=== PATIENT | female | born 1965 ===

== ENCOUNTER 2020-03-27 06:00 | Day surgery (SDC) | payer MEDICAID, SELFPAY ==
[2020-03-23 19:26] VITALS: BMI 26.4
[2020-03-27 06:25] VITALS: BP 149/68; PULSE 77; RESP 16; TEMP 36.5; O2SAT 99
[2020-03-27 06:37] LABS: Glucose, Whole Blood 125 mg/dL (60-115)
[2020-03-27] MEDS: levoFLOXacin/D5W 500 MG/100 ML PIGGYBACK 100 MG IV (06:40)
[2020-03-27] MEDS: Gentamicin Sulfate/NaCl 80 MG/100 ML PIGGYBACK 100 MG IV (06:41)
--- NOTE | 2020-03-27 07:05 | P.CONAN_ITS ---
[facility] Past Medical History Medical History Depression H/O ventral hernia HTN (hypertension) Kidney calculi Tietze syndrome Surgical History Surgical History H/O: hysterectomy Social History Social History Smoking Status: Never smoker Have you been hit, kicked, punched, or otherwise hurt by someone within the past year? If so, by whom?: No Advance Directives: Yes Advance Directives Information Provided: Yes Advance Directives on File: No Meds Allergies Allergy/AdvReac Type Severity Reaction Status Date / Time trazodone [TRAZODONE] Allergy Intermediate PROLONGED Unverified 03/01/20 15:08 QT INTERVAL (PER H&P) Home Medications Medication Instructions Recorded Confirmed Type albuterol sulfate 03/27/20 History albuterol sulfate [ProAir HFA] 2 puff INHALATION 6XD 03/27/20 03/27/20 History amlodipine 2.5 mg PO DAILY 03/27/20 03/27/20 History atorvastatin 40 mg PO DAILY 03/27/20 03/27/20 History buspirone mg 03/27/20 History ibuprofen 400 mg PO Q6H PRN 03/27/20 03/27/20 History losartan-hydrochlorothiazide 1 tab PO DAILY 03/27/20 03/27/20 History metformin 500 mg PO QPM 03/27/20 03/27/20 History naproxen [Naprosyn] 500 mg PO BID PRN 03/27/20 03/27/20 History omeprazole 40 mg PO DAILY 03/27/20 03/27/20 History tramadol 50 mg PO DAILY 03/27/20 03/27/20 History Exam Exam Date and Time: March 27, 2020 07 Height,Weight and Vital Signs: Height 5 ft 5 in Weight 72.121 kg Last Vital Signs Temp 97.7 F 03/27/20 06:25 Pulse 77 03/27/20 06:25 Resp 16 03/27/20 06:25 BP 149/68 H 03/27/20 06:25 Pulse Ox 99 03/27/20 06:25 Pertinent Lab Results Pertinent Lab Results: Laboratory Tests 03/27/20 06:33 POC Glucose 125 H Airway Mallampati Class: II TM Dist: >3cm Neck ROM: Full Loose/Missing/Broken Teeth: No Assessment and Plan Assessment Anesthesia Assessment: Anesthesia Plan Discussed and Chart Reviewed Final Anesthetic Review NPO: Yes ASA Class: II Final Preanesthetic Review: No Changes in Pt Med Stat, Meds/Allgs Chart Reviewed, Consent Obtained/Reviewed and Anes Risks/Benef Reviewed Patient Risk: Low Procedure Risk: Low Assessment/Block/Sedation in SS: Assess/Block/Sedation-SS Anesthetic Plan Anesthetic Plan: MAC: Disposition: Standard PACU
--- NOTE | 2020-03-27 07:37 | MHC.SHP ---
Pre-Procedural Eval Section A The patient is an INPATIENT: No Changes since office visit: Yes New Medical Problems The History & Physical has been completed within 30 days and I have reviewed it.: Yes Section B Chief Complaint: Hematuria Allergies: Allergies Allergy/AdvReac Type Severity Reaction Status Date / Time trazodone [TRAZODONE] Allergy Intermediate PROLONGED Unverified 03/01/20 15:08 QT INTERVAL (PER H&P) Plan Diagnosis/Plan: Unchanged Patient has been examined and remains a candidate for the planned procedure
--- NOTE | 2020-03-27 07:47 | OP_ITS ---
[facility] OPERATIVE REPORT PATIENT NAME: Cynthia Pereyra DATE OF : 1965 LOCATION: DATE OF SERVICE: [facility] #: [id number] PCP: OPERATIVE REPORT Page 1 SURGEON: Sherman Rodriguez III, MD PREOPERATIVE DIAGNOSIS: Hematuria. POSTOPERATIVE DIAGNOSIS: Normal cystoscopy. PROCEDURE PERFORMED: ESTIMATED BLOOD LOSS: None. COMPLICATIONS: None. ANESTHESIA: MAC. ASSISTANTS: SPECIMENS: SPECIMEN: None. DESCRIPTION OF PROCEDURE: The patient was taken to the operating room. After adequate anesthesia was obtained, a time-out was done demonstrating correct patient, correct procedure. Following this, the patient underwent panendoscopy with flexible scope with retroflexion. Both ureteral orifices seen effluxing clear urine. There were no foreign bodies, stones, or mucosal lesions. No sediment. She tolerated the procedure well without complications. MD KIRTI Bales III/LEISA / [id number] ANDREW
--- NOTE | 2020-03-27 07:50 | PM.OP ---
Brief Operative Note Date of procedure: 03/27/20 Pre-op diagnosis: hematuria Post-op diagnosis: other (normal cysto) Procedure: cystocopy Surgeon: Sherman Rodriguez III, MD Anesthesia: MAC Condition: stable Disposition: same day
[2020-03-27 07:51] VITALS: BP 125/66; PULSE 88; RESP 16; TEMP 36.4; O2SAT 95
[2020-03-27 08:06] VITALS: BP 143/80; PULSE 73; RESP 18; TEMP 36.4; O2SAT 98
== END 2020-03-27 08:45 | disposition home or self-care (01) ==
PROVIDERS: PCP Nurse Practitioner Family; Visit Provider Urology
PROC: 0TJB8ZZ Inspection of Bladder, Via Natural or Artificial Opening Endoscopic (ICD-10-PCS; CPT 52000; principal; 2020-03-27 07:30)
DX: R31.9 Hematuria, unspecified (principal); Z87.442 Personal history of urinary calculi; I10 Essential (primary) hypertension; E11.9 Type 2 diabetes mellitus without complications; M94.0 Chondrocostal junction syndrome [Tietze]; Z79.84 Long term (current) use of oral hypoglycemic drugs; Z79.899 Other long term (current) drug therapy; Z88.8 Allergy status to other drugs, medicaments and biological substances
CPT/HCPCS: 52000; 82947; J1580; J1956

== ENCOUNTER 2020-05-22 07:07 | Outpatient (REF) | payer MEDICAID, SELFPAY | END 2020-05-22 07:08 | disposition home or self-care (01) | LOC: HO.LAB 07:07 | PROVIDERS: PCP Family Medicine; Visit Provider Internal Medicine | DX: Z20.828 Contact with and (suspected) exposure to other viral communicable diseases (principal) | CPT/HCPCS: C9803; U0003 ==

== ENCOUNTER 2020-06-18 14:51 | Outpatient (REF) | payer MEDICAID, SELFPAY | END 2020-06-18 14:52 | disposition home or self-care (01) | LOC: HO.LAB 14:51 | PROVIDERS: Visit Provider Internal Medicine | DX: Z20.822 Contact with and (suspected) exposure to COVID-19 (principal) | CPT/HCPCS: 36415; C9803; U0003 ==

== ENCOUNTER 2020-07-02 14:56 | Outpatient (REF) | payer MEDICAID, SELFPAY | END 2020-07-02 14:57 | disposition home or self-care (01) | LOC: HO.LAB 14:56 | PROVIDERS: Visit Provider Internal Medicine | DX: Z20.822 Contact with and (suspected) exposure to COVID-19 (principal) | CPT/HCPCS: 36415; C9803; U0003 ==

== ENCOUNTER 2020-09-13 13:47 | Outpatient (REF) | payer MEDICAID, SELFPAY ==
--- NOTE | ~2020-09-13 | MM_ITS ---
EXAMINATION: MM DIAGNOSTIC DIGITAL BREAST TOMOSYNTHESIS, BILATERAL CLINICAL INFORMATION: Left breast calcifications The lifetime risk of breast cancer based on the Tyrer-Cuzick Model is 5.4%. COMPARISON: Mammography: 01/16/2020 and studies dating back to 10/13/2011. TECHNIQUE: Digital breast tomosynthesis is performed in both the craniocaudal and mediolateral oblique views along with computer-aided detection (CAD). Synthesized 2D images are generated from the tomosynthesis. Spot magnification views of the left breast in craniocaudal and 90 degree mediolateral views also performed. FINDINGS: The breasts are heterogeneously dense, which may obscure small masses (ACR BI-RADS breast composition Category c). There is multiplicity and bilaterality of calcifications which are scattered and grouped and with slow increase in bilateral calcifications over time. The few groupings of calcifications within the upper outer aspect of the left breast do not appear significantly changed from previous study and some of which appear to change from rounded calcifications on craniocaudal view to oval calcifications on 90 degree mediolateral view which may represent some layering of milk of calcium within microcysts. Not all the calcifications however show this appearance. No new abnormal dominant mass is appreciated in either breast. Recommend 1 year follow-up diagnostic mammography. Results are provided to the patient at time of visit by the technologist. MM/MM tomosynthesis diagnostic BI IMPRESSION: There are no significant changes from prior study. ASSESSMENT: BI-RADS 3: Probably Benign. RECOMMENDATION: Diagnostic mammography at time of next annual exam, due in 12 months. This patient's information was entered into a reminder system with a target due date for their next mammogram.
== END 2020-09-13 13:48 | disposition home or self-care (01) ==
LOC: HO.MAMMO 13:47
PROVIDERS: Visit Provider Family Medicine
DX: R92.1 Mammographic calcification found on diagnostic imaging of breast (principal)
CPT/HCPCS: 77062; 77066

== ENCOUNTER 2020-10-02 18:17 | Emergency (ER) | payer MEDICAID, SELFPAY ==
--- NOTE | ~2020-10-02 | XR_ITS ---
EXAMINATION: BILATERAL KNEES CLINICAL INFORMATION: Knee pain COMPARISON: Bilateral knee radiographs 05/20/2016 TECHNIQUE: 4 views each knee FINDINGS: Left: Again seen is some medial compartmental narrowing and some minimal marginal osteophytes. No other significant bone joint or soft tissue abnormality is seen. Probable phlebolith is noted in the left upper calf. Right: There is some minimal medial compartmental narrowing. No other significant abnormality is seen. No fractures or joint effusion. XR/XR knee LT 4V IMPRESSION: Mild degenerative changes both knees with some minimal medial compartmental narrowing. No acute finding.
--- NOTE | ~2020-10-02 | XR_ITS ---
EXAMINATION: BILATERAL KNEES CLINICAL INFORMATION: Knee pain COMPARISON: Bilateral knee radiographs 05/20/2016 TECHNIQUE: 4 views each knee FINDINGS: Left: Again seen is some medial compartmental narrowing and some minimal marginal osteophytes. No other significant bone joint or soft tissue abnormality is seen. Probable phlebolith is noted in the left upper calf. Right: There is some minimal medial compartmental narrowing. No other significant abnormality is seen. No fractures or joint effusion. XR/XR knee RT 4V IMPRESSION: Mild degenerative changes both knees with some minimal medial compartmental narrowing. No acute finding.
[2020-10-02 19:29] VITALS: BP 188/86; PULSE 102; RESP 18; TEMP 37.2; O2SAT 97; BMI 30.2
--- NOTE | 2020-10-02 20:01 | ED_ITS ---
HPI - Extremity Problem General Chief complaint: Extremity Injury, Lower Stated complaint: FOOT PAIN Time Seen by Provider: 10/02/20 18:47 Source: patient Mode of arrival: ambulatory Limitations: no limitations History of Present Illness HPI Narrative: 55 yo female with asthma,HPL, HTN here with a long history of knee pain that has worsened recently due to more walking and feels cracking when she walks Complaint: extremity pain Onset (ago): month(s) Pain Consistency: intermittent Location: left, right and knee Quality: aching Radiation: none Relieving factors: nothing Exacerbating factors: weight bearing and walking Associated symptoms: denies other symptoms Related Data Home Medications Medication Instructions Recorded Confirmed albuterol sulfate 03/27/20 albuterol sulfate [ProAir HFA] 2 puff INHALATION 6XD 03/27/20 03/27/20 amlodipine 2.5 mg PO DAILY 03/27/20 03/27/20 atorvastatin 40 mg PO DAILY 03/27/20 03/27/20 buspirone mg 03/27/20 ibuprofen 400 mg PO Q6H PRN 03/27/20 03/27/20 losartan-hydrochlorothiazide 1 tab PO DAILY 03/27/20 03/27/20 metformin 500 mg PO QPM 03/27/20 03/27/20 naproxen [Naprosyn] 500 mg PO BID PRN 03/27/20 03/27/20 omeprazole 40 mg PO DAILY 03/27/20 03/27/20 tramadol 50 mg PO DAILY 03/27/20 03/27/20 Previous Rx's Medication Instructions Recorded acetaminophen [Tylenol] 650 mg PO Q6H PRN #30 tab 10/02/20 cyclobenzaprine 10 mg PO TID PRN #14 tab 10/02/20 Allergies Allergy/AdvReac Type Severity Reaction Status Date / Time trazodone [TRAZODONE] Allergy Intermediate PROLONGED Unverified 03/01/20 15:08 QT INTERVAL (PER H&P) Review of Systems Review of Systems: Constitutional : No Fever, No Chills ENT/Mouth : No Ear Pain, No Hoarseness, No sore throat Eyes: No Eye Pain, No Swelling, No Redness, No Foreign Body Cardiovascular : No Chest Pain, No SOB Respiratory : No Cough, No Dyspnea Gastrointestinal : No Nausea, No Vomiting, No Diarrhea, No abdominal Pain Genitourinary : No Dysuria, No Hematuria Musculoskeletal : positive joint pain, No Myalgias, No Joint Swelling Skin : No Skin lacerations, No rash Neuro : No Weakness, No Numbness, No Loss of Consciousness, No PMFSH Past Medical History Attestation statement: The following information was validated with the patient. Medical History Depression Diabetes H/O ventral hernia HTN (hypertension) Kidney calculi Tietze syndrome Surgical History H/O: hysterectomy Social History Social History Smoking Status: Never smoker Advance Directives: No Advance Directives Information Provided: Yes Physical Exam Vital Signs: Vital Signs: Last Vital Signs Temp 98.6 F 10/02/20 20:06 Pulse 91 10/02/20 20:06 Resp 16 10/02/20 20:06 BP 161/85 H 10/02/20 20:06 Pulse Ox 98 10/02/20 20:06 Body Mass Index 30.2 Appearance: Alert. Oriented X3. No acute distress. Eyes: Pupils equal, round and reactive to light. ENT: Pharynx normal. Neck: Normal inspection. Neck supple. CVS: Normal heart rate and rhythm. Pulses normal. Respiratory: No respiratory distress. Breath sounds normal. Abdomen: Soft and non-tender. Skin: Skin warm and dry. Normal skin color. Normal skin turgor. Extremities: No lower extremity edema. No calf ttp bilateral ttp both knees - distal NV intact no erythema/rash/warmth/no large joint effusions Neuro: Oriented X 3. No motor deficit. No sensory deficit. MDM - Extremity (Nontraumatic) MDM Narrative Medical decision making narrative: 55 yo female with hx of knee pain worsening recently - distal NV intact, going on for many months, no signs of DVT, no signs of infection - at this time xrays ordered, refer to PCP as well as PO tylenol, DC home with supportive care Discharge Plan Discharge Clinical Impression: Arthritis of knee Patient Disposition: Home, Self-Care Instructions: Arthralgia (ED) Additional Instructions: return to ED for any worsening symptoms or concerns Prescriptions: New acetaminophen [Tylenol] 325 mg tablet 650 mg PO Q6H PRN (Reason: pain) Qty: 30 RF: 0 cyclobenzaprine 10 mg tablet 10 mg PO TID PRN (Reason: muscle spasm) Qty: 14 RF: 0 No Action atorvastatin 40 mg Tablet 40 mg PO DAILY RF: 0 buspirone 5 mg Tablet RF: 0 albuterol sulfate 0.63 mg/3 mL Solution For Nebulization RF: 0 amlodipine 2.5 mg Tablet 2.5 mg PO DAILY RF: 0 omeprazole 40 mg Capsule,Delayed Release(Dr/Ec) 40 mg PO DAILY RF: 0 tramadol 50 mg Tablet 50 mg PO DAILY RF: 0 losartan-hydrochlorothiazide 100-25 mg Tablet 1 tab PO DAILY RF: 0 ibuprofen 400 mg Tablet 400 mg PO Q6H PRN (Reason: Pain) RF: 0 albuterol sulfate [ProAir HFA] 90 mcg/actuation Hfa Aerosol Inhaler 2 puff INHALATION 6XD RF: 0 metformin 500 mg Tablet Extended Release 24 Hr 500 mg PO QPM RF: 0 naproxen [Naprosyn] 500 mg Tablet 500 mg PO BID PRN (Reason: Pain) RF: 0 Referrals: Elba Hirsch MD [Primary Care Provider] - 2 days (if not better, possible r eferral for steroid injection) Print Language: Macedonian
[2020-10-02 20:06] VITALS: BP 161/85; PULSE 91; RESP 16; TEMP 37; O2SAT 98
[2020-10-02] MEDS: Cyclobenzaprine HCl 10 MG TABLET PO (20:09)
[2020-10-02] MEDS: Acetaminophen 325 MG TABLET 650 MG PO (20:10)
== END 2020-10-02 20:36 | disposition home or self-care (01) ==
PROVIDERS: Emergency Provider Emergency Medicine; PCP Family Medicine
DX: M17.0 Bilateral primary osteoarthritis of knee (principal); M25.562 Pain in left knee; M25.561 Pain in right knee; I10 Essential (primary) hypertension; E11.9 Type 2 diabetes mellitus without complications; E78.5 Hyperlipidemia, unspecified; Z79.02 Long term (current) use of antithrombotics/antiplatelets; Z79.899 Other long term (current) drug therapy
CPT/HCPCS: 73564; 99283; 99284

== ENCOUNTER 2020-10-18 09:59 | Outpatient (REF) | payer MEDICAID, SELFPAY ==
[2020-10-18 10:20] LABS: COVID-19 Test Negative (Negative); IDNOW Serial# 55D5AD1C
== END 2020-10-18 10:00 | disposition home or self-care (01) ==
LOC: HO.LAB 09:59
PROVIDERS: Visit Provider Internal Medicine
DX: Z20.822 Contact with and (suspected) exposure to COVID-19 (principal)
CPT/HCPCS: 36415; 87635; C9803

== ENCOUNTER → 2020-11-01 12:13 | Outpatient (BNVA) | payer MEDICAID, SELFPAY | PROVIDERS: PCP Family Medicine; Visit Provider Urology | DX: R31.29 Other microscopic hematuria (principal); R10.2 Pelvic and perineal pain | CPT/HCPCS: 99212 ==

== ENCOUNTER 2020-11-03 12:47 | Emergency (ER) | payer MEDICAID, SELFPAY ==
[2020-11-03 12:52] VITALS: BP 177/85; PULSE 82; RESP 18; TEMP 36.8; O2SAT 98; BMI 29.7
--- NOTE | 2020-11-03 14:56 | ED.FEMALEGU ---
HPI - Female Genitourinary General Chief complaint: Urogenital-Female Stated complaint: vaginal pain Time Seen by Provider: 11/03/20 14:52 Source: patient Mode of arrival: ambulatory Limitations: language barrier History of Present Illness HPI Narrative: 55 y/o female with history of microscopic hematuria, hysterectomy, s/p 5 vaginal births, presenting with acute on chronic pelvic pain and pressure. She states she initially had pain back in March and has a normal cystoscopy in March 2020. She had improvement of pain/pressure and it returned again about 1 month ago. She was seen by Dr. Zeng yesterday who plans to perform another cystoscopy in December. He sent her home with Estrace cream which she did not leaf size picker from the pharmacy yet. She reports increased urinary frequency but no dysuria or hematuria. MD elicited complaint: pelvic pain Onset (ago): month(s) Location of symptoms: external genitalia and pelvis Severity: moderate Female Urogenital Radiation: Non-Radiating Severity scale (1-10): 6 Quality of pain: aching Consistency: intermittent Vaginal discharge: none Vaginal bleeding: none Urinary symptoms: Frequency Exacerbating factors: urination Relieving factors: none Associated symptoms: denies other symptoms Treatment prior to arrival: none Sexual activity: No Patient : No Related Data Home Medications Medication Instructions Recorded Confirmed albuterol sulfate 03/27/20 albuterol sulfate [ProAir HFA] 2 puff INHALATION 6XD 03/27/20 03/27/20 amlodipine 2.5 mg PO DAILY 03/27/20 03/27/20 atorvastatin 40 mg PO DAILY 03/27/20 03/27/20 buspirone mg 03/27/20 ibuprofen 400 mg PO Q6H PRN 03/27/20 03/27/20 losartan-hydrochlorothiazide 1 tab PO DAILY 03/27/20 03/27/20 metformin 500 mg PO QPM 03/27/20 03/27/20 naproxen [Naprosyn] 500 mg PO BID PRN 03/27/20 03/27/20 omeprazole 40 mg PO DAILY 03/27/20 03/27/20 tramadol 50 mg PO DAILY 03/27/20 03/27/20 Previous Rx's Medication Instructions Recorded acetaminophen [Tylenol] 650 mg PO Q6H PRN #30 tab 10/02/20 cyclobenzaprine 10 mg PO TID PRN #14 tab 10/02/20 estradiol See Rx Instructions .ROUTE DAILY 11/01/20 30 Days #42.5 g cefuroxime axetil 250 mg PO BID #10 tab 11/03/20 Allergies Allergy/AdvReac Type Severity Reaction Status Date / Time trazodone [TRAZODONE] Allergy Intermediate PROLONGED Verified 11/03/20 12:56 QT INTERVAL (PER H&P) Review of Systems Review of Systems: Constitutional: No Fever, No Chills Gastrointestinal: No Nausea, No Vomiting, No Diarrhea, No abdominal Pain Genitourinary: No Dysuria, + Urinary Frequency, No Hematuria Musculoskeletal: No joint pain, No Myalgias Skin: No Skin Lesions, No rash Neuro: No Weakness, No Numbness Psych: No Anxiety/Panic, No Depression Heme/Lymph: No Bruising, No Lymphadenopathy Endocrine: No Polyuria, No Polydipsia PMF Past Medical History Attestation statement: The following information was validated with the patient. Medical History Depression Diabetes H/O ventral hernia HTN (hypertension) Kidney calculi Tietze syndrome Surgical History H/O: hysterectomy Social History Social History Smoking Status: Never smoker Advance Directives: No Advance Directives Information Provided: No Patient : No Physical Exam Vital Signs: Vital Signs: Last Vital Signs Temp 97.6 F 11/03/20 16:10 Pulse 80 11/03/20 16:10 Resp 18 11/03/20 16:10 BP 159/79 H 11/03/20 16:10 Pulse Ox 98 11/03/20 16:10 Body Mass Index 29.7 Appearance: Alert. Oriented X3. No acute distress. Eyes: Pupils equal, round and reactive to light. ENT: Pharynx normal. Neck: Normal inspection. Neck supple. CVS: Normal heart rate and rhythm. Pulses normal. Respiratory: No respiratory distress. Breath sounds normal. Abdomen: Soft and nontender. +BS x4 : normal external genitalia. pelvic exam with palpable bladder wall protusion into the vaginal vaula with valsalva maneuver, no external protusion. no vaginal discharge or bleeding. no palpable firm masses. Skin: Skin warm and dry. Normal skin color. Normal skin turgor. No rashes. Extremities: No lower extremity edema. Neuro: Oriented X 3. No motor deficit. No sensory deficit. Course Course Course Narrative: 55 y/o female presenting with acute on chronic pelvic pain and pressure. Exam is consistent with mild cystocele. No protruding structures externally. She has some urinary frequency and urgency which is likely releated to bladder prolapse. UA showing microscopic hematuria which seems to be chronic. Given her worsening dyscomfort and urinary symptoms will treat wtih course of abx. Will refer back to Urology and PUBLIC SERVICE OFFICER who specialized in reconstructive surgery. She may benefit from pessery vs sling procedure. Stable for d/c home. [facility] - Female Genitourinary Lab Data Labs: Lab Results 11/03/20 Range/Units 16:08 Urine Color YELLOW Urine Appearance CLOUDY Urine pH 7.0 (5.0-8.0) Ur Specific Cedar 1.020 (1.005-1.025) Urine Protein NEG (NEG-TRACE) MG/DL Urine Glucose (UA) NEG (NEG) MG/DL Urine Ketones NEG (NEG) MG/DL Urine Blood 2+ H (NEG) Urine Nitrite NEG (NEG) Ur Leukocyte Esterase NEG (NEG) Urine RBC 1-4 (0) /HPF Urine WBC 1-4 (0-4) /HPF Ur Squamous Epith Cells TRACE /LPF Amorphous Sediment 2+ /LPF Urine Bacteria 1+ /LPF Discharge Plan Discharge Clinical Impression: Pelvic pain Patient Disposition: Home, Self-Care Instructions: Cystocele (ED), Pelvic Pain in Women (ED), Interstitial Cystitis (ED) Additional Instructions: Follow up with Dr. Zeng Recommend following up with PUBLIC SERVICE OFFICER specialist: Dr. Jaymie Arora in [facility] who specializes in Urogynecology & Pelvic Reconstructive Surgery Take the prescribed antibiotic for inflammation and irritation of your bladder with possible infection. Prescriptions: New cefuroxime axetil 250 mg tablet 250 mg PO BID Qty: 10 RF: 0 No Action atorvastatin 40 mg Tablet 40 mg PO DAILY RF: 0 buspirone 5 mg Tablet RF: 0 albuterol sulfate 0.63 mg/3 mL Solution For Nebulization RF: 0 amlodipine 2.5 mg Tablet 2.5 mg PO DAILY RF: 0 omeprazole 40 mg Capsule,Delayed Release(Dr/Ec) 40 mg PO DAILY RF: 0 tramadol 50 mg Tablet 50 mg PO DAILY RF: 0 losartan-hydrochlorothiazide 100-25 mg Tablet 1 tab PO DAILY RF: 0 ibuprofen 400 mg Tablet 400 mg PO Q6H PRN (Reason: Pain) RF: 0 albuterol sulfate [ProAir HFA] 90 mcg/actuation Hfa Aerosol Inhaler 2 puff INHALATION 6XD RF: 0 metformin 500 mg Tablet Extended Release 24 Hr 500 mg PO QPM RF: 0 naproxen [Naprosyn] 500 mg Tablet 500 mg PO BID PRN (Reason: Pain) RF: 0 acetaminophen [Tylenol] 325 mg tablet 650 mg PO Q6H PRN (Reason: pain) Qty: 30 RF: 0 cyclobenzaprine 10 mg tablet 10 mg PO TID PRN (Reason: muscle spasm) Qty: 14 RF: 0 estradiol 0.01 % (0.1 mg/gram) cream See Rx Instructions .Route DAILY 30 Days Qty: 42.5 RF: 2 Referrals: Elias Zeng MD [Physician] - 2 days Interventions: ED Discharge Assessment Last Done: 11/03/20 17:35 Discharge Date/Time: 11/03/20 17:36 Print Language: Hungarian
[2020-11-03 16:10] VITALS: BP 159/79; PULSE 80; RESP 18; TEMP 36.4; O2SAT 98
[2020-11-03 16:56] LABS: Glucose Urine UA NEG (NEG); Leukocyte Esterase Urine NEG (NEG); Nitrite Urine NEG (NEG); Urine Blood 2+ (NEG); Urine Ketones NEG (NEG); Urine Protein NEG (NEG-TRACE)
[2020-11-03 17:01] LABS: Appearance Urine CLOUDY; Color Urine YELLOW
[2020-11-03 17:12] LABS: Amorphous Sediment Urine 2+ /LPF; Bacteria Urine 1+ /LPF; Squamous Epithelial Cell Urine TRACE /LPF
== END 2020-11-03 17:36 | disposition home or self-care (01) ==
PROVIDERS: Physician Assistant; Emergency Provider Emergency Medicine; PCP Family Medicine
DX: R10.2 Pelvic and perineal pain (principal); R31.29 Other microscopic hematuria; N81.10 Cystocele, unspecified; E11.9 Type 2 diabetes mellitus without complications; I10 Essential (primary) hypertension; Z87.442 Personal history of urinary calculi
CPT/HCPCS: 81001; 81003; 99283

== ENCOUNTER 2020-11-13 14:36 | Outpatient (REF) | payer MEDICAID, SELFPAY ==
--- NOTE | ~2020-11-13 | CT_ITS ---
EXAMINATION: CT CHEST WITHOUT CONTRAST CLINICAL INFORMATION: Right lower lobe pulmonary nodule COMPARISON: Previous chest CT October 2019 and lung windows from abdominal pelvic CT scan February 2020 TECHNIQUE: Multidetector volumetric CT imaging of the chest was done. Axial MIP volume rendering provided. Sagittal and coronal reformatted images were obtained. This CT examination was performed using dose optimization techniques as appropriate, variously including the following: *Automated exposure control *Adjustment of mA and/or kV according to patient size (this includes techniques or standardized protocols for targeted exams where dose is matched to indication/reason for exam; i.e. extremities or head) *Use of iterative reconstruction technique DLP: 177 mGy-cm FINDINGS: LUNGS: Exam is limited due to artifact from respiratory motion. There are clustered small groundglass attenuation nodules in the superior segment of the right lower lobe. Largest area measures 4 x 10 mm axial image 260 series 7. This is new or increased compared to previous chest CT scan October 2019. There is a 5 mm groundglass attenuation right lower lobe nodule axial image 367 series 7 that is stable. There is a 3 mm more solid-appearing right lower lobe nodule axial image 299 series 7 that is new. MEDIASTINUM: The thyroid gland is enlarged. There is a business nodule that measures 2.5 cm that is unchanged. There is a 1 1 x 0.5 x 2 cm calcified left nodule that is unchanged. There are no enlarged hilar or mediastinal lymph nodes. The heart does not appear enlarged. There is mild coronary artery calcification. There is no pericardial effusion. PLEURA: There is no pleural effusion. No pleural mass or thickening. AXILLA: No lymphadenopathy. UPPER ABDOMEN: The gallbladder has been removed. OSSEOUS STRUCTURES: Unremarkable. CT/CT chest wo con IMPRESSION: New clustered groundglass attenuation nodules in the superior segment of the right lower lobe. This may represent an infectious or inflammatory process. New 3 mm more solid-appearing right lower lobe nodule. Stable 5 mm groundglass attenuation right lower lobe nodule at the lung base. Short-term follow-up chest CT in several months should be considered. Enlarged thyroid gland with multiple nodules stable from previous exam.
== END 2020-11-13 14:37 | disposition home or self-care (01) ==
LOC: HO.CT 14:36
PROVIDERS: Visit Provider Internal Medicine Pulmonary Disease
DX: H46.2 Nutritional optic neuropathy (principal); K43.2 Incisional hernia without obstruction or gangrene
CPT/HCPCS: 71250; 99212

== ENCOUNTER 2020-11-22 15:17 | Outpatient (REF) | payer MEDICAID, SELFPAY ==
--- NOTE | ~2020-11-22 | US_ITS ---
EXAMINATION: US ABDOMEN LIMITED CLINICAL INFORMATION: Incisional hernia without obstruction or gangrene. COMPARISON: CT abdomen and pelvis without and with contrast dated 02/14/2020. KUB dated 08/22/2019. Ultrasound abdomen complete dated 04/15/2016 and 10/04/2013. X-ray abdomen dated 10/04/2013. TECHNIQUE: Real-time imaging of the midline area superior to umbilicus. FINDINGS: No obvious hernia is identified. Heterogeneous irregularly-shaped area is seen in the midline in the region of the hernia repair scar superior to the umbilicus with a small avascular cystic area within it. The area measures about 5.2 x 1.0 x 1.4 cm. A similar finding appears to be present on the 02/14/2020 CT scan. US/US abdomen limited IMPRESSION: No evidence of a recurrent hernia. Some scarring is present in the abdominal wall at the hernia repair site.
== END 2020-11-22 15:18 | disposition home or self-care (01) ==
LOC: HO.US 15:17
PROVIDERS: Visit Provider Surgery
DX: K43.2 Incisional hernia without obstruction or gangrene (principal)
CPT/HCPCS: 76705

== ENCOUNTER → 2020-12-04 09:46 | Outpatient (BNVA) | payer MEDICAID, SELFPAY | PROVIDERS: PCP Family Medicine; Referring Provider Family Medicine; Visit Provider Surgery | DX: K43.2 Incisional hernia without obstruction or gangrene (principal) | CPT/HCPCS: 99212 ==

== ENCOUNTER → 2020-12-11 09:37 | Outpatient (BNVA) | payer MEDICAID, SELFPAY | PROVIDERS: PCP Family Medicine; Visit Provider Internal Medicine Pulmonary Disease | DX: R91.8 Other nonspecific abnormal finding of lung field (principal); R06.00 Dyspnea, unspecified | CPT/HCPCS: 99212 ==

== ENCOUNTER → 2021-01-23 10:51 | Outpatient (BNVA) | payer MEDICAID, SELFPAY | PROVIDERS: PCP Family Medicine; Visit Provider Urology | DX: R10.2 Pelvic and perineal pain (principal); R31.29 Other microscopic hematuria; N30.10 Interstitial cystitis (chronic) without hematuria | CPT/HCPCS: 52000; 99212 ==

== ENCOUNTER 2021-03-01 07:18 | Outpatient (REF) | payer MEDICAID, SELFPAY | END 2021-03-01 07:19 | disposition home or self-care (01) | LOC: HO.HOSX 07:18 | PROVIDERS: Visit Provider Physician Assistant | DX: Z13.89 Encounter for screening for other disorder (principal) ==

== ENCOUNTER 2021-03-04 08:19 | Day surgery (SDC) | payer MEDICAID, SELFPAY ==
[2021-02-26 12:46] VITALS: BMI 32.9
--- NOTE | 2021-03-01 10:47 | HO.ANESPROP2 ---
Documented by User: Iris Hatch NP 03/01/21 10:48 HPI - Anesthesia Eval Consult details Narrative: 56yo F for Cystoscopy Hydrodistention of Bladder s/p cysto 03/2020 with MAC PMFSH Active Problems Active Problems: All Active Problems (Updated 02/26/21 @ 12:32 by Day Titus RN) Microscopic hematuria (Acute) Pelvic pain (Acute) Incisional hernia (Acute) Pulmonary nodules (Acute) Dyspnea (Acute) Interstitial cystitis (Acute) Past Medical History Medical History Asthma Depression Diabetes Elevated cholesterol GERD (gastroesophageal reflux disease) HTN (hypertension) Kidney calculi PONV (postoperative nausea and vomiting) Tietze syndrome Family History Family History Father Throat cancer Maternal Aunt Breast cancer Surgical History Surgical History H/O: hysterectomy History of cystoscopy History of excision of mass History of umbilical hernia repair History of ventral hernia repair Hx of cholecystectomy Social History Social History Are you a primary day care director to a significant other at home: No Do you presently have visiting nurse or other home services: No Alcohol intake: never Patient Tobacco Use Status: Never used Tobacco Use of substances other than those prescribed or required for medical reasons: No Have you been hit, kicked, punched, or otherwise hurt by someone within the past year? If so, by whom?: No Are you DNR?: No Advance Directives: Yes Advance Directives Information Provided: No Advance Directives on File: Yes Advance Directives Date on File: 10/10/13 Recently lost weight without trying: No Eating poorly because of decreased appetite: No Nutrition Risks: No Nutritional Risk Patient : No Meds Allergies Allergy/AdvReac Type Severity Reaction Status Date / Time trazodone [TRAZODONE] Allergy Intermediate PROLONGED Verified 02/26/21 12:32 QT INTERVAL (PER H&P) Home Medications Medication Instructions Recorded Confirmed Last Taken Type albuterol sulfate 0.63 mg/3 mL 03/27/20 12/04/20 Unknown History solution for nebulization buspirone 5 mg tablet mg 03/27/20 12/04/20 Unknown History ibuprofen 400 mg tablet 400 mg PO Q6H PRN 03/27/20 02/26/21 Unknown History losartan 100 1 tab PO DAILY 03/27/20 02/26/21 Unknown History mg-hydrochlorothiazide 25 mg tablet metformin 500 mg tablet,extended 500 mg PO QPM 03/27/20 02/26/21 Unknown History release 24 hr naproxen 500 mg tablet (Naprosyn) 500 mg PO BID PRN 03/27/20 02/26/21 Unknown History omeprazole 40 mg capsule,delayed 40 mg PO DAILY 03/27/20 02/26/21 Unknown History release tramadol 50 mg tablet 50 mg PO DAILY 03/27/20 02/26/21 Unknown History amlodipine 10 mg tablet 1 tab PO QAM 02/26/21 02/26/21 Unknown History aripiprazole 10 mg tablet (Abilify) 1 tab PO QAM 02/26/21 02/26/21 Unknown History atorvastatin 80 mg tablet 1 tab PO BEDTIME 02/26/21 02/26/21 Unknown History bupropion HCl 150 mg 24 hr tablet, 1 tab PO QAM 02/26/21 02/26/21 Unknown History extended release bupropion HCl 300 mg 24 hr tablet, 1 tab PO QAM 02/26/21 02/26/21 Unknown History extended release cholecalciferol (vitamin D3) 50 1 tab PO QAM 02/26/21 02/26/21 Unknown History mcg (2,000 unit) tablet fluoxetine 20 mg capsule (Prozac) 2 cap PO QAM 02/26/21 02/26/21 Unknown History gabapentin 300 mg capsule 1 cap PO BID 02/26/21 02/26/21 Unknown History lorazepam 2 mg tablet 1 tab PO BEDTIME 02/26/21 02/26/21 Unknown History trazodone 150 mg tablet 1 tab PO BEDTIME 02/26/21 02/26/21 Unknown History Exam Exam Date and Time: March 01, 2021 1047 Height,Weight and Vital Signs: Height 5 ft 5 in Weight 89.811 kg Assessment and Plan Assessment Anesthesia Assessment: Chart Reviewed Documented by User: Vashti Beckford MD 03/04/21 10:36 PMF Active Problems Active Problems: All Active Problems (Updated 02/26/21 @ 12:32 by Day Titus RN) Microscopic hematuria (Acute) Pelvic pain (Acute) Incisional hernia (Acute) Pulmonary nodules (Acute) Dyspnea (Acute) Interstitial cystitis (Acute) S/o covid vaccines Past Medical History Medical History Asthma Depression Diabetes Elevated cholesterol GERD (gastroesophageal reflux disease) HTN (hypertension) Kidney calculi PONV (postoperative nausea and vomiting) Tietze syndrome Family History Family History Father Throat cancer Maternal Aunt Breast cancer Family history of problems with anesthesia: No Surgical History Surgical History H/O: hysterectomy History of cystoscopy History of excision of mass History of umbilical hernia repair History of ventral hernia repair Hx of cholecystectomy History of Problems with Anesthesia: Yes (PONV) Social History Social History Are you a primary day care director to a significant other at home: No Do you presently have visiting nurse or other home services: No Alcohol intake: never Patient Tobacco Use Status: Never used Tobacco Use of substances other than those prescribed or required for medical reasons: No Have you been hit, kicked, punched, or otherwise hurt by someone within the past year? If so, by whom?: No Are you DNR?: No Advance Directives: Yes Advance Directives Information Provided: No Advance Directives on File: Yes Advance Directives Date on File: 10/10/13 Recently lost weight without trying: No Eating poorly because of decreased appetite: No Nutrition Risks: No Nutritional Risk Patient : No Meds Allergies Allergy/AdvReac Type Severity Reaction Status Date / Time trazodone [TRAZODONE] Allergy Intermediate PROLONGED Verified 02/26/21 12:32 QT INTERVAL (PER H&P) Home Medications Medication Instructions Recorded Confirmed Last Taken Type albuterol sulfate 0.63 mg/3 mL 03/27/20 12/04/20 Unknown History solution for nebulization buspirone 5 mg tablet mg 03/27/20 12/04/20 Unknown History ibuprofen 400 mg tablet 400 mg PO Q6H PRN 03/27/20 02/26/21 Unknown History losartan 100 1 tab PO DAILY 03/27/20 02/26/21 Unknown History mg-hydrochlorothiazide 25 mg tablet metformin 500 mg tablet,extended 500 mg PO QPM 03/27/20 02/26/21 Unknown History release 24 hr naproxen 500 mg tablet (Naprosyn) 500 mg PO BID PRN 03/27/20 02/26/21 Unknown History omeprazole 40 mg capsule,delayed 40 mg PO DAILY 03/27/20 02/26/21 Unknown History release tramadol 50 mg tablet 50 mg PO DAILY 03/27/20 02/26/21 Unknown History amlodipine 10 mg tablet 1 tab PO QAM 02/26/21 02/26/21 Unknown History aripiprazole 10 mg tablet (Abilify) 1 tab PO QAM 02/26/21 02/26/21 Unknown History atorvastatin 80 mg tablet 1 tab PO BEDTIME 02/26/21 02/26/21 Unknown History bupropion HCl 150 mg 24 hr tablet, 1 tab PO QAM 02/26/21 02/26/21 Unknown History extended release bupropion HCl 300 mg 24 hr tablet, 1 tab PO QAM 02/26/21 02/26/21 Unknown History extended release cholecalciferol (vitamin D3) 50 1 tab PO QAM 02/26/21 02/26/21 Unknown History mcg (2,000 unit) tablet fluoxetine 20 mg capsule (Prozac) 2 cap PO QAM 02/26/21 02/26/21 Unknown History gabapentin 300 mg capsule 1 cap PO BID 02/26/21 02/26/21 Unknown History lorazepam 2 mg tablet 1 tab PO BEDTIME 02/26/21 02/26/21 Unknown History trazodone 150 mg tablet 1 tab PO BEDTIME 02/26/21 02/26/21 Unknown History Exam Height,Weight and Vital Signs: Height 5 ft 5 in Weight 89.811 kg Vital Signs Temp Pulse Resp BP Pulse Ox 03/04/21 09:01 98.2 F 80 16 153/88 H 99 Pertinent Lab Results Pertinent Lab Results: Lab Results 03/04/21 Range/Units 08:50 POC Glucose 138 H (60-115) mg/dL Airway Mallampati Class: III TM Dist: >3cm Neck ROM: Full Loose/Missing/Broken Teeth: No Heart: RRR Lungs: CTAB Assessment and Plan Assessment Anesthesia Assessment: Anesthesia Plan Discussed Final Anesthetic Review Family History of Problems with Anesthesia: No History of Problems with Anesthesia: Yes (PONV) NPO: Yes ASA Class: II Final Preanesthetic Review: No Changes in Pt Med Stat, Meds/Allgs Chart Reviewed, Consent Obtained/Reviewed and Anes Risks/Benef Reviewed Patient Risk: Low Procedure Risk: Low Assessment/Block/Sedation in SS: Assess/Block/Sedation-SS Anesthetic Plan Anesthetic Plan: GA Disposition: Standard PACU
[2021-03-04] VITALS (8 sets, daily range): BP systolic 114–153; BP diastolic 66–88; PULSE 68–94; RESP 16–20; TEMP 36.1–36.8; O2SAT 97–100; BMI 28.1
[2021-03-04] MEDS: Lactated Ringers 1,000 ML 100 ML IVCONT (09:02)
[2021-03-04] MEDS: levoFLOXacin 500 MG TABLET PO (09:04)
[2021-03-04 09:05] LABS: Glucose, Whole Blood 138 mg/dL (60-115)
--- NOTE | 2021-03-04 10:11 | P.HPSUR_ITS ---
Pre-Procedural Eval Section A Date of Service: 03/04/21 Section B Chief Complaint: Cystitis Interstital Details of Present Illness: Persistent interstitial cystitis Relevant Social History: None Present Medications: see Short Stay Collaborative assessment Medical History: Significant History History of Previous Operations: Relevant previous surgery/procedure and date(s) Allergies: Allergies Allergy/AdvReac Type Severity Reaction Status Date / Time trazodone [TRAZODONE] Allergy Intermediate PROLONGED Verified 02/26/21 12:32 QT INTERVAL (PER H&P) Review of Systems Sugical H&P ROS: Negative: Constitution, Cardiovascular, Respiratory, Neuro logical, Psychiatric, Hem-Onc, Allergic/Immunologic, Gastrointestinal, Genitourinary, Musculoskeletal, Integumentary, Endocrine and Eyes/Ears/Nose/Throat Exam Surgical H&P Exam: Normal: HEENT, Normal: Heart, Normal: Lungs, Normal: Extremities, Normal: Abdomen, Normal: Skin and Normal: Neurological Plan Diagnosis/Plan: Unchanged (hydrodistention) I have reviewed the history and physical and performed a pertinent physical examination on my patient. No changes have occurred unless specified.
--- NOTE | 2021-03-04 11:09 | W.PM.OPN ---
Operative Note Operative Note Date of Service: 03/04/21 Narrative: PreOperative Diagnosis: Interstitial cystitis with pelvic pain Post Operative Diagnosis: Interstitial cystitis with pelvic pain Procedure: Hydrodistention Surgeon: Dr Elias Zeng Anesthesia: General Indications for procedure: Persistent frequency and urgency. Non responsive to oral medications. Procedure: After informed consent was verified the patient was brought to the operating room and placed in a supine position. Anesthesia was administered per protocol. The patient was placed in a modified dorsal lithotomy position and prepped and draped in sterile fashion. Safety pause time-out was observed. Antibiotics being given. A 22 [place] cystoscope was used to empty the bladder. A mixture of bupivacaine lidocaine gel 20 cc was instilled into the bladder and allowed to sit for 2-3 minutes. Hydrodistention of the bladder was performed. The bladder was filled and allowed to sit for 2 minutes. Filling was from a height of 1 m. On the 1st fill there was 600 cc within the bladder. Scattered glomerulations noted. Second filling of the bladder was performed in similar fashion. Bladder biopsies were performed and fulguration used for control. Marked trabeculation noted of collagen deposition. Volume was approximately 650 cc. The the bladder was emptied. The patient tolerated procedure well was extubated in operating room transferred in stable condition to the recovery area. Appropriate postprocedure pain medication was provided. Pathology: Bladder biopsy Drains: None
[2021-03-04] MEDS: ondansetron HCL 4 MG/2 ML VIAL IVPUSH (11:28)
[2021-03-04] MEDS: Acetaminophen 325 MG TABLET 650 MG PO (11:53)
[2021-03-04] MEDS: Phenazopyridine HCL 100 MG TABLET PO (11:54)
== END 2021-03-04 13:03 | disposition home or self-care (01) ==
PROVIDERS: PCP Family Medicine; Visit Provider Urology
PROC: 0T7B7ZZ Dilation of Bladder, Via Natural or Artificial Opening (ICD-10-PCS; CPT 52260; principal; 2021-03-04 10:20)
DX: N30.11 Interstitial cystitis (chronic) with hematuria (principal); R10.2 Pelvic and perineal pain; E11.9 Type 2 diabetes mellitus without complications; I10 Essential (primary) hypertension; Z79.899 Other long term (current) drug therapy
CPT/HCPCS: 52260; 52204; 82947; 88305; J1100; J2250; J2405; J2550; J2765; J3010

== ENCOUNTER → 2021-03-15 15:19 | Outpatient (BNVA) | payer MEDICAID, SELFPAY | PROVIDERS: PCP Family Medicine | DX: N30.10 Interstitial cystitis (chronic) without hematuria (principal) | CPT/HCPCS: 51798; 99212 ==

== ENCOUNTER → 2021-03-29 08:41 | Outpatient (BNVA) | payer MEDICAID, SELFPAY | PROVIDERS: Visit Provider Physician Assistant | DX: M17.0 Bilateral primary osteoarthritis of knee (principal) | CPT/HCPCS: 20610; 99202; J1020 ==

== ENCOUNTER → 2021-07-26 14:32 | Outpatient (BNVA) | payer MEDICAID, SELFPAY | PROVIDERS: Visit Provider Physician Assistant | DX: M17.0 Bilateral primary osteoarthritis of knee (principal); E11.9 Type 2 diabetes mellitus without complications | CPT/HCPCS: 20610; 99212; J1020 ==

== ENCOUNTER → 2021-09-02 13:53 | Outpatient (BNVA) | payer MEDICAID, SELFPAY | PROVIDERS: PCP Family Medicine | DX: R31.29 Other microscopic hematuria (principal); N30.10 Interstitial cystitis (chronic) without hematuria | CPT/HCPCS: 51798; 99212 ==

== ENCOUNTER 2021-09-16 11:10 | Outpatient (REF) | payer MEDICAID, SELFPAY ==
--- NOTE | ~2021-09-16 | MM_ITS ---
EXAMINATION: MM DIAGNOSTIC DIGITAL BREAST TOMOSYNTHESIS, BILATERAL CLINICAL INFORMATION: Due for yearly. Also follow-up probable benign increased regional calcifications upper outer left breast initially described on diagnostic exam 01/16/2020. TC score 11%. Benign left stereotactic biopsy 01/15/2016 (fibrocystic changes including apocrine microcysts containing polarizable calcifications). COMPARISON: Mammography: 09/13/2020, 01/16/2020 (diagnostic, BI-RADS 3), 06/02/2019, 03/13/2017, 01/15/2016. TECHNIQUE: Digital breast tomosynthesis is performed in both the craniocaudal and mediolateral oblique views along with computer-aided detection (CAD). Synthesized 2D images are generated from the tomosynthesis. Additional magnification left CC and magnification left ML views are obtained. FINDINGS: The breasts are heterogeneously dense, which may obscure small masses (ACR BI-RADS breast composition Category c). Breast tissue composition borders on average fibroglandular. There are scattered stable minor asymmetries. No developing density or interval mass or architectural abnormality. The axilla and skin contours are unremarkable. There are scattered bilateral similar appearing isolated and small grouped calcifications in both breasts. There is biopsy clip marker again seen mid 1:00 left breast. Left breast calcifications for follow-up are similar to prior diagnostic exams and will be reassessed again at next bilateral annual mammography to conclude long-term surveillance. Results are provided to the patient at time of visit by the technologist. MM/MM tomosynthesis diagnostic BI IMPRESSION: No significant changes from prior studies. ASSESSMENT: BI-RADS 3: Probably Benign RECOMMENDATION: Diagnostic mammography at time of next annual exam, due in 12 months. This patient's information was entered into a reminder system with a target due date for their next mammogram.
== END 2021-09-16 11:11 | disposition home or self-care (01) ==
LOC: HO.MAMMO 11:10
PROVIDERS: Visit Provider Family Medicine
DX: R92.1 Mammographic calcification found on diagnostic imaging of breast (principal)
CPT/HCPCS: 77062; 77066

== ENCOUNTER 2021-11-01 12:49 | Outpatient (REF) | payer MEDICAID, SELFPAY ==
--- NOTE | ~2021-11-01 | CT_ITS ---
EXAMINATION: CT CHEST WITHOUT CONTRAST CLINICAL INFORMATION: Follow-up pulmonary nodule COMPARISON: Previous chest CT most recent November 2020 TECHNIQUE: Multidetector volumetric CT imaging of the chest was done. Axial MIP volume rendering provided. Sagittal and coronal reformatted images were obtained. This CT examination was performed using dose optimization techniques as appropriate, variously including the following: *Automated exposure control *Adjustment of mA and/or kV according to patient size (this includes techniques or standardized protocols for targeted exams where dose is matched to indication/reason for exam; i.e. 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 The lungs are otherwise clear. The remainder of the right lower lobe nodules on November [address] are no longer seen. MEDIASTINUM: The thyroid gland is enlarged. There is a 1.5 cm calcified left thyroid nodule. This appears unchanged. No hilar or mediastinal lymphadenopathy. Mild coronary artery calcification. Normal heart size. No pericardial effusion. PLEURA: There is no pleural effusion. No pleural mass or thickening. AXILLA: There is shotty bilateral axillary lymphadenopathy, right greater than left. No chest wall mass. UPPER ABDOMEN: The gallbladder has been removed. The liver is low in attenuation suggestive of fatty infiltration. OSSEOUS STRUCTURES: Unremarkable. CT/CT chest wo con IMPRESSION: Resolved groundglass attenuation right lower lobe nodules. There is a small 3 mm right lower lobe nodule adjacent to the diaphragmatic pleural surface that is stable. Enlarged thyroid gland and calcified left thyroid nodule similar to previous exam. Fleischner guidelines were followed.
== END 2021-11-01 12:50 | disposition home or self-care (01) ==
LOC: HO.CT 12:49
PROVIDERS: Visit Provider Internal Medicine Pulmonary Disease
DX: R91.8 Other nonspecific abnormal finding of lung field (principal)
CPT/HCPCS: 71250

== ENCOUNTER → 2021-12-10 09:43 | Outpatient (BNVA) | payer MEDICAID, SELFPAY | PROVIDERS: PCP General Practice; Visit Provider Internal Medicine Pulmonary Disease | DX: R91.8 Other nonspecific abnormal finding of lung field (principal); R06.00 Dyspnea, unspecified | CPT/HCPCS: 99212 ==

== ENCOUNTER → 2022-02-05 13:15 | Outpatient (BNVA) | payer MEDICAID, SELFPAY | PROVIDERS: PCP General Practice; Visit Provider Physician Assistant | DX: M17.0 Bilateral primary osteoarthritis of knee (principal) | CPT/HCPCS: 20610; 99212; J1020 ==

== ENCOUNTER 2022-06-08 12:38 | Emergency (ER) | payer MEDICAID, SELFPAY ==
[2022-06-08 12:44] VITALS: BP 167/87; PULSE 80; RESP 18; TEMP 36.1; O2SAT 98; BMI 28.1
[2022-06-08 13:44] LABS: Influenza A PCR NEGATIVE (Negative); Influenza B PCR NEGATIVE (Negative); Resp Syncy Virus RNA Qual PCR NEGATIVE (Negative); SARS COV2 PCR INHOUSE NEGATIVE (Negative)
--- NOTE | 2022-06-08 13:51 | ECG_ITS ---
Test Reason : left shoulder pain Blood Pressure : / mmHG Vent. Rate : 074 BPM Atrial Rate : 074 BPM P-R Int : 142 ms QRS Dur : 084 ms QT Int : 406 ms P-R-T Axes : 018 032 062 degrees QTc Int : 450 ms Normal sinus rhythm Nonspecific T wave abnormality Abnormal ECG When compared to the previous EKG of No significant changes seen Referred By: Nelida Sexton Electronically Signed By:Fercho Gloria
--- NOTE | 2022-06-08 14:11 | PC.NURSE ---
patient a&ox3, medicated for lt scapular pain, and cough, will continue to monitor
--- NOTE | 2022-06-08 14:11 | PC.NURSE ---
ekg performed by tech
--- NOTE | 2022-06-08 14:40 | ED.GENADULT ---
HPI - General Adult General Chief complaint: General Medical Stated complaint: L shoulder pain Source: patient Mode of arrival: ambulatory History of Present Illness HPI narrative: 57-year-old female with a past medical history of asthma, depression, diabetes, HLD, GERD, HTN, presenting to the ED complaining of dry cough, SOB, and intermittent left shoulder pain x2 months. Denies fever, chills, chest pain, numbness, tingling, weakness, known injury/trauma or fall, recent travel. + sick contacts Onset (ago): month(s) Related Data Home Medications Medication Instructions Recorded Confirmed albuterol sulfate 0.63 mg/3 mL 03/27/20 12/04/20 solution for nebulization buspirone 5 mg tablet mg 03/27/20 12/04/20 ibuprofen 400 mg tablet 400 mg PO Q6H PRN Pain 03/27/20 02/26/21 losartan 100 1 tab PO DAILY 03/27/20 02/26/21 mg-hydrochlorothiazide 25 mg tablet metformin 500 mg tablet,extended 500 mg PO QPM 03/27/20 02/26/21 release 24 hr naproxen 500 mg tablet (Naprosyn) 500 mg PO BID PRN Pain 03/27/20 02/26/21 omeprazole 40 mg capsule,delayed 40 mg PO DAILY 03/27/20 02/26/21 release amlodipine 10 mg tablet 1 tab PO QAM 02/26/21 02/26/21 aripiprazole 10 mg tablet (Abilify) 1 tab PO QAM 02/26/21 02/26/21 atorvastatin 80 mg tablet 1 tab PO BEDTIME 02/26/21 02/26/21 bupropion HCl 150 mg 24 hr tablet, 1 tab PO QAM depressive disorder 02/26/21 02/26/21 extended release cholecalciferol (vitamin D3) 50 1 tab PO QAM 02/26/21 02/26/21 mcg (2,000 unit) tablet fluoxetine 20 mg capsule (Prozac) 2 cap PO QAM 02/26/21 02/26/21 gabapentin 300 mg capsule 1 cap PO BID 02/26/21 02/26/21 lorazepam 2 mg tablet 1 tab PO BEDTIME 02/26/21 02/26/21 trazodone 150 mg tablet 1 tab PO BEDTIME 09/14/21 09/14/21 Previous Rx's Medication Instructions Recorded acetaminophen 325 mg tablet 650 mg PO Q6H PRN pain #30 tabs 10/02/20 (Tylenol) cyclobenzaprine 10 mg tablet 10 mg PO TID PRN muscle spasm #14 10/02/20 tabs estradiol 0.01% (0.1 mg/gram) See Rx Instructions .Route DAILY 11/01/20 vaginal cream 30 days #42.5 grams albuterol sulfate 90 mcg/actuation 2 puff inhalation 6XD PRN 12/11/20 aerosol inhaler (ProAir HFA) shortness of breath or wheezing 30 days #1 ea phenazopyridine 100 mg tablet 100 mg PO TID PRN spasm 4 days #12 03/04/21 (Pyridium) tabs tramadol 50 mg tablet 50 mg PO Q6H PRN pain (scale score 03/04/21 4-6) #14 tabs acetaminophen 500 mg tablet 500 mg PO Q6H PRN fever or pain 06/08/22 (Tylenol Extra Strength) #14 tabs azithromycin 250 mg tablet See Rx Instructions PO .COMPLEX #6 06/08/22 tabs benzonatate 100 mg capsule 100 mg PO TID PRN cough #14 caps 06/08/22 cyclobenzaprine 5 mg tablet 5 mg PO Q8H PRN pain (scale score 06/08/22 7-10) 5 days #14 tabs lidocaine 5 % topical patch 1 patch topical DAILY PRN pain #30 06/08/22 (Lidoderm) ea naproxen 500 mg tablet 500 mg PO BID PRN pain 10 days #20 06/08/22 tabs prednisone 20 mg tablet 40 mg PO DAILY 5 days #10 tabs 06/08/22 Allergies Allergy/AdvReac Type Severity Reaction Status Date / Time trazodone [TRAZODONE] Allergy Intermediate PROLONGED Verified 02/05/22 13:27 QT INTERVAL (PER H&P) Review of Systems Review of Systems: Constitutional: No Fever, No Chills ENT/Mouth: No Ear Pain, No Nasal Congestion, No Sinus Pain, No Hoarseness, No sore throat, No Rhinorrhea, No Swallowing Difficulty Cardiovascular: No Chest Pain, + SOB Respiratory: + Cough, No Sputum, No Wheezing Gastrointestinal: No Nausea, No Vomiting, No Diarrhea, No Constipation, No Abdominal pain Genitourinary: No Dysuria, No Urinary Frequency, No Hematuria, No Urgency, No Flank Pain Musculoskeletal: + joint pain, No Myalgias, No Joint Swelling Skin: No Skin Lesions, No rash Neuro: No Weakness, No Numbness, No Paresthesias Yes all other systems are reviewed and are negative Constitutional: Constitutional: Reports as per [facility] Past Medical History Attestation statement: The following information was validated with the patient. Medical History Asthma Depression Diabetes Diabetes education, encounter for Elevated cholesterol GERD (gastroesophageal reflux disease) HTN (hypertension) Kidney calculi PONV (postoperative nausea and vomiting) Tietze syndrome Surgical History H/O: hysterectomy History of cystoscopy History of excision of mass History of umbilical hernia repair History of ventral hernia repair Hx of cholecystectomy Family History Family History Father Throat cancer Maternal Aunt Breast cancer Social History Social History Are you a primary home care giver to a significant other at home: No Do you presently have visiting nurse or other home services: No Alcohol intake: never Patient Tobacco Use Status: Never used Tobacco Advance Directives: No Advance Directives Date on File: 10/10/13 Current occupational status: disabled 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 Physical Exam ED Vital Signs: Vital Signs - 24 hr 06/08/22 12:44 Temperature 97 F Pulse Rate 80 Respiratory Rate 18 Blood Pressure 167/87 H Pulse Oximetry 98 Oxygen Delivery Method Room Air BMI result Body Mass Index 28.1 Const General: cooperative, healthy appearing and no acute distress Orientation/consciousness: patient oriented x3 Limitations: no limitations HENMT Head: Yes normal to inspection and Yes atraumatic Ears: hearing grossly normal bilaterally, external ears normal, TM's normal bilaterally and mastoids normal General nose exam: Normal external nose present Face and sinus: Yes normal facial exam Throat: Yes posterior oropharynx normal, Yes tonsils normal, Yes uvula midline and No peritonsillar mass Eyes General: appearance normal, both eyes and all related structures EOM: EOMs intact bilaterally Neck Other: + left trapezius muscle tenderness to palpation Neck: Yes normal visual inspection, Yes full ROM, Yes no lymphadenopathy, Yes no meningeal signs and No anterior neck swelling Resp Effort & Inspection: normal respiratory effort and no respiratory distress Auscultation: clear to auscultation bilaterally, no crackles, no rales, no rhonchi and no wheezes Cardio Rate: regular rate Heart sounds: S1 normal heart sound present and S2 normal heart sound present Back/Spine/Pelvis Other: No midline thoracic/lumbar spinous tenderness/step-off or deformity Skin Rashes: no rashes Wounds: no wounds Neuro General: patient oriented x3, tone normal and no meningeal signs Gait exam (Neuro): Normal gait present Extrem General: Yes normal to inspection, Yes no pedal edema and Yes no calf tenderness Course Course Course Narrative: -x-ray of left shoulder and chest unremarkable -COVID-19/influenza/RSV negative. Will treat patient with Z-Constantino, prednisone and Tessalon Perles for bronchitis Results discussed with patient including worrisome signs and symptoms and strict return precautions, and when to return to the emergency department. They verbalized understanding and feel safe for discharge at this time. Medications Administered Discontinued Medications Generic Name Dose Route Start Last Admin Trade Name Freq PRN Reason Stop Dose Admin Benzonatate 100 mg 06/08/22 13:51 06/08/22 14:08 Benzonatate 100 Mg Capsule PO 06/08/22 13:52 100 mg ONCE ONE Administration Cyclobenzaprine HCl 10 mg 06/08/22 13:51 06/08/22 14:08 Cyclobenzaprine Hcl 10 Mg Tablet PO 06/08/22 13:52 10 mg ONCE ONE Administration Lidocaine 1 patch 06/08/22 13:51 06/08/22 14:09 Lidocaine 4 % Patch Adh..Patch TRANSDERMA 06/08/22 13:52 1 patch ONCE ONE Administration Protocol Medical Decision Making Medical Decision Making MDM Narrative: 57-year-old female with a past medical history of asthma, depression, diabetes, HLD, GERD, HTN, presenting to the ED complaining of dry cough, SOB, and intermittent left shoulder pain x2 months. On exam vital signs stable, NAD, nontoxic appearing, physical exam as above reproducible left trapezius muscle tenderness, lungs CTA, no pedal edema. Concern for viral illness vs bronchitis vs pneumonia vs MSK pain/strain. Symptoms atypical for ACS/PE Plan: EKG, CXR, COVID 19/influenza/RSV testing Differential Diagnosis Differential Diagnoses: The differential diagnosis associated with the presentation includes Lab Data Labs: Lab Results 06/08/22 Range/Units 12:53 Influenza Type A (PCR) NEGATIVE (Negative) Influenza Type B (PCR) NEGATIVE (Negative) RSV RNA Qual (PCR) NEGATIVE (Negative) SARS-CoV-2 RNA (RT-PCR) NEGATIVE (Negative) Independent Interpretation I performed an independent interpretation of an: EKG Interpretation: EKG normal sinus rhythm at a rate of 74. QRS 84. No STEMI. Nonspecific T-wave abnormality. QTC 450 Discharge Plan Discharge Clinical Impression: Bronchitis, Left shoulder pain Patient Disposition: Home, Self-Care Instructions: Acute Bronchitis (ED), Shoulder Pain (ED) Additional Instructions: X-rays are unremarkable. Tested negative for COVID-19, flu, and RSV Azithromycin is antibiotic please take as prescribed. Prednisone as a steroid please take as prescribed. Tessalon Perles are for cough Your shoulder pain is likely musculoskeletal Flexeril is a muscle relaxer, take at night as it makes you drowsy, do not drive, drink alcohol, or operate machinery while taking it Naproxen as an anti-inflammatory / pain medication, take with food Lidoderm patches are numbing patches, apply to painful area In addition take Tylenol at home If symptoms persist or worsen, pain becomes unbearable, you developed urinary retention or incontinence, or weakness return to the ED Prescriptions: New azithromycin 250 mg tablet See Rx Instructions .ROUTE .COMPLEX Qty: 6 0RF Rx Instructions: take 500 mg today (day 1), then 250 mg for 4 days (days 2-5) prednisone 20 mg tablet 40 mg PO DAILY 5 Days Qty: 10 0RF acetaminophen [Tylenol Extra Strength] 500 mg tablet 500 mg PO Q6H PRN (Reason: fever or pain) Qty: 14 0RF benzonatate 100 mg capsule 100 mg PO TID PRN (Reason: cough) Qty: 14 0RF lidocaine [Lidoderm] 5 % adhesive patch,medicated 1 patch topical DAILY MDD remove after 12 hours PRN (Reason: pain) Qty: 30 0RF Rx Instructions: leave on most painful area for up to 12 hrs cyclobenzaprine 5 mg tablet 5 mg PO Q8H PRN (Reason: pain (scale score 7-10)) 5 Days Qty: 14 0RF naproxen 500 mg tablet 500 mg PO BID PRN (Reason: pain) 10 Days Qty: 20 0RF No Action buspirone 5 mg Tablet albuterol sulfate 0.63 mg/3 mL Solution For Nebulization omeprazole 40 mg Capsule,Delayed Release(Dr/Ec) 40 mg PO DAILY losartan-hydrochlorothiazide 100-25 mg Tablet 1 tab PO DAILY ibuprofen 400 mg Tablet 400 mg PO Q6H PRN (Reason: Pain) metformin 500 mg Tablet Extended Release 24 Hr 500 mg PO QPM naproxen [Naprosyn] 500 mg Tablet 500 mg PO BID PRN (Reason: Pain) acetaminophen [Tylenol] 325 mg tablet 650 mg PO Q6H PRN (Reason: pain) Qty: 30 0RF cyclobenzaprine 10 mg tablet 10 mg PO TID PRN (Reason: muscle spasm) Qty: 14 0RF atorvastatin 80 mg tablet 1 tab PO BEDTIME lorazepam 2 mg tablet 1 tab PO BEDTIME amlodipine 10 mg tablet 1 tab PO QAM trazodone 150 mg tablet 1 tab PO BEDTIME gabapentin 300 mg capsule 1 cap PO BID fluoxetine [Prozac] 20 mg capsule 2 cap PO QAM aripiprazole [Abilify] 10 mg tablet 1 tab PO QAM bupropion HCl 150 mg tablet extended release 24 hr 1 tab PO QAM cholecalciferol (vitamin D3) 50 mcg (2,000 unit) tablet 1 tab PO QAM phenazopyridine [Pyridium] 100 mg tablet 100 mg PO TID PRN (Reason: spasm) 4 Days Qty: 12 0RF tramadol 50 mg tablet 50 mg PO Q6H PRN (Reason: pain (scale score 4-6)) Qty: 14 0RF albuterol sulfate [ProAir HFA] 90 mcg/actuation HFA aerosol inhaler 2 puff INHALATION 6XD PRN (Reason: shortness of breath or wheezing) 30 Days Qty: 1 2RF estradiol 0.01 % (0.1 mg/gram) cream See Rx Instructions .Route DAILY 30 Days Qty: 42.5 2RF Rx Instructions: pea-sized to urethra daily; Referrals: Chasidy Kimbrough MD [Primary Care Provider] -
== END 2022-06-08 15:32 | disposition home or self-care (01) ==
PROVIDERS: Emergency Provider Student in an Organized Health Care Education/Training Program; PCP General Practice
DX: J40 Bronchitis, not specified as acute or chronic (principal); M25.512 Pain in left shoulder; R06.02 Shortness of breath; Z20.822 Contact with and (suspected) exposure to COVID-19; Z79.899 Other long term (current) drug therapy
CPT/HCPCS: 0241U; 71045; 73030; 93005; 99283

== ENCOUNTER → 2022-06-26 13:10 | Outpatient (BNVA) | payer MEDICAID, SELFPAY | PROVIDERS: PCP General Practice; Visit Provider Urology | DX: N30.10 Interstitial cystitis (chronic) without hematuria (principal) | CPT/HCPCS: 99212 ==

== ENCOUNTER → 2022-07-15 09:27 | Outpatient (BNVA) | payer MEDICAID, SELFPAY | PROVIDERS: PCP General Practice; Visit Provider Physician Assistant | DX: M17.0 Bilateral primary osteoarthritis of knee (principal) | CPT/HCPCS: 20610; 99212; J1020 ==

== ENCOUNTER 2022-09-16 12:09 | Outpatient (REF) | payer MEDICAID, SELFPAY ==
--- NOTE | ~2022-09-16 | MM_ITS ---
EXAMINATION: MM DIAGNOSTIC DIGITAL BREAST TOMOSYNTHESIS, BILATERAL CLINICAL INFORMATION: Due for yearly. Also follow-up probable benign calcifications upper outer left breast initially described on diagnostic exam 01/16/2020. TC score 11%. Prior history benign left stereotactic biopsy 2016 (fibrocystic changes including apocrine microcysts containing polarizable calcifications). COMPARISON: Multiple prior mammography exams, most recent 09/16/2021 and including prior left breast ultrasound 01/16/2020. TECHNIQUE: Digital breast tomosynthesis is performed in both the craniocaudal and mediolateral oblique views along with computer-aided detection (CAD). Synthesized 2D images are generated from the tomosynthesis. Additional magnification left CC x2 and magnification left ML views are obtained. FINDINGS: The breasts are heterogeneously dense, which may obscure small masses (ACR BI-RADS breast composition Category c). Breast tissue composition borders on average fibroglandular. Scattered asymmetries are similar to prior exams. There is no architectural abnormality or significant mass. Again, there are fibrocystic changes 3:00 left breast with waxing and waning cysts. The axilla and skin contours are unremarkable. There is a biopsy clip marker central 1:00 left breast. There are bilateral numerous punctate round calcifications. Left breast calcifications for follow-up upper outer quadrant are without significant change from prior diagnostic exams and now considered to be benign. Results are provided to the patient at time of visit by the technologist. MM/MM tomosynthesis diagnostic BI IMPRESSION: -No mammographic evidence of malignancy. -No significant changes from prior exams. ASSESSMENT: BI-RADS 2: Benign RECOMMENDATION: Routine annual mammography screening. This patient's information was entered into a reminder system with a target due date for their next mammogram.
== END 2022-09-16 12:10 | disposition home or self-care (01) ==
LOC: HO.MAMMO 12:09
PROVIDERS: PCP General Practice; Visit Provider Family Medicine
DX: R92.1 Mammographic calcification found on diagnostic imaging of breast (principal)
CPT/HCPCS: 77062; 77066

== ENCOUNTER 2022-10-24 09:41 | Outpatient (REF) | payer MEDICAID, SELFPAY ==
--- NOTE | ~2022-10-24 | CT_ITS ---
EXAMINATION: CT CHEST WITHOUT CONTRAST CLINICAL INFORMATION: Other nonspecific abnormal finding of lung field COMPARISON: Previous chest CT scans most recent October 2021 and chest x-ray May 2022 TECHNIQUE: Multidetector volumetric CT imaging of the chest was done. Axial MIP volume rendering provided. Sagittal and coronal reformatted images were obtained. This CT examination was performed using dose optimization techniques as appropriate, variously including the following: *Automated exposure control *Adjustment of mA and/or kV according to patient size (this includes techniques or standardized protocols for targeted exams where dose is matched to indication/reason for exam; i.e. extremities or head) *Use of iterative reconstruction technique DLP: 169 mGy-cm FINDINGS: LUNGS: Small 3 mm calcified right lower lobe nodule adjacent to the diaphragm axial image 300 series 5 is stable. No new pulmonary nodule. There is heterogeneous attenuation in the lungs, question representing hypoventilatory changes related to air trapping. MEDIASTINUM: Enlarged thyroid gland. 1.5 cm calcified left thyroid nodule. This is unchanged. No enlarged hilar or mediastinal lymph nodes. Normal heart size. No pericardial effusion. Normal caliber thoracic aorta. CORONARY ARTERY CALCIFICATION: Mild PLEURA: There is no pleural effusion. No pleural mass or thickening. AXILLA: Small bilateral axillary lymph nodes. No enlarged lymph nodes. No chest wall mass. UPPER ABDOMEN: The gallbladder has been removed. There may be diverticulosis of the colon. OSSEOUS STRUCTURES: Unremarkable. CT/CT chest wo IV con IMPRESSION: Stable 3 mm calcified right lower lobe nodule probably representing a calcified granuloma. Heterogeneous lung attenuation question representing hypoventilatory changes related to airways disease. Enlarged thyroid gland and 1.5 cm nodule with rim calcification. Follow-up thyroid ultrasound recommended. Fleischner guidelines were followed.
== END 2022-10-24 09:42 | disposition home or self-care (01) ==
LOC: HO.CT 09:41
PROVIDERS: PCP General Practice; Visit Provider Internal Medicine Pulmonary Disease
DX: R91.8 Other nonspecific abnormal finding of lung field (principal)
CPT/HCPCS: 71250

== ENCOUNTER 2022-11-28 07:31 | Outpatient (REF) | payer MEDICAID, SELFPAY ==
--- NOTE | ~2022-11-28 | XR_ITS ---
EXAMINATION: XR KNEE AP STANDING XR KNEE, RIGHT XR KNEE, LEFT CLINICAL INFORMATION: Bilateral knee pain. COMPARISON: None available. TECHNIQUE: AP bilateral standing view of the knees was obtained. Four views of the right knee. Four views of the left knee. FINDINGS: Right: There may be very mild joint space narrowing involving the medial compartment. The joint spaces otherwise appear maintained. Bones and soft tissues otherwise appear unremarkable. No fracture or joint effusion identified. Alignment is anatomic. No abnormal soft tissue calcification. Left: There may be very mild joint space narrowing involving the medial compartment. The joint spaces otherwise appear maintained. Bones and soft tissues otherwise appear unremarkable. No fracture or joint effusion identified. Alignment is anatomic. No abnormal soft tissue calcification. XR/XR knee LT 2V IMPRESSION: Suspect very mild degenerative change involving the medial compartments, bilaterally.
--- NOTE | ~2022-11-28 | XR_ITS ---
EXAMINATION: XR KNEE AP STANDING XR KNEE, RIGHT XR KNEE, LEFT CLINICAL INFORMATION: Bilateral knee pain. COMPARISON: None available. TECHNIQUE: AP bilateral standing view of the knees was obtained. Four views of the right knee. Four views of the left knee. FINDINGS: Right: There may be very mild joint space narrowing involving the medial compartment. The joint spaces otherwise appear maintained. Bones and soft tissues otherwise appear unremarkable. No fracture or joint effusion identified. Alignment is anatomic. No abnormal soft tissue calcification. Left: There may be very mild joint space narrowing involving the medial compartment. The joint spaces otherwise appear maintained. Bones and soft tissues otherwise appear unremarkable. No fracture or joint effusion identified. Alignment is anatomic. No abnormal soft tissue calcification. XR/XR knee RT 2V IMPRESSION: Suspect very mild degenerative change involving the medial compartments, bilaterally.
--- NOTE | ~2022-11-28 | XR_ITS ---
EXAMINATION: XR KNEE AP STANDING XR KNEE, RIGHT XR KNEE, LEFT CLINICAL INFORMATION: Bilateral knee pain. COMPARISON: None available. TECHNIQUE: AP bilateral standing view of the knees was obtained. Four views of the right knee. Four views of the left knee. FINDINGS: Right: There may be very mild joint space narrowing involving the medial compartment. The joint spaces otherwise appear maintained. Bones and soft tissues otherwise appear unremarkable. No fracture or joint effusion identified. Alignment is anatomic. No abnormal soft tissue calcification. Left: There may be very mild joint space narrowing involving the medial compartment. The joint spaces otherwise appear maintained. Bones and soft tissues otherwise appear unremarkable. No fracture or joint effusion identified. Alignment is anatomic. No abnormal soft tissue calcification. XR/XR knee standing BI IMPRESSION: Suspect very mild degenerative change involving the medial compartments, bilaterally.
== END 2022-11-28 07:32 | disposition home or self-care (01) ==
LOC: HO.HOSX 07:31
PROVIDERS: Visit Provider Physician Assistant
DX: M17.0 Bilateral primary osteoarthritis of knee (principal); E11.9 Type 2 diabetes mellitus without complications
CPT/HCPCS: 20610; 73560; 73565; 99212; J1020

== ENCOUNTER 2022-12-01 09:29 | Outpatient (REF) | payer MEDICAID, SELFPAY ==
--- NOTE | ~2022-12-01 | US_ITS ---
EXAMINATION: US THYROID CLINICAL INFORMATION: Nontoxic single thyroid nodule. COMPARISON: None available. TECHNIQUE: Linear transducer grayscale and color Doppler examination with attention to the region of the thyroid. FINDINGS: SIZE: Measurements of the thyroid lobes and nodules are given in sagittal, anteroposterior and transverse dimensions respectively. Right Thyroid Lobe: 6.9 x 3.2 x 2.2 cm, volume 25.4 mL. Parenchyma: The gland echotexture is heterogeneous. Thyroid vascularity is normal. Left Thyroid Lobe: 7.1 x 3.5 x 3.1 cm, volume 40.0 mL. Parenchyma: The gland echotexture is heterogeneous. Thyroid vascularity is normal. Isthmus: 0.8 cm in maximum AP dimension. Estimated total number of nodules greater than or equal to 1 cm: 3. Opener nodules are described as follows: 1. Location: Right superior. Size: 0.4 x 0.3 x 0.4 cm, volume 0.03 mL. Nodule characteristics: Composition: Cystic(0). ACR TI-RADS total points: 0 ACR TI-RADS category: 1 2. Location: Right mid. Size: 0.5 x 0.6 x 0.4 cm, volume 0.06 mL. Nodule characteristics: Composition: Mixed cystic and solid (1). Echogenicity: Isoechoic (1). Shape: Not taller than wide (0). Margins: Smooth (0). Echogenic Foci: None (0). ACR TI-RADS total points: 2 ACR TI-RADS category: 2 3. Location: Right mid. Size: 3.1 x 2.0 x 2.5 cm, volume 8.1 mL. Nodule characteristics: Composition: Solid/almost completely solid (2). Echogenicity: Isoechoic (1). Shape: Not taller than wide (0). Margins: Ill-defined (0). Echogenic Foci: None (0). ACR TI-RADS total points: 3 ACR TI-RADS category: 3 4. Location: Left superior. Size: 1.0 x 0.8 x 1.1 cm, volume 0.5 mL. Nodule characteristics: Composition: Solid/almost completely solid (2). Echogenicity: Isoechoic (1). Shape: Not taller than wide (0). Margins: Smooth (0). Echogenic Foci: None (0). ACR TI-RADS total points: 3 ACR TI-RADS category: 3 5. Location: Left superior/mid. Size: 2.3 x 1.5 x 1.8 cm, volume 3.2 mL. Nodule characteristics: Composition: Solid/almost completely solid (2). Echogenicity: Isoechoic (1). Shape: Not taller than wide (0). Margins: Ill-defined (0). Echogenic Foci: None (0). ACR TI-RADS total points: 3 ACR TI-RADS category: 3 NODES: No lymphadenopathy is seen in the tissue surrounding the thyroid gland. US/US thyroid IMPRESSION: FNA is recommended of the right mid nodule. Routine sonographic surveillance of left superior/mid nodule. ACR TI-RADS RECOMMENDATION REFERENCE: Ultrasound-guided fine-needle aspiration, followup ultrasound, no further follow up. * TR1 (0 point) and TR2 (2 points): No FNA or follow up. * TR3 (3 points): FNA if more than or equal to 2.5 cm in maximum dimension, followup ultrasound in 1, 3 and 5 years if 1.5 to 2.4 cm in maximum dimension. * TR4 (4-6 points): FNA if more than or equal to 1.5 cm in maximum dimension, followup ultrasound in 1, 2, 3 and 5 years if 1 to 1.4 cm in maximum dimension. * TR5 (more than or equal to 7 points): FNA if more than or equal to 1 cm in maximum dimension, followup ultrasound every year for 5 years if 0.5 to 0.9 cm in maximum dimension. * TR3, TR4 or TR5 nodules that are below the size threshold for followup receive no follow up.
== END 2022-12-01 09:30 | disposition home or self-care (01) ==
LOC: HO.US 09:29
PROVIDERS: Visit Provider Internal Medicine Pulmonary Disease
DX: E04.1 Nontoxic single thyroid nodule (principal)
CPT/HCPCS: 76536

== ENCOUNTER → 2022-12-05 09:33 | Outpatient (BNVA) | payer MEDICAID, SELFPAY | PROVIDERS: PCP General Practice; Visit Provider Internal Medicine Pulmonary Disease | DX: J45.909 Unspecified asthma, uncomplicated (principal); R91.8 Other nonspecific abnormal finding of lung field | CPT/HCPCS: 99212 ==

== ENCOUNTER 2022-12-22 10:37 | Outpatient (REF) | payer MEDICAID, SELFPAY ==
[2022-12-22 15:11] LABS: Alanine Aminotransferase 16 U/L (0-31); Alkaline Phosphatase 77 U/L (39-117); Anion Gap 16 (12-20); Aspartate Amino Transferase 15 U/L (5-31); Bilirubin Total 0.4 mg/dL (0.0-1.0); Blood Urea Nitrogen 14 mg/dL (9-16); Calcium 9.9 mg/dL (8.4-10.2); Carbon Dioxide 27 mmol/L (22-29); Chloride 103 mmol/L (96-108); Cholesterol 217 mg/dL; Estimated Glomerular Filt Rate > 60; Glucose Random 126 mg/dL (60-115); HDL Cholesterol 56 mg/dL; LDL Cholesterol Calculated 140 mg/dl; Potassium 3.6 mmol/L (3.3-5.1); Sodium 142 mmol/L (135-145); Total Protein 7.8 g/dL (6.5-8.0); Triglycerides 108 mg/dL
== END 2022-12-22 10:38 | disposition home or self-care (01) ==
LOC: HO.HHCL 10:37
PROVIDERS: Visit Provider General Practice
DX: E11.9 Type 2 diabetes mellitus without complications (principal)
CPT/HCPCS: 36415; 80053; 80061

== ENCOUNTER 2023-01-06 14:40 | Outpatient (REF) | payer MEDICAID, SELFPAY ==
[2023-01-06 19:40] LABS: Thyroid Stimulating Hormone 0.93 uIU/mL (0.32-4.0)
== END 2023-01-06 14:41 | disposition home or self-care (01) ==
LOC: HO.LAB 14:40
PROVIDERS: PCP General Practice; Visit Provider Internal Medicine Endocrinology, Diabetes & Metabolism
DX: E04.1 Nontoxic single thyroid nodule (principal)
CPT/HCPCS: 36415; 84439; 84443; 99202

== ENCOUNTER 2023-01-06 14:40 | Outpatient (AMB) | payer MEDICAID, SELFPAY ==
[2023-01-06 14:42] VITALS: BP 130/82; PULSE 78; O2SAT 97; BMI 31.1
--- NOTE | 2023-01-06 14:42 | MHC.OFFVIS ---
Intake Vital Signs 01/06/23 14:42 Height 5 ft 5 in Weight 186 lb 15.232 oz BMI 31.1 BP 130/82 Blood Pressure Location Lt brachial Position Sitting Pulse 78 Pulse Source Pulse Oximeter Pulse Oximetry (%) 97 Oxygen Delivery Method Room Air Intake Visit Reasons: pulm nodule Intake Note: New patient present today for Pulm Nodule. Ditto Machine Operator Required: Yes Ditto Machine Operator Name: Roxann, Medical Staff Information Interpreted: non-clinical & clinical Accompanied by: Self / Same As Patient Allergies trazodone [TRAZODONE] Allergy (Intermediate, Verified 01/06/23 14:42) PROLONGED QT INTERVAL (PER H&P) Medication List - Last Reconciled 01/06/23 by Anuj Rucker MD acetaminophen (Tylenol Extra Strength) 500 mg PO Q6H PRN albuterol sulfate albuterol sulfate 90 mcg/actuation (ProAir HFA) 2 puffs inhalation 6XD PRN 30 days amlodipine 1 tab PO QAM aripiprazole (Abilify) 1 tab PO QAM atorvastatin 1 tab PO BEDTIME bupropion HCl 1 tab PO QAM bupropion HCl 300 mg PO QAM buspirone mg cholecalciferol (vitamin D3) 1 tab PO QAM estradiol 0.01%(0.1mg/gram) pea-sized to urethra daily; 30 days fluoxetine (Prozac) 2 caps PO QAM gabapentin 1 cap PO BID ibuprofen 600 mg PO QID PRN lidocaine 5% (Lidoderm) 1 patch topical DAILY PRN MDD remove after 12 hours lorazepam 1 tab PO BEDTIME metformin 500 mg PO QAM metformin ER 500 mg PO QPM naproxen 500 mg PO BID PRN 10 days omeprazole 40 mg PO DAILY tiotropium bromide 2.5 mcg/actuation (Spiriva Respimat) 2 puffs inhalation QAM 30 days tramadol 50 mg PO Q6H PRN trazodone 1 tab PO BEDTIME HPI HPI Comments History of Present Illness Details 57 YO F with who is seen in consultation for multinodular thyroid at the request of PCP. Was initially diagnosed with multinodular thyroid in [address] Scan of lungs with thyroid US revealing MNG . Currently denies any dysphagia or hoarseness of voice. Has sensation of swelling in the right side neck or difficulty breathing while lying flat. Admits to R side tenderness in the neck. Denies any palpitations, tremors, +weight loss 20 lbs unintentionally , frequent bowel movements. Denies any ocular complaints, blurred or double vision. Denies hair loss, dry skin,some heat but not cold intolerance, weight gain, confusion. Denies any history of head or neck irradiation. Denies any family history of thyroid cancer. Sister had thyroid surgery Not Had biopsy of nodules in the past. Does not take kelp or seaweed or biotin Thyroid US:[address] [address] Ultrasound Report Signed Patient: Cynthia Stuart Date: 12/01/22 Loc: HO.US Attending Dr: Mg Moore MD Ordering Physician: Mg Moore MD Date of Service: 12/01/22 Procedure(s): US thyroid Accession Number(s): [id number] cc: Mg Moore MD~ EXAMINATION: US THYROID CLINICAL INFORMATION: Nontoxic single thyroid nodule. COMPARISON: None available. TECHNIQUE: Linear transducer grayscale and color Doppler examination with attention to the region of the thyroid. FINDINGS: ? SIZE: Measurements of the thyroid lobes and nodules are given in sagittal, anteroposterior and transverse dimensions respectively. Right Thyroid Lobe: 6.9 x 3.2 x 2.2 cm, volume 25.4 mL. Parenchyma: The gland echotexture is heterogeneous. Thyroid vascularity is normal. Left Thyroid Lobe: 7.1 x 3.5 x 3.1 cm, volume 40.0 mL. Parenchyma: The gland echotexture is heterogeneous. Thyroid vascularity is normal. Isthmus: 0.8 cm in maximum AP dimension. Estimated total number of nodules greater than or equal to 1 cm: 3. Storm Window Installer nodules are described as follows: 1. Location: Right superior. ?? ? Size: 0.4 x 0.3 x 0.4 cm, volume 0.03 mL. ?? ? Nodule characteristics: ?? ? Composition: Cystic(0). ?? ? ACR TI-RADS total points: 0 ?? ? ACR TI-RADS category: 1 2. Location: Right mid. ?? ? Size: 0.5 x 0.6 x 0.4 cm, volume 0.06 mL. ?? ? Nodule characteristics: ?? ? Composition: Mixed cystic and solid (1). ?? ? Echogenicity: Isoechoic (1). ?? ? Shape: Not taller than wide (0). ?? ? Margins: Smooth (0). ?? ? Echogenic Foci: None (0). ?? ? ACR TI-RADS total points: 2 ?? ? ACR TI-RADS category: 2 3. Location: Right mid. ?? ? Size: 3.1 x 2.0 x 2.5 cm, volume 8.1 mL. ?? ? Nodule characteristics: ?? ? Composition: Solid/almost completely solid (2). ?? ? Echogenicity: Isoechoic (1). ?? ? Shape: Not taller than wide (0). ?? ? Margins: Ill-defined (0). ?? ? Echogenic Foci: None (0). ?? ? ACR TI-RADS total points: 3 ?? ? ACR TI-RADS category: 3 4. Location: Left superior. ?? ? Size: 1.0 x 0.8 x 1.1 cm, volume 0.5 mL. ?? ? Nodule characteristics: ?? ? Composition: Solid/almost completely solid (2). ?? ? Echogenicity: Isoechoic (1). ?? ? Shape: Not taller than wide (0). ?? ? Margins: Smooth (0). ?? ? Echogenic Foci: None (0). ?? ? ACR TI-RADS total points: 3 ?? ? ACR TI-RADS category: 3 5.? Location: Left superior/mid. ?? ? Size: 2.3 x 1.5 x 1.8 cm, volume 3.2 mL. ?? ? Nodule characteristics: ?? ? Composition: Solid/almost completely solid (2). ?? ? Echogenicity: Isoechoic (1). ?? ? Shape: Not taller than wide (0). ?? ? Margins: Ill-defined (0). ?? ? Echogenic Foci: None (0). ?? ? ACR TI-RADS total points: 3 ?? ? ACR TI-RADS category: 3 NODES: No lymphadenopathy is seen in the tissue surrounding the thyroid gland. US/US thyroid IMPRESSION: FNA is recommended of the right mid nodule. Routine sonographic surveillance of left superior/mid nodu Labs: [facility] Medical History Asthma Depression Diabetes Diabetes education, encounter for Elevated cholesterol GERD (gastroesophageal reflux disease) HTN (hypertension) Kidney calculi PONV (postoperative nausea and vomiting) Tietze syndrome Surgical History H/O: hysterectomy History of cystoscopy History of excision of mass History of umbilical hernia repair History of ventral hernia repair Hx of cholecystectomy Family History Father Throat cancer Maternal Aunt Breast cancer Social History Are you a primary occasional caregiver to a significant other at home: No Do you presently have visiting nurse or other home services: No Alcohol intake: never Patient Tobacco Use Status: Never used Tobacco Advance Directives Date on File: 10/10/13 Current occupational status: disabled 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 Thyroid gland measure 30 gms . Right midpole 2 cm nodules palpated. There is no cervical adenopathy palpated. Lungs CTA. Heart S1, S2 Reg R/R -M/R/G. Abdominal exam benign. Skin exam reveals absence of dryness or thyroid dermopathy or vitiligo. Nail exam reveals absence of thyroid acropachy or oncholysis. Neurologic exam reveals 2+ reflexes . Muscle Strength is 5/5 proximally. There are no tremors in upper extremities. Assessment & Plan Assessment & Plan (1) Thyroid nodule greater than or equal to 1 cm in diameter incidentally noted on imaging study: Code(s): E04.1 - Nontoxic single thyroid nodule Plan: This is a 57-year-old female with a history of multinodular goiter with dominant right midpole left superior thyroid nodule. She appears to be clinically euthyroid but had a slightly suppressed TSH level in the past. Plan is to recheck TSH and free T4. Assuming above is normal, will arrange FNA of both right midpole and left superior nodule Orders: Orders Free T4 (Free Thyroxine) Today E04.1 - Nontoxic single thyroid nodule Thyroid Stimulating Hormone Today E04.1 - Nontoxic single thyroid nodule US guided fine needle asp Today E04.1 - Nontoxic single thyroid nodule Coding Level of Care Code New Pt Level 4 (41721) Diagnoses Thyroid nodule greater than or equal to 1 cm in diameter incidentally noted on imaging study E04.1
== END 2023-01-06 15:21 | disposition home or self-care (01) ==
PROVIDERS: PCP General Practice; Visit Provider Internal Medicine Endocrinology, Diabetes & Metabolism
DX: E04.1 Nontoxic single thyroid nodule (principal)
CPT/HCPCS: 99204

== ENCOUNTER 2023-01-21 13:06 | Outpatient (REF) | payer MEDICAID, SELFPAY ==
--- NOTE | ~2023-01-21 | US_ITS ---
EXAMINATION: Ultrasound-guided thyroid fine-needle aspiration CLINICAL INFORMATION: Thyroid nodule COMPARISON: Previous thyroid ultrasound November 2022 TECHNIQUE: Procedure and risks and benefits including bleeding and infection were discussed with the patient was obtained. The bilateral neck was prepped and draped fashion. The skin and soft tissues were anesthetized percent lidocaine plain. Using ultrasound guidance and a rim calcification. This was not reported on previous exam 12/01/2022. 25 gauge needle, access to the right midpole nodule was obtained. 3 25-gauge FNA specimens were obtained. Subsequently, using ultrasound guidance and a 25 gauge needle, access to the left upper nodule was obtained. 3 25-gauge specimens were obtained. Lastly, ultrasound guidance and a 25-gauge needle, access to the left inferior nodule was obtained. 6 25-gauge FNA specimens were obtained. FINDINGS: There is a 2.4 x 1.7 x 3.5 cm right mid thyroid nodule that was targeted for fine-needle aspiration. There is a 1.9 x 1.4 x 2.3 cm left upper thyroid nodule that was targeted for fine-needle aspiration. There is a 1.5 x 1.4 x 1.8 cm nodule in the inferior left lobe. This is solid, hypoechoic, taller than wide and has calcified rim. US/US guided fine needle asp add IMPRESSION: Ultrasound-guided right mid, left upper and left lower thyroid nodule fine-needle aspirations.
--- NOTE | ~2023-01-21 | US_ITS ---
EXAMINATION: Ultrasound-guided fine-needle aspiration x3 CLINICAL INFORMATION: Multiple thyroid nodules COMPARISON: Previous thyroid ultrasound November 2022 TECHNIQUE: Procedure and risks and benefits including bleeding and infection were discussed with the patient and informed consent was obtained. Initially, the right neck was prepped and draped in the usual sterile fashion. The skin and soft tissues were anesthetized with 1% lidocaine plain. Using ultrasound guidance and a 25-gauge needle, access to the 2.4 x 1.7 x 3.5 cm nodule in the mid right lobe was obtained. 3 separate 25-gauge FNA specimens were obtained. Subsequently, the left neck was prepped and draped in the usual sterile fashion. The skin and soft tissues were anesthetized with 1% lidocaine plain. Using ultrasound guidance, access to the 1.5 x 1.4 x 1.8 cm nodule with rim calcification in the inferior left lobe was obtained. 6 25-gauge separate specimens were obtained. Subsequently, the more superior left neck was prepped and draped in the usual sterile fashion. The skin and soft tissues were anesthetized with 1% lidocaine plain. Using ultrasound guidance and a 25-gauge needle, access to the 1.8 x 1.4 x 2.3 cm nodule in the upper to midpole was obtained. 3 separate 25-gauge FNA specimens were obtained. FINDINGS: Thyroid gland is enlarged. There are multiple thyroid nodules. Largest nodules in the right mid lobe measuring 2.4 x 1.7 x 3.5 cm and left upper/mid lobe measuring 1.8 x 1.4 x 2.3 cm were targeted for fine-needle aspiration. An additional nodule in the inferior left lobe was identified, not seen or recorded on November 2022 exam. This measures 1.8 x 1.5 x 1.4 cm in sagittal, AP and transverse dimension. This is solid and hypoechoic, irregularly shaped, borderline taller than wide and has rim calcification. This meets TI RADS ultrasound criteria for fine-needle aspiration. US/US guided fine needle asp IMPRESSION: Ultrasound-guided fine-needle aspiration of 3 thyroid nodules, one on the right and 2 on the left.
[2023-01-21] MEDS: Lidocaine HCl 1 % MPF 5 ML VIAL SUBCUT (14:51)
== END 2023-01-21 13:07 | disposition home or self-care (01) ==
LOC: HO.US 13:06
PROVIDERS: PCP General Practice; Visit Provider Internal Medicine Endocrinology, Diabetes & Metabolism
DX: E04.1 Nontoxic single thyroid nodule (principal)
CPT/HCPCS: 10005; 10006; 88172; 88173; 88177

== ENCOUNTER → 2023-01-21 13:07 | Outpatient (BNV) | payer MEDICAID, SELFPAY | PROVIDERS: PCP General Practice; Visit Provider Radiology Diagnostic Radiology | DX: E04.1 Nontoxic single thyroid nodule (principal) | CPT/HCPCS: 10005; 10006 ==

== ENCOUNTER 2023-02-04 15:37 | Outpatient (AMB) | payer MEDICAID, SELFPAY ==
--- NOTE | 2023-02-04 15:43 | A.OFFVIS_ITS ---
Intake Vital Signs 02/04/23 15:47 Height 5 ft 5 in Weight 186 lb BMI 30.9 BP 122/74 Blood Pressure Location Lt brachial Position Sitting Pulse 85 Pulse Source Pulse Oximeter Intake Visit Reasons: FNA Results Intake Note: Patient present for FNA results. Non Ferrous Material Handler Required: No Non Ferrous Material Handler Name: Jurgen- family member Information Interpreted: non-clinical & clinical Accompanied by: Significant Other Allergies trazodone [TRAZODONE] Allergy (Intermediate, Verified 02/04/23 15:48) PROLONGED QT INTERVAL (PER H&P) HPI HPI Comments History of Present Illness Details 58 YO F with who is seen in consultation for multinodular thyroid at the request of PCP. Was initially diagnosed with multinodular thyroid in [address] Scan of lungs with thyroid US revealing MNG . Currently denies any dysphagia or hoarseness of voice. Has sensation of swelling in the right side neck or difficulty breathing while lying flat. Admits to R side tenderness in the neck. Denies any palpitations, tremors, +weight loss 20 lbs unintentionally , frequent bowel movements. Denies any ocular complaints, blurred or double vision. Denies hair loss, dry skin,some heat but not cold intolerance, weight gain, confusion. Denies any history of head or neck irradiation. Denies any family history of thyroid cancer. Sister had thyroid surgery Not Had biopsy of nodules in the past. Does not take kelp or seaweed or biotin Thyroid US:[address] [address] Ultrasound Report Signed Patient: Cynthia Stuart Date: 12/01/22 Loc: HO.US Attending Dr: Mg Moore MD Ordering Physician: Mg Moore MD Date of Service: 12/01/22 Procedure(s): US thyroid Accession Number(s): [id number] cc: Mg Moore MD~ EXAMINATION: US THYROID CLINICAL INFORMATION: Nontoxic single thyroid nodule. COMPARISON: None available. TECHNIQUE: Linear transducer grayscale and color Doppler examination with attention to the region of the thyroid. FINDINGS: ? SIZE: Measurements of the thyroid lobes and nodules are given in sagittal, anteroposterior and transverse dimensions respectively. Right Thyroid Lobe: 6.9 x 3.2 x 2.2 cm, volume 25.4 mL. Parenchyma: The gland echotexture is heterogeneous. Thyroid vascularity is normal. Left Thyroid Lobe: 7.1 x 3.5 x 3.1 cm, volume 40.0 mL. Parenchyma: The gland echotexture is heterogeneous. Thyroid vascularity is normal. Isthmus: 0.8 cm in maximum AP dimension. Estimated total number of nodules greater than or equal to 1 cm: 3. Medical Office Assistant nodules are described as follows: 1. Location: Right superior. ?? ? Size: 0.4 x 0.3 x 0.4 cm, volume 0.03 mL. ?? ? Nodule characteristics: ?? ? Composition: Cystic(0). ?? ? ACR TI-RADS total points: 0 ?? ? ACR TI-RADS category: 1 2. Location: Right mid. ?? ? Size: 0.5 x 0.6 x 0.4 cm, volume 0.06 mL. ?? ? Nodule characteristics: ?? ? Composition: Mixed cystic and solid (1). ?? ? Echogenicity: Isoechoic (1). ?? ? Shape: Not taller than wide (0). ?? ? Margins: Smooth (0). ?? ? Echogenic Foci: None (0). ?? ? ACR TI-RADS total points: 2 ?? ? ACR TI-RADS category: 2 3. Location: Right mid. ?? ? Size: 3.1 x 2.0 x 2.5 cm, volume 8.1 mL. ?? ? Nodule characteristics: ?? ? Composition: Solid/almost completely solid (2). ?? ? Echogenicity: Isoechoic (1). ?? ? Shape: Not taller than wide (0). ?? ? Margins: Ill-defined (0). ?? ? Echogenic Foci: None (0). ?? ? ACR TI-RADS total points: 3 ?? ? ACR TI-RADS category: 3 4. Location: Left superior. ?? ? Size: 1.0 x 0.8 x 1.1 cm, volume 0.5 mL. ?? ? Nodule characteristics: ?? ? Composition: Solid/almost completely solid (2). ?? ? Echogenicity: Isoechoic (1). ?? ? Shape: Not taller than wide (0). ?? ? Margins: Smooth (0). ?? ? Echogenic Foci: None (0). ?? ? ACR TI-RADS total points: 3 ?? ? ACR TI-RADS category: 3 5.? Location: Left superior/mid. ?? ? Size: 2.3 x 1.5 x 1.8 cm, volume 3.2 mL. ?? ? Nodule characteristics: ?? ? Composition: Solid/almost completely solid (2). ?? ? Echogenicity: Isoechoic (1). ?? ? Shape: Not taller than wide (0). ?? ? Margins: Ill-defined (0). ?? ? Echogenic Foci: None (0). ?? ? ACR TI-RADS total points: 3 ?? ? ACR TI-RADS category: 3 NODES: No lymphadenopathy is seen in the tissue surrounding the thyroid gland. US/US thyroid IMPRESSION: FNA is recommended of the right mid nodule. Routine sonographic surveillance of left superior/mid nodu Labs: Status post fine-needle aspiration of mid right and left lower pole nodule with benign cytology. Patient here discuss cytology. Complains of pain the left side after biopsy but no obstructive symptom PFSH Medical History Asthma Depression Diabetes Diabetes education, encounter for Elevated cholesterol GERD (gastroesophageal reflux disease) HTN (hypertension) Kidney calculi PONV (postoperative nausea and vomiting) Tietze syndrome Surgical History H/O: hysterectomy History of cystoscopy History of excision of mass History of umbilical hernia repair History of ventral hernia repair Hx of cholecystectomy Family History Father Throat cancer Maternal Aunt Breast cancer Social History Are you a primary transitional care liaison to a significant other at home: No Do you presently have visiting nurse or other home services: No Alcohol intake: never Patient Tobacco Use Status: Never used Tobacco Advance Directives Date on File: 10/10/13 Current occupational status: disabled 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 She appears to be clinically euthyroid but had a slightly suppressed TSH level in the past. Plan is to discussed with patient benign cytology. Will continue to follow nodules Coding Level of Care Code Est Pt Level 3 (71100) Diagnoses Thyroid nodule greater than or equal to 1 cm in diameter incidentally noted on imaging study E04.1
[2023-02-04 15:47] VITALS: BP 122/74; PULSE 85; BMI 30.9
== END 2023-02-04 16:06 | disposition home or self-care (01) ==
PROVIDERS: PCP General Practice; Visit Provider Internal Medicine Endocrinology, Diabetes & Metabolism
DX: E04.1 Nontoxic single thyroid nodule (principal)
CPT/HCPCS: 99213

== ENCOUNTER → 2023-02-04 15:37 | Outpatient (BNVA) | payer MEDICAID, SELFPAY | PROVIDERS: PCP General Practice; Visit Provider Internal Medicine Endocrinology, Diabetes & Metabolism | DX: E04.1 Nontoxic single thyroid nodule (principal) | CPT/HCPCS: 99212 ==

== ENCOUNTER 2023-03-02 10:18 | Outpatient (AMB) | payer MEDICAID, SELFPAY ==
[2023-03-02 10:21] VITALS: BMI 30.9
--- NOTE | 2023-03-02 10:21 | MHC.OFFVIS ---
Intake Vital Signs 03/02/23 10:21 Height 5 ft 5 in Weight 186 lb BMI 30.9 Intake Visit Reasons: OV - B/L knee pain, last inj 11/28/22 Intake Note: Cynthia is a 58 year old female who presents today for a follow up of bilateral knee OA, last injection 11/28/22. Patient reports her last injections gave her 3 months of relief. She states that she would like to repeat her injections. Allergies trazodone [TRAZODONE] Allergy (Intermediate, Verified 03/02/23 10:21) PROLONGED QT INTERVAL (PER H&P) HPI OV - B/L knee pain, last inj 11/28/22 HPI Details 58-year-old female, who is Cook Islander speaking, presents in the office today for a follow up of bilateral knee pain. The patient had a cortisone injection in the bilateral knees on 11/28/2022. She reports the injection gave her relief for 3 months. She would like to repeat the injections in the office today. Patient has a medical history significant for diabetes mellitus. [facility] Medical History Asthma Depression Diabetes Diabetes education, encounter for Elevated cholesterol GERD (gastroesophageal reflux disease) HTN (hypertension) Kidney calculi PONV (postoperative nausea and vomiting) Tietze syndrome Surgical History H/O: hysterectomy History of cystoscopy History of excision of mass History of umbilical hernia repair History of ventral hernia repair Hx of cholecystectomy Family History Father Throat cancer Maternal Aunt Breast cancer Social History Are you a primary landcare facilitator to a significant other at home: No Do you presently have visiting nurse or other home services: No Alcohol intake: never Patient Tobacco Use Status: Never used Tobacco Advance Directives Date on File: 10/10/13 Current occupational status: disabled 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 No ecchymosis, redness or edema. Patient is able to demonstrate full knee flexion extension. Negative Vadim's. NVI. Office Procedures Joint Injection/Drain Joint Injection/Drain Primary Site: right knee Secondary Site: left knee Prep: site was prepped using aseptic technique, ethochloride spray was applied and injection warnings given Injected: 40 mg of, DepoMedrol, with 8 mL of (2% plain lido ) and in the joint Approach Used: anterolateral Procedure: The patient tolerated the procedure well, but had some pain with the injection and there was some relief with the local anesthesia Coding 01275 - Large joint Procedure code (CPT) selection complete Results Reviewed Results Reviewed: 03/02/23 10:22 Lidocaine HCl 2 % MPF [Xylocaine 2 % MPF] 5 ml .ROUTE .STK-MED ONE methylPREDNISolone acetate [DEPO-MedroL] 40 mg .ROUTE .STK-MED ONE Assessment & Plan Assessment & Plan (1) Bilateral primary osteoarthritis of knee: Code(s): M17.0 - Bilateral primary osteoarthritis of knee (2) Diabetes: Code(s): E11.9 - Type 2 diabetes mellitus without complications Plan Ms. Denney is a 58-year-old female, who is [place] Islander speaking, presents in the office today for a follow up of bilateral knee pain. The patient had a cortisone injection in the bilateral knees on 11/28/2022. She reports the injection gave her relief for 3 months. She would like to repeat the injections in the office today. Patient has a medical history significant for diabetes mellitus. The patient was offered a cortisone injection in the bilateral knees with 40 mg of DepoMedrol. The patient was explained the risk, benefits, and alternatives to receiving this injection. After receiving consent for the injection, the patient had the procedure done while in office today. The patient tolerated the procedure well with no complications. Due to the patient?s history of diabetes, they were instructed to monitor her blood glucose level. The patient was informed that they could see a rise in their numbers and if the numbers became too high, they were instructed to call their PCP. The patient was also informed that they could have facial flushing as a side effect of the injection but this will pass. Follow up will be PRN, or sooner if needed. Patient Instructions: Scribed for Leonela Decker PA-C by Keyla Law medical record specialist, on 03/02/2023 at 10:18 am, EST. Coding Level of Care Code Est Pt Level 4 (64926) Diagnoses Bilateral primary osteoarthritis of knee M17.0 Diabetes E11.9 CPT Codes Coding - 82083 Large joint: 24697 - Large joint ([id number])
== END 2023-03-02 10:37 | disposition home or self-care (01) ==
PROVIDERS: PCP General Practice; Visit Provider Physician Assistant
DX: M17.0 Bilateral primary osteoarthritis of knee (principal); E11.9 Type 2 diabetes mellitus without complications
CPT/HCPCS: 99214

== ENCOUNTER → 2023-03-02 10:18 | Outpatient (BNVA) | payer MEDICAID, SELFPAY | PROVIDERS: PCP General Practice; Visit Provider Physician Assistant | DX: M17.0 Bilateral primary osteoarthritis of knee (principal); E11.9 Type 2 diabetes mellitus without complications | CPT/HCPCS: 20610; 99212; J1020 ==

== ENCOUNTER 2023-06-30 10:46 | Outpatient (AMB) | payer MEDICAID, SELFPAY ==
--- NOTE | 2023-06-30 11:06 | MHC.OFFVIS ---
Intake Intake Visit Reasons: OV - B/L knee pain, last inj 03/02/23 Intake Note: Cynthia is a 58 year old female who presents today for a follow up of bilateral knee OA, last injection 03/02/23. Patient reports her last injections gave her about 4 months of relief and would like to repeat. Allergies trazodone [TRAZODONE] Allergy (Intermediate, Verified 06/30/23 11:06) PROLONGED QT INTERVAL (PER H&P) HPI OV - B/L knee pain, last inj 03/02/23 HPI Details 58-year-old female, who is Czech speaking, presents in the office today for a follow up of bilateral knee pains. I last saw the patient in the office on 03/02/2023 when she received cortisone injections in the bilateral knees. The patient reports her last injection gave her about 4 months of relief and she would have another one while in the office today. Patient has a significant medical history of diabetes mellitus. [facility] Medical History Asthma Depression Diabetes Diabetes education, encounter for Elevated cholesterol GERD (gastroesophageal reflux disease) HTN (hypertension) Kidney calculi PONV (postoperative nausea and vomiting) Tietze syndrome Surgical History H/O: hysterectomy History of cystoscopy History of excision of mass History of umbilical hernia repair History of ventral hernia repair Hx of cholecystectomy Family History Father Throat cancer Maternal Aunt Breast cancer Social History Are you a primary patient care associate to a significant other at home: No Do you presently have visiting nurse or other home services: No Alcohol intake: never Comment: no count Patient Tobacco Use Status: Never used Tobacco Advance Directives Date on File: 10/10/13 Current occupational status: disabled 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 No ecchymosis, redness or edema. Patient is able to demonstrate full knee flexion extension. Negative Vadim's. NVI. Office Procedures Joint Injection/Drain Joint Injection/Drain Primary Site: right knee Secondary Site: left knee Prep: site was prepped using aseptic technique, ethochloride spray was applied and injection warnings given Injected: 40 mg of, DepoMedrol, with 8 mL of (2% plain lido ) and in the joint Approach Used: anterolateral Procedure: The patient tolerated the procedure well, but had some pain with the injection and there was some relief with the local anesthesia Coding 48464 - Large joint Procedure code (CPT) selection complete Assessment & Plan Assessment & Plan (1) Bilateral primary osteoarthritis of knee: Code(s): M17.0 - Bilateral primary osteoarthritis of knee (2) Diabetes: Code(s): E11.9 - Type 2 diabetes mellitus without complications Plan Ms. Roddy Denney is a 58-year-old female, who is Czech speaking, presents in the office today for a follow up of bilateral knee pains. I last saw the patient in the office on 03/02/2023 when she received cortisone injections in the bilateral knees. The patient reports her last injection gave her about 4 months of relief and she would have another one while in the office today. Patient has a significant medical history of diabetes mellitus. The patient was offered a cortisone injection in the bilateral knees with 40 mg of DepoMedrol. The patient was explained the risk, benefits, and alternatives to receiving this injection. After receiving consent for the injection, the patient had the procedure done while in office today. The patient tolerated the procedure well with no complications. Due to the patient?s history of diabetes, they were instructed to monitor her blood glucose level. The patient was informed that they could see a rise in their numbers and if the numbers became too high, they were instructed to call their PCP. The patient was also informed that they could have facial flushing as a side effect of the injection but this will pass. Follow up will be PRN, or sooner if needed. Patient Instructions: Scribed for Leonela Decker PA-C by Keyla Law medical recruiter, on 06/30/2023 at 10:51 am, EST. Coding Level of Care Code Est Pt Level 4 (97258) Diagnoses Bilateral primary osteoarthritis of knee M17.0 Diabetes E11.9 CPT Codes Coding - 34867 Large joint: 56248 - Large joint ([id number])
== END 2023-06-30 11:19 | disposition home or self-care (01) ==
PROVIDERS: PCP General Practice; Visit Provider Physician Assistant
DX: M17.0 Bilateral primary osteoarthritis of knee (principal); E11.9 Type 2 diabetes mellitus without complications
CPT/HCPCS: 20610

== ENCOUNTER → 2023-06-30 10:46 | Outpatient (BNVA) | payer MEDICAID, SELFPAY | PROVIDERS: PCP General Practice; Visit Provider Physician Assistant | DX: M17.0 Bilateral primary osteoarthritis of knee (principal); E11.9 Type 2 diabetes mellitus without complications | CPT/HCPCS: 20610; J1020 ==

== ENCOUNTER 2023-09-25 13:59 | Outpatient (REF) | payer MEDICAID, SELFPAY ==
--- NOTE | ~2023-09-25 | MM_ITS ---
EXAMINATION: MM SCREENING DIGITAL BREAST TOMOSYNTHESIS, BILATERAL CLINICAL INFORMATION: Screening. Asymptomatic. COMPARISON: Mammography: This study is compared with prior exams dating back to 2019. TECHNIQUE: Digital breast tomosynthesis is performed in both the craniocaudal and mediolateral oblique views along with computer-aided detection (CAD). Synthesized 2D images are generated from the tomosynthesis. FINDINGS: There are scattered areas of fibroglandular density (ACR BI-RADS breast composition Category b). There is a focal asymmetry in the upper outer quadrant of the left breast for which additional mammographic and targeted sonographic imaging is advised. There is a tissue marker in the upper outer quadrant of the left breast in the anterior depth. It is from a prior benign percutaneous biopsy. There are benign calcifications in close association with the tissue marker. There are calcifications in the superior aspect of the right breast for which additional mammographic imaging with magnification is advised. MM/MM tomosynthesis screening BI IMPRESSION: Focal asymmetry of the left breast warrants additional mammographic and targeted sonographic imaging. Calcifications of the left breast warrant additional mammographic imaging. ASSESSMENT: BI-RADS BI-RADS 0 - Incomplete: Needs additional Imaging. RECOMMENDATION: 1. Additional views of both breasts 2. Targeted ultrasound of the right breast if warranted after review of the additional views. 3. Radiology department staff will contact the patient for additional imaging. Additional Imaging required This examination should not preclude the clinical evaluation of a suspicious palpable abnormality. This patient's information was entered into a reminder system with a target due date for their next mammogram.
== END 2023-09-25 14:00 | disposition home or self-care (01) ==
LOC: HO.MAMMO 13:59
PROVIDERS: PCP General Practice; Visit Provider General Practice
DX: Z12.31 Encounter for screening mammogram for malignant neoplasm of breast (principal)
CPT/HCPCS: 77063; 77067

== ENCOUNTER → 2023-09-25 14:45 | Outpatient (BNV) | payer MEDICAID, SELFPAY | PROVIDERS: PCP General Practice; Visit Provider Radiology Diagnostic Radiology | DX: Z12.31 Encounter for screening mammogram for malignant neoplasm of breast (principal) | CPT/HCPCS: 77063; 77067 ==

== ENCOUNTER 2023-11-04 13:24 | Outpatient (REF) | payer MEDICAID, SELFPAY ==
--- NOTE | ~2023-11-04 | US_ITS ---
EXAMINATION: MM DIAGNOSTIC DIGITAL BREAST TOMOSYNTHESIS, BILATERAL US BREAST LIMITED, LEFT MAMMOGRAPHY: CLINICAL INFORMATION: Callback diagnostic mammogram and ultrasound for right breast calcifications, and oval mass left breast 3:00 axis. Prior history benign left stereotactic biopsy in 2016. COMPARISON: -Mammography: 09/25/2023, 09/16/2022, 09/16/2021, 09/13/2020, 07/13/2018, 03/13/2017. -01/16/2020 diagnostic mammography, 06/02/2019 diagnostic mammogram. -Diagnostic left breast ultrasound 01/16/2020 and 06/02/2019. Diagnostic right breast ultrasound 06/02/2019. TECHNIQUE: Digital breast tomosynthesis is performed in the following views: 2-D spot magnification views right breast in the CC and ML projections. 3-D spot compression views of the left breast in the CC and MLO projections. FINDINGS: There are scattered areas of fibroglandular density (ACR BI-RADS breast composition Category b). LEFT BREAST: -Spot compression views reveal an oval circumscribed isodense mass mid depth left breast 3:00 measuring 15 mm in length, with a small 7 mm adjacent oval circumscribed isodense mass abutting medially. These were evaluated previously in 2018, and 2019 ultrasound, and are is known to represent 2 benign cysts. Repeat left breast ultrasound was performed today for confirmation purposes. There are no suspicious abnormalities in the left breast. RIGHT BREAST: Spot magnification views demonstrate several scattered foci of calcifications throughout the right breast, some which layer on the 90 degree mediolateral projection suggesting milk of calcium. There are several loosely grouped benign-appearing calcifications which are unchanged from recent and more remote exams, dating back to 2020. No suspicious calcifications are evident. No pleomorphism, branching forms, linear suspicious forms, or suspicious distributions. These findings are stable and benign. There are no suspicious abnormalities in the right breast. ULTRASOUND: CLINICAL INFORMATION: Left breast cyst, 9:00 axis, reevaluate COMPARISON: 01/16/2020, 06/02/2019. TECHNIQUE: Targeted sonographic evaluation was performed using a high frequency linear transducer. Attention was given to the circumscribed masses at the 9:00 axis of the left breast. Selected archived documentation. FINDINGS: LEFT BREAST: There is a simple cyst at the 3:00 axis, 4 cm from the nipple, measuring 1.1 x 0.9 x 1.1 cm. There is a small daughter cyst measuring 0.7 cm. These are known and benign. There are no suspicious abnormality is in the lateral left breast. US/US breast LT limited mamm only IMPRESSION: There are no findings in either breast suspicious for malignancy. 2 simple cysts are present in the left breast at the 3:00 axis. These are benign. Scattered benign-appearing calcifications are present in the right breast, unchanged from prior exams, none with suspicious features. These are benign and no further follow-up is recommended. Recommend the patient return to routine annual screening mammography. OVERALL ASSESSMENT: Mammography: BI-RADS 2 - Benign Findings Ultrasound: BI-RADS 2 - Benign Findings RECOMMENDATION: 1 year F/U This patient's information was entered into a reminder system with a target due date for their next mammogram.
== END 2023-11-04 13:25 | disposition home or self-care (01) ==
LOC: HO.MAMMO 13:24
PROVIDERS: PCP General Practice; Visit Provider General Practice
DX: R92.1 Mammographic calcification found on diagnostic imaging of breast (principal); N64.89 Other specified disorders of breast
CPT/HCPCS: 76642; 77062; 77066

== ENCOUNTER → 2023-11-04 14:00 | Outpatient (BNV) | payer MEDICAID, SELFPAY | PROVIDERS: PCP General Practice; Visit Provider Radiology Diagnostic Radiology | DX: R92.1 Mammographic calcification found on diagnostic imaging of breast (principal); N63.25 Unspecified lump in the left breast, overlapping quadrants | CPT/HCPCS: 76642; 77062; 77066 ==

== ENCOUNTER 2023-11-30 14:12 | Outpatient (REF) | payer MEDICAID, SELFPAY ==
[2023-11-30 16:39] LABS: Creatinine Urine 118.88 mg/dL; Microalbum/Creatinine Ratio Ur 25.2 ug/mg cr (<30)
[2023-11-30 16:42] LABS: Alanine Aminotransferase 14 U/L (0-31); Albumin Level 4.3 g/dL (3.5-5.0); Alkaline Phosphatase 75 U/L (39-117); Anion Gap 17 (12-20); Aspartate Amino Transferase 17 U/L (5-31); Bilirubin Total 0.4 mg/dL (0.0-1.0); Blood Urea Nitrogen 12 mg/dL (9-16); Calcium 9.9 mg/dL (8.4-10.2); Carbon Dioxide 23 mmol/L (22-29); Chloride 104 mmol/L (96-108); Cholesterol 229 mg/dL (<200); Estimated Glomerular Filt Rate > 60; Glucose Random 118 mg/dL (60-115); HDL Cholesterol 64 mg/dL (>40); LDL Cholesterol Calculated 143 mg/dL (<100); Potassium 3.8 mmol/L (3.3-5.1); Sodium 140 mmol/L (135-145); TSH reflex Free T4 0.56 uIU/mL (0.32-4.0); Total Protein 8.5 g/dL (6.5-8.0); Triglycerides 114 mg/dL (<150)
[2023-12-01 03:48] LABS: HIV AB/AG Nonreactive (Nonreactive); HIV Num 1 0.07 S/CO (0.00-0.99); ~HepC Num1 0.08 S/CO (0.00-0.79); ~Hepatitis C Antibody Nonreactive (Nonreactive)
== END 2023-11-30 14:13 | disposition home or self-care (01) ==
LOC: HO.HHCL 14:12
PROVIDERS: Visit Provider General Practice
DX: Z11.3 Encounter for screening for infections with a predominantly sexual mode of transmission (principal); E04.1 Nontoxic single thyroid nodule; E11.9 Type 2 diabetes mellitus without complications
CPT/HCPCS: 36415; 80053; 80061; 82043; 82570; 84443; 86803; 87389

== ENCOUNTER 2023-12-29 07:34 | Outpatient (REF) | payer MEDICAID, SELFPAY ==
--- NOTE | ~2023-12-29 | FL_ITS ---
EXAMINATION: XR FLUOROSCOPY UPPER GI WITH AIR CLINICAL INFORMATION: Dysphagia COMPARISON: None TECHNIQUE: Fluoroscopic air contrast upper GI examination was performed utilizing standard techniques with thin and thick barium and effervescent granules. Numerous spot images were obtained. FINDINGS: Lateral cine images of the oropharynx and hypopharynx demonstrate normal swallow mechanism with normal epiglottic inversion and soft palate elevation. No tracheal penetration, glottic or subglottic aspiration identified. No nasopharyngeal reflux present. Hypopharyngeal structures appear normal without evidence of mass or diverticulum. There is mild cricopharyngeal achalasia present Dual and single contrast images of the esophagus demonstrate normal caliber, contour, and mucosal pattern. No evidence of stricture, mass, or ulcerations identified. Esophageal peristalsis is moderately disorganized. A small type I hiatal hernia is present. No significant gastroesophageal reflux was seen during the course of the examination and on reflux views. Dual contrast and single contrast images of the stomach demonstrated a normal contour. The gastric rugal folds have a mildly thickened appearance. There are a few small tiny foci of contrast pooling in the fundus the stomach. No masses are present. Contrast freely passed into the gastric antrum and duodenal bulb without delay. Single and air-contrast images of the duodenal bulb demonstrate no abnormality. The duodenal sweep has a normal appearance, course, and mucosal fold appearance. A moderate-sized diverticulum is noted in the distal third segment of the duodenum. The imaged proximal jejunum has a normal fold pattern and caliber. FLUOROSCOPY TIME: 4 minutes 20 seconds Number of Spot Images: 7 Number of Cine: 15 DOSE AREA PRODUCT: 2541 uGy-m2 (microgray-meter squared) FL/FL barium swallow IMPRESSION: 1. Mild cricopharyngeal achalasia 2. Moderately disorganized esophageal peristalsis 3. Small type I hiatal hernia 4. Mildly thickened gastric rugal folds. In addition there are a few tiny foci of contrast pooling in the fundus of the stomach. These findings are suggestive of erosive gastritis. Recommend correlation with EGD. 5. Moderate size diverticulum in the distal third segment of the duodenum. This procedure was performed by Aj Phan PA-C, and supervised by Dr. Oliva
== END 2023-12-29 07:35 | disposition home or self-care (01) ==
LOC: HO.XRAY 07:34
PROVIDERS: PCP General Practice; Visit Provider General Practice
DX: R13.19 Other dysphagia (principal)
CPT/HCPCS: 74220

== ENCOUNTER → 2023-12-29 07:36 | Outpatient (BNV) | payer MEDICAID, SELFPAY | PROVIDERS: PCP General Practice; Visit Provider Physician Assistant Surgical | DX: R13.19 Other dysphagia (principal) | CPT/HCPCS: 74246 ==

== ENCOUNTER 2024-01-14 12:35 | Outpatient (AMB) | payer MEDICAID, SELFPAY ==
--- NOTE | 2024-01-14 13:14 | A.OFFVIS_ITS ---
Intake Visit Reasons: INJ- B/L knee pain, last inj 06/30/23 Intake Note: Cynthia is a 58 year old female who presents today for a follow up of bilateral knee OA, last injection 06/30/23. Patient reports her last injections gave her about 4 months of relief. She is wanting to repeat. Allergies trazodone [TRAZODONE] Allergy (Intermediate, Verified 06/30/23 11:06) PROLONGED QT INTERVAL (PER H&P) HPI HPI INJ- B/L knee pain, last inj 06/30/23: Details: 58-year-old female, who is Vietnamese speaking, presents in the office today for a follow-up of bilateral knee osteoarthritis. I last saw the patient in the office on 06/30/23 when she received cortisone injections in the bilateral knees. ? ? While in the office today, the patient reports the last injection gave her about four months of relief. She would like to repeat the injections today. ? ? Patient has a significant medical history of diabetes mellitus.? PFS Medical History Asthma Depression Diabetes Diabetes education, encounter for Elevated cholesterol GERD (gastroesophageal reflux disease) HTN (hypertension) Kidney calculi PONV (postoperative nausea and vomiting) Tietze syndrome Surgical History H/O: hysterectomy History of cystoscopy History of excision of mass History of umbilical hernia repair History of ventral hernia repair Hx of cholecystectomy Family History Father Throat cancer Maternal Aunt Breast cancer Social History Are you a primary healthcare or medical to a significant other at home: No Do you presently have visiting nurse or other home services: No Alcohol intake: never Comment: no count Patient Tobacco Use Status: Never used Tobacco Advance Directives Date on File: 10/10/13 Current occupational status: disabled 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 No ecchymosis, redness or edema. Patient is able to demonstrate full knee flexion extension. Negative Vadim's. NVI. Office Procedures Joint Injection/Aspiration Joint Injection/Aspiration Primary Site: right knee Secondary Site: left knee Prep: site was prepped using aseptic technique, ethochloride spray was applied and injection warnings given Injected: 40 mg of, DepoMedrol, with 8 mL of (2% plain lido ) and in the joint Approach Used: anterolateral Procedure: The patient tolerated the procedure well, but had some pain with the injection and there was some relief with the local anesthesia Coding 60962 - Large joint Procedure code (CPT) selection complete Assessment & Plan Assessment & Plan (1) Bilateral primary osteoarthritis of knee: Code(s): M17.0 - Bilateral primary osteoarthritis of knee Category: Medical (2) Diabetes: Code(s): E11.9 - Type 2 diabetes mellitus without complications Category: Medical Plan Ms. Roddy Morales is a 58-year-old female, who is Vietnamese speaking, presents in the office today for a follow-up of bilateral knee osteoarthritis. I last saw the patient in the office on 06/30/23 when she received cortisone injections in the bilateral knees. ? ? While in the office today, the patient reports the last injection gave her about four months of relief. She would like to repeat the injections today. ? ? Patient has a significant medical history of diabetes mellitus.? ? The patient was offered a cortisone injection in the bilateral knees with 40 mg of Depo-Medrol. The patient was explained the risk, benefits, and alternatives to receiving this injection. After receiving consent for the injection, the patient had the procedure done while in the office today. The patient tolerated the procedure well with no complications.? ? Due to the patient?s history of diabetes, they were instructed to monitor her blood glucose level. The patient was informed that they could see a rise in their numbers and if the numbers became too high, they were instructed to call their PCP. The patient was also informed that they could have facial flushing as a side effect of the injection, but this will pass.?? ? Follow up will be PRN, or sooner if needed.? Patient Instructions: Scribed by Keyla Law medical technologist hematology, for Leonela Decker PA-C on 01/14/2024 at 12:39 pm, EST.? Coding Level of Care Code Est Pt Level 3 (55860) Diagnoses Bilateral primary osteoarthritis of knee M17.0 Diabetes E11.9 CPT Codes Coding - 87274 Large joint: 71848 - Large joint ([id number])
== END 2024-01-14 13:34 | disposition home or self-care (01) ==
PROVIDERS: PCP General Practice; Visit Provider Physician Assistant
DX: M17.0 Bilateral primary osteoarthritis of knee (principal); E11.9 Type 2 diabetes mellitus without complications
CPT/HCPCS: 20610

== ENCOUNTER → 2024-01-14 12:35 | Outpatient (BNVA) | payer MEDICAID, SELFPAY | PROVIDERS: PCP General Practice; Visit Provider Physician Assistant | DX: M17.0 Bilateral primary osteoarthritis of knee (principal); E11.9 Type 2 diabetes mellitus without complications | CPT/HCPCS: 20610; J1010 ==

== ENCOUNTER 2024-02-26 12:31 | Outpatient (REF) | payer MEDICAID, SELFPAY ==
--- NOTE | ~2024-02-26 | CT_ITS ---
EXAMINATION: CT CHEST WITHOUT CONTRAST CLINICAL INFORMATION: Pulmonary nodule. COMPARISON: October 24, 2022. TECHNIQUE: Multidetector volumetric CT imaging of the chest was done. Axial MIP volume rendering provided. Sagittal and coronal reformatted images were obtained. This CT examination was performed using dose optimization techniques as appropriate, variously including the following: *Automated exposure control *Adjustment of mA and/or kV according to patient size (this includes techniques or standardized protocols for targeted exams where dose is matched to indication/reason for exam; i.e. extremities or head) *Use of iterative reconstruction technique DLP: 128 mGy-cm FINDINGS: PRINT SHOP MANAGER: Unremarkable. LUNGS: There is a stable 3 mm calcific right lower lobe nodule adjacent to the diaphragm. No new nodules are seen. The lungs are otherwise clear. MEDIASTINUM: The heart is normal in size. The aorta is normal in caliber. There is no significant pericardial fluid. There is no significant lymphadenopathy. There are stable thyroid nodules. CORONARY ARTERY CALCIFICATION: Moderate left coronary artery calcification is noted. PLEURA: There is no pleural effusion. No pleural mass or thickening. AXILLA: No lymphadenopathy. Stable nodular left breast density measuring 1.3 cm UPPER ABDOMEN: Unremarkable. OSSEOUS STRUCTURES: Unremarkable. CT/CT chest wo IV con IMPRESSION: 1. Stable 3 mm calcific right lower lobe nodule. No new nodules are seen. 2. Moderate left coronary artery calcification. Fleischner guidelines were followed. Electronically signed by: David Puri MD 03/03/2024 01:39 AM EDT
== END 2024-02-26 12:32 | disposition home or self-care (01) ==
LOC: HO.CT 12:31
PROVIDERS: PCP Nurse Practitioner Family; Visit Provider Internal Medicine Pulmonary Disease
DX: R91.8 Other nonspecific abnormal finding of lung field (principal)
CPT/HCPCS: 71250

== ENCOUNTER 2024-03-02 11:31 | Emergency (ER) | payer MEDICAID, SELFPAY ==
--- NOTE | 2024-03-02 12:15 | ED_ITS ---
HPI - General Adult General Chief complaint: General Medical Stated complaint: upper r back pain Time Seen by Provider: 03/03/24 00:56 Source: patient Mode of arrival: ambulatory Limitations: no limitations History of Present Illness ED Provider: Dr. Mariluz Estrada HPI narrative: Patient comes to the emergency room complaining of a burning sensation to the right flank that has been present for over 2 months. Patient states that she went to see her PCP in a CT scan was done over a week ago but patient does not have the results yet. Patient states that the burning pinching sensation restarted 2 months ago over the same area where she had shingles several years ago. Patient denies any chest pain or shortness of breath, no rash Related Data Home Medications ?Medication ?Instructions ?Recorded ?Confirmed albuterol sulfate 0.63 mg/3 mL 03/27/20 12/04/20 solution for nebulization buspirone 5 mg tablet mg 03/27/20 12/04/20 omeprazole 40 mg capsule,delayed 40 mg PO DAILY 03/27/20 02/26/21 release amlodipine 10 mg tablet 1 tab PO QAM 02/26/21 02/26/21 aripiprazole 10 mg tablet (Abilify) 1 tab PO QAM 02/26/21 02/26/21 atorvastatin 80 mg tablet 1 tab PO BEDTIME 02/26/21 02/26/21 bupropion HCl 150 mg 24 hr tablet, 1 tab PO QAM depressive disorder 02/26/21 02/26/21 extended release cholecalciferol (vitamin D3) 50 1 tab PO QAM 02/26/21 02/26/21 mcg (2,000 unit) tablet fluoxetine 20 mg capsule (Prozac) 2 cap PO QAM 02/26/21 02/26/21 gabapentin 300 mg capsule 1 cap PO BID 02/26/21 02/26/21 lorazepam 2 mg tablet 1 tab PO BEDTIME 02/26/21 02/26/21 trazodone 150 mg tablet 1 tab PO BEDTIME 02/26/21 02/26/21 bupropion HCl 300 mg 24 hr tablet, 300 mg PO QAM depressive disorder 06/26/22 extended release ibuprofen 600 mg tablet 600 mg PO QID PRN 06/26/22 metformin 500 mg tablet 500 mg PO QAM 06/26/22 Previous Rx's ?Medication ?Instructions ?Recorded estradiol 0.01% (0.1 mg/gram) See Rx Instructions .Route DAILY 11/01/20 vaginal cream 30 days #42.5 grams albuterol sulfate 90 mcg/actuation 2 puff inhalation 6XD PRN 12/11/20 aerosol inhaler (ProAir HFA) shortness of breath or wheezing 30 days #1 ea tramadol 50 mg tablet 50 mg PO Q6H PRN pain (scale score 03/04/21 4-6) #14 tabs acetaminophen 500 mg tablet 500 mg PO Q6H PRN fever or pain 06/08/22 (Tylenol Extra Strength) #14 tabs lidocaine 5 % topical patch 1 patch topical DAILY PRN pain #30 06/08/22 (Lidoderm) ea naproxen 500 mg tablet 500 mg PO BID PRN pain 10 days #20 06/08/22 tabs tiotropium bromide 2.5 2 puff PO QAM #4 grams 11/11/23 mcg/actuation mist for inhalation (Spiriva Respimat) gabapentin 100 mg capsule 100 mg PO TID 21 days #63 caps 03/03/24 Allergies Allergy/AdvReac Type Severity Reaction Status Date / Time trazodone [TRAZODONE] Allergy Intermediate PROLONGED Verified 03/02/24 12:21 QT INTERVAL (PER H&P) Review of Systems 2 Review of Systems: Constitutional : No Weight loss, No Fever, No Chills, No Night Sweats, No Fatigue, No Malaise ENT/Mouth : No Hearing loss, No Ear Pain, No Nasal Congestion, No Sinus Pain, No Hoarseness, No sore throat, No Rhinorrhea, No Swallowing Difficulty Eyes: No Eye Pain, No Swelling, No Redness, No Foreign Body, No Discharge, No Vision Changes Cardiovascular : No Chest Pain, No SOB, No Dyspnea on Exertion, No Orthopnea, No Edema, No Palpitations Respiratory : No Cough, No Sputum, No Wheezing, No Smoke Exposure, No Dyspnea Gastrointestinal : No Nausea, No Vomiting, No Diarrhea, No Constipation, No abdominal Pain, No Hematochezia, No Melena Genitourinary : no irregular bleeding, No Dysuria, No Urinary Frequency, No Hematuria, No Urinary Incontinence, No Urgency, No Flank Pain, No Urinary Flow Changes, No Hesitancy Musculoskeletal : complaining of a pinching sensation over the right flank present for 2 months over the same area where she previously had shingles. No joint pain, No Myalgias, No Joint Swelling Skin : No Skin Lesions, No rash Neuro : No Weakness, No Numbness, No Paresthesias, No Loss of Consciousness, No Dizziness, No Headache Psych : No Anxiety/Panic, No Depression, No SI/HI/AH/VH, No Social Issues, Heme/Lymph: No Bruising, No Bleeding,No Lymphadenopathy Endocrine : No Polyuria, No Polydipsia, No Temperature Intolerance [facility] Past Medical History Medical History Diabetes education, encounter for GERD (gastroesophageal reflux disease) Asthma Elevated cholesterol PONV (postoperative nausea and vomiting) Diabetes Tietze syndrome Kidney calculi Depression HTN (hypertension) Surgical History H/O: hysterectomy History of cystoscopy History of excision of mass History of umbilical hernia repair History of ventral hernia repair Hx of cholecystectomy Family History Family History Father Throat cancer Maternal Aunt Breast cancer Social History Social History Are you a primary resident caregiver to a significant other at home: No Do you presently have visiting nurse or other home services: No Alcohol intake: never Comment: no count Patient Tobacco Use Status: Never used Tobacco Advance Directives: No Advance Directives Information Provided: No Advance Directives Date on File: 10/10/13 Do you have a plan to hurt others: No Plan Current occupational status: disabled 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 Oriented X3. No acute distress. Eyes: Pupils equal, round and reactive to light. ENT: Pharynx normal. Neck: Normal inspection. Neck supple. No lymph nodes noted. No crepitus CVS: Normal heart rate and rhythm. Pulses normal. Normal S1 and S2 Respiratory: No respiratory distress. Breath sounds normal. No Wheezing. No rales Abdomen: Soft and nontender. No rigidity. No distention. Skin: Skin warm and dry. Normal skin color. Normal skin turgor. Extremities: No lower extremity edema. No Lacerations. No Rash Neuro: Oriented X 3. No motor deficit. No sensory deficit. Moving all extremities. No slurred speech. CN 2 through 12 grossly intact, strength 5/5 in upper extremities Psych: calm, cooperative, normal affect Course Course Course Narrative: This is a rapid medical exam performed by Adama Cueva NP: Additional HPI, ROS, PE not included below will be deferred to primary provider. Patient is a 59- year old Gambian speaking female with history of DM, asthma, pulmonary nodules presenting to the ED with complaint of right flank pain radiating to her back. Recently diagnosed with a chest mass, had outpatient CT on 02/25 which is not yet read. Plan: labs, UA Medical Decision Making Medical Decision Making [facility] Narrative: - Patient's physical exam is normal. - I discussed with the patient that given that she has pinching superficial skin discomfort over the same area where she previously had shingles, it may be neuropathy secondary to her previous infection of shingles. - Patient was given IM Toradol and p.o. gabapentin and a prescription - patient very upset that she had a CT scan done 1 week ago and it has not been read yet. I discussed with the patient that outpatient CT scans are no read immediately as they are done through the emergency room. I asked radiology to read the scan , since the patient is here and it may/may not contribute to patient's diagnosis. However, patient decided not to wait for the report. Patient states that she has an appointment pending with her primary care physician next week Differential Diagnosis Differential Diagnoses: The differential diagnosis associated with the presentation includes ( musculoskeletal pain, pyelonephritis, neuropathy) Lab Data [facility] Lab Attestation statement: I reviewed the patient's lab results. 03/02/24 12:53 03/02/24 12:53 Labs: Lab Results 03/02/24 03/02/24 03/02/24 Range/Units 12:53 12:56 23:27 WBC 9.2 (4.8-10.8) X10*3/uL RBC 5.22 (4.20-5.50) X10*6/uL Hgb 14.3 (12.0-16.0) g/dl Hct 43.9 (37.0-47.0) % MCV 84.1 (80.0-98.0) fL MCH 27.4 (27.0-33.0) pg MCHC 32.6 (31.0-35.0) g/dl RDW 14.3 (11.0-16.0) % Plt Count 315 (160-400) X10*3/uL MPV 9.8 (9.4-12.3) fL Immature Gran % (Auto) 0.2 (0.0-0.4) % Neut % (Auto) 60.7 (45-73) % Lymph % (Auto) 31.9 (20-40) % [place] % (Auto) 6.0 (2-11) % Eos % (Auto) 0.7 (0-4) % Baso % (Auto) 0.5 (0-2) % Lymph # (Auto) 2.9 (1.2-4.9) X10*3/uL [place] # (Auto) 0.6 (0.1-1.2) X10*3/uL Eos # (Auto) 0.1 (0.0-0.4) X10*3/uL Baso # (Auto) 0.1 (0.0-0.2) X10*3/uL Abs Immat Gran (auto) 0.02 (0.00-0.03) X10*3/uL Absolute Neuts (auto) 5.6 (2.0-8.3) x10*3/uL Absolute Nucleated RBC 0.000 (0.0-0.012) X10*3/uL Nucleated RBC % (auto) 0.0 (0.0-0.2) /100WBC Sodium 141 (135-145) mmol/L Potassium 3.8 (3.3-5.1) mmol/L Chloride 105 (96-108) mmol/L Carbon Dioxide 27 (22-29) mmol/L Anion Gap 13 (12-20) BUN 10 (9-16) mg/dL Creatinine 0.72 (0.5-1.4) mg/dL Estim Creat Clear Calc 86.6 Estimated GFR > 60 POC Glucose 91 (60-115) mg/dL Random Glucose 104 (60-115) mg/dL Calcium 10.1 (8.4-10.2) mg/dL Total Bilirubin 0.3 (0.0-1.0) mg/dL AST 14 (5-31) U/L ALT 14 (0-31) U/L Alkaline Phosphatase 73 (39-117) U/L Total Protein 8.1 H (6.5-8.0) g/dL Albumin 4.2 (3.5-5.0) g/dL Urine Color Yellow Urine Appearance Clear Urine pH 6.0 (5.0-9.0) Ur Specific [place] 1.025 (1.005-1.025) Urine Protein Negative (Neg-Trace) mg/dL Urine Glucose (UA) Negative (Negative) mg/dL Urine Ketones Negative (Negative) mg/dL Urine Blood Small (1+) H (Negative) Urine Nitrite Negative (Negative) Ur Leukocyte Esterase Negative (Negative) Urine RBC 11-20 H (0-2) /HPF Urine WBC 0-5 (0-5) /HPF Ur Squamous Epith Cells 3-5 (0-2) /HPF Urine Bacteria None Seen (None Seen) Hyaline Casts 0-2 (0-2) /LPF Discharge Plan Discharge Clinical Impression: Neuropathy Patient Disposition: Home, Self-Care Instructions: Peripheral Neuropathy (ED) Additional Instructions: Please follow-up with your primary care physician tomorrow. If you have any worsening or new symptoms, please return to the emergency room or call 911 Prescriptions: New gabapentin 100 mg capsule 100 mg PO TID 21 Days Qty: 63 0RF No Action Spiriva Respimat 2.5 mcg/actuation mist 2 puff PO QAM Qty: 4 6RF buspirone 5 mg Tablet albuterol sulfate 0.63 mg/3 mL Solution For Nebulization omeprazole 40 mg Capsule,Delayed Release(Dr/Ec) 40 mg PO DAILY atorvastatin 80 mg tablet 1 tab PO BEDTIME lorazepam 2 mg tablet 1 tab PO BEDTIME amlodipine 10 mg tablet 1 tab PO QAM trazodone 150 mg tablet 1 tab PO BEDTIME gabapentin 300 mg capsule 1 cap PO BID fluoxetine [Prozac] 20 mg capsule 2 cap PO QAM aripiprazole [Abilify] 10 mg tablet 1 tab PO QAM bupropion HCl 150 mg tablet extended release 24 hr 1 tab PO QAM cholecalciferol (vitamin D3) 50 mcg (2,000 unit) tablet 1 tab PO QAM tramadol 50 mg tablet 50 mg PO Q6H PRN (Reason: pain (scale score 4-6)) Qty: 14 0RF acetaminophen [Tylenol Extra Strength] 500 mg tablet 500 mg PO Q6H PRN (Reason: fever or pain) Qty: 14 0RF lidocaine [Lidoderm] 5 % adhesive patch,medicated 1 patch topical DAILY MDD remove after 12 hours PRN (Reason: pain) Qty: 30 0RF Rx Instructions: leave on most painful area for up to 12 hrs naproxen 500 mg tablet 500 mg PO BID PRN (Reason: pain) 10 Days Qty: 20 0RF albuterol sulfate [ProAir HFA] 90 mcg/actuation HFA aerosol inhaler 2 puff INHALATION 6XD PRN (Reason: shortness of breath or wheezing) 30 Days Qty: 1 2RF estradiol 0.01 % (0.1 mg/gram) cream See Rx Instructions .Route DAILY 30 Days Qty: 42.5 2RF Rx Instructions: pea-sized to urethra daily; bupropion HCl 300 mg tablet extended release 24 hr 300 mg PO QAM metformin 500 mg tablet 500 mg PO QAM ibuprofen 600 mg tablet 600 mg PO QID PRN Print Language: Gambian
[2024-03-02 12:16] VITALS: BP 205/99; PULSE 93; RESP 18; TEMP 36.7; O2SAT 100; BMI 28.5
[2024-03-02 13:02] LABS: MANUAL DIFF FLAG NO
[2024-03-02 13:03] LABS: Basophils Absolute Auto 0.1 X10*3/uL (0.0-0.2); Basophils Percent Auto 0.5 % (0-2); Eosinophils Absolute Auto 0.1 X10*3/uL (0.0-0.4); Eosinophils Percent Auto 0.7 % (0-4); Hematocrit 43.9 % (37.0-47.0); Hemoglobin 14.3 g/dl (12.0-16.0); Imm Gran Abs Auto 0.02 X10*3/uL (0.00-0.03); Imm Gran Pct Auto 0.2 % (0.0-0.4); Lymphocytes Absolute Auto 2.9 X10*3/uL (1.2-4.9); Lymphocytes Percent Auto 31.9 % (20-40); Mean Corpuscular HGB Conc 32.6 g/dl (31.0-35.0); Mean Corpuscular Hemoglobin 27.4 pg (27.0-33.0); Mean Corpuscular Volume 84.1 fL (80.0-98.0); Mean Platelet Volume 9.8 fL (9.4-12.3); Monocytes Absolute Auto 0.6 X10*3/uL (0.1-1.2); Neutrophils Absolute Auto 5.6 x10*3/uL (2.0-8.3); Neutrophils Percent Auto 60.7 % (45-73); Platelet Count 315 X10*3/uL (160-400); Red Blood Count 5.22 X10*6/uL (4.20-5.50); Red Cell Distribution Width 14.3 % (11.0-16.0); White Blood Count 9.2 X10*3/uL (4.8-10.8)
[2024-03-02 13:08] LABS: Appearance Urine Clear; Color Urine Yellow; Glucose Urine UA Negative (Negative); Leukocyte Esterase Urine Negative (Negative); Nitrite Urine Negative (Negative); Specific Gravity - Urine 1.025 (1.005-1.025); UMIC TRIGGER UACC YES; Urine Blood Small (1+) (Negative); Urine Ketones Negative (Negative); Urine Protein Negative (Neg-Trace)
[2024-03-02 13:14] LABS: Bacteria Urine None Seen (None Seen); Hyaline Casts Urine 0-2 /LPF (0-2); WBC Urine 0-5 /HPF (0-5)
[2024-03-02 13:19] LABS: Alanine Aminotransferase 14 U/L (0-31); Albumin Level 4.2 g/dL (3.5-5.0); Alkaline Phosphatase 73 U/L (39-117); Anion Gap 13 (12-20); Aspartate Amino Transferase 14 U/L (5-31); Bilirubin Total 0.3 mg/dL (0.0-1.0); Blood Urea Nitrogen 10 mg/dL (9-16); Calcium 10.1 mg/dL (8.4-10.2); Carbon Dioxide 27 mmol/L (22-29); Chloride 105 mmol/L (96-108); Creatinine Clr Calc Pharmacy 86.6; Estimated Glomerular Filt Rate > 60; Glucose Random 104 mg/dL (60-115); Potassium 3.8 mmol/L (3.3-5.1); Sodium 141 mmol/L (135-145); Total Protein 8.1 g/dL (6.5-8.0)
[2024-03-02 22:14] VITALS: BP 193/97; PULSE 64; RESP 18; O2SAT 97
--- NOTE | 2024-03-02 23:20 | PC.NURSE ---
chest CT in imaging from 02/26/2024 not resulted at this time
[2024-03-02 23:31] LABS: Glucose, Whole Blood 91 mg/dL (60-115)
[2024-03-03] MEDS: Ketorolac Tromethamine 60 MG/2 ML VIAL IM (01:35)
[2024-03-03] MEDS: Gabapentin 100 MG CAPSULE PO (01:36)
[2024-03-03 01:42] VITALS: BP 160/88; PULSE 70; RESP 20; TEMP 37; O2SAT 100
== END 2024-03-03 01:44 | disposition home or self-care (01) ==
PROVIDERS: Registered Nurse Emergency; Emergency Provider Emergency Medicine
DX: G62.9 Polyneuropathy, unspecified (principal); M54.50 Low back pain, unspecified; R10.9 Unspecified abdominal pain; M54.6 Pain in thoracic spine; Z79.899 Other long term (current) drug therapy
CPT/HCPCS: 36415; 80053; 81001; 82947; 85025; 96372; 99284; J1885

== ENCOUNTER 2024-03-08 12:58 | Outpatient (AMB) | payer MEDICAID, SELFPAY ==
[2024-03-08 13:02] VITALS: BP 140/92; PULSE 73; O2SAT 99; BMI 28.4
--- NOTE | 2024-03-08 13:02 | A.OFFVIS_ITS ---
Vital Signs 03/08/24 13:02 Height 5 ft 5 in Weight 170 lb 13.732 oz BMI 28.4 BP 140/92 H Blood Pressure Location Rt brachial Position Sitting Pulse 73 Pulse Source Doppler Pulse Oximetry (%) 99 Oxygen Delivery Method Room Air Intake Visit Reasons: pulm nodule Studio Musician Required: Yes Studio Musician Name: Kristen Trimble C.L.M Allergies trazodone [TRAZODONE] Allergy (Intermediate, Verified 03/08/24 13:06) PROLONGED QT INTERVAL (PER H&P) HPI HPI pulm nodule: Details: 57-year-old lady, lifetime nonsmoker, followed for an incidental finding of a new (as compared to scan 3 years prior) right lower lobe [address] abdomen obtained secondary to abdominal pain. Patient denies family history of lung cancer. PET-CT from 05/19/2019 - no FDG uptake in previously noted right basilar nodule. Patient had a follow-up CT chest in October of 2019 that showed decreasing right lower lobe nodule. patient has had a follow-up CT chest November 2020 that showed right lower lobe nodule decreased down to 5 mm, however she does have several new nodules up to [address] chest demonstrates stable pulmonary nodules. Today she is complaining of back pain secondary to a pinched nerves in is interested in pain management evaluation. [facility] Medical History Diabetes education, encounter for GERD (gastroesophageal reflux disease) Asthma Elevated cholesterol PONV (postoperative nausea and vomiting) Diabetes Tietze syndrome Kidney calculi Depression HTN (hypertension) Surgical History H/O: hysterectomy History of cystoscopy History of excision of mass History of umbilical hernia repair History of ventral hernia repair Hx of cholecystectomy Family History Father Throat cancer Maternal Aunt Breast cancer Social History Are you a primary date night caregiver to a significant other at home: No Do you presently have visiting nurse or other home services: No Alcohol intake: never Comment: no count Patient Tobacco Use Status: Never used Tobacco Advance Directives Date on File: 10/10/13 Current occupational status: disabled 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 Review of Systems Const Denies daytime sleepiness, Denies excessive sweating, Denies fatigue, Denies fever(s), Denies lethargy, Denies malaise, Denies night sweats, Denies snoring and Denies weight loss Eyes Denies blurry vision and Denies itchy eyes ENT Denies nasal congestion, Denies post nasal drip, Denies sinus pain, Denies sinus pressure and Denies other ( Thrush) Card Denies chest pain, Denies pedal edema, Denies dyspnea, Denies orthopnea and Denies paroxysmal nocturnal dyspnea Resp Denies cough, Denies hemoptysis, Denies excessive phlegm production, Denies dyspnea, Denies snoring and Denies wheezing GI Denies abdominal pain and Denies heartburn Musc Reports back pain, Denies myalgias, Denies arthralgias and Denies joint swelling Skin/Breast Denies rash Neuro Denies memory loss and Denies seizure-like activity Psych Denies abnormal sleep pattern, Denies anxiety and Denies memory loss Endo Denies excessive sweating, Denies fatigue and Denies heat intolerance Chaim/Lymph Denies easy bruising Aller/Immun Denies itchy eyes, Denies seasonal rhinorrhea and Denies wheezing Physical Exam Vital Signs: Last Vital Signs Pulse 73 03/08/24 13:02 BP 140/92 H 03/08/24 13:02 Pulse Ox 99 03/08/24 13:02 Oxygen Delivery Method Room Air 03/08/24 13:02 BMI result Body Mass Index 28.4 Const General: no acute distress and alert Nutritional Appearance: not obese Orientation/consciousness: Other orientation findings ( oriented) HEENT Head: Yes atraumatic Eyes General: appearance normal, both eyes and all related structures Sclerae: sclerae normal EOM: EOMs intact bilaterally Neck Neck: Yes supple Lymphatic: no lymphadenopathy noted Resp Effort & Inspection: normal respiratory effort and no use of accessory muscles Auscultation: clear to auscultation bilaterally Cardio Rate: regular rate Rhythm: regular rhythm Heart sounds: no gallops, no murmurs and no rubs Skin General skin exam: other ( warm) Extrem General: No clubbing, No cyanosis and No edema Assessment & Plan Assessment & Plan (1) Asthma: Code(s): J45.909 - Unspecified asthma, uncomplicated Category: Medical Plan: Well controlled on current regimen of Spiriva and albuterol MDI. Continue current regimen (2) Pulmonary nodules: Code(s): R91.8 - Other nonspecific abnormal finding of lung field Category: Medical Plan: Stable pulmonary nodules on CT scan from February of 2024, will repeat CT chest in February of 2025. Coding Level of Care Code Est Pt Level 4 (65621) Diagnoses Asthma J45.909 Pulmonary nodules R91.8
== END 2024-03-08 13:24 | disposition home or self-care (01) ==
PROVIDERS: PCP General Practice; Visit Provider Internal Medicine Pulmonary Disease
DX: J45.909 Unspecified asthma, uncomplicated (principal); R91.8 Other nonspecific abnormal finding of lung field
CPT/HCPCS: 99214

== ENCOUNTER → 2024-03-08 12:58 | Outpatient (BNVA) | payer MEDICAID, SELFPAY | PROVIDERS: PCP General Practice; Visit Provider Internal Medicine Pulmonary Disease | DX: R91.8 Other nonspecific abnormal finding of lung field (principal); J45.909 Unspecified asthma, uncomplicated | CPT/HCPCS: 99212 ==

== ENCOUNTER 2024-05-06 13:02 | Outpatient (REF) | payer MEDICAID, SELFPAY ==
--- NOTE | ~2024-05-06 | MR_ITS ---
EXAMINATION: MR BRAIN WITHOUT CONTRAST CLINICAL INFORMATION: Memory loss. Dementia. Family history of brain tumor. COMPARISON: None available. TECHNIQUE: MRI of the brain was obtained using routine sequences without contrast. FINDINGS: No focal restricted diffusion is demonstrated to suggest acute or subacute cerebral ischemia. No evidence of acute or chronic hemorrhagic products on heme-sensitive imaging. Scattered periventricular and deep white matter T2 FLAIR hyperintensities consistent with mild underlying microangiopathy. The ventricles are normal in morphology and size. No abnormal mass effect. No midline shift. Prominent expansion of the sella turcica with flattening of the pituitary gland. Normal positioning of the cerebellar tonsils. Normal arterial and venous vascular flow voids are present. Normal, homogeneous marrow signal. Mild mucosal thickening of the paranasal sinuses. Moderate rightward nasal septal deviation. No signal abnormalities within the mastoids. MR/MR head/brain wo con IMPRESSION: 1. No acute intracranial abnormalities. 2. Mild underlying microangiopathy. 3. Partially empty sella turcica. Electronically signed by: Dario Antony DO 05/25/2024 08:00 AM [facility]
== END 2024-05-06 13:03 | disposition home or self-care (01) ==
LOC: HO.MRI 13:02
PROVIDERS: PCP General Practice; Visit Provider General Practice
DX: R41.3 Other amnesia (principal)
CPT/HCPCS: 70551

== ENCOUNTER 2024-05-09 15:41 | Outpatient (REF) | payer MEDICAID, SELFPAY ==
--- NOTE | ~2024-05-09 | XR_ITS ---
EXAMINATION: XR RIGHT HAND XR LEFT ELBOW CLINICAL INFORMATION: Pain and swelling in fifth finger right hand, left elbow pain and swelling lateral epicondylitis. COMPARISON: 05/20/2016 left elbow, right hand. TECHNIQUE: 3 views right hand, 4 views left elbow. FINDINGS: RIGHT HAND: Moderate degenerative changes in the first carpometacarpal joint and triscaphe joint with joint space narrowing and hypertrophic change. Narrowing of the radiocarpal space with degenerative changes. Ulnar minus variance. Bone mineralization is normal. Third, fourth and fifth digits overlap on lateral view, limiting visualization. Mild degenerative changes in the first metacarpophalangeal joint. Visualization of the fifth digit is limited on the lateral view due to overlapping digits. Recommend repeat lateral view at no charge to the patient with better positioning for improved visualization. If this additional view is provided, an addendum will be dictated. LEFT ELBOW: Bone mineralization is normal. There is increased spurring along the lateral aspect of the radial head compared with 2016 exam. There is also a subtle vertical linear lucency along the lateral aspect of the radial head along the articular surface, concerning for possible nondisplaced fracture. Small spurs along the medial and lateral epicondyles. XR/XR elbow LT min 3V IMPRESSION: 1. Moderate degenerative changes in the right wrist. 2. Visualization of the fifth digit is limited on the lateral view due to overlapping digits. Recommend repeat lateral view at no charge to the patient with better positioning for improved visualization. If this additional view is provided, an addendum will be dictated. 3. Increased spurring along the lateral aspect of the radial head compared with 2016 exam. There is also a subtle vertical linear lucency along the lateral aspect of the radial head articular surface, concerning for possible nondisplaced fracture. Correlation with clinical exam recommended. This study was presented today May 10, 2024 for interpretation. Stat results provided at this time as requested by referring provider. Electronically signed by: Sirisha King MD 05/10/2024 10:08 AM [facility]
--- NOTE | ~2024-05-09 | XR_ITS ---
EXAMINATION: XR RIGHT HAND XR LEFT ELBOW CLINICAL INFORMATION: Pain and swelling in fifth finger right hand, left elbow pain and swelling lateral epicondylitis. COMPARISON: 05/20/2016 left elbow, right hand. TECHNIQUE: 3 views right hand, 4 views left elbow. FINDINGS: RIGHT HAND: Moderate degenerative changes in the first carpometacarpal joint and triscaphe joint with joint space narrowing and hypertrophic change. Narrowing of the radiocarpal space with degenerative changes. Ulnar minus variance. Bone mineralization is normal. Third, fourth and fifth digits overlap on lateral view, limiting visualization. Mild degenerative changes in the first metacarpophalangeal joint. Visualization of the fifth digit is limited on the lateral view due to overlapping digits. Recommend repeat lateral view at no charge to the patient with better positioning for improved visualization. If this additional view is provided, an addendum will be dictated. LEFT ELBOW: Bone mineralization is normal. There is increased spurring along the lateral aspect of the radial head compared with 2016 exam. There is also a subtle vertical linear lucency along the lateral aspect of the radial head along the articular surface, concerning for possible nondisplaced fracture. Small spurs along the medial and lateral epicondyles. XR/XR hand RT min 3V IMPRESSION: 1. Moderate degenerative changes in the right wrist. 2. Visualization of the fifth digit is limited on the lateral view due to overlapping digits. Recommend repeat lateral view at no charge to the patient with better positioning for improved visualization. If this additional view is provided, an addendum will be dictated. 3. Increased spurring along the lateral aspect of the radial head compared with 2016 exam. There is also a subtle vertical linear lucency along the lateral aspect of the radial head articular surface, concerning for possible nondisplaced fracture. Correlation with clinical exam recommended. This study was presented today May 10, 2024 for interpretation. Stat results provided at this time as requested by referring provider. Electronically signed by: Sirisha King MD 05/10/2024 10:08 AM [facility]
[2024-05-09 17:48] LABS: MANUAL DIFF FLAG NO
[2024-05-09 18:35] LABS: Basophils Absolute Auto 0.1 X10*3/uL (0.0-0.2); Basophils Percent Auto 0.5 % (0-2); Eosinophils Absolute Auto 0.1 X10*3/uL (0.0-0.4); Eosinophils Percent Auto 0.9 % (0-4); Hematocrit 41.2 % (37.0-47.0); Hemoglobin 13.2 g/dl (12.0-16.0); Imm Gran Abs Auto 0.02 X10*3/uL (0.00-0.03); Imm Gran Pct Auto 0.2 % (0.0-0.4); Lymphocytes Absolute Auto 3.8 X10*3/uL (1.2-4.9); Lymphocytes Percent Auto 34.3 % (20-40); Mean Corpuscular Hemoglobin 27.4 pg (27.0-33.0); Mean Corpuscular Volume 85.5 fL (80.0-98.0); Mean Platelet Volume 10.5 fL (9.4-12.3); Monocytes Absolute Auto 0.6 X10*3/uL (0.1-1.2); Monocytes Percent Auto 5.3 % (2-11); Neutrophils Absolute Auto 6.5 x10*3/uL (2.0-8.3); Neutrophils Percent Auto 58.8 % (45-73); Platelet Count 427 X10*3/uL (160-400); Red Blood Count 4.82 X10*6/uL (4.20-5.50); Red Cell Distribution Width 13.5 % (11.0-16.0); White Blood Count 11.1 X10*3/uL (4.8-10.8)
[2024-05-09 19:02] LABS: Rheumatoid Factor < 13.0 IU/mL (<15.0)
[2024-05-09 19:03] LABS: C Reactive Protein 2.98 mg/dL (< or = 0.50); Uric Acid 4.4 mg/dL (2.4-5.7)
[2024-05-09 19:24] LABS: Erythrocyte Sedimentation Rate 64 MM/HR (0-20)
[2024-05-10 08:11] LABS: HBS Num1 > 1000.00 mIU/mL (0-7.99); HBc Num1 0.89 S/CO (0.00-0.79); HBsAGNum1 0.37 S/CO (0.00-0.99); Hepatitis B Surface Antigen Negative (Negative); ~Hepatitis A Antibody IgM Nonreactive (Nonreactive); ~Hepatitis B Surface Antibody REACTIVE (Nonreactive); ~Hepatitis C Antibody Nonreactive (Nonreactive)
[2024-05-10 10:39] LABS: HBc Num2 0.68 S/CO; HBc Num3 0.69 S/CO; Hepatitis B Core Antibody Nonreactive (Nonreactive)
[2024-05-15 10:08] LABS: ANA Titer 2 1:40 titer; Anti Nuclear Antibody Screen POSITIVE (NEGATIVE); Anti Nuclear Antibody Titer 1:40 titer
== END 2024-05-09 15:42 | disposition home or self-care (01) ==
LOC: HO.HHCX 15:41
PROVIDERS: Internal Medicine; Visit Provider General Practice
DX: M79.641 Pain in right hand (principal); M25.522 Pain in left elbow; M65.949 Unspecified synovitis and tenosynovitis, unspecified hand
CPT/HCPCS: 36415; 73080; 73130; 84550; 85025; 85652; 86038; 86039; 86140; 86431; 86704; 86706; 86709; 86803; 87340

== ENCOUNTER 2024-05-17 13:09 | Outpatient (AMB) | payer MEDICAID, SELFPAY ==
--- NOTE | 2024-05-17 13:20 | A.OFFVIS_ITS ---
Intake Visit Reasons: Inj- B/L knee OA, last injection 01/14/24 Intake Note: Cynthia is a 59 year old female who presents today for a repeat injection for her B/L knee OA, last injection 01/14/24. Patient reports injections provided her with relief, stating her pain returned a couple of weeks ago. Allergies trazodone [TRAZODONE] Allergy (Intermediate, Verified 03/08/24 13:06) PROLONGED QT INTERVAL (PER H&P) HPI HPI Inj- B/L knee OA, last injection 01/14/24: Details: 59-year-old female, who is Icelandic speaking, presents in the office today for a follow-up of bilateral knee osteoarthritis. I last saw the patient in the office on 01/14/24 when she was given a cortisone injection in the bilateral knees. While in the office today, the patient reports recurrence of bilateral knee pain a couple of weeks ago. She mentions that the last cortisone injection in the bilateral knees provided her with relief. The patient has a significant medical history of diabetes mellitus. [facility] Medical History Diabetes education, encounter for GERD (gastroesophageal reflux disease) Asthma Elevated cholesterol PONV (postoperative nausea and vomiting) Diabetes Tietze syndrome Kidney calculi Depression HTN (hypertension) Surgical History H/O: hysterectomy History of cystoscopy History of excision of mass History of umbilical hernia repair History of ventral hernia repair Hx of cholecystectomy Family History Father Throat cancer Maternal Aunt Breast cancer Social History Are you a primary health care legal assistant to a significant other at home: No Do you presently have visiting nurse or other home services: No Alcohol intake: never Comment: no count Patient Tobacco Use Status: Never used Tobacco Advance Directives Date on File: 10/10/13 Current occupational status: disabled 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 No ecchymosis, erythema or edema. Patient is able to demonstrate full knee flexion and extension. Negative Vadim's. NVI. Office Procedures AMB Joint Injection/Aspiration Joint Injection/Aspiration Primary Site: right knee Secondary Site: left knee Prep: site was prepped using aseptic technique, ethochloride spray was applied and injection warnings given Injected: 40 mg of, DepoMedrol, with 8 mL of (2% plain lido) and in the joint Procedure: The patient tolerated the procedure well, but had some pain with the injection and there was some relief with the local anesthesia Coding 14673 - Large joint Procedure code (CPT) selection complete Assessment & Plan Assessment & Plan (1) Bilateral primary osteoarthritis of knee: Code(s): M17.0 - Bilateral primary osteoarthritis of knee Category: Medical (2) Diabetes: Code(s): E11.9 - Type 2 diabetes mellitus without complications Category: Medical Plan Ms. Jumana Pereyra is a 59-year-old female, who is Icelandic speaking, presents in the office today for a follow-up of bilateral knee osteoarthritis. I last saw the patient in the office on 01/14/24 when she was given a cortisone injection in the bilateral knees. While in the office today, the patient reports recurrence of bilateral knee pain a couple of weeks ago. She mentions that the last cortisone injection in the bilateral knees provided her with relief. The patient has a significant medical history of diabetes mellitus. The patient was offered a cortisone injection in the bilateral knees with 40 mg of Depo-Medrol. The patient was explained the risks, benefits, and alternatives to receiving this injection. After receiving consent for the injection, the patient had the procedure done while in the office today. The patient tolerated the procedure well with no complications. Due to the patient?s history of diabetes, they were instructed to monitor her blood glucose level. The patient was informed that they could see a rise in their numbers and if the numbers became too high, they were instructed to call their PCP. The patient was also informed that they could have facial flushing as a side effect of the injection, but this will pass. Patient Instructions: Scribed by Misa Jade medical record administrator, for Leonela Decker PA-C on 05/17/24 at 1:49 pm EST. Coding Level of Care Code Est Pt Level 4 (64750) Diagnoses Bilateral primary osteoarthritis of knee M17.0 Diabetes E11.9 CPT Codes Coding - 50713 Large joint: 11204 - Large joint ([id number])
== END 2024-05-17 13:42 | disposition home or self-care (01) ==
PROVIDERS: PCP General Practice; Visit Provider Physician Assistant
DX: M17.0 Bilateral primary osteoarthritis of knee (principal); E11.9 Type 2 diabetes mellitus without complications
CPT/HCPCS: 20610; 99214

== ENCOUNTER → 2024-05-17 13:09 | Outpatient (BNVA) | payer MEDICAID, SELFPAY | PROVIDERS: PCP General Practice; Visit Provider Physician Assistant | DX: M17.0 Bilateral primary osteoarthritis of knee (principal); E11.9 Type 2 diabetes mellitus without complications | CPT/HCPCS: 20610; 99212; J1010; J2003 ==

== ENCOUNTER 2024-07-07 17:41 | Inpatient (IN) | payer MEDICAID, OTHER, SELFPAY ==
--- NOTE | 2024-07-07 | ECG_ITS ---
Test Reason : MED CLEARANCE Blood Pressure : */* mmHG Vent. Rate : 67 BPM Atrial Rate : 67 BPM P-R Int : 136 ms QRS Dur : 78 ms QT Int : 388 ms P-R-T Axes : 34 29 79 degrees QTcB Int : 409 ms Normal sinus rhythm Nonspecific ST and T wave abnormality Abnormal ECG When compared with ECG of 08-Jun-2022 14:04, No significant change was found Referred By: James Brambila Electronically Signed By: BRYSON HUMPHREY MD
[2024-07-07 17:46] VITALS: BP 198/102; PULSE 82; RESP 18; TEMP 36.3; O2SAT 98; BMI 27.5
--- NOTE | 2024-07-07 17:52 | ED_ITS ---
HPI - General Adult General Chief complaint: Psychiatric Symptoms Stated complaint: SI Time Seen by Provider: 07/07/24 17:51 Source: patient Mode of arrival: ambulatory Limitations: no limitations History of Present Illness ED Provider: James Brambila HPI narrative: 59 yold female with depression, diabetes, and asthma presents to the ED for depression states she has a lot going at home ( problems) and its making her feel suicidal. Patient states she was denied housing. Patient also received diagnosis last week of early dementia which made her more depressed. Patient presently has no plan but is depressed. And patient is suicidal. Related Data Home Medications ?Medication ?Instructions ?Recorded ?Confirmed omeprazole 40 mg capsule,delayed 20 mg PO DAILY 03/27/20 07/07/24 release amlodipine 10 mg tablet 1 tab PO QAM 02/26/21 07/07/24 albuterol sulfate 90 mcg/actuation 2 puff inhalation Q4H PRN Wheezing 07/07/24 07/07/24 aerosol inhaler (Ventolin HFA) fexofenadine 180 mg tablet 180 mg PO DAILY 07/07/24 07/07/24 hydralazine 50 mg tablet 50 mg PO TID 07/07/24 07/07/24 losartan 100 mg tablet 100 mg PO DAILY 07/07/24 07/07/24 melatonin 5 mg tablet 10 mg PO BEDTIME PRN Insomnia 07/07/24 07/07/24 omega 2-rap-zdl-fish oil 60 mg-90 1 cap PO DAILY 07/07/24 07/07/24 mg-500 mg capsule tiotropium bromide 2.5 2 puff inhalation DAILY 07/07/24 07/07/24 mcg/actuation mist for inhalation (Spiriva Respimat) metformin 500 mg tablet,extended 1,000 mg PO DAILY@1700 07/08/24 07/08/24 release 24 hr Allergies Allergy/AdvReac Type Severity Reaction Status Date / Time trazodone [TRAZODONE] Allergy Intermediate PROLONGED Verified 07/07/24 17:47 QT INTERVAL (PER H&P) Review of Systems 2 Review of Systems: depression/SI Yes all other systems are reviewed and are negative PMFSH Past Medical History Medical History Diabetes education, encounter for GERD (gastroesophageal reflux disease) Asthma Elevated cholesterol PONV (postoperative nausea and vomiting) Diabetes Tietze syndrome Kidney calculi Depression HTN (hypertension) Surgical History H/O: hysterectomy History of cystoscopy History of excision of mass History of umbilical hernia repair History of ventral hernia repair Hx of cholecystectomy Family History Family History Father Throat cancer Maternal Aunt Breast cancer Social History Social History Are you a primary adult day care worker to a significant other at home: No Do you presently have visiting nurse or other home services: No Alcohol intake: never Comment: no count Patient Tobacco Use Status: Never used Tobacco Smoked in Last 30 Days: No Use of substances other than those prescribed or required for medical reasons: No Advance Directives: No Advance Directives Information Provided: No Advance Directives Date on File: 10/10/13 Do you have a plan to hurt others: No Plan Current occupational status: disabled 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 Physical Exam ED Vital Signs: Vital Signs - 24 hr 07/07/24 17:46 07/07/24 18:10 07/07/24 21:07 Temperature 97.3 F 97.3 F Pulse Rate 82 82 84 Respiratory Rate 18 18 18 Blood Pressure 198/102 H 198/102 H 189/89 H Pulse Oximetry 98 98 97 Oxygen Delivery Method Room Air Room Air Room Air 07/08/24 05:16 07/08/24 05:18 07/08/24 10:17 Temperature 97.8 F 98.8 F Pulse Rate 74 80 Respiratory Rate 18 16 Blood Pressure 183/108 H 183/108 H 177/75 H Pulse Oximetry 97 98 Oxygen Delivery Method Room Air Room Air BMI result Body Mass Index 27.5 Const General: cooperative, healthy appearing, comfortable, no acute distress, well developed, alert, awake and Physically active Orientation/consciousness: patient oriented x3 HENMT Head: Yes normal to inspection, Yes No palpable skull fracture present, Yes normocephalic and Yes atraumatic Eyes General: appearance normal, both eyes and all related structures Neck Neck: Yes normal visual inspection, Yes full ROM, Yes no lymphadenopathy, Yes no meningeal signs, Yes trachea midline, Yes supple, No anterior neck swelling and No tender Chest Chest palpation & inspection: normal inspection of the chest and normal palpation of entire chest wall Resp Effort & Inspection: normal respiratory effort and able to speak in complete sentences Auscultation: clear to auscultation bilaterally Cardio Jugular venous distension: no JVD Heart sounds: S1 normal heart sound present and S2 normal heart sound present GI Inspection: Yes normal to inspection Palpation (GI): Soft to palpation, not firm, nontender, no guarding and not rigid General: Yes no CVA tenderness Back/Spine/Pelvis Back: no CVA tenderness and No back tenderness Skin General skin exam: no rashes or lesions noted, elasticity normal and turgor normal Neuro General: patient oriented x3, gait normal, tone normal, moves all extremities, Normal light touch and pain sensation, no meningeal signs, no focal motor deficits, CN's II-XI intact bilaterally and normal sensation to monofilament Extrem General: Yes normal to inspection, Yes full ROM and Yes capillary refill normal Psych Appearance: grossly normal, well kempt and not disheveled Course Course Course Narrative: Physician observation continued. VS stable, no acute events overnight, pending [facility] bed search. LOVING 07/08/24 1131am Reevaluation(s) Reevaluation #1: observation care revealed that the patient does meet psychiatric necessity for hospitalization. final disposition discussed with the patient. The patient completed observation care at 07/08/24 1233pm admitted inpatient here LOVING 07/08/24 1233pm Medications Administered Generic Name Dose Route Start Last Admin Trade Name Freq PRN Reason Stop Dose Admin Amlodipine Besylate 10 mg 07/08/24 09:00 07/08/24 08:33 Amlodipine Besylate 10 Mg Tablet PO 10 mg DAILY NOLAN Administration Protocol Hydralazine HCl 50 mg 07/08/24 01:30 07/08/24 08:33 Hydralazine Hcl 50 Mg Tablet PO 50 mg TID NOLAN Administration Protocol Loratadine 10 mg 07/08/24 09:00 07/08/24 08:33 Loratadine 10 Mg Tablet PO 10 mg DAILY NOLAN Administration Losartan Potassium 100 mg 07/08/24 09:00 07/08/24 08:33 Losartan Potassium 50 Mg Tablet PO 100 mg DAILY NOLAN Administration Protocol Metformin HCl 1,000 mg 07/08/24 02:00 07/08/24 05:18 Metformin Hcl Er 500 Mg Tab.Er.24h PO Not Given DAILY@1700 [facility] Omeprazole 20 mg 07/08/24 07:30 07/08/24 08:33 Omeprazole 20 Mg Capsule. PO 20 mg DAILY@0730 NOLAN Administration Tiotropium [place] 2 puff 07/08/24 09:00 07/08/24 08:33 Tiotropium [place] 2.5 Mcg 1 Puff/2.5 Mcg Mist.Inhal INHALE 2 puff DAILY NOLAN Administration Discontinued Medications Generic Name Dose Route Start Last Admin Trade Name Jeff PRN Reason Stop Dose Admin Acetaminophen 650 mg 07/07/24 19:24 07/07/24 19:29 Acetaminophen 325 Mg Tablet PO 07/07/24 19:25 650 mg ONCE ONE Administration Acetaminophen 650 mg 07/08/24 11:46 07/08/24 11:49 Acetaminophen 325 Mg Tablet PO 07/08/24 11:47 650 mg ONCE ONE Administration Medical Decision Making Medical Decision Making [facility] Narrative: 59 yold female presents to the ED for increased depression with SI. Labs acer team constult palced Differential Diagnosis Differential Diagnoses: The differential diagnosis associated with the presentation includes (Depression, suicide,) Admission/Observation Consideration of admission/observation: Escalation of care including admission/observation considered Consult Healthcare Provider Management of the patient was discussed with: Chief Technologist (Care team) Lab Data [facility] Lab Attestation statement: I reviewed the patient's lab results. 07/07/24 18:52 07/07/24 18:52 Labs: Lab Results 07/07/24 07/07/24 Range/Units 18:11 18:52 WBC 12.3 H (4.8-10.8) X10*3/uL RBC 5.08 (4.20-5.50) X10*6/uL Hgb 13.7 (12.0-16.0) g/dl Hct 42.3 (37.0-47.0) % MCV 83.3 (80.0-98.0) fL MCH 27.0 (27.0-33.0) pg MCHC 32.4 (31.0-35.0) g/dl RDW 13.8 (11.0-16.0) % Plt Count 321 (160-400) X10*3/uL MPV 9.6 (9.4-12.3) fL Immature Gran % (Auto) 0.3 (0.0-0.4) % Neut % (Auto) 64.8 (45-73) % Lymph % (Auto) 27.3 (20-40) % [place] % (Auto) 6.4 (2-11) % Eos % (Auto) 0.6 (0-4) % Baso % (Auto) 0.6 (0-2) % Lymph # (Auto) 3.4 (1.2-4.9) X10*3/uL [place] # (Auto) 0.8 (0.1-1.2) X10*3/uL Eos # (Auto) 0.1 (0.0-0.4) X10*3/uL Baso # (Auto) 0.1 (0.0-0.2) X10*3/uL Abs Immat Gran (auto) 0.04 H (0.00-0.03) X10*3/uL Absolute Neuts (auto) 7.9 (2.0-8.3) x10*3/uL Absolute Nucleated RBC 0.000 (0.0-0.012) X10*3/uL Nucleated RBC % (auto) 0.0 (0.0-0.2) /100WBC Smear Tech's Comments VERIFIED Sodium 140 (135-145) mmol/L Potassium 3.7 (3.3-5.1) mmol/L Chloride 108 (96-108) mmol/L Carbon Dioxide 25 (22-29) mmol/L Anion Gap 11 L (12-20) BUN 12 (9-16) mg/dL Creatinine 0.63 (0.5-1.4) mg/dL Estim Creat Clear Calc 97.3 Estimated GFR > 60 Random Glucose 121 H (60-115) mg/dL Calcium 10.4 H (8.4-10.2) mg/dL Total Bilirubin 0.2 (0.0-1.0) mg/dL AST 19 (5-31) U/L ALT 11 (0-31) U/L Alkaline Phosphatase 79 (39-117) U/L Total Protein 8.5 H (6.5-8.0) g/dL Albumin 4.3 (3.5-5.0) g/dL Urine Color Yellow Urine Appearance Clear Urine pH 7.0 (5.0-9.0) Ur Specific [place] 1.015 (1.005-1.025) Urine Protein 30 (1+) H (Neg-Trace) mg/dL Urine Glucose (UA) Negative (Negative) mg/dL Urine Ketones Negative (Negative) mg/dL Urine Blood Small (1+) H (Negative) Urine Nitrite Negative (Negative) Ur Leukocyte Esterase Negative (Negative) Urine RBC 11-20 H (0-2) /HPF Urine WBC 0-5 (0-5) /HPF Ur Squamous Epith Cells 3-5 (0-2) /HPF Urine Bacteria Trace (None Seen) Hyaline Casts 0-2 (0-2) /LPF Salicylates < 5.0 L (15-30) mg/dL Urine Opiates Screen Not Detected (Not Detect) Ur Buprenorphine Scrn Not Detected (Not Detect) ng/mL Ur Oxycodone Screen Not Detected (Not Detect) ng/mL Urine Methadone Screen Not Detected (Not Detect) ng/mL Urine Fentanyl Screen Not Detected (Not Detect) Acetaminophen < 3 (<30) mcg/mL Ur Barbiturates Screen Not Detected (Not Detect) Ur Phencyclidine Scrn Not Detected (Not Detect) Ur Amphetamines Screen Not Detected (Not Detect) U Benzodiazepines Scrn Not Detected (Not Detect) Urine Cocaine Screen Not Detected (Not Detect) U Marijuana (THC) Screen Not Detected (Not Detect) Ethyl Alcohol < 10 mg/dL Independent Interpretation I performed an independent interpretation of an: EKG (Normal sinus rhythm) Independent Historian Clinical information obtained from an independent historian. History obtained from or confirmed by: Spouse (daughter) and Other (patient) Discharge Plan Discharge Clinical Impression: Depression Patient Disposition: Admitted As Inpatient Interventions: [place]-Suicide Risk Severity Scale Last Done: 07/07/24 18:10
--- NOTE | 2024-07-07 18:04 | PC.NURSE ---
Pt. arrives to Pod. product safety officer, this RN, pt.'s daughter, and staff certified ophthalmic medical technician Darius at bedside. Pt. is very tearful. Endorses SI, denies HI. States that she has a longstanding personal hx. of depression and anxiety. States two suicide attempts in the past (most recent being a few years ago) and a few inpatient psychiatric hospitalizations. She sees a therapist Q2 weeks. Pt. states that she is feeling suicidal d/t significant life stressors- was dx. with early-onset dementia this week, and was also denied for an apartment that she applied for. RAYSA Leavitt in Pod to assess pt.
--- NOTE | 2024-07-07 18:09 | PC.NURSE ---
Changed over per professional security officer. Belongings inventoried and secured in Pod locker.
[2024-07-07 18:10] VITALS: BP 198/102; PULSE 82; RESP 18; TEMP 36.3; O2SAT 98
--- NOTE | 2024-07-07 18:12 | PC.NURSE ---
Per RAYSA Leavitt, he is not placing the pt. on a Section 12 at this time because she is calm, cooperative and here voluntarily.
[2024-07-07 18:23] LABS: Appearance Urine Clear; Color Urine Yellow; Glucose Urine UA Negative (Negative); Leukocyte Esterase Urine Negative (Negative); Nitrite Urine Negative (Negative); Specific Gravity - Urine 1.015 (1.005-1.025); UMIC TRIGGER UACC YES; Urine Blood Small (1+) (Negative); Urine Ketones Negative (Negative); Urine Protein 30 (1+) mg/dL (Neg-Trace)
[2024-07-07 18:26] LABS: Bacteria Urine Trace (None Seen); Hyaline Casts Urine 0-2 /LPF (0-2); WBC Urine 0-5 /HPF (0-5)
[2024-07-07 18:32] LABS: Amphetamine Screen Urine Not Detected (Not Detect); Barbiturates, Urine Not Detected (Not Detect); Benzodiazepines Screen Urine Not Detected (Not Detect); Buprenorphine Scr Not Detected (Not Detect); Cannabinoid Screen Urine Not Detected (Not Detect); Cocaine Screen Urine Not Detected (Not Detect); Fentanyl, urine Not Detected (Not Detect); Methadone Screen, Urine Not Detected (Not Detect); Opiate Screen Urine Not Detected (Not Detect); Oxycodone Screen Urine Not Detected (Not Detect); Phencyclidine Screen Urine Not Detected (Not Detect)
[2024-07-07 19:09] LABS: Ethanol < 10 mg/dL
[2024-07-07 19:11] LABS: Alanine Aminotransferase 11 U/L (0-31); Albumin Level 4.3 g/dL (3.5-5.0); Alkaline Phosphatase 79 U/L (39-117); Anion Gap 11 (12-20); Aspartate Amino Transferase 19 U/L (5-31); Bilirubin Total 0.2 mg/dL (0.0-1.0); Blood Urea Nitrogen 12 mg/dL (9-16); Calcium 10.4 mg/dL (8.4-10.2); Carbon Dioxide 25 mmol/L (22-29); Chloride 108 mmol/L (96-108); Creatinine Clr Calc Pharmacy 97.3; Estimated Glomerular Filt Rate > 60; Glucose Random 121 mg/dL (60-115); Potassium 3.7 mmol/L (3.3-5.1); Sodium 140 mmol/L (135-145); Total Protein 8.5 g/dL (6.5-8.0)
[2024-07-07 19:12] LABS: Acetaminophen LAB < 3 mcg/mL (<30); Salicylate < 5.0 mg/dL (15-30)
--- OUTSIDE RECORDS SUMMARY | 2024-07-07 19:24 | XMS_ITS | Encounter Summary ---
Author Organization [facility] [facility] Address [address] [place] [address] [address] [place] [address] Care Team Providers Care Pathology Collector Name Role Phone Chasidy Kimbrough MD Primary Care Provider [phone] Reason for Visit * Reason Comments Med Refill Encounter Details Date Type Department Care Team ([facility] st Contact Info) Description 12/29/2022 Refill [facility] MEDICINE [address] [place], [place] [phone] Chasidy Kimbrough MD [address] [place], [place] [phone] Social History Tobacco Use Types Packs/Day Years Used Date Smoking Tobacco: Never Smokeless Tobacco: Never Alcohol Use Standard Drinks/Week Comments Never 0 (1 standard drink = 0.6 oz pur e alcohol) Depression Answer Date Recorded Patient Health Questionnaire-9 Score 5 07/25/2022 Depression Answer Date Recorded Patient Health Questionnaire-2 Score 2 07/25/2022 Comments Unknown Sex and Gender Information Value Date Recorded Sex Assigned at Female 04/14/2022 10:14 AM EDT Legal Sex Female 10:14 AM EDT Gender Identity Female 04/14/2022 10:14 AM EDT Sexual Orientation Choose not to disclose 2021 10:14 AM EDT COVID-19 Exposure Response Date Recorded In the last 10 days, have yo u been in contact with someone who was confirmed or suspected to have Coronavirus/COVID-19? No / Unsure 12/22/2022 9:26 AM EDT documented as of this encounter Plan of Treatment Not on file documented as of this encounter Visit Diagnoses Not on filedocumented in this encounter Additional Health Concerns Assessment Noted Time PHQ-9 Depression Total Score: 5 07/25/19 23 9:47 AM EST documented as of this encounter Care Teams Pathology Collector Relationship Specialty Start Date End Date Chasidy Kimbrough MD [address] [place] [address] PCP - General Family Medicine 02/14/21 documented as of this encounter
--- OUTSIDE RECORDS SUMMARY | 2024-07-07 19:24 | XMS_ITS | Encounter Summary ---
Author Organization [employer] Address [address] [address] [address] Care Team Providers Care Commutator Inspector Name Role Phone Chasidy Kimbrough MD Primary Care Provider [phone] Reason for Referral * Consultation (Routine) - Authorized Specialty Diagnoses / Procedures Referred By Conthemal t Referred To Contact Rheumatology Diagnoses Tenosynovitis of finger Elevated erythrocyte sedimentation rate Positive DANO (antinuclear antibody) Chasidy Kimbrough MD [address] [place] [address] Phone: tel: fax: [facility] [address] [place] [address] Phone: tel: fax: Referral ID Status Reason Start Date Expiration Date Visits Requested Visits Authorized [id number] Authorized Specialty Services Required 4 05/25/2025 6 6 Encounter Details Date Type Department Care Team (Late st Contact Info) Description 05/16/2024 Orders Only [facility] MEDICINE [address] [place], [place] [phone] Chasidy Kimbrough MD [address] [place], [place] [phone] Tenosynovitis of finger (Primary Dx); Elevated erythrocyte sedimentation rate; Positive DANO (antinuclear antibody) Social History Tobacco Use Types Packs/Day Years Used Date Smoking Tobacco: Never Smokeless Tobacco: Never Alcohol Use Standard Drinks/Week Comments Never 0 (1 standard drink = 0.6 oz pur e alcohol) Depression Answer Date Recorded Patient Health Questionnaire-9 Score 3 11/30/2023 Patient Health Questionnaire-9 Score 3 11/30/2023 Last PHQ-9: Questionnaire Data Not on file 0 11/30/2023 Housing Stability Answer Date Recorded What is your housing situation today? I have maddie chi 04/28/[address] you li ve. Do you have problems with any of the following? None of the above 04/28/2024 Food Insecurity Answer Date Recorded Within the past 12 months, y ou worried that your food would run out before you got money to buy more: Never True 04/28/2024 Within the past 12 months,th e food you bought just didn't last and you didn't have enough money to get more: Never True Transportation Answer Date Recorded In the past 12 months, has l ack of transportation kept you from medical appts, meetings, work or from getting things needed for daily living? No 04/28/2024 Utilities Answer Date Recorded In the past 12 months, has t he electric, gas, oil or water company threatened to shut off services in your home? No 04/28/2024 Depression Answer Date Recorded Patient Health Questionnaire-2 Score 1 11/30/2023 Internet Access Answer Date Recorded Internet Access Q1 Yes 04/28/2024 Internet Access Q2 Not on file 04/28/2024 Comments Unknown Sex and Gender Information Value Date Recorded Sex Assigned at Female 04/14/2022 10:14 AM EDT Legal Sex Female 10:14 AM EDT Gender Identity Female 04/14/2022 10:14 AM EDT Sexual Orientation Choose not to disclose 2021 10:14 AM EDT documented as of this encounter Plan of Treatment Scheduled Referrals Name Type Priority Associated Diagnoses Orde r Schedule Referral to Rheumatology Outpatient Referral Routine Tenosynovitis of finger Elevated erythrocyte sedimentation rate Positive DANO (antinuclear antibody) Expected: 05/16/2024 (Approximate), Expires: 05/16/2025 documented as of this encounter Visit Diagnoses Diagnosis Tenosynovitis of finger- Primary Other tenosynovitis of hand and wrist Elevated erythrocyte sedimentation rate Elevated sedimentation rate Positive DANO (antinuclear antibody) Other and unspecified nonspecific immunological findings documented in this encounter Additional Health Concerns Assessment Noted Time PHQ-9 Depression Total Score: 3 11/30/19 24 1:27 PM EDT documented as of this encounter Care Teams Commutator Inspector Relationship Specialty Start Date End Date Chasidy Kimbrough MD [address] [place] [address] PCP - General Family Medicine 02/14/21 documented as of this encounter
--- OUTSIDE RECORDS SUMMARY | 2024-07-07 19:24 | XMS_ITS | Encounter Summary ---
Author Organization [employer] Address [address] [facility] 7t [place] [address] Care Team Providers Care Deli Department Manager Name Role Phone Chasidy Kimbrough MD Primary Care Provider [phone] Encounter Details Date Type Department Care Team (Late st Contact Info) Description 07/07/2024 Orders Only GENERIC EXTERNAL DATA DEPARTMENT Provider, Generic External Data Social History Tobacco Use Types Packs/Day Years [...] on file documented as of this encounter Procedures Procedure Name Priority Date/Time Associated Diagnosis Comments ETHANOL Routine 07/07/2024 6:52 PM EST COMPREHENSIVE METABOLIC PANEL Routine 07/07/2024 6:52 PM EST URINALYSIS, COMPLETE, WITH REFLEX TO CULTURE Routine 07/07/2024 6:11 PM EST DRUG MONITOR, PANEL 1, SCREEN, URINE Routine 07/07/2024 6:11 PM EST documented in this encounter Results * (ABNORMAL) Comprehensive Metabolic Panel (07/07/2024 6:52 PM EST) Sodium 140 135 - 145 mmol/L [facility] Potassium 3.7 3.3 - 5.1 mmol/L [facility] Chloride 108 96 - 108 mmol/L [facility] Carbon Dioxide 25 22 - 29 mmol/L [facility] Anion Gap 11(L) 12 - 20 [facility] Urea Nitrogen (BUN) 12 9 - 16 mg/dL [facility] Creatinine, Serum 0.63 0.5 - 1.4 mg/dL [facility] Creatinine Clr Calc Pharmacy 97.3 [facility] Comment:Provided height and weight: 165.1 cm,74.843 kg.eGFR (calculated from the MDRD study equation) and eCrCl(calculated from the Cockcroft-Gault equation) are based ondifferent parameters and may not yield comparable results.If eCrCl result is absurd, please check patient'sheight/weight. Estimated Glomerular Filt Rate >60 [facility] Comment:Chronic Kidney Disea se: Estimated GFR < 60 mL/min/1.22e5[place] Kidney Disease: Estimated GFR < 15 mL/min/1.73m2 Glucose 121(H) 60 - 115 mg/dL [facility] Calcium 10.4(H) 8.4 - 10.2 mg/dL [facility] Bilirubin, Total 0.2 0.0 - 1.0 mg/dL [facility] Aspartate Amino Transferase 19 5 - 31 U/L [facility] Alanine Aminotransferase 11 0 - 31 U/L [facility] Total Protein 8.5(H) 6.5 - 8.0 g/dL [facility] Albumin Level 4.3 3.5 - 5.0 g/dL [facility] Alkaline Phosphatase 79 39 - 117 U/L [facility] 07/07/2024 6:52 PM EST 07/07/2024 6:54 PM EST us Generic External Data Provider LAB BLOOD ORDERAB LES Final Result Performing Organization Address City/[facility]/ZIP Co de Phone Number [facility] [address] [place] [phone] * Ethanol (07/07/2024 6:52 PM EST) ETHANOL (MG/DL) IN SER/PLAS <10 mg/dL [facility] Comment:Serum/plasma ethanol results are to be used formedical/treatment purposes only. 07/07/2024 6:52 PM EST 07/07/2024 6:54 PM EST Generic External Data Provider LAB BLOOD ORDERAB LES Final Result Performing Organization Address [facility]/ZIP Co de Phone Number [facility] [address] [place] [phone] * Drug Monitoring, Panel 1, Screen, Urine (07/07/2024 6:11 PM EST) Opiate Screen Urine Not Detected Not Detect [facility] Comment:Opiate cut-off is 30 0 ng/mL.Positive results are unconfirmed and should not be used fornon-medical purposes. Barbiturates, Urine Not Detected Not Detect [facility] Comment:Barbiturate cut-off is 200 ng/mL.Positive results are unconfirmed and should not be used fornon-medical purposes. Phencyclidine Screen Urine Not Detected Not Detect [facility] Comment:Phencyclidine cut-of f is 25 ng/mL.Positive results are unconfirmed and should not be used fornon-medical purposes. Amphetamine Screen Urine Not Detected Not Detect [facility] Comment:Amphetamine cut-off is 1000 ng/mL.Positive results are unconfirmed and should not be used fornon-medical purposes. Benzodiazepines Screen Urine Not Detected Not Detect [facility] Comment:Benzodiazepine cut-o ff is 200 ng/mL.Positive results are unconfirmed and should not be used fornon-medical purposes. Cocaine Screen Urine Not Detected Not Detect [facility] Comment:Cocaine cut-off is 3 00 ng/mL.Positive results are unconfirmed and should not be used fornon-medical purposes. Cannabinoid Screen Urine Not Detected Not Detect [facility] Comment:Cannabinoid cut-off is 50 ng/mL.Positive results are unconfirmed and should not be used fornon-medical purposes. Methadone Screen, Urine Not Detected Not Detect ng/mL [facility] Comment:Methadone cut-off is 300 ng/mL.Positive results are unconfirmed and should not be used fornon-medical purposes. FENTANYL URINE Not Detected Not Detect [facility] Comment:Fentanyl cut-off is 1 ng/mL.Positive results are unconfirmed and should not be used fornon-medical purposes. Oxycodone Urine Screen Not Detected Not Detect ng/mL [facility] Comment:Oxycodone cut-off is 100 ng/mL.Positive results are unconfirmed and should not be used fornon-medical purposes. Buprenorphine Screen Not Detected Not Detect ng/mL [facility] Comment:Buprenorphine cut-of f is 5 ng/mL.Positive results are unconfirmed and should not be used fornon-medical purposes. 07/07/2024 6:11 PM EST 07/07/2024 6:14 PM EST us Generic External Data Provider LAB URINE ORDERAB LES Final Result Performing Organization Address [facility]/ZIP Co de Phone Number [facility] [address] [place] [phone] * (ABNORMAL) Urinalysis, Complete, with Reflex to Culture (07/07/2024 6:11 PM EST) Color Urine Yellow [facility] Appearance Urine Clear [facility] PH 7.0 5.0 - 9.0 [facility] Glucose Urine UA Negative Negative mg/dL [facility] Urine Blood Small (1+)(A) Negative [facility] Specific [place] - Urine 1.015 1.005 - 1.025 [facility] Urine Protein 30 (1+)(A) Neg-Trace mg/dL [facility] Urine Ketones Negative Negative mg/dL [facility] Nitrite Urine Negative Negative [facility] Leukocyte Esterase Urine Negative Negative [facility] RBC Urine 11-20(A) 0 - 2 /HPF [facility] Urine WBC 0-5 0 - 5 /HPF [facility] Urine Squamous Epithelial Cell 3-5 0 - 2 /HPF [facility] Urine Bacteria Trace None Seen [facility] Hyaline Casts, Urine 0-2 0 - 2 /LPF [facility] 07/07/2024 6:11 PM EST 07/07/2024 6:14 PM EST Narrative [facility] - 07/07/2024 6:28 PM EST [id number], [employer] Generic External Data Provider LAB URINE ORDERAB LES Final Result Performing Organization Address [facility]/ZIP Co de Phone Number [facility] [address] [place] [phone] [phone] documented in this encounter Visit Diagnoses Not on filedocumented in this encounter Additional Health Concerns Assessment Noted Time PHQ-9 Depression Total Score: 3 11/30/19 24 1:27 PM EDT documented as of this encounter Care Teams Deli Department Manager Relationship Specialty Start Date End Date Chasidy Kimbrough MD [address] [place] [address] PCP - General Family Medicine 02/14/21 documented as of this encounter
--- OUTSIDE RECORDS SUMMARY | 2024-07-07 19:24 | XMS_ITS | Encounter Summary ---
Author Organization [employer] Address [address] [facility] 7t [place] [address] Care Team Providers Care Mechanic/Welder Name Role Phone Chasidy Kimbrough MD Primary Care Provider [phone] Encounter Details Date Type Department Care Team (Late st Contact Info) Description 08/31/2023 Telephone [facility] MEDICINE [address] [place], [place] [phone] Chasidy Kimbrough MD [address] [place], [place] [phone] Social History Tobacco Use Types Packs/Day Years Used Date Smoking Tobacco: Never Smokeless Tobacco: Never Alcohol Use Standard Drinks/Week Comments Never 0 (1 standard drink = 0.6 oz pur e alcohol) Depression Answer Date Recorded Patient Health Questionnaire-9 Score 5 07/25/2022 Housing Stability Answer Date Recorded What is your housing situation today? I have maddiekevin chi 04/16/[address] you li ve. Do you have problems with any of the following? None of the above 04/16/2023 Food Insecurity Answer Date Recorded Within the past 12 months, y ou worried that your food would run out before you got money to buy more: Never True 04/16/2023 Within the past 12 months,th e food you bought just didn't last and you didn't have enough money to get more: Never True 07/2022 Transportation Answer Date Recorded In the past 12 months, has l ack of transportation kept you from medical appts, meetings, work or from getting things needed for daily living? Yes, it has kept me from medical appointments or getting medications. 03/21/2023 Utilities Answer Date Recorded In the past 12 months, has t he electric, gas, oil or water company threatened to shut off services in your home? No 04/16/2023 Depression Answer Date Recorded Patient Health Questionnaire-2 [...] documented as of this encounter Care Teams Mechanic/Welder Relationship Specialty Start Date End Date Chasidy Kimbrough MD [address] [place] [address] PCP - General Family Medicine 02/14/21 documented as of this encounter
--- OUTSIDE RECORDS SUMMARY | 2024-07-07 19:24 | XMS_ITS | Encounter Summary ---
Author Organization [facility] Address [address] [place] [address] [address], [place] [address] Care Team Providers Care Financial Agent Name Role Phone Chasidy Kimbrough MD Primary Care Provider [phone] Reason for Referral * Consultation (Routine) - Authorized Specialty Diagnoses / Procedures Referred By Conthemal t Referred To Contact Gastroenterology Diagnoses Other dysphagia Chasidy Kimbrough MD [address] [place] [address] Phone: tel: fax: [address] Phone: tel: fax: Referral ID Status Reason Start Date Expiration Date Visits Requested Visits Authorized [id number] Authorized Specialty Services Required 01/02/2024 01/01/2025 6 6 Encounter Details Date Type Department Care Team (Late st Contact Info) Description 12/30/2023 Orders Only [facility] MEDICINE [address] [place], [place] [phone] Chasidy Kimbrough MD [address] [place], [place] [phone] Other dysphagia (Primary Dx) Social History Tobacco Use Types Packs/Day Years [...] housing situation today? I have maddie chi 04/16/[address] you [...] Recorded Patient Health Questionnaire-2 Score 1 11/30/2023 Comments Unknown Sex and Gender Information Value Date Recorded Sex Assigned at Female 04/14/2022 10:14 AM EDT Legal Sex Female 10:14 AM EDT Gender Identity Female 04/14/2022 10:14 AM EDT Sexual Orientation Choose not to disclose 2021 10:14 AM EDT documented as of this encounter Plan of Treatment Scheduled Referrals Name Type Priority Associated Diagnoses Order Schedule Referral to Gastroenterology Outpatient Referral Routine Other dysphagia Expected: 12/30/2023 (Approximate), Expires: 12/29/2024 documented as of this encounter Visit Diagnoses Diagnosis Other dysphagia- Primary documented in this encounter Additional Health Concerns Assessment Noted Time PHQ-9 Depression Total Score: 3 11/30/19 24 1:27 PM EDT documented as of this encounter Care Teams Financial Agent Relationship Specialty Start Date End Date Chasidy Kimbrough MD [address] [place] [address] PCP - General Family Medicine 02/14/21 documented as of this encounter
--- OUTSIDE RECORDS SUMMARY | 2024-07-07 19:24 | XMS_ITS | Encounter Summary ---
Author Organization [employer] Address [address] [facility] 7[address] [place] [address] Care Team Providers Care Laboratory Assistant Name Role Phone Chasidy Kimbrough MD Primary Care Provider [phone] Reason for Visit * Reason Comments Med Refill Encounter Details Date Type Department Care Team ([facility] st Contact Info) Description 06/20/2024 Refill [facility] MEDICINE [address] [place], [place] [phone] Chasidy Kimbrough MD [address] [place], [place] [phone] Social History Tobacco Use Types Packs/Day Years [...] AM EDT documented as of this encounter Miscellaneous Notes * Telephone Encounter - Donna Ragsdale RN - 06/28/2024 3:59 PM EST Tc to pt to let them know per PCP Please let patient know that her MRI showed no tumors, no bleeding. Suggestion of small blood vessel disease (also know as vascular dementia, means she needs to exercise more), and something palled partial empty sella. Does he have appointment with neurology for her memory loss concerns? Pt reports they ave not been seen bv neuro and began to cry. Pt reports every time someone tells them something they cannot remember. Under referrals it says pt as booked with the Neuro and appt details. Tc to neuro associates regarding if pt has been seen. No answer and automated message states to call back during business hours. Message forwarded to red referral team for follow up. * Telephone Encounter - Donna Ragsdale RN - 06/28/2024 3:58 PM EST ----- Message from Chasidy Kimbrough MD sent at 06/28/2024 3:35 PM EST ----- Please let patient know that her MRI showed no tumors, no bleeding. Suggestion of small blood vessel disease (also know as vascular dementia, means she needs to exercise more), and something palled partial empty sella. Does he have appointment with neurology for her memory loss concerns? documented in this encounter Plan of Treatment Not on file documented as of this encounter Visit Diagnoses Not on filedocumented in this encounter Additional Health Concerns Assessment Noted Time PHQ-9 Depression Total Score: 3 11/30/19 24 1:27 PM EDT documented as of this encounter Care Teams Laboratory Assistant Relationship Specialty Start Date End Date Chasidy Kimbrough MD [address] [place] [address] PCP - General Family Medicine 02/14/21 documented as of this encounter
[2024-07-07] MEDS: Acetaminophen 325 MG TABLET 650 MG PO (19:29)
[2024-07-07 19:34] LABS: Basophils Absolute Auto 0.1 X10*3/uL (0.0-0.2); Basophils Percent Auto 0.6 % (0-2); Eosinophils Absolute Auto 0.1 X10*3/uL (0.0-0.4); Eosinophils Percent Auto 0.6 % (0-4); Hematocrit 42.3 % (37.0-47.0); Hemoglobin 13.7 g/dl (12.0-16.0); Imm Gran Abs Auto 0.04 X10*3/uL (0.00-0.03); Imm Gran Pct Auto 0.3 % (0.0-0.4); Lymphocytes Absolute Auto 3.4 X10*3/uL (1.2-4.9); Lymphocytes Percent Auto 27.3 % (20-40); MANUAL DIFF FLAG SCAN; Mean Corpuscular HGB Conc 32.4 g/dl (31.0-35.0); Mean Corpuscular Volume 83.3 fL (80.0-98.0); Mean Platelet Volume 9.6 fL (9.4-12.3); Monocytes Absolute Auto 0.8 X10*3/uL (0.1-1.2); Monocytes Percent Auto 6.4 % (2-11); Neutrophils Absolute Auto 7.9 x10*3/uL (2.0-8.3); Neutrophils Percent Auto 64.8 % (45-73); PLT CLUMP 1; Red Blood Count 5.08 X10*6/uL (4.20-5.50); Red Cell Distribution Width 13.8 % (11.0-16.0); SCAN SMEAR FLAG 1
[2024-07-07 20:04] LABS: Platelet Count 321 X10*3/uL (160-400); White Blood Count 12.3 X10*3/uL (4.8-10.8)
[2024-07-07 20:05] LABS: SLIDE REVIEW VERIFIED
[2024-07-07 21:07] VITALS: BP 189/89; PULSE 84; RESP 18; O2SAT 97
--- NOTE | 2024-07-07 23:52 | PC.NURSE ---
med rec reviewed with client and sign language translator staff
[2024-07-08 05:16] VITALS: BP 183/108; PULSE 74; RESP 18; TEMP 36.6; O2SAT 97
[2024-07-08 05:18] VITALS: BP 183/108
[2024-07-08] MEDS: hydrALAZINE HCl 50 MG TABLET PO ×4 (05:18→20:37)
--- NOTE | 2024-07-08 07:53 | PHA.MEDREC ---
Pharmacy Consult ? Medication Reconciliation Pharmacy has REVIEWED the medication reconciliation done by RN. RN had metformin IR included on list however patient has claims for ER only. change was made by this [facility].
[2024-07-08] MEDS: Omeprazole 20 MG CAPSULE.DR PO (08:33)
[2024-07-08] MEDS: Losartan Potassium 50 MG TABLET 100 MG PO (08:33)
[2024-07-08] MEDS: amLODIPine Besylate 10 MG TABLET PO (08:33)
[2024-07-08] MEDS: Loratadine 10 MG TABLET PO (08:33)
[2024-07-08] MEDS: Tiotropium Bromide 2.5 mcg 1 PUFF/2.5 MCG MIST.INHAL 2 PUFF INHALE (08:33)
[2024-07-08 10:17] VITALS: BP 177/75; PULSE 80; RESP 16; TEMP 37.1; O2SAT 98
--- NOTE | 2024-07-08 11:40 | PC.NURSE ---
family bedside visiting pt at this time.
[2024-07-08] MEDS: Acetaminophen 325 MG TABLET 650 MG PO (11:49)
--- NOTE | 2024-07-08 11:50 | PC.NURSE ---
pt requesting one time dose of Tylenol d/t headache. one time dose ordered/administered. effectiveness pending.
--- NOTE | 2024-07-08 12:57 | PC.NURSE ---
report given to YOVANY Christianson on M5 at this time.
--- NOTE | 2024-07-08 13:50 | PC.NURSE ---
Transferred to inpatient bed with RN/Security
[2024-07-08 14:00] VITALS: BP 149/70; PULSE 102; TEMP 36.4; O2SAT 98; BMI 27.8
--- NOTE | 2024-07-08 16:26 | PC.ADMIT ---
Ms. Cynthia Pereyra was admitted via wheelchair from the pod to M5, room 506-1 on a section 12 for depression and SI. She signed a CV. She is primarily Turkmen speaking and the assessment interview was conducted with the assistance of an in-house director of corporate responsibility. Safety/ skin check was complete and was unremarkable. Psychiatrically, Ms. Pereyra said she, has been in these places before. When asked why, she responded, Poison. When asked to clarify, with the help of the director of corporate responsibility she said she had overdosed on pills twice. Most recently, a couple of years ago and was hospitalized at [place] x 2 weeks. The first time was many years ago and was subsequently hospitalized but she cannot remember where. She also lives with but is denying them currently. She denies homicidality or any self injurious behavior. Medically, she suffers from early onset dementia, Type 2 diabetes, HTN and GERD. Her daughter is her DATA MODELER. She identifies her recent diagnosis of early onset dementia as a major stressor for her depression and SI. She has never smoked cigarettes but has lived with second hand smoke and reported that she as a spot on her lung from 2nd hand smoke which is monitored regularly. Ms. Pereyra is interested in an influenza vaccine.
[2024-07-08] MEDS: metFORMIN HCl ER 500 MG TAB.ER.24H 1000 MG PO (17:24)
[2024-07-08] MEDS: Magnesium Hydrox/Alum Hydrox 30 ML ORAL.SUSP PO (18:14)
[2024-07-08 20:00] VITALS: BP 125/77; PULSE 109; TEMP 37.2; O2SAT 96
[2024-07-08] MEDS: Flu Vacc TS2024-25(6mos up)/PF 0.5 ML SYRINGE IM (20:47)
[2024-07-08] MEDS: Melatonin 3 MG TABLET 9 MG PO (20:48)
[2024-07-08] MEDS: hydrOXYzine HCL 25 MG TABLET PO (20:48)
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
[2024-07-09 08:07] VITALS: BP 125/74; PULSE 99; RESP 18; TEMP 37.5; O2SAT 98
[2024-07-09] MEDS: hydrALAZINE HCl 50 MG TABLET PO ×3 (08:20→21:10)
[2024-07-09] MEDS: Loratadine 10 MG TABLET PO (08:20)
[2024-07-09] MEDS: amLODIPine Besylate 10 MG TABLET PO (08:20)
[2024-07-09] MEDS: Omeprazole 20 MG CAPSULE.DR PO (08:20)
[2024-07-09] MEDS: Losartan Potassium 50 MG TABLET 100 MG PO (08:20)
[2024-07-09 08:53] LABS: Estimated Average Glucose 143 mg/dL; Hemoglobin A1C 162.3185 umol/L; Hemoglobin A1c % 6.6 % (<6.0); Total Hemoglobin (HGBA1C) 3363.2468 umol/L
[2024-07-09 08:59] LABS: Cholesterol 204 mg/dL (<200); HDL Cholesterol 57 mg/dL (>40); LDL Cholesterol Calculated 121 mg/dL (<100); Magnesium 2.1 mg/dL (1.6-2.6); Triglycerides 130 mg/dL (<150)
[2024-07-09] MEDS: Tiotropium Bromide 2.5 mcg 1 PUFF/2.5 MCG MIST.INHAL 2 PUFF INHALE (09:13)
[2024-07-09 09:19] LABS: Free T4 (Free Thyroxine) 1.02 ng/dL (0.71-1.85); Thyroid Stimulating Hormone 1.12 uIU/mL (0.32-4.0)
[2024-07-09 09:29] LABS: Folate 12.4 ng/mL (> or = 4.0); Vitamin B12 522 pg/mL (200-900)
[2024-07-09] MEDS: Acetaminophen 325 MG TABLET 650 MG PO (13:40)
[2024-07-09 14:23] VITALS: BP 131/60; PULSE 117
[2024-07-09 19:37] VITALS: BP 178/70; PULSE 110; TEMP 36; O2SAT 98
[2024-07-09 21:10] VITALS: BP 178/70
[2024-07-09] MEDS: Atorvastatin Calcium 80 MG TABLET PO (21:15)
[2024-07-10 08:02] VITALS: BP 122/66; PULSE 86; TEMP 36.5; O2SAT 94
[2024-07-10] MEDS: buPROPion HCl XL 150 MG TAB.ER.24H PO (08:21)
[2024-07-10] MEDS: amLODIPine Besylate 10 MG TABLET PO (08:21)
[2024-07-10] MEDS: Losartan Potassium 50 MG TABLET 100 MG PO (08:21)
[2024-07-10] MEDS: hydrALAZINE HCl 50 MG TABLET PO ×3 (08:21→20:50)
[2024-07-10] MEDS: Omeprazole 20 MG CAPSULE.DR PO (08:21)
[2024-07-10] MEDS: ARIPiprazole 15 MG TABLET PO (08:21)
[2024-07-10] MEDS: Loratadine 10 MG TABLET PO (08:22)
--- NOTE | 2024-07-10 08:47 | HO.PSYCHPN ---
Subjective Subjective Date of Service: 07/10/24 Reason For Visit: Depression Subjective Notes: Conditional Voluntary Healthcare Proxy: No Guardianship: No Medical Problems Affecting Mental Status: No Interim History: Pt seen, discussed with the team. Pt is reporting nausea this a.m. Zofran prn ordered. AH are increased. Risperdal 0.5 mg bid prn ordered Pt stressed due to loss of her home. Reports family will visit today. Medication Compliance: Yes Side effects from medications: No Attending Groups: No Review of Systems Acute medical concerns: No nausea today Mental Status Exam Mental Status Exam Patient Appearance: Fatigued and Appropriate Patient Orientation: Person, Place, Time and Situation Level of Consciousness: Alert Patient Behavior: Appropriate, Talkative, Cooperative, Good Eye Contact and Crying Mood Description: Depressed Affect Description: Flat Patient Cognition Impaired: No Ability to Follow Directions: Good Speech Pattern: Spontaneous Speech Memory Description: Episodic Impaired Hallucinations: Auditory Thought Content: positive for Suicidal Ideation Depressive Symptoms: Thoughts of /Suicide Judgement: Fair Diagnostics Vital Signs (24Hr): Vital Signs - 24 hr 07/09/24 14:23 07/09/24 19:37 07/09/24 21:10 Temperature 96.8 F Pulse Rate 117 H 110 H Blood Pressure 131/60 178/70 H 178/70 H Pulse Oximetry 98 Oxygen Delivery Method Room Air 07/10/24 08:02 Temperature 97.7 F Pulse Rate 86 Blood Pressure 122/66 Pulse Oximetry 94 Oxygen Delivery Method Room Air BMI result Body Mass Index 27.8 Labs 07/07/24 18:52 07/07/24 18:52 Labs: Laboratory Results - last 48 hr 07/09/24 08:18 Estimat Average Glucose 143 Hemoglobin A1c % 6.6 H Magnesium 2.1 Triglycerides 130 Cholesterol 204 H LDL Cholesterol, Calc 121 H HDL Cholesterol 57 Vitamin B12 522 Folate 12.4 TSH 1.12 Free T4 1.02 Medications Medications Current Medications Acetaminophen (Acetaminophen 325 Mg Tablet) 650 mg PO Q6H PRN PRN Reason: Headache/Pain Mild Scale (1-3) Last Admin: 07/09/24 13:40 Dose: 650 mg Al Hydroxide/Mg Hydroxide (Magnesium Hydrox/Alum Hydrox 30 Ml Oral.Susp) 30 ml PO Q6H PRN PRN Reason: Heartburn/Nausea Last Admin: 07/08/24 18:14 Dose: 30 ml Albuterol Sulfate (Albuterol Sulfate 90 Mcg 8 Gm Inhaler) 2 puff INHALE Q4H PRN PRN Reason: Wheezing Amlodipine Besylate (Amlodipine Besylate 10 Mg Tablet) 10 mg PO DAILY [facility]; Protocol Last Admin: 07/10/24 08:21 Dose: 10 mg Aripiprazole (Aripiprazole 15 Mg Tablet) 15 mg PO DAILY [facility] Last Admin: 07/10/24 08:21 Dose: 15 mg Atorvastatin Calcium (Atorvastatin Calcium 80 Mg Tablet) 80 mg PO BEDTIME [facility] Last Admin: 07/09/24 21:15 Dose: 80 mg Bupropion HCl (Bupropion Hcl Xl 150 Mg Tab.Er.24h) 150 mg PO DAILY [facility] Last Admin: 07/10/24 08:21 Dose: 150 mg Hydralazine HCl (Hydralazine Hcl 50 Mg Tablet) 50 mg PO TID [facility]; Protocol Last Admin: 07/10/24 08:21 Dose: 50 mg Hydroxyzine HCl (Hydroxyzine Hcl 25 Mg Tablet) 25 mg PO Q6H PRN PRN Reason: Anxiety Last Admin: 07/08/24 20:48 Dose: 25 mg Loratadine (Loratadine 10 Mg Tablet) 10 mg PO DAILY [facility] Last Admin: 07/10/24 08:22 Dose: 10 mg Losartan Potassium (Losartan Potassium 50 Mg Tablet) 100 mg PO DAILY [facility]; Protocol Last Admin: 07/10/24 08:21 Dose: 100 mg Magnesium Hydroxide (Milk Of Magnesia 30 Ml Oral.Susp) 30 ml PO DAILY PRN PRN Reason: Constipation Melatonin (Melatonin 3 Mg Tablet) 9 mg PO BEDTIME PRN PRN Reason: Insomnia Last Admin: 07/08/24 20:48 Dose: 9 mg Metformin HCl (Metformin Hcl Er 500 Mg Tab.Er.24h) 1,000 mg PO DAILY@1700 [facility] Last Admin: 07/09/24 17:49 Dose: Not Given Nicotine Polacrilex (Nicotine Polacrilex 2 Mg Gum) 4 mg BUCCAL Q2H PRN PRN Reason: Nicotine Cravings Omeprazole (Omeprazole 20 Mg Capsule.Dr) 20 mg PO DAILY@0730 [facility] Last Admin: 07/10/24 08:21 Dose: 20 mg Tiotropium [place] (Tiotropium [place] 2.5 Mcg 1 Puff/2.5 Mcg Mist.Inhal) 2 puff INHALE DAILY [facility] Last Admin: 07/09/24 09:13 Dose: 2 puff Allergies Allergies Allergy/AdvReac Type Severity Reaction Status Date / Time trazodone [TRAZODONE] Allergy Intermediate PROLONGED Verified 07/07/24 17:47 QT INTERVAL (PER H&P) Assessment & Plan Assessment & Plan (1) Depression: Status: Acute Code(s): F32.A - Depression, unspecified Plan Depression with SI, AH Plan: Admit, CV, 15 minute checks Collateral Contact Diagnostics as needed Medication Review Encourage milieu groups Discharge/Aftercare Planning 07/10: Risperdal 0.5 mg bid prn Patient educated on: medication risk/benefits Reason for continued inpatient stay Substantial Risk for: rapid decompensation Time Spent With Patient Time: Total time managing care of this patient today ____ minutes.
[2024-07-10] MEDS: Tiotropium Bromide 2.5 mcg 1 PUFF/2.5 MCG MIST.INHAL 2 PUFF INHALE (09:09)
[2024-07-10] MEDS: Ondansetron ODT 4 MG TAB.RAPDIS TRANSLINGU (14:02)
[2024-07-10 14:56] VITALS: BP 111/60
[2024-07-10 19:55] VITALS: BP 118/67; PULSE 110; RESP 15; TEMP 36.6; O2SAT 98
[2024-07-10] MEDS: Atorvastatin Calcium 80 MG TABLET PO (20:50)
[2024-07-10] MEDS: metFORMIN HCl ER 500 MG TAB.ER.24H 1000 MG PO (20:50)
[2024-07-11] MEDS: Omeprazole 20 MG CAPSULE.DR PO (07:07)
[2024-07-11 08:57] VITALS: BP 131/85; PULSE 118; RESP 16; TEMP 37.2; O2SAT 97
[2024-07-11] MEDS: Losartan Potassium 50 MG TABLET 100 MG PO (09:01)
[2024-07-11] MEDS: buPROPion HCl XL 150 MG TAB.ER.24H PO (09:01)
[2024-07-11] MEDS: ARIPiprazole 15 MG TABLET PO (09:01)
[2024-07-11] MEDS: amLODIPine Besylate 10 MG TABLET PO (09:01)
[2024-07-11] MEDS: Loratadine 10 MG TABLET PO (09:02)
[2024-07-11] MEDS: hydrALAZINE HCl 50 MG TABLET PO ×3 (09:02→21:32)
--- NOTE | 2024-07-11 10:47 | HO.PSYCHPN ---
Subjective Subjective Date of Service: 07/11/24 Reason For Visit: Depression Subjective Notes: Conditional Voluntary Healthcare Proxy: No Guardianship: No Medical Problems Affecting Mental Status: No Interim History: Pt continues with depressive sx and worry about housing and upcoming court date regarding conflict with her son. Discussed possible family meeting with daughter to review issues and what interventions are needed by the hospital to assist pt with these issues. Reports voices are decreased. Reports difficulty swallowing, possibly a SE of Abilify. Will decrease to 10 mg. Discussed resources for housing support in team. Will explore if pt can benefit from Tenancy Preservation Program as suggested by team. Medication Compliance: Yes Side effects from medications: Yes (? swallowing difficulty as Abilify SE) Attending Groups: Yes Review of Systems swallowing difficulty Medical Review of Systems: unchanged Review of Systems Review of Systems difficulty swallowing Mental Status Exam Mental Status Exam Patient Appearance: Fatigued and Appropriate Patient Orientation: Person, Place, Time and Situation Level of Consciousness: Alert Patient Behavior: Appropriate, Talkative, Cooperative, Good Eye Contact and Crying Mood Description: Depressed Affect Description: Flat Patient Cognition Impaired: No Ability to Follow Directions: Good Speech Pattern: Spontaneous Speech Memory Description: Episodic Impaired Hallucinations: Auditory Thought Content: positive for Suicidal Ideation Depressive Symptoms: Thoughts of /Suicide Judgement: Fair Diagnostics Vital Signs (24Hr): Vital Signs - 24 hr 07/10/24 14:56 07/10/24 19:55 07/11/24 08:57 Temperature 97.9 F 99.0 F Pulse Rate 110 H 118 H Respiratory Rate 15 16 Blood Pressure 111/60 118/67 131/85 Pulse Oximetry 98 97 Oxygen Delivery Method Room Air BMI result Body Mass Index 27.8 Labs 07/07/24 18:52 07/14/24 07:25 Medications Medications Current Medications Acetaminophen (Acetaminophen 325 Mg Tablet) 650 mg PO Q6H PRN PRN Reason: Headache/Pain Mild Scale (1-3) Last Admin: 07/09/24 13:40 Dose: 650 mg Al Hydroxide/Mg Hydroxide (Magnesium Hydrox/Alum Hydrox 30 Ml Oral.Susp) 30 ml PO Q6H PRN PRN Reason: Heartburn/Nausea Last Admin: 07/08/24 18:14 Dose: 30 ml Albuterol Sulfate (Albuterol Sulfate 90 Mcg 8 Gm Inhaler) 2 puff INHALE Q4H PRN PRN Reason: Wheezing Amlodipine Besylate (Amlodipine Besylate 10 Mg Tablet) 10 mg PO DAILY [facility]; Protocol Last Admin: 07/11/24 09:01 Dose: 10 mg Aripiprazole (Aripiprazole 15 Mg Tablet) 15 mg PO DAILY [facility] Last Admin: 07/11/24 09:01 Dose: 15 mg Atorvastatin Calcium (Atorvastatin Calcium 80 Mg Tablet) 80 mg PO BEDTIME [facility] Last Admin: 07/10/24 20:50 Dose: 80 mg Bupropion HCl (Bupropion Hcl Xl 150 Mg Tab.Er.24h) 150 mg PO DAILY [facility] Last Admin: 07/11/24 09:01 Dose: 150 mg Hydralazine HCl (Hydralazine Hcl 50 Mg Tablet) 50 mg PO TID [facility]; Protocol Last Admin: 07/11/24 09:02 Dose: 50 mg Hydroxyzine HCl (Hydroxyzine Hcl 25 Mg Tablet) 25 mg PO Q6H PRN PRN Reason: Anxiety Last Admin: 07/08/24 20:48 Dose: 25 mg Loratadine (Loratadine 10 Mg Tablet) 10 mg PO DAILY [facility] Last Admin: 07/11/24 09:02 Dose: 10 mg Losartan Potassium (Losartan Potassium 50 Mg Tablet) 100 mg PO DAILY [facility]; Protocol Last Admin: 07/11/24 09:01 Dose: 100 mg Magnesium Hydroxide (Milk Of Magnesia 30 Ml Oral.Susp) 30 ml PO DAILY PRN PRN Reason: Constipation Melatonin (Melatonin 3 Mg Tablet) 9 mg PO BEDTIME PRN PRN Reason: Insomnia Last Admin: 07/08/24 20:48 Dose: 9 mg Metformin HCl (Metformin Hcl Er 500 Mg Tab.Er.24h) 1,000 mg PO DAILY@1700 [facility] Last Admin: 07/10/24 20:50 Dose: 1,000 mg Nicotine Polacrilex (Nicotine Polacrilex 2 Mg Gum) 4 mg BUCCAL Q2H PRN PRN Reason: Nicotine Cravings Omeprazole (Omeprazole 20 Mg Capsule.Dr) 20 mg PO DAILY@0730 [facility] Last Admin: 07/11/24 07:07 Dose: 20 mg Ondansetron HCl (Ondansetron Odt 4 Mg Tab.Rapdis) 4 mg TRANSLINGU Q6H PRN PRN Reason: Nausea and Vomiting Last Admin: 07/10/24 14:02 Dose: 4 mg Risperidone (Risperidone 0.5 Mg Tablet) 0.5 mg PO BID PRN PRN Reason: auditory perceptual alterations Tiotropium [place] (Tiotropium [place] 2.5 Mcg 1 Puff/2.5 Mcg Mist.Inhal) 2 puff INHALE DAILY [facility] Last Admin: 07/11/24 09:02 Dose: Not Given Allergies Allergies Allergy/AdvReac Type Severity Reaction Status Date / Time trazodone [TRAZODONE] Allergy Intermediate PROLONGED Verified 07/07/24 17:47 QT INTERVAL (PER H&P) Assessment & Plan Assessment & Plan (1) Depression: Status: Acute Code(s): F32.A - Depression, unspecified Plan Depression with SI, AH Plan: Admit, CV, 15 minute checks Collateral Contact Diagnostics as needed Medication Review Encourage milieu groups Discharge/Aftercare Planning 07/10: Risperdal 0.5 mg bid prn AH 07/11: Decrease Abilify to 10 mg daily Reason for continued inpatient stay Substantial Risk for: rapid decompensation and med/psych decompensation Time Spent With Patient Time: Total time managing care of this patient today ____ minutes.
[2024-07-11 15:38] VITALS: BP 132/86
[2024-07-11] MEDS: diphenhydrAMINE HCL 25 MG CAPSULE PO (16:17)
[2024-07-11] MEDS: metFORMIN HCl ER 500 MG TAB.ER.24H 1000 MG PO (17:24)
[2024-07-11 19:49] VITALS: BP 163/91; PULSE 100; TEMP 36.8; O2SAT 99
[2024-07-11] MEDS: Atorvastatin Calcium 80 MG TABLET PO (21:33)
[2024-07-12 08:00] VITALS: BP 122/57; PULSE 127; RESP 16; TEMP 36.4; O2SAT 99
[2024-07-12] MEDS: Omeprazole 20 MG CAPSULE.DR PO (08:40)
[2024-07-12] MEDS: Loratadine 10 MG TABLET PO (08:41)
[2024-07-12] MEDS: buPROPion HCl XL 150 MG TAB.ER.24H PO (08:41)
[2024-07-12] MEDS: ARIPiprazole 10 MG TABLET PO (08:41)
[2024-07-12] MEDS: hydrALAZINE HCl 50 MG TABLET PO ×3 (08:41→20:28)
[2024-07-12] MEDS: Losartan Potassium 50 MG TABLET 100 MG PO (08:41)
[2024-07-12] MEDS: amLODIPine Besylate 10 MG TABLET PO (08:41)
--- NOTE | 2024-07-12 08:47 | P.PNPSI_ITS ---
Subjective Subjective Date of Service: 07/12/24 Reason For Visit: Depression Subjective Notes: Conditional Voluntary Healthcare Proxy: No Guardianship: No Medical Problems Affecting Mental Status: No Interim History: Family meeting scheduled for 07/13. Pt reports improvement in swallowing with Abilify decrease, will continue to monitor. Family tells team that pt will not be evicted however pt does need to pay housing back rent prior to moving to a smaller home (daughter has moved). This is not her understanding today when we met. Encouraged groups. Medication Compliance: Yes Side effects from medications: Yes (reports decrease in swallowing difficulty with decrease in Abilify) Attending Groups: Intermittent Review of Systems Acute medical concerns: No Medical Review of Systems: unchanged Review of Systems Review of Systems decrease in swallowing difficulty-?response to Abilify decrease Mental Status Exam Mental Status Exam Patient Appearance: Appropriate Patient Orientation: Person, Place, Time and Situation Level of Consciousness: Alert Patient Behavior: Appropriate, Talkative, Cooperative and Good Eye Contact Mood Description: Depressed Affect Description: Flat Patient Cognition Impaired: No Ability to Follow Directions: Good Speech Pattern: Spontaneous Speech Memory Description: Episodic Impaired Hallucinations: None (denies) and Auditory Delusions: Not Present Thought Process: Rumination Thought Content: positive for Circumstantial and positive for Suicidal Ideation Depressive Symptoms: Thoughts of /Suicide (denies) Judgement: Fair Diagnostics Vital Signs (24Hr): Vital Signs - 24 hr 07/11/24 08:57 07/11/24 15:38 07/11/24 19:49 Temperature 99.0 F 98.3 F Pulse Rate 118 H 100 Respiratory Rate 16 Blood Pressure 131/85 132/86 163/91 H Pulse Oximetry 97 99 Oxygen Delivery Method Room Air Room Air 07/12/24 08:00 Temperature 97.6 F Pulse Rate 127 H Respiratory Rate 16 Blood Pressure 122/57 L Pulse Oximetry 99 Oxygen Delivery Method Room Air BMI result Body Mass Index 27.8 Labs 07/07/24 18:52 07/14/24 07:25 Medications Medications Current Medications Acetaminophen (Acetaminophen 325 Mg Tablet) 650 mg PO Q6H PRN PRN Reason: Headache/Pain Mild Scale (1-3) Last Admin: 07/09/24 13:40 Dose: 650 mg Al Hydroxide/Mg Hydroxide (Magnesium Hydrox/Alum Hydrox 30 Ml Oral.Susp) 30 ml PO Q6H PRN PRN Reason: Heartburn/Nausea Last Admin: 07/08/24 18:14 Dose: 30 ml Albuterol Sulfate (Albuterol Sulfate 90 Mcg 8 Gm Inhaler) 2 puff INHALE Q4H PRN PRN Reason: Wheezing Amlodipine Besylate (Amlodipine Besylate 10 Mg Tablet) 10 mg PO DAILY [facility]; Protocol Last Admin: 07/12/24 08:41 Dose: 10 mg Aripiprazole (Aripiprazole 10 Mg Tablet) 10 mg PO DAILY [facility] Last Admin: 07/12/24 08:41 Dose: 10 mg Atorvastatin Calcium (Atorvastatin Calcium 80 Mg Tablet) 80 mg PO BEDTIME [facility] Last Admin: 07/11/24 21:33 Dose: 80 mg Bupropion HCl (Bupropion Hcl Xl 150 Mg Tab.Er.24h) 150 mg PO DAILY [facility] Last Admin: 07/12/24 08:41 Dose: 150 mg Diphenhydramine HCl (Diphenhydramine Hcl 25 Mg Capsule) 25 mg PO Q4H PRN PRN Reason: Itching Last Admin: 07/11/24 16:17 Dose: 25 mg Hydralazine HCl (Hydralazine Hcl 50 Mg Tablet) 50 mg PO TID [facility]; Protocol Last Admin: 07/12/24 08:41 Dose: 50 mg Hydroxyzine HCl (Hydroxyzine Hcl 25 Mg Tablet) 25 mg PO Q6H PRN PRN Reason: Anxiety Last Admin: 07/08/24 20:48 Dose: 25 mg Loratadine (Loratadine 10 Mg Tablet) 10 mg PO DAILY [facility] Last Admin: 07/12/24 08:41 Dose: 10 mg Losartan Potassium (Losartan Potassium 50 Mg Tablet) 100 mg PO DAILY [facility]; Protocol Last Admin: 07/12/24 08:41 Dose: 100 mg Magnesium Hydroxide (Milk Of Magnesia 30 Ml Oral.Susp) 30 ml PO DAILY PRN PRN Reason: Constipation Melatonin (Melatonin 3 Mg Tablet) 9 mg PO BEDTIME PRN PRN Reason: Insomnia Last Admin: 07/08/24 20:48 Dose: 9 mg Metformin HCl (Metformin Hcl Er 500 Mg Tab.Er.24h) 1,000 mg PO DAILY@1700 [facility] Last Admin: 07/11/24 17:24 Dose: 1,000 mg Nicotine Polacrilex (Nicotine Polacrilex 2 Mg Gum) 4 mg BUCCAL Q2H PRN PRN Reason: Nicotine Cravings Omeprazole (Omeprazole 20 Mg Capsule.Dr) 20 mg PO DAILY@0730 [facility] Last Admin: 07/12/24 08:40 Dose: 20 mg Ondansetron HCl (Ondansetron Odt 4 Mg Tab.Rapdis) 4 mg TRANSLINGU Q6H PRN PRN Reason: Nausea and Vomiting Last Admin: 07/10/24 14:02 Dose: 4 mg Risperidone (Risperidone 0.5 Mg Tablet) 0.5 mg PO BID PRN PRN Reason: auditory perceptual alterations Tiotropium [place] (Tiotropium [place] 2.5 Mcg 1 Puff/2.5 Mcg Mist.Inhal) 2 puff INHALE DAILY [facility] Last Admin: 07/12/24 08:45 Dose: Not Given Allergies Allergies Allergy/AdvReac Type Severity Reaction Status Date / Time trazodone [TRAZODONE] Allergy Intermediate PROLONGED Verified 07/07/24 17:47 QT INTERVAL (PER H&P) Assessment & Plan Assessment & Plan (1) Depression: Status: Acute Code(s): F32.A - Depression, unspecified Plan Depression with MICEKY JAIME Plan: Admit, CV, 15 minute checks Collateral Contact Diagnostics as needed Medication Review Encourage milieu groups Discharge/Aftercare Planning 07/10: Risperdal 0.5 mg bid prn AH 07/12: Meeting with pt and daughter 07/13. Reason for continued inpatient stay Substantial Risk for: rapid decompensation Time Spent With Patient Time: Total time managing care of this patient today ____ minutes.
[2024-07-12 16:00] VITALS: BP 142/72; PULSE 112
[2024-07-12] MEDS: metFORMIN HCl ER 500 MG TAB.ER.24H 1000 MG PO (17:32)
[2024-07-12 20:00] VITALS: BP 128/80; PULSE 119; RESP 16; TEMP 36.7; O2SAT 97
[2024-07-12] MEDS: Acetaminophen 325 MG TABLET 650 MG PO (20:28)
[2024-07-12] MEDS: Atorvastatin Calcium 80 MG TABLET PO (20:28)
[2024-07-13] MEDS: hydrOXYzine HCL 25 MG TABLET PO ×2 (01:24→08:43)
[2024-07-13 08:00] VITALS: BP 134/63; PULSE 107; RESP 18; TEMP 36.8; O2SAT 95
[2024-07-13] MEDS: Losartan Potassium 50 MG TABLET 100 MG PO (08:29)
[2024-07-13] MEDS: Omeprazole 20 MG CAPSULE.DR PO (08:30)
[2024-07-13] MEDS: buPROPion HCl XL 150 MG TAB.ER.24H PO (08:30)
[2024-07-13] MEDS: Loratadine 10 MG TABLET PO (08:31)
[2024-07-13] MEDS: amLODIPine Besylate 10 MG TABLET PO (08:31)
[2024-07-13] MEDS: hydrALAZINE HCl 50 MG TABLET PO ×3 (08:31→20:30)
[2024-07-13] MEDS: ARIPiprazole 10 MG TABLET PO (08:32)
[2024-07-13] MEDS: Acetaminophen 325 MG TABLET 650 MG PO ×2 (08:43→15:41)
--- NOTE | 2024-07-13 10:19 | P.PNPSI_ITS ---
Subjective Subjective Date of Service: 07/13/24 Reason For Visit: Depression Subjective Notes: Conditional Voluntary Healthcare Proxy: No Guardianship: No Medical Problems Affecting Mental Status: No Interim History: Family meeting with daughter. Discussed housing issues. Pt in need of legal consultation to address issues with housing. Daughter reports they are working with [employer] and pt is packing, ready to move, applying for apartments however cannot receive a proper reference until she settles balance owed to housing. Team report poor sleep Discussed dx of early dementia. OP team continues the evaluation, so we will not interefere with that process unless requested. Will DC abilify and trial very low dose Olanzapine to address depressive and anxious sx. Medication Compliance: Yes Side effects from medications: No Attending Groups: Yes Review of Systems Acute medical concerns: No Medical Review of Systems: unchanged Review of Systems Review of Systems denies Mental Status Exam Mental Status Exam Patient Appearance: Appropriate Patient Orientation: Person, Place, Time and Situation Level of Consciousness: Alert Patient Behavior: Appropriate, Talkative, Cooperative and Good Eye Contact Mood Description: Depressed Affect Description: Flat Patient Cognition Impaired: No Ability to Follow Directions: Good Speech Pattern: Spontaneous Speech Memory Description: Episodic Impaired Hallucinations: None (denies) and Auditory Delusions: Not Present Thought Process: Rumination Thought Content: positive for Circumstantial and positive for Suicidal Ideation Depressive Symptoms: Thoughts of /Suicide (denies) Judgement: Fair Diagnostics Vital Signs (24Hr): Vital Signs - 24 hr 07/12/24 16:00 07/12/24 20:00 07/13/24 08:00 Temperature 98.1 F 98.3 F Pulse Rate 112 H 119 H 107 H Respiratory Rate 16 18 Blood Pressure 142/72 H 128/80 134/63 Pulse Oximetry 97 95 Oxygen Delivery Method Room Air Room Air BMI result Body Mass Index 27.8 Labs 07/07/24 18:52 07/14/24 07:25 Medications Medications Current Medications Acetaminophen (Acetaminophen 325 Mg Tablet) 650 mg PO Q6H PRN PRN Reason: Pain 1-10 Last Admin: 07/13/24 08:43 Dose: 650 mg Al Hydroxide/Mg Hydroxide (Magnesium Hydrox/Alum Hydrox 30 Ml Oral.Susp) 30 ml PO Q6H PRN PRN Reason: Heartburn/Nausea Last Admin: 07/08/24 18:14 Dose: 30 ml Albuterol Sulfate (Albuterol Sulfate 90 Mcg 8 Gm Inhaler) 2 puff INHALE Q4H PRN PRN Reason: Wheezing Amlodipine Besylate (Amlodipine Besylate 10 Mg Tablet) 10 mg PO DAILY [facility]; Protocol Last Admin: 07/13/24 08:31 Dose: 10 mg Aripiprazole (Aripiprazole 10 Mg Tablet) 10 mg PO DAILY [facility] Last Admin: 07/13/24 08:32 Dose: 10 mg Atorvastatin Calcium (Atorvastatin Calcium 80 Mg Tablet) 80 mg PO BEDTIME [facility] Last Admin: 07/12/24 20:28 Dose: 80 mg Bupropion HCl (Bupropion Hcl Xl 150 Mg Tab.Er.24h) 150 mg PO DAILY [facility] Last Admin: 07/13/24 08:30 Dose: 150 mg Diphenhydramine HCl (Diphenhydramine Hcl 25 Mg Capsule) 25 mg PO Q4H PRN PRN Reason: Itching Last Admin: 07/11/24 16:17 Dose: 25 mg Hydralazine HCl (Hydralazine Hcl 50 Mg Tablet) 50 mg PO TID [facility]; Protocol Last Admin: 07/13/24 08:31 Dose: 50 mg Hydroxyzine HCl (Hydroxyzine Hcl 25 Mg Tablet) 25 mg PO Q6H PRN PRN Reason: Anxiety, mild Last Admin: 07/13/24 08:43 Dose: 25 mg Loratadine (Loratadine 10 Mg Tablet) 10 mg PO DAILY [facility] Last Admin: 07/13/24 08:31 Dose: 10 mg Losartan Potassium (Losartan Potassium 50 Mg Tablet) 100 mg PO DAILY [facility]; Protocol Last Admin: 07/13/24 08:29 Dose: 100 mg Magnesium Hydroxide (Milk Of Magnesia 30 Ml Oral.Susp) 30 ml PO DAILY PRN PRN Reason: Constipation Melatonin (Melatonin 3 Mg Tablet) 9 mg PO BEDTIME PRN PRN Reason: Insomnia Last Admin: 07/08/24 20:48 Dose: 9 mg Metformin HCl (Metformin Hcl Er 500 Mg Tab.Er.24h) 1,000 mg PO DAILY@1700 [facility] Last Admin: 07/12/24 17:32 Dose: 1,000 mg Nicotine Polacrilex (Nicotine Polacrilex 2 Mg Gum) 4 mg BUCCAL Q2H PRN PRN Reason: Nicotine Cravings Omeprazole (Omeprazole 20 Mg Capsule.Dr) 20 mg PO DAILY@0730 [facility] Last Admin: 07/13/24 08:30 Dose: 20 mg Ondansetron HCl (Ondansetron Odt 4 Mg Tab.Rapdis) 4 mg TRANSLINGU Q6H PRN PRN Reason: Nausea and Vomiting Last Admin: 07/10/24 14:02 Dose: 4 mg Risperidone (Risperidone 0.5 Mg Tablet) 0.5 mg PO BID PRN PRN Reason: auditory perceptual alterations Tiotropium [place] (Tiotropium [place] 2.5 Mcg 1 Puff/2.5 Mcg Mist.Inhal) 2 puff INHALE DAILY [facility] Last Admin: 07/13/24 09:14 Dose: Not Given Allergies Allergies Allergy/AdvReac Type Severity Reaction Status Date / Time trazodone [TRAZODONE] Allergy Intermediate PROLONGED Verified 07/07/24 17:47 QT INTERVAL (PER H&P) Assessment & Plan Assessment & Plan (1) Depression: Status: Acute Code(s): F32.A - Depression, unspecified Plan Depression with SI, AH Plan: Admit, CV, 15 minute checks Collateral Contact Diagnostics as needed Medication Review Encourage milieu groups Discharge/Aftercare Planning 07/10: Risperdal 0.5 mg bid prn AH 07/13: Throat culture DC Abilify Olanzapine 2.5mg bid Reason for continued inpatient stay Substantial Risk for: rapid decompensation Time Spent With Patient Time: Total time managing care of this patient today ____ minutes.
[2024-07-13 15:40] VITALS: BP 141/71
[2024-07-13] MEDS: metFORMIN HCl ER 500 MG TAB.ER.24H 1000 MG PO (15:40)
[2024-07-13] MEDS: Throat Lozenge, Medicated LOZENGE 1 LOZENGE MUCOUS MEM (18:36)
[2024-07-13 20:00] VITALS: BP 137/80; PULSE 100; RESP 16; TEMP 36.8; O2SAT 99
[2024-07-13] MEDS: OLANZapine 2.5 MG TABLET PO (20:30)
[2024-07-13] MEDS: Atorvastatin Calcium 80 MG TABLET PO (20:31)
[2024-07-14] MEDS: Acetaminophen 325 MG TABLET 650 MG PO ×2 (05:31→19:56)
--- NOTE | 2024-07-14 05:33 | HO.PSYCHPN ---
Subjective Subjective Date of Service: 07/14/24 Reason For Visit: Depression Subjective Notes: Conditional Voluntary Healthcare Proxy: No Guardianship: No Medical Problems Affecting Mental Status: No Interim History: Poor sleep pt reports, however, reports receiving news that she is not needing to go to court regarding conflict with her son which she is relieved to hear. She is attending group today and mood appears improved however, we will need to continue to assess for consistency. Medication Compliance: Yes Side effects from medications: No Attending Groups: Yes Review of Systems Acute medical concerns: No Review of Systems Review of Systems reports poor sleep last evening Mental Status Exam Mental Status Exam Patient Appearance: Appropriate Patient Orientation: Person, Place, Time and Situation Level of Consciousness: Alert Patient Behavior: Appropriate, Talkative, Cooperative and Good Eye Contact Mood Description: Flat Affect Description: Flat Patient Cognition Impaired: No Ability to Follow Directions: Good Speech Pattern: Spontaneous Speech Memory Description: Episodic Impaired Hallucinations: None (denies) Delusions: Not Present Thought Process: Intact Thought Content: positive for Circumstantial and positive for Suicidal Ideation (denies) Depressive Symptoms: Thoughts of /Suicide (denies) Judgement: Fair Diagnostics Vital Signs (24Hr): Vital Signs - 24 hr 07/13/24 08:00 07/13/24 15:40 07/13/24 20:00 Temperature 98.3 F 98.3 F Pulse Rate 107 H 100 Respiratory Rate 18 16 Blood Pressure 134/63 141/71 H 137/80 Pulse Oximetry 95 99 Oxygen Delivery Method Room Air Room Air BMI result Body Mass Index 27.8 Labs 07/07/24 18:52 07/14/24 07:25 Medications Medications Current Medications Acetaminophen (Acetaminophen 325 Mg Tablet) 650 mg PO Q6H PRN PRN Reason: Pain 1-10 Last Admin: 07/13/24 15:41 Dose: 650 mg Al Hydroxide/Mg Hydroxide (Magnesium Hydrox/Alum Hydrox 30 Ml Oral.Susp) 30 ml PO Q6H PRN PRN Reason: Heartburn/Nausea Last Admin: 07/08/24 18:14 Dose: 30 ml Albuterol Sulfate (Albuterol Sulfate 90 Mcg 8 Gm Inhaler) 2 puff INHALE Q4H PRN PRN Reason: Wheezing Amlodipine Besylate (Amlodipine Besylate 10 Mg Tablet) 10 mg PO DAILY [facility]; Protocol Last Admin: 07/13/24 08:31 Dose: 10 mg Atorvastatin Calcium (Atorvastatin Calcium 80 Mg Tablet) 80 mg PO BEDTIME [facility] Last Admin: 07/13/24 20:31 Dose: 80 mg Benzocaine (Throat Lozenge, Medicated Lozenge) 1 lozenge MUCOUS MEM Q2H PRN PRN Reason: Sore Throat Last Admin: 07/13/24 18:36 Dose: 1 lozenge Bupropion HCl (Bupropion Hcl Xl 150 Mg Tab.Er.24h) 150 mg PO DAILY [facility] Last Admin: 07/13/24 08:30 Dose: 150 mg Diphenhydramine HCl (Diphenhydramine Hcl 25 Mg Capsule) 25 mg PO Q4H PRN PRN Reason: Itching Last Admin: 07/11/24 16:17 Dose: 25 mg Hydralazine HCl (Hydralazine Hcl 50 Mg Tablet) 50 mg PO TID [facility]; Protocol Last Admin: 07/13/24 20:30 Dose: 50 mg Hydroxyzine HCl (Hydroxyzine Hcl 25 Mg Tablet) 25 mg PO Q6H PRN PRN Reason: Anxiety, mild Last Admin: 07/13/24 08:43 Dose: 25 mg Loratadine (Loratadine 10 Mg Tablet) 10 mg PO DAILY [facility] Last Admin: 07/13/24 08:31 Dose: 10 mg Losartan Potassium (Losartan Potassium 50 Mg Tablet) 100 mg PO DAILY [facility]; Protocol Last Admin: 07/13/24 08:29 Dose: 100 mg Magnesium Hydroxide (Milk Of Magnesia 30 Ml Oral.Susp) 30 ml PO DAILY PRN PRN Reason: Constipation Melatonin (Melatonin 3 Mg Tablet) 9 mg PO BEDTIME PRN PRN Reason: Insomnia Last Admin: 07/08/24 20:48 Dose: 9 mg Metformin HCl (Metformin Hcl Er 500 Mg Tab.Er.24h) 1,000 mg PO DAILY@1700 [facility] Last Admin: 07/13/24 15:40 Dose: 1,000 mg Nicotine Polacrilex (Nicotine Polacrilex 2 Mg Gum) 4 mg BUCCAL Q2H PRN PRN Reason: Nicotine Cravings Olanzapine (Olanzapine 2.5 Mg Tablet) 2.5 mg PO BID [facility] Last Admin: 07/13/24 20:30 Dose: 2.5 mg Omeprazole (Omeprazole 20 Mg Capsule.Dr) 20 mg PO DAILY@0730 [facility] Last Admin: 07/13/24 08:30 Dose: 20 mg Ondansetron HCl (Ondansetron Odt 4 Mg Tab.Rapdis) 4 mg TRANSLINGU Q6H PRN PRN Reason: Nausea and Vomiting Last Admin: 07/10/24 14:02 Dose: 4 mg Tiotropium [place] (Tiotropium [place] 2.5 Mcg 1 Puff/2.5 Mcg Mist.Inhal) 2 puff INHALE DAILY [facility] Last Admin: 07/13/24 09:14 Dose: Not Given Allergies Allergies Allergy/AdvReac Type Severity Reaction Status Date / Time trazodone [TRAZODONE] Allergy Intermediate PROLONGED Verified 07/07/24 17:47 QT INTERVAL (PER H&P) Assessment & Plan Assessment & Plan (1) Depression: Status: Acute Code(s): F32.A - Depression, unspecified Plan Depression with SI AH Plan: Admit, CV, 15 minute checks Collateral Contact Diagnostics as needed Medication Review Encourage milieu groups Discharge/Aftercare Planning 07/10: Risperdal 0.5 mg bid prn AH 07/14: continue tx Reason for continued inpatient stay Substantial Risk for: rapid decompensation Time Spent With Patient Time: Total time managing care of this patient today ____ minutes.
[2024-07-14 07:00] VITALS: BMI 28.7
[2024-07-14 07:58] LABS: Creatinine Clr Calc Pharmacy 116.5; Estimated Glomerular Filt Rate > 60
[2024-07-14] MEDS: Losartan Potassium 50 MG TABLET 100 MG PO (08:43)
[2024-07-14] MEDS: Loratadine 10 MG TABLET PO (08:43)
[2024-07-14] MEDS: hydrALAZINE HCl 50 MG TABLET PO ×3 (08:43→19:58)
[2024-07-14] MEDS: OLANZapine 2.5 MG TABLET PO ×2 (08:44→19:59)
[2024-07-14] MEDS: buPROPion HCl XL 150 MG TAB.ER.24H PO (08:44)
[2024-07-14] MEDS: amLODIPine Besylate 10 MG TABLET PO (08:44)
[2024-07-14] MEDS: Omeprazole 20 MG CAPSULE.DR PO (08:44)
[2024-07-14 09:15] VITALS: BP 142/76; PULSE 103; RESP 18; TEMP 36.3; O2SAT 99
[2024-07-14 16:03] VITALS: BP 138/76
[2024-07-14] MEDS: metFORMIN HCl ER 500 MG TAB.ER.24H 1000 MG PO (16:08)
[2024-07-14] MEDS: Throat Lozenge, Medicated LOZENGE 1 LOZENGE MUCOUS MEM (16:09)
[2024-07-14 19:58] VITALS: BP 141/85
[2024-07-14] MEDS: Atorvastatin Calcium 80 MG TABLET PO (19:59)
[2024-07-14 20:00] VITALS: BP 141/85; PULSE 119; TEMP 36.4; O2SAT 98
[2024-07-14] MEDS: Melatonin 3 MG TABLET 9 MG PO (20:00)
[2024-07-15] MEDS: Acetaminophen 325 MG TABLET 650 MG PO ×3 (01:45→12:24)
[2024-07-15] MEDS: Ibuprofen 800 MG TABLET PO (05:49)
[2024-07-15 07:05] VITALS: BP 145/73; PULSE 109; TEMP 36.4
[2024-07-15] MEDS: Omeprazole 20 MG CAPSULE.DR PO (07:29)
[2024-07-15 08:07] VITALS: BP 156/75; PULSE 106; RESP 16; TEMP 36.3; O2SAT 98
[2024-07-15] MEDS: Losartan Potassium 50 MG TABLET 100 MG PO (08:55)
[2024-07-15] MEDS: Throat Lozenge, Medicated LOZENGE 1 LOZENGE MUCOUS MEM (08:55)
[2024-07-15] MEDS: Loratadine 10 MG TABLET PO (08:56)
[2024-07-15] MEDS: hydrALAZINE HCl 50 MG TABLET PO ×3 (08:56→20:21)
[2024-07-15] MEDS: OLANZapine 2.5 MG TABLET PO ×2 (08:56→20:21)
[2024-07-15] MEDS: buPROPion HCl XL 150 MG TAB.ER.24H PO (08:56)
[2024-07-15] MEDS: amLODIPine Besylate 10 MG TABLET PO (08:56)
[2024-07-15] MEDS: Ibuprofen 600 MG TABLET PO ×2 (08:56→16:44)
--- NOTE | 2024-07-15 10:39 | PC.NURSE ---
Pt reports 8/10 left sided head pain and 4/10 throat pain. Pt medicated w/ Cepacol and Tylenol and message relayed to clinical coordinator regarding pt complaints. Clinical coordinator reports she relayed message to covering provider and flu/covid/rsv testing will be ordered. Currently awaiting orders.
--- NOTE | 2024-07-15 12:05 | P.PNPSI_ITS ---
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 Pt reports poor sleep d/t constant headache; utilized PRNs, however reports no relief. Flu/Covid negative. Hospitalist consult placed per pt request. She reports increased anxiety d/t pain. denies SI/HI/VH/AH. Medication Compliance: Yes Side effects from medications: No Mental Status Exam Mental Status Exam Patient Appearance: Appropriate Patient Orientation: Person, Place, Time and Situation Level of Consciousness: Awake and Alert Patient Behavior: Anxious and Good Eye Contact Mood Description: Anxious Affect Description: Anxious Ability to Follow Directions: Good Speech Pattern: Clear Memory Description: Intact Hallucinations: None Delusions: Not Present Thought Process: Intact Thought Content: positive for Intact Judgement: Fair Diagnostics Vital Signs (24Hr): Vital Signs - 24 hr 07/14/24 16:03 07/14/24 19:58 07/14/24 20:00 Temperature 97.6 F Pulse Rate 119 H Respiratory Rate Blood Pressure 138/76 141/85 H 141/85 H Pulse Oximetry 98 Oxygen Delivery Method Room Air 07/15/24 07:05 07/15/24 08:07 Temperature 97.5 F 97.3 F Pulse Rate 109 H 106 H Respiratory Rate 16 Blood Pressure 145/73 H 156/75 H Pulse Oximetry 98 Oxygen Delivery Method Room Air BMI result Body Mass Index 28.7 Labs 07/07/24 18:52 07/14/24 07:25 Labs: Laboratory Results - last 48 hr 07/14/24 07:25 Creatinine 0.53 Estim Creat Clear Calc 116.5 Estimated GFR > 60 Medications Medications Current Medications Acetaminophen (Acetaminophen 325 Mg Tablet) 650 mg PO Q6H PRN PRN Reason: Pain 1-10 Last Admin: 07/15/24 01:45 Dose: 650 mg Al Hydroxide/Mg Hydroxide (Magnesium Hydrox/Alum Hydrox 30 Ml Oral.Susp) 30 ml PO Q6H PRN PRN Reason: Heartburn/Nausea Last Admin: 07/08/24 18:14 Dose: 30 ml Albuterol Sulfate (Albuterol Sulfate 90 Mcg 8 Gm Inhaler) 2 puff INHALE Q4H PRN PRN Reason: Wheezing Amlodipine Besylate (Amlodipine Besylate 10 Mg Tablet) 10 mg PO DAILY [facility]; Protocol Last Admin: 07/15/24 08:56 Dose: 10 mg Atorvastatin Calcium (Atorvastatin Calcium 80 Mg Tablet) 80 mg PO BEDTIME [facility] Last Admin: 07/14/24 19:59 Dose: 80 mg Benzocaine (Throat Lozenge, Medicated Lozenge) 1 lozenge MUCOUS MEM Q2H PRN PRN Reason: Sore Throat Last Admin: 07/15/24 08:55 Dose: 1 lozenge Bupropion HCl (Bupropion Hcl Xl 150 Mg Tab.Er.24h) 150 mg PO DAILY [facility] Last Admin: 07/15/24 08:56 Dose: 150 mg Diphenhydramine HCl (Diphenhydramine Hcl 25 Mg Capsule) 25 mg PO Q4H PRN PRN Reason: Itching Last Admin: 07/11/24 16:17 Dose: 25 mg Hydralazine HCl (Hydralazine Hcl 50 Mg Tablet) 50 mg PO TID [facility]; Protocol Last Admin: 07/15/24 08:56 Dose: 50 mg Hydroxyzine HCl (Hydroxyzine Hcl 25 Mg Tablet) 25 mg PO Q6H PRN PRN Reason: Anxiety, mild Last Admin: 07/13/24 08:43 Dose: 25 mg Ibuprofen (Ibuprofen 600 Mg Tablet) 600 mg PO Q8H PRN PRN Reason: headache Last Admin: 07/15/24 08:56 Dose: 600 mg Loratadine (Loratadine 10 Mg Tablet) 10 mg PO DAILY [facility] Last Admin: 07/15/24 08:56 Dose: 10 mg Losartan Potassium (Losartan Potassium 50 Mg Tablet) 100 mg PO DAILY [facility]; Protocol Last Admin: 07/15/24 08:55 Dose: 100 mg Magnesium Hydroxide (Milk Of Magnesia 30 Ml Oral.Susp) 30 ml PO DAILY PRN PRN Reason: Constipation Melatonin (Melatonin 3 Mg Tablet) 9 mg PO BEDTIME PRN PRN Reason: Insomnia Last Admin: 07/14/24 20:00 Dose: 9 mg Metformin HCl (Metformin Hcl Er 500 Mg Tab.Er.24h) 1,000 mg PO DAILY@1700 [facility] Last Admin: 07/14/24 16:08 Dose: 1,000 mg Nicotine Polacrilex (Nicotine Polacrilex 2 Mg Gum) 4 mg BUCCAL Q2H PRN PRN Reason: Nicotine Cravings Olanzapine (Olanzapine 2.5 Mg Tablet) 2.5 mg PO BID [facility] Last Admin: 07/15/24 08:56 Dose: 2.5 mg Omeprazole (Omeprazole 20 Mg Capsule.Dr) 20 mg PO DAILY@0730 [facility] Last Admin: 07/15/24 07:29 Dose: 20 mg Ondansetron HCl (Ondansetron Odt 4 Mg Tab.Rapdis) 4 mg TRANSLINGU Q6H PRN PRN Reason: Nausea and Vomiting Last Admin: 07/10/24 14:02 Dose: 4 mg Tiotropium [place] (Tiotropium [place] 2.5 Mcg 1 Puff/2.5 Mcg Mist.Inhal) 2 puff INHALE DAILY [facility] Last Admin: 07/15/24 09:31 Dose: Not Given Allergies Allergies Allergy/AdvReac Type Severity Reaction Status Date / Time trazodone [TRAZODONE] Allergy Intermediate PROLONGED Verified 07/07/24 17:47 QT INTERVAL (PER H&P) Assessment & Plan Assessment & Plan (1) Depression: Status: Acute Code(s): F32.A - Depression, unspecified Plan Depression with MICKEY JAIME Plan: Admit, CV, 15 minute checks Collateral Contact Diagnostics as needed Medication Review Encourage milieu groups Discharge/Aftercare Planning 07/10: Risperdal 0.5 mg bid prn AH 07/12: Meeting with pt and daughter 07/13. 07/15: Pt reports poor sleep d/t constant headache; utilized PRNs, however reports no relief. Flu/Covid negative. Hospitalist consult placed per pt request. She reports increased anxiety d/t pain. Patient educated on: medication risk/benefits Reason for continued inpatient stay Substantial Risk for: med/psych decompensation Time Spent With Patient Time: Total time managing care of this patient today _20___ minutes.
[2024-07-15 15:11] LABS: Influenza A PCR NEGATIVE (Negative); Influenza B PCR NEGATIVE (Negative); Resp Syncy Virus RNA Qual PCR NEGATIVE (Negative); SARS COV2 PCR INHOUSE NEGATIVE (Negative)
[2024-07-15 16:41] VITALS: BP 126/84
[2024-07-15] MEDS: metFORMIN HCl ER 500 MG TAB.ER.24H 1000 MG PO (16:41)
[2024-07-15 20:00] VITALS: BP 125/79; PULSE 115; RESP 15; TEMP 36.6; O2SAT 98
[2024-07-15] MEDS: Atorvastatin Calcium 80 MG TABLET PO (20:22)
[2024-07-15] MEDS: Melatonin 3 MG TABLET 9 MG PO (20:22)
[2024-07-15] MEDS: Butalb/Acetamin/Caff 50/325/40 TABLET 1 TAB PO (21:32)
--- NOTE | 2024-07-15 21:53 | PM.EVENT ---
Event Note Date of Service: 07/15/24 Event Note: Pt is a 59-year-old female admitted to [facility] for increasing depression and vague SI. Hospitalist consult for headaches. Pt complains of left sided headaches that are constant and severe that has been ongoing for the past 2-3 weeks. Reports occasional blurriness and dizziness. Pt also states she has a hx of ?blood not reaching my brain in the way it is supposed to?. Pt reports she was told this by her PCP who did a scan of her head. Review of records indicates pt had a brain MRI on 05/06/2024 that found partially empty sella turcica, but otherwise no acute intracranial abnormalities. While on the unit will symptomatically treat headaches with Fioricet p.r.n.. Pt should follow-up outpatient for additional treatment or workup for partially empty sella turcica. Time Spent With Patient Time: Total time managing care of this patient today ____ minutes.
[2024-07-16] MEDS: diphenhydrAMINE HCL 25 MG CAPSULE PO ×2 (04:01→20:14)
[2024-07-16] MEDS: Omeprazole 20 MG CAPSULE.DR PO (06:57)
--- NOTE | 2024-07-16 08:53 | P.PNPSI_ITS ---
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 Reports headaches have improved. Still endorses depression and uncertainty regarding cognition. Reports feeling safe and well cared for in the hospital. Thankful around support of her family including her daughter. No SI. No psychosis. Denied med concerns. Sleep with better last night as headache less/absent. Hospitalist vu appreciated 07/15: Review of records indicates pt had a brain MRI on 05/06/2024 that found partially empty sella turcica, but otherwise no acute intracranial abnormalities. While on the unit will symptomatically treat headaches with Fioricet p.r.n.. Pt should follow-up outpatient for additional treatment or workup for partially empty sella turcica Medication Compliance: Yes Side effects from medications: No Attending Groups: Yes Review of Systems Acute medical concerns: No Review of Systems Review of Systems headaches less Mental Status Exam Mental Status Exam Patient Appearance: Appropriate Patient Orientation: Person, Place, Time and Situation Level of Consciousness: Awake and Alert Patient Behavior: Anxious and Good Eye Contact Mood Description: Anxious Affect Description: Anxious Patient Cognition Impaired: No Ability to Follow Directions: Good Speech Pattern: Clear Thought Content: positive for Suicidal Ideation (denied) and positive for Homicidal Ideation (denied) Depressive Symptoms: Difficulty Sleeping Judgement: Fair Diagnostics Vital Signs (24Hr): Vital Signs - 24 hr 07/15/24 16:41 07/15/24 20:00 Temperature 97.8 F Pulse Rate 115 H Respiratory Rate 15 Blood Pressure 126/84 125/79 Pulse Oximetry 98 BMI result Body Mass Index 28.7 Labs 07/07/24 18:52 07/14/24 07:25 Labs: Laboratory Results - last 48 hr 07/15/24 13:10 Influenza Type A (PCR) NEGATIVE Influenza Type B (PCR) NEGATIVE RSV RNA Qual (PCR) NEGATIVE SARS-CoV-2 RNA (RT-PCR) NEGATIVE Medications Medications Current Medications Acetaminophen (Acetaminophen 325 Mg Tablet) 650 mg PO Q6H PRN PRN Reason: Pain 1-10 Last Admin: 07/15/24 12:24 Dose: 650 mg Acetaminophen/Butalbital/Caffeine (Butalb/Acetamin/Caff 50/325/40 Tablet) 1 tab PO Q4H PRN PRN Reason: Migraine Headache Last Admin: 07/15/24 21:32 Dose: 1 tab Al Hydroxide/Mg Hydroxide (Magnesium Hydrox/Alum Hydrox 30 Ml Oral.Susp) 30 ml PO Q6H PRN PRN Reason: Heartburn/Nausea Last Admin: 07/08/24 18:14 Dose: 30 ml Albuterol Sulfate (Albuterol Sulfate 90 Mcg 8 Gm Inhaler) 2 puff INHALE Q4H PRN PRN Reason: Wheezing Amlodipine Besylate (Amlodipine Besylate 10 Mg Tablet) 10 mg PO DAILY [facility]; Protocol Last Admin: 07/15/24 08:56 Dose: 10 mg Atorvastatin Calcium (Atorvastatin Calcium 80 Mg Tablet) 80 mg PO BEDTIME [facility] Last Admin: 07/15/24 20:22 Dose: 80 mg Benzocaine (Throat Lozenge, Medicated Lozenge) 1 lozenge MUCOUS MEM Q2H PRN PRN Reason: Sore Throat Last Admin: 07/15/24 08:55 Dose: 1 lozenge Bupropion HCl (Bupropion Hcl Xl 150 Mg Tab.Er.24h) 150 mg PO DAILY [facility] Last Admin: 07/15/24 08:56 Dose: 150 mg Diphenhydramine HCl (Diphenhydramine Hcl 25 Mg Capsule) 25 mg PO Q4H PRN PRN Reason: Itching Last Admin: 07/16/24 04:01 Dose: 25 mg Hydralazine HCl (Hydralazine Hcl 50 Mg Tablet) 50 mg PO TID [facility]; Protocol Last Admin: 07/15/24 20:21 Dose: 50 mg Hydroxyzine HCl (Hydroxyzine Hcl 25 Mg Tablet) 25 mg PO Q6H PRN PRN Reason: Anxiety, mild Last Admin: 07/13/24 08:43 Dose: 25 mg Ibuprofen (Ibuprofen 600 Mg Tablet) 600 mg PO Q8H PRN PRN Reason: headache Last Admin: 07/15/24 16:44 Dose: 600 mg Loratadine (Loratadine 10 Mg Tablet) 10 mg PO DAILY [facility] Last Admin: 07/15/24 08:56 Dose: 10 mg Losartan Potassium (Losartan Potassium 50 Mg Tablet) 100 mg PO DAILY [facility]; Protocol Last Admin: 07/15/24 08:55 Dose: 100 mg Magnesium Hydroxide (Milk Of Magnesia 30 Ml Oral.Susp) 30 ml PO DAILY PRN PRN Reason: Constipation Melatonin (Melatonin 3 Mg Tablet) 9 mg PO BEDTIME PRN PRN Reason: Insomnia Last Admin: 07/15/24 20:22 Dose: 9 mg Metformin HCl (Metformin Hcl Er 500 Mg Tab.Er.24h) 1,000 mg PO DAILY@1700 [facility] Last Admin: 07/15/24 16:41 Dose: 1,000 mg Nicotine Polacrilex (Nicotine Polacrilex 2 Mg Gum) 4 mg BUCCAL Q2H PRN PRN Reason: Nicotine Cravings Pt Own Med (Vicks (Vapor Rub 1 Appful)) 1 appful TOPICAL BID PRN PRN Reason: Congestion Olanzapine (Olanzapine 2.5 Mg Tablet) 2.5 mg PO BID [facility] Last Admin: 07/15/24 20:21 Dose: 2.5 mg Omeprazole (Omeprazole 20 Mg Capsule.Dr) 20 mg PO DAILY@0730 [facility] Last Admin: 07/16/24 06:57 Dose: 20 mg Ondansetron HCl (Ondansetron Odt 4 Mg Tab.Rapdis) 4 mg TRANSLINGU Q6H PRN PRN Reason: Nausea and Vomiting Last Admin: 07/10/24 14:02 Dose: 4 mg Tiotropium [place] (Tiotropium [place] 2.5 Mcg 1 Puff/2.5 Mcg Mist.Inhal) 2 puff INHALE DAILY [facility] Last Admin: 07/15/24 09:31 Dose: Not Given Allergies Allergies Allergy/AdvReac Type Severity Reaction Status Date / Time trazodone [TRAZODONE] Allergy Intermediate PROLONGED Verified 07/07/24 17:47 QT INTERVAL (PER H&P) Assessment & Plan Assessment & Plan (1) Depression: Status: Acute Code(s): F32.A - Depression, unspecified Plan Depression with SI Plan: Admit, CV, 15 minute checks Collateral Contact Diagnostics as needed Medication Review Encourage milieu groups Discharge/Aftercare Planning 07/10: Risperdal 0.5 mg bid prn AH 07/12: Meeting with pt and daughter 07/13. 07/15: Pt reports poor sleep d/t constant headache; utilized PRNs, however reports no relief. Flu/Covid negative. Hospitalist consult placed per pt request. She reports increased anxiety d/t pain. 07/16: No changes to current tx plan. Otherwise, Hospitalist vu appreciated 07/15: Review of records indicates pt had a brain MRI on 05/06/2024 that found partially empty sella turcica, but otherwise no acute intracranial abnormalities. While on the unit will symptomatically treat headaches with Fioricet p.r.n.. Pt should follow-up outpatient for additional treatment or workup for partially empty sella turcica Reason for continued inpatient stay Substantial Risk for: harm to self and inability to function Time Spent With Patient Time: Total time managing care of this patient today ____ minutes.
[2024-07-16 09:00] VITALS: BP 145/91; PULSE 115; RESP 18; TEMP 36.9; O2SAT 99
[2024-07-16] MEDS: Losartan Potassium 50 MG TABLET 100 MG PO (09:00)
[2024-07-16] MEDS: amLODIPine Besylate 10 MG TABLET PO (09:00)
[2024-07-16] MEDS: Loratadine 10 MG TABLET PO (09:00)
[2024-07-16] MEDS: hydrALAZINE HCl 50 MG TABLET PO ×3 (09:00→20:14)
[2024-07-16] MEDS: buPROPion HCl XL 150 MG TAB.ER.24H PO (09:01)
[2024-07-16] MEDS: OLANZapine 2.5 MG TABLET PO ×2 (09:01→20:14)
--- NOTE | 2024-07-16 09:51 | PC.NURSE ---
Pt signed 3 day notice, up on Thursday 07/20. , SW, UR aware.
[2024-07-16] MEDS: Acetaminophen 325 MG TABLET 650 MG PO (14:26)
[2024-07-16 14:40] VITALS: BP 113/75
[2024-07-16] MEDS: metFORMIN HCl ER 500 MG TAB.ER.24H 1000 MG PO (16:32)
[2024-07-16 20:00] VITALS: BP 138/78; PULSE 110; RESP 15; TEMP 36.8; O2SAT 97
[2024-07-16] MEDS: Melatonin 3 MG TABLET 9 MG PO (20:14)
[2024-07-16] MEDS: Atorvastatin Calcium 80 MG TABLET PO (20:14)
[2024-07-16] MEDS: Butalb/Acetamin/Caff 50/325/40 TABLET 1 TAB PO (20:14)
[2024-07-17] MEDS: Acetaminophen 325 MG TABLET 650 MG PO (05:42)
[2024-07-17] MEDS: Omeprazole 20 MG CAPSULE.DR PO (06:51)
[2024-07-17] MEDS: buPROPion HCl XL 150 MG TAB.ER.24H PO (08:39)
[2024-07-17] MEDS: Loratadine 10 MG TABLET PO (08:39)
[2024-07-17] MEDS: amLODIPine Besylate 10 MG TABLET PO (08:39)
[2024-07-17 08:40] VITALS: BP 175/97; PULSE 104; RESP 18; TEMP 36.3; O2SAT 99
[2024-07-17] MEDS: OLANZapine 2.5 MG TABLET PO ×2 (08:40→20:11)
[2024-07-17] MEDS: Losartan Potassium 50 MG TABLET 100 MG PO (08:40)
[2024-07-17] MEDS: hydrALAZINE HCl 50 MG TABLET PO ×3 (08:40→20:10)
--- NOTE | 2024-07-17 09:36 | P.PNPSI_ITS ---
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 Reports no headaches with meds last night. Reports I feel good . Sleep ok. Denied depresison. No med concerns. No SI. Reports she will get a second opinion ref dementia diagnosis after discharge Medication Compliance: Yes Side effects from medications: No Attending Groups: Intermittent Review of Systems Acute medical concerns: No Review of Systems Review of Systems no headache today Mental Status Exam Mental Status Exam Patient Appearance: Appropriate Patient Orientation: Person, Place, Time and Situation Level of Consciousness: Awake and Alert Patient Behavior: Anxious and Good Eye Contact Mood Description: Calm Affect Description: Calm Patient Cognition Impaired: No Ability to Follow Directions: Good Speech Pattern: Clear Memory Description: Remote Impaired Diagnostics Vital Signs (24Hr): Vital Signs - 24 hr 07/16/24 14:40 07/16/24 20:00 07/17/24 08:40 Temperature 98.2 F 97.4 F Pulse Rate 110 H 104 H Respiratory Rate 15 18 Blood Pressure 113/75 138/78 175/97 H Pulse Oximetry 97 99 Oxygen Delivery Method Room Air BMI result Body Mass Index 28.7 Labs 07/07/24 18:52 07/14/24 07:25 Labs: Laboratory Results - last 48 hr 07/15/24 13:10 Influenza Type A (PCR) NEGATIVE Influenza Type B (PCR) NEGATIVE RSV RNA Qual (PCR) NEGATIVE SARS-CoV-2 RNA (RT-PCR) NEGATIVE Medications Medications Current Medications Acetaminophen (Acetaminophen 325 Mg Tablet) 650 mg PO Q6H PRN PRN Reason: Pain 1-10 Last Admin: 07/17/24 05:42 Dose: 650 mg Acetaminophen/Butalbital/Caffeine (Butalb/Acetamin/Caff 50/325/40 Tablet) 1 tab PO Q4H PRN PRN Reason: Migraine Headache Last Admin: 07/16/24 20:14 Dose: 1 tab Al Hydroxide/Mg Hydroxide (Magnesium Hydrox/Alum Hydrox 30 Ml Oral.Susp) 30 ml PO Q6H PRN PRN Reason: Heartburn/Nausea Last Admin: 07/08/24 18:14 Dose: 30 ml Albuterol Sulfate (Albuterol Sulfate 90 Mcg 8 Gm Inhaler) 2 puff INHALE Q4H PRN PRN Reason: Wheezing Amlodipine Besylate (Amlodipine Besylate 10 Mg Tablet) 10 mg PO DAILY [facility]; Protocol Last Admin: 07/17/24 08:39 Dose: 10 mg Atorvastatin Calcium (Atorvastatin Calcium 80 Mg Tablet) 80 mg PO BEDTIME [facility] Last Admin: 07/16/24 20:14 Dose: 80 mg Benzocaine (Throat Lozenge, Medicated Lozenge) 1 lozenge MUCOUS MEM Q2H PRN PRN Reason: Sore Throat Last Admin: 07/15/24 08:55 Dose: 1 lozenge Bupropion HCl (Bupropion Hcl Xl 150 Mg Tab.Er.24h) 150 mg PO DAILY [facility] Last Admin: 07/17/24 08:39 Dose: 150 mg Diphenhydramine HCl (Diphenhydramine Hcl 25 Mg Capsule) 25 mg PO Q4H PRN PRN Reason: Itching Last Admin: 07/16/24 20:14 Dose: 25 mg Hydralazine HCl (Hydralazine Hcl 50 Mg Tablet) 50 mg PO TID [facility]; Protocol Last Admin: 07/17/24 08:40 Dose: 50 mg Hydroxyzine HCl (Hydroxyzine Hcl 25 Mg Tablet) 25 mg PO Q6H PRN PRN Reason: Anxiety, mild Last Admin: 07/13/24 08:43 Dose: 25 mg Ibuprofen (Ibuprofen 600 Mg Tablet) 600 mg PO Q8H PRN PRN Reason: headache Last Admin: 07/15/24 16:44 Dose: 600 mg Loratadine (Loratadine 10 Mg Tablet) 10 mg PO DAILY [facility] Last Admin: 07/17/24 08:39 Dose: 10 mg Losartan Potassium (Losartan Potassium 50 Mg Tablet) 100 mg PO DAILY [facility]; Protocol Last Admin: 07/17/24 08:40 Dose: 100 mg Magnesium Hydroxide (Milk Of Magnesia 30 Ml Oral.Susp) 30 ml PO DAILY PRN PRN Reason: Constipation Melatonin (Melatonin 3 Mg Tablet) 9 mg PO BEDTIME PRN PRN Reason: Insomnia Last Admin: 07/16/24 20:14 Dose: 9 mg Metformin HCl (Metformin Hcl Er 500 Mg Tab.Er.24h) 1,000 mg PO DAILY@1700 [facility] Last Admin: 07/16/24 16:32 Dose: 1,000 mg Nicotine Polacrilex (Nicotine Polacrilex 2 Mg Gum) 4 mg BUCCAL Q2H PRN PRN Reason: Nicotine Cravings Pt Own Med (Vicks (Vapor Rub 1 Appful)) 1 appful TOPICAL BID PRN PRN Reason: Congestion Olanzapine (Olanzapine 2.5 Mg Tablet) 2.5 mg PO BID [facility] Last Admin: 07/17/24 08:40 Dose: 2.5 mg Omeprazole (Omeprazole 20 Mg Capsule.Dr) 20 mg PO DAILY@0730 [facility] Last Admin: 07/17/24 06:51 Dose: 20 mg Ondansetron HCl (Ondansetron Odt 4 Mg Tab.Rapdis) 4 mg TRANSLINGU Q6H PRN PRN Reason: Nausea and Vomiting Last Admin: 07/10/24 14:02 Dose: 4 mg Tiotropium [place] (Tiotropium [place] 2.5 Mcg 1 Puff/2.5 Mcg Mist.Inhal) 2 puff INHALE DAILY [facility] Last Admin: 07/17/24 08:40 Dose: Not Given Allergies Allergies Allergy/AdvReac Type Severity Reaction Status Date / Time trazodone [TRAZODONE] Allergy Intermediate PROLONGED Verified 07/07/24 17:47 QT INTERVAL (PER H&P) Assessment & Plan Assessment & Plan (1) Depression: Status: Acute Code(s): F32.A - Depression, unspecified Plan Depression with SI, AH Plan: Admit, CV, 15 minute checks Collateral Contact Diagnostics as needed Medication Review Encourage milieu groups Discharge/Aftercare Planning 07/10: Risperdal 0.5 mg bid prn AH 07/12: Meeting with pt and daughter 07/13. 07/15: Pt reports poor sleep d/t constant headache; utilized PRNs, however reports no relief. Flu/Covid negative. Hospitalist consult placed per pt request. She reports increased anxiety d/t pain. 07/16: No changes to current tx plan. Otherwise, Hospitalist vu appreciated 07/15: Review of records indicates pt had a brain MRI on 05/06/2024 that found partially empty sella turcica, but otherwise no acute intracranial abnormalities. While on the unit will symptomatically treat headaches with Fioricet p.r.n.. Pt should follow-up outpatient for additional treatment or workup for partially empty sella turcica 07/17: no changes Reason for continued inpatient stay Substantial Risk for: rapid decompensation Time Spent With Patient Time: Total time managing care of this patient today ____ minutes.
[2024-07-17 14:58] VITALS: BP 118/66
[2024-07-17] MEDS: Magnesium Hydrox/Alum Hydrox 30 ML ORAL.SUSP PO (15:02)
[2024-07-17] MEDS: metFORMIN HCl ER 500 MG TAB.ER.24H 1000 MG PO (17:20)
[2024-07-17 19:57] VITALS: BP 133/68; PULSE 108; RESP 15; TEMP 36.6; O2SAT 98
[2024-07-17] MEDS: Atorvastatin Calcium 80 MG TABLET PO (20:10)
[2024-07-17] MEDS: Melatonin 3 MG TABLET 9 MG PO (20:11)
[2024-07-17] MEDS: diphenhydrAMINE HCL 25 MG CAPSULE PO (20:11)
[2024-07-18] MEDS: diphenhydrAMINE HCL 25 MG CAPSULE PO (05:58)
[2024-07-18] MEDS: Omeprazole 20 MG CAPSULE.DR PO (07:05)
[2024-07-18 07:53] VITALS: BP 139/82; PULSE 104; RESP 16; TEMP 36.4; O2SAT 99
[2024-07-18] MEDS: buPROPion HCl XL 150 MG TAB.ER.24H PO (09:06)
[2024-07-18] MEDS: Loratadine 10 MG TABLET PO (09:06)
[2024-07-18] MEDS: Losartan Potassium 50 MG TABLET 100 MG PO (09:07)
[2024-07-18] MEDS: hydrALAZINE HCl 50 MG TABLET PO ×3 (09:07→20:59)
[2024-07-18] MEDS: amLODIPine Besylate 10 MG TABLET PO (09:07)
[2024-07-18] MEDS: OLANZapine 2.5 MG TABLET PO ×2 (09:07→20:59)
[2024-07-18] MEDS: Acetaminophen 325 MG TABLET 650 MG PO (09:20)
[2024-07-18 14:33] VITALS: BP 110/63
--- NOTE | 2024-07-18 15:16 | HO.PSYCHPN ---
Subjective Subjective Date of Service: 07/18/24 Reason For Visit: Depression Subjective Notes: Conditional Voluntary and 3 Day Healthcare Proxy: No Guardianship: No Medical Problems Affecting Mental Status: No Interim History: Pt reports feeling improved. She would like to discharge on 07/19 to attend a housing meeting and feels prepared to do this. Reports medicines are working, head pain has decreased and she is tolerating current regime without adverse effects and efficacy. Pt plans to continue to work with her OP team on the new dx of possible dementia/MCI and I am ready to find a new place to live. Medication Compliance: Yes Side effects from medications: No Attending Groups: Intermittent Review of Systems Acute medical concerns: No Review of Systems Review of Systems denies today Mental Status Exam Mental Status Exam Patient Appearance: Appropriate Patient Orientation: Person, Place, Time and Situation Level of Consciousness: Alert Patient Behavior: Talkative and Good Eye Contact Mood Description: Appropriate Affect Description: Appropriate Patient Cognition Impaired: No Ability to Follow Directions: Good Speech Pattern: Spontaneous Speech Memory Description: Intact Hallucinations: None Delusions: Not Present Thought Process: Intact and Goal Oriented Thought Content: positive for Goal Oriented Judgement: Good Diagnostics Vital Signs (24Hr): Vital Signs - 24 hr 07/17/24 19:57 07/18/24 07:53 07/18/24 14:33 Temperature 97.8 F 97.6 F Pulse Rate 108 H 104 H Respiratory Rate 15 16 Blood Pressure 133/68 139/82 110/63 Pulse Oximetry 98 99 Oxygen Delivery Method Room Air BMI result Body Mass Index 28.7 Labs 07/07/24 18:52 07/14/24 07:25 Medications Medications Current Medications Acetaminophen (Acetaminophen 325 Mg Tablet) 650 mg PO Q6H PRN PRN Reason: Pain 1-10 Last Admin: 07/18/24 09:20 Dose: 650 mg Acetaminophen/Butalbital/Caffeine (Butalb/Acetamin/Caff 50/325/40 Tablet) 1 tab PO Q4H PRN PRN Reason: Migraine Headache Last Admin: 07/16/24 20:14 Dose: 1 tab Al Hydroxide/Mg Hydroxide (Magnesium Hydrox/Alum Hydrox 30 Ml Oral.Susp) 30 ml PO Q6H PRN PRN Reason: Heartburn/Nausea Last Admin: 07/17/24 15:02 Dose: 30 ml Albuterol Sulfate (Albuterol Sulfate 90 Mcg 8 Gm Inhaler) 2 puff INHALE Q4H PRN PRN Reason: Wheezing Amlodipine Besylate (Amlodipine Besylate 10 Mg Tablet) 10 mg PO DAILY [facility]; Protocol Last Admin: 07/18/24 09:07 Dose: 10 mg Atorvastatin Calcium (Atorvastatin Calcium 80 Mg Tablet) 80 mg PO BEDTIME [facility] Last Admin: 07/17/24 20:10 Dose: 80 mg Benzocaine (Throat Lozenge, Medicated Lozenge) 1 lozenge MUCOUS MEM Q2H PRN PRN Reason: Sore Throat Last Admin: 07/15/24 08:55 Dose: 1 lozenge Bupropion HCl (Bupropion Hcl Xl 150 Mg Tab.Er.24h) 150 mg PO DAILY [facility] Last Admin: 07/18/24 09:06 Dose: 150 mg Diphenhydramine HCl (Diphenhydramine Hcl 25 Mg Capsule) 25 mg PO Q4H PRN PRN Reason: Itching Last Admin: 07/18/24 05:58 Dose: 25 mg Hydralazine HCl (Hydralazine Hcl 50 Mg Tablet) 50 mg PO TID [facility]; Protocol Last Admin: 07/18/24 14:33 Dose: 50 mg Hydroxyzine HCl (Hydroxyzine Hcl 25 Mg Tablet) 25 mg PO Q6H PRN PRN Reason: Anxiety, mild Last Admin: 07/13/24 08:43 Dose: 25 mg Ibuprofen (Ibuprofen 600 Mg Tablet) 600 mg PO Q8H PRN PRN Reason: headache Last Admin: 07/15/24 16:44 Dose: 600 mg Loratadine (Loratadine 10 Mg Tablet) 10 mg PO DAILY [facility] Last Admin: 07/18/24 09:06 Dose: 10 mg Losartan Potassium (Losartan Potassium 50 Mg Tablet) 100 mg PO DAILY [facility]; Protocol Last Admin: 07/18/24 09:07 Dose: 100 mg Magnesium Hydroxide (Milk Of Magnesia 30 Ml Oral.Susp) 30 ml PO DAILY PRN PRN Reason: Constipation Melatonin (Melatonin 3 Mg Tablet) 9 mg PO BEDTIME PRN PRN Reason: Insomnia Last Admin: 07/17/24 20:11 Dose: 9 mg Metformin HCl (Metformin Hcl Er 500 Mg Tab.Er.24h) 1,000 mg PO DAILY@1700 [facility] Last Admin: 07/17/24 17:20 Dose: 1,000 mg Nicotine Polacrilex (Nicotine Polacrilex 2 Mg Gum) 4 mg BUCCAL Q2H PRN PRN Reason: Nicotine Cravings Pt Own Med (Vicks (Vapor Rub 1 Appful)) 1 appful TOPICAL BID PRN PRN Reason: Congestion Olanzapine (Olanzapine 2.5 Mg Tablet) 2.5 mg PO BID [facility] Last Admin: 07/18/24 09:07 Dose: 2.5 mg Omeprazole (Omeprazole 20 Mg Capsule.Dr) 20 mg PO DAILY@0730 [facility] Last Admin: 07/18/24 07:05 Dose: 20 mg Ondansetron HCl (Ondansetron Odt 4 Mg Tab.Rapdis) 4 mg TRANSLINGU Q6H PRN PRN Reason: Nausea and Vomiting Last Admin: 07/10/24 14:02 Dose: 4 mg Tiotropium [place] (Tiotropium [place] 2.5 Mcg 1 Puff/2.5 Mcg Mist.Inhal) 2 puff INHALE DAILY [facility] Last Admin: 07/18/24 09:07 Dose: Not Given Allergies Allergies Allergy/AdvReac Type Severity Reaction Status Date / Time trazodone [TRAZODONE] Allergy Intermediate PROLONGED Verified 07/07/24 17:47 QT INTERVAL (PER H&P) Assessment & Plan Assessment & Plan (1) Depression: Status: Acute Code(s): F32.A - Depression, unspecified Plan Depression with MICKEY JAIME Plan: Admit, CV, 15 minute checks Collateral Contact Diagnostics as needed Medication Review Encourage milieu groups Discharge/Aftercare Planning 07/10: Risperdal 0.5 mg bid prn AH 07/12: Meeting with pt and daughter 07/13. 07/15: Pt reports poor sleep d/t constant headache; utilized PRNs, however reports no relief. Flu/Covid negative. Hospitalist consult placed per pt request. She reports increased anxiety d/t pain. 07/16: No changes to current tx plan. Otherwise, Hospitalist eval appreciated 07/15: Review of records indicates pt had a brain MRI on 05/06/2024 that found partially empty sella turcica, but otherwise no acute intracranial abnormalities. While on the unit will symptomatically treat headaches with Fioricet p.r.n.. Pt should follow-up outpatient for additional treatment or workup for partially empty sella turcica 07/17: no changes 07/18: Pt will discharge on 07/19. She reports she is feeling improved, prepared to discharge and will attend a housing meeting on 07/19. Reason for continued inpatient stay Substantial Risk for: stable for discharge Time Spent With Patient Time: Total time managing care of this patient today ____ minutes.
[2024-07-18] MEDS: metFORMIN HCl ER 500 MG TAB.ER.24H 1000 MG PO (17:12)
[2024-07-18 19:55] VITALS: BP 134/68; PULSE 108; TEMP 36.7; O2SAT 97
[2024-07-18] MEDS: Butalb/Acetamin/Caff 50/325/40 TABLET 1 TAB PO (20:57)
[2024-07-18] MEDS: Melatonin 3 MG TABLET 9 MG PO (20:58)
[2024-07-18] MEDS: Atorvastatin Calcium 80 MG TABLET PO (20:59)
[2024-07-19 08:28] VITALS: BP 151/84; PULSE 100; TEMP 36.4; O2SAT 100
[2024-07-19] MEDS: hydrALAZINE HCl 50 MG TABLET PO (08:28)
[2024-07-19] MEDS: Losartan Potassium 50 MG TABLET 100 MG PO (08:28)
[2024-07-19 08:29] VITALS: BP 151/84
[2024-07-19] MEDS: OLANZapine 2.5 MG TABLET PO (08:29)
[2024-07-19] MEDS: Omeprazole 20 MG CAPSULE.DR PO (08:29)
[2024-07-19] MEDS: buPROPion HCl XL 150 MG TAB.ER.24H PO (08:29)
[2024-07-19] MEDS: Loratadine 10 MG TABLET PO (08:29)
[2024-07-19] MEDS: amLODIPine Besylate 10 MG TABLET PO (08:29)
[2024-07-19] MEDS: Butalb/Acetamin/Caff 50/325/40 TABLET 1 TAB PO (08:39)
--- NOTE | 2024-07-19 10:26 | P.DS_ITS ---
DS: Providers Provider Date of admission: 07/08/24 12:11 Primary care physician: Chasidy Kimbrough MD Consults: 07/15/24 15:19 Consult to Hospitalist Routine Comment: Consulting Provider: [facility] Reason For Exam: c/o intense headaches w/o relief.wants to be seen. DS: Diagnosis Discharge Diagnosis (1) Depression: Status: Acute DS: Medications Discharge Medications Home Medications: Home Medications ?Medication ?Instructions ?Recorded ?Confirmed omeprazole 40 mg capsule,delayed 20 mg PO DAILY 03/27/20 07/07/24 release amlodipine 10 mg tablet 1 tab PO QAM 02/26/21 07/07/24 albuterol sulfate 90 mcg/actuation 2 puff inhalation Q4H PRN Wheezing 07/07/24 07/07/24 aerosol inhaler (Ventolin HFA) fexofenadine 180 mg tablet 180 mg PO DAILY 07/07/24 07/07/24 hydralazine 50 mg tablet 50 mg PO TID 07/07/24 07/07/24 losartan 100 mg tablet 100 mg PO DAILY 07/07/24 07/07/24 melatonin 5 mg tablet 10 mg PO BEDTIME PRN Insomnia 07/07/24 07/07/24 omega 1-ztb-jpw-fish oil 60 mg-90 1 cap PO DAILY 07/07/24 07/07/24 mg-500 mg capsule tiotropium bromide 2.5 2 puff inhalation DAILY 07/07/24 07/07/24 mcg/actuation mist for inhalation (Spiriva Respimat) atorvastatin 80 mg tablet 80 mg PO BEDTIME 07/08/24 07/08/24 metformin 500 mg tablet,extended 1,000 mg PO DAILY@1700 07/08/24 07/08/24 release 24 hr Previous Rx's ?Medication ?Instructions ?Recorded Vicks Vapor Rub 1 appful topical BID PRN ##0 07/19/24 bupropion HCl 150 mg 24 hr tablet, 150 mg PO DAILY #30 tabs 07/19/24 extended release zuynydbrma-xzxismhqmuclb-llplxtvt 1 tab PO Q4H PRN Migraine Headache 07/19/24 50 mg-325 mg-40 mg tablet #15 tabs olanzapine 2.5 mg tablet 2.5 mg PO BID #60 tabs 07/19/24 Data Data Completed and Pending Completed studies during hospitalization [Text1]: 07/14/24 07/15/24 07:25 13:10 Creatinine 0.53 Estim Creat Clear Calc 116.5 Estimated GFR > 60 Influenza Type A (PCR) NEGATIVE Influenza Type B (PCR) NEGATIVE RSV RNA Qual (PCR) NEGATIVE SARS-CoV-2 RNA (RT-PCR) NEGATIVE 07/13/24 13:55 Throat Throat Culture - Final No Group A Beta-hemolytic Streptococci isolated. DS: Summary Time Spent with Patient Time attestation: Total time managing care of this patient today ____ minutes. Discharge Plan Discharge Anticipated Discharge Date/Time: 07/19/24 12:00 Patient Disposition: Home, Self-Care Discharge Diagnosis: Depression Referrals: [facility] Psychiatry with Dr. Braun [Other] - 07/25/24 8:00 am (*Telehealth*) [facility] Therapy with Loren [Other] - 1 Week (IPS or Loren will reach out to you with an up coming appointment. ) Chasidy Kimbrough MD [Primary Care Provider] - 1 Week Discharge Medications: New olanzapine 2.5 mg Tablet 2.5 mg PO BID Qty: 60 0RF wkwgczeomz-apazctmtqfzpn-psiv 50-325-40 mg Tablet 1 tab PO Q4H PRN (Reason: Migraine Headache) Qty: 15 0RF bupropion HCl 150 mg Tablet Extended Release 24 Hr 150 mg PO DAILY Qty: 30 0RF Vicks Vapor Rub 1 appful topical BID PRNQty: 0 0RF Continued omeprazole 40 mg Capsule,Delayed Release(Dr/Ec) 20 mg PO DAILY amlodipine 10 mg tablet 1 tab PO QAM hydralazine 50 mg tablet 50 mg PO TID losartan 100 mg tablet 100 mg PO DAILY melatonin 5 mg tablet 10 mg PO BEDTIME PRN (Reason: Insomnia) omega 2-vzd-qhs-fish oil 60-90-500 mg capsule 1 cap PO DAILY fexofenadine 180 mg tablet 180 mg PO DAILY albuterol sulfate [Ventolin HFA] 90 mcg/actuation HFA aerosol inhaler 2 puff INHALATION Q4H PRN (Reason: Wheezing) Spiriva Respimat 2.5 mcg/actuation mist 2 puff INHALATION DAILY metformin 500 mg tablet extended release 24 hr 1,000 mg PO DAILY@1700 atorvastatin 80 mg tablet 80 mg PO BEDTIME Discontinued aripiprazole 15 mg tablet 15 mg PO QAM bupropion HCl 150 mg tablet extended release 24 hr 150 mg PO DAILY Discharge Orders: Discharge Order (Routine); Ordered 07/19/24 Ordered By: Nimco Alonzo Diet: Advance to usual diet Activity on Discharge: As tolerated Stand Alone Forms: Patient Portal Discharge page, Community Support Print Language: Mohawk Care Plan Goals: Mood and Behavioral Stabilization Health Concerns: Mood and Behavioral Stabilization Plan of Treatment: Attend scheduled appointments Take medications as directed Assessment: No SI,HI.AH, VH No sx of acute joshua or psychosis Pt agrees with her plan of care as does family
== END 2024-07-19 11:30 | disposition home or self-care (01) | DRG 754 ==
LOC: HO.ED 07-08 02:08 → HO.PM5 07-08 12:27
PROVIDERS: Psychiatry & Neurology Psychiatry; Admitting Provider Clinical Nurse Specialist Psychiatric/Mental Health, Adult; Emergency Provider Emergency Medicine Emergency Medical Services; PCP General Practice; Visit Provider Clinical Nurse Specialist Psychiatric/Mental Health, Adult
DX: F32.A Depression, unspecified (principal); E11.9 Type 2 diabetes mellitus without complications; R45.851 Suicidal ideations; J45.909 Unspecified asthma, uncomplicated; Z20.822 Contact with and (suspected) exposure to COVID-19; Z23 Encounter for immunization; Z79.84 Long term (current) use of oral hypoglycemic drugs; Z79.899 Other long term (current) drug therapy
CPT/HCPCS: 0241U; 36415; 80053; 80061; 80143; 80179; 80307; 81001; 82565; 82607; 82746; 83036; 83735; 84439; 84443; 85025; 87070; 90656; 93005; 99285; S9485

== ENCOUNTER → 2024-07-07 20:54 | Outpatient (BNV) | payer MEDICAID, SELFPAY | PROVIDERS: Emergency Provider Emergency Medicine Emergency Medical Services; PCP General Practice; Visit Provider Internal Medicine Cardiovascular Disease | DX: R94.31 Abnormal electrocardiogram [ECG] [EKG] (principal) | CPT/HCPCS: 93010 ==

== ENCOUNTER → 2024-07-08 12:11 | Outpatient (BNV) | payer OTHER, SELFPAY | PROVIDERS: Admitting Provider Clinical Nurse Specialist Psychiatric/Mental Health, Adult; Emergency Provider Emergency Medicine Emergency Medical Services; PCP General Practice; Visit Provider Clinical Nurse Specialist Psychiatric/Mental Health, Adult | DX: F32.A Depression, unspecified (principal) | CPT/HCPCS: 99232 ==

== ENCOUNTER 2024-08-18 13:26 | Outpatient (AMB) | payer MEDICAID, SELFPAY ==
--- NOTE | 2024-08-18 13:32 | A.OFFVIS_ITS ---
Vital Signs 08/18/24 13:40 Height 5 ft 5 in Weight 170 lb BMI 28.3 Intake Visit Reasons: (40) B/L knee Cortisone Injs, last inj 05/17/24 Intake Note: Cynthia is a 59 year old female who presents today for a repeat injection for her B/L knee OA, last injection 05/17/24. Patient reports her last injections gave her relief and would like to repeat. Allergies trazodone [TRAZODONE] Allergy (Intermediate, Verified 08/18/24 13:40) PROLONGED QT INTERVAL (PER H&P) HPI HPI (40) B/L knee Cortisone Injs, last inj 05/17/24: Details: Ms. Roddy Morales is a 59-year-old female who presents the office today for repeat cortisone injections bilateral knees. Last cortisone injection was 05/17/2024. [facility] Medical History Diabetes education, encounter for GERD (gastroesophageal reflux disease) Asthma Elevated cholesterol PONV (postoperative nausea and vomiting) Diabetes Tietze syndrome Kidney calculi Depression HTN (hypertension) Surgical History History of umbilical hernia repair History of ventral hernia repair History of cystoscopy Hx of cholecystectomy History of excision of mass H/O: hysterectomy Family History Father Throat cancer Maternal Aunt Breast cancer Social History Household Members: None Household Members Other:: pt. lives alone. 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 No ecchymosis, erythema or edema. Patient is able to demonstrate full knee flexion and extension. Negative Vadim's. NVI. Office Procedures AMB Joint Injection/Aspiration Joint Injection/Aspiration Primary Site: right knee Secondary Site: left knee Prep: site was prepped using aseptic technique, ethochloride spray was applied and injection warnings given Injected: 40 mg of, DepoMedrol, with 8 mL of (2% plain lidocaine ) and in the joint Approach Used: anterolateral Procedure: The patient tolerated the procedure well, but had some pain with the injection and there was some relief with the local anesthesia Coding - Large joint Procedure code (CPT) selection complete Assessment & Plan Assessment & Plan (1) Osteoarthritis of knees, bilateral: Code(s): M17.0 - Bilateral primary osteoarthritis of knee Category: Medical (2) Diabetes: Code(s): E11.9 - Type 2 diabetes mellitus without complications Category: Medical Plan The patient was offered a cortisone injection in bilateral knees with 40 mg of DepoMedrol. The patient was explained the risks, benefits, and alternatives to receiving this injection. After receiving consent for the injection, the patient had the procedure done while in the office today. The patient tolerated the procedure well with no complications. Due to the patient?s history of diabetes, they were instructed to monitor their blood glucose level. The patient was informed that they could see a rise in their numbers and if the numbers became too high, they were instructed to call their PCP. The patient was also informed that they could have facial flushing as a side effect of the injection, but this will pass. Follow-up will be p.r.n., or sooner if needed Coding Level of Care Code Est Pt Level 4 (24034) Diagnoses Osteoarthritis of knees, bilateral M17.0 Diabetes E11.9 CPT Codes Coding - Large joint: 56424 - Large joint ([id number])
[2024-08-18 13:40] VITALS: BMI 28.3
--- OUTSIDE RECORDS SUMMARY | 2024-08-18 16:21 | XMS_ITS | Encounter Summary ---
Author Organization [employer] Address [address] [place] [address] Care Team Providers Care Die Maker Bench Stamping Name Role Phone Chasidy Kimbrough MD Primary Care Provider [phone] Reason for Visit * Reason Onset Date Comments HDF 07/25/2024 Encounter Details Date Type Department Care Team ([facility] st Contact Info) Description 07/25/2024 Telephone [facility] [address] [place] [address] Josephine Monge, RN [address] [place] [address] HDF Social History Tobacco Use Types Packs/Day Years [...] encounter Miscellaneous Notes * Telephone Encounter - Josephine Monge RN - 07/25/2024 11:42 AM EST Noted. * Telephone Encounter - Josephine Monge RN - 07/25/2024 11:34 AM EST Patient presented to red team FD requesting an HDF appointment with PCP only. Patient admitted to [facility] [place]08[place]07[place]19 for depression. RN scheduled patient for next HDF with PCP for 08/12/24 at 1pm. Patient did not have any further questions/concerns. Patient to f/u PRN. documented in this encounter Plan of Treatment Not on file documented as of this encounter Visit Diagnoses Not on filedocumented in this encounter Additional Health Concerns Assessment Noted Time PHQ-9 Depression Total Score: 3 11/30/19 24 1:27 PM EDT documented as of this encounter Care Teams Die Maker Bench Stamping Relationship Specialty Start Date End Date Chasidy Kimbrough MD [address] [place] [address] PCP - General Family Medicine 02/14/21 documented as of this encounter
--- OUTSIDE RECORDS SUMMARY | 2024-08-18 16:21 | XMS_ITS | Encounter Summary ---
Author Organization [facility] [facility] Address [address] [place] [address] [address], [place] [address] Care Team Providers Care L D Rn Name Role Phone Chasidy Kimbrough MD Primary Care Provider [phone] Reason for Referral * Consultation (Routine) - Authorized Specialty Diagnoses / Procedures Referred By Conthemal t Referred To Contact Gastroenterology Diagnoses Other dysphagia Chasidy Kimbrough MD [address] [place] [address] Phone: tel: fax: [address] Phone: tel: fax: Referral ID Status Reason Start Date Expiration Date Visits Requested Visits Authorized [id number] Authorized Specialty Services Required 01/02/2024 01/01/2025 6 6 Encounter Details Date Type Department Care Team (Late st Contact Info) Description 12/30/2023 Orders Only [facility] [address] [place], [place] [id number] Chasidy Kimbrough MD [address] [place], [place] [id number] Other dysphagia (Primary Dx) Social History Tobacco [...] documented as of this encounter Care Teams L D Rn Relationship Specialty Start Date End Date Chasidy Kimbrough MD [address] [place] [address] PCP - General Family Medicine 02/14/21 documented as of this encounter
--- OUTSIDE RECORDS SUMMARY | 2024-08-18 16:21 | XMS_ITS | Encounter Summary ---
Author Organization [employer] Address [address] [facility] [place] [address] Care Team Providers Care Cyber Incident Responder Name Role Phone Chasidy Kimbrough MD Primary Care Provider [phone] Reason for Referral * Consultation (Routine) - Authorized Specialty Diagnoses / Procedures Referred By Conthemal t Referred To Contact Rheumatology Diagnoses Tenosynovitis of finger Elevated erythrocyte sedimentation rate Positive DANO (antinuclear antibody) Chasidy Kimbrough MD [address] [place] [address] Phone: tel: fax: [facility] [address] [place] [address] Phone: tel: fax: Referral ID Status Reason Start Date Expiration Date Visits Requested Visits Authorized [id number] Authorized Specialty Services Required 4 05/25/2025 6 6 Encounter Details Date Type Department Care Team (Late st Contact Info) Description 05/16/2024 Orders Only [facility] MED[facility]INE [address] [place], [place] [phone] Chasidy Kimbrough MD [address] [place], [place] [phone] Tenosynovitis of finger (Primary Dx); Elevated erythrocyte [...] documented as of this encounter Care Teams Cyber Incident Responder Relationship Specialty Start Date End Date Chasidy Kimbrough MD [address] [place] [address] PCP - General Family Medicine 02/14/21 documented as of this encounter
--- OUTSIDE RECORDS SUMMARY | 2024-08-18 16:21 | XMS_ITS | Encounter Summary ---
Author Organization [employer] Address [address] [facility] 7t [place] [address] Care Team Providers Care Diesel Engine Engineer Name Role Phone Chasidy Kimbrough MD Primary Care Provider [phone] Encounter Details Date Type Department Care Team (Latest Contact Info) Description 08/12/2024 Travel Social History Tobacco Use Types Packs/Day Years [...] documented as of this encounter Care Teams Diesel Engine Engineer Relationship Specialty Start Date End Date Chasidy Kimbrough MD [address] [place] [address] PCP - General Family Medicine 02/14/21 documented as of this encounter
--- OUTSIDE RECORDS SUMMARY | 2024-08-18 16:21 | XMS_ITS | Encounter Summary ---
Author Organization [employer] [facility] Address [address] [place] [address] [address] [place] [address] Care Team Providers Care Fence Post Driver Name Role Phone Chasidy Kimbrough MD Primary Care Provider [phone] Reason for Visit * Reason Comments Med Refill Encounter Details Date Type Department Care Team ([facility] st Contact Info) Description 12/29/2022 Refill [facility] MEDICINE [address] [place], [place] [phone] Chasidy Kimbrough MD [address] [place], [place] [phone] Social History Tobacco Use Types Packs/Day Years [...] documented as of this encounter Care Teams Fence Post Driver Relationship Specialty Start Date End Date Chasidy Kimbrough MD [address] [place] [address] PCP - General Family Medicine 02/14/21 documented as of this encounter
--- OUTSIDE RECORDS SUMMARY | 2024-08-18 16:21 | XMS_ITS | Encounter Summary ---
Author Organization [employer] Address [address] [place] [address] [address] [place] [address] Care Team Providers Care Coin Machine Mechanic Name Role Phone Chasidy Kimbrough MD Primary Care Provider [phone] Reason for Visit * Reason Comments Hospital Follow-up Encounter Details Date Type Department Care Team (Latest Contact Info) Description 08/12/2024 1:00 PM EST Office Visit [facility] MEDICINE [address] [place], [place] [phone] Chasidy Kimbrough MD [address] [place], [place] [phone] Primary hypertension (Primary Dx); Type 2 diabetes mellitus without complication, without long-term current use of insulin (CMS/HCC); Dietary counseling; Exercise counseling; Overweight; Mild intermittent asthma without complication; Hyperlipidemia associated with type 2 diabetes mellitus (CMS/HCC) ([facility]/HCC); Chronic migraine without aura without status migrainosus, not intractable; [facility]iary current use of antipsychotic medication Social History Tobacco Use Types Packs/Day Years Used Date Smoking Tobacco: Never Smokeless Tobacco: Never Tobacco Cessation:Counseling Given: Not Answered Alcohol Use Standard Drinks/Week Comments Never 0 [...] AM EDT documented as of this encounter Last Filed Vital Signs Vital Sign Reading Time Taken Comments Blood Pressure 167/109 08/12/2024 12:58 PM EST Pulse 95 08/12/2024 12:58 PM EST Temperature 36.7 ??C (98.1 ??F) 08/12/2024 12:[address] Respiratory Rate 17 08/12/2024 12:58 PM EST Oxygen Saturation 98% 08/12/2024 12:58 PM EST Inhaled Oxygen Concentration - - Weight 81.2 kg (179 lb) 08/12/2024 12:58 PM EST Height 165.1 cm (5' 5 ) 08/12/2024 12:58 PM EST Body Mass Index 29.79 08/12/2024 12:58 PM EST documented in this encounter Progress Notes * Chasidy Kimbrough MD - 08/12/2024 1:00 PM EST SUBJECTIVE: Cynthia Pereyra is a 59 y.o. year old female who presents for hospital discharge followup . Hospitalized 07/12/24 psych admit for SI, dc 07/19/24 Acute Concerns: Headache is still intermittent, needing Fioricet. Not on any migraine prophylaxis. Start Propranolol today 60mg ER. Should also be on ASA, started today. 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 Continuecurrent regimen (2) Pulmonary nodules: Stable pulmonary nodules on CT scan from February of 2024, will repeat CT chest in February of 2025. 05/2024 ortho, repeat knee solumedrol inj 04/2024 MRI IMPRESSION: 1. No acute intracranial abnormalities. 2. Mild underlying microangiopathy. 3. Partially empty sella turcica. WBC 12.3 07/08/24 Pharmacy Consult Visit Type: HDF Pre-Visit Pharmacist: Erin Jarrell PharmD Pharmacy Recommendations for provider: Atypical antipsychotics have been associated with metabolic changes including hyperglycemia and dyslipidemia. Monitor BG and A1c and lipids 3-4 months following initiation of olanzapine to monitor and assess need for therapy modification Currently awaiting confirmation from psych provider as to whether olanzapine will be continued. Rphrecommends not continuing olanzapine as patient's Abilify was renewed and increased by psych provider. Concomitant use of trazodone, fluoxetine, aripiprazole, olanzapine may increase risk of QTc prolongation. Consider ordering an updated EKG to monitor and assess need for therapy modifications and taking steps to minimize the risk such as electrolyte monitoring and repletion Per chart review, patient has has QT prolongation on trazodone however no recent EKG found. Last EKG 03/31/2019 w/ normal QTC of 432 ms Currently awaiting confirmation from psych provider as to whether olanzapine will be continued Background Pharmacist Erin Jarrell, AdrianaD and pharmacy clerk Staci Loco contacted patient to discuss upcominghospital discharge visit for depression : Future Appointments Date Time Provider Department Center 08/12/2024 1:00 PM Chasidy Kimbrough MD MEDICINE [facility] Hospital Course and Medication Reconciliation [facility] 07/08/24 07/19/24 Patient with PMH of mood disorders, HTN presented due to depression with SI. Admitted for stabilization. While inpatient, patient c/o intense headache without relief and increased anxiety due to pain. COVID and flu was negative. Hospitalist consulted, MRI from 05/06/24 found partially empty sella turcica otherwise no abnormalities. Treated with Fioricet as needed for headaches with improvement. Received Risperdal as needed for AH. Patient discharged home. Medication changes that occurred during hospitalization include: Added Olanzapine 2.5 mg tab: 2.5mg by mouth twice daily Gbpdpqodly-tbgxnvcljspdo-onvmtbaj 50-325-40mg tab: 1 tablet by mouth every 4 hours as needed for migraine headache Bupropion HCl 150mg tab ER 24hr: 150mg by mouth daily - on EHR prior to hospitalization however fill history suggests non-adherence Vicks Vapor Rub: 1 appful topical twice daily as needed Changed: none Discontinued: Aripiprazole Preferred Pharmacy: [facility] - [address] [facility] [id number] Medbox: No Patient Reported History Patient was unable to complete med rec as they kept getting confused about medication names and unable to locate vials Agreed to ask daughter for updated medication list to bring to appointment Confirmed and agreeable to [facility] appointment as listed above Provider Recommendations Please ensure patient is not taking ibuprofen with naproxen due to duplication of therapy and increased risk of side effects. Ibuprofen removed from medlist as it was last filled 03/05/24 and was for a 17 day supply Pharmacist Notes [facility] contacted Dr. Kade Cardoza's office to confirm medication regimen as aripiprazole was renewed by their office on 08/01/24 along with other medications not listed on discharge summary Spoke with Dr. Kj Cardoza's addictions counselor assistant Portia who confirmed the following regimen as of theirlast visit on 08/01/24: aripiprazole 20 mg once daily, bupropion XL 300 mg +150 mg once daily, fluoxetine 20 mg - 3 caps once daily, trazodone 150 mg - 2 tabs at bedtime [facility] inquired as to whether patient was to continue on olanzapine from discharge. Portia unsure, does not see medication on their list and will consult with provider and call back Patient Active Problem List Diagnosis Arthritis Dental disorder Mood disorder (CMS/HCC) Gastroesophageal reflux disease Hyperlipidemia associated with type 2 diabetes mellitus (CMS/HCC) (CMS/HCC) Hypertensive disorder Joint pain Mild intermittent asthma Seasonal allergic rhinitis Sleep disorder Type 2 diabetes mellitus without complication (CMS/HCC) Vitamin D deficiency Abnormal thyroid ultrasound Thyroid nodule Other dysphagia Memory loss Tenosynovitis of finger Migraine headache History reviewed. No pertinent surgical history. No family history on file. Social History Social History Narrative Lives alone Trouble with son and his involvement in law enforcement Review of Systems Constitutional: Negative. HENT: Negative. Respiratory: Negative. Cardiovascular: Negative. Gastrointestinal: Negative. Musculoskeletal: Negative. Psychiatric/Behavioral: Positive for dysphoric mood. Negative for suicidal ideas. The patient is nervous/anxious. OBJECTIVE: Vitals: 08/12/24 1258 BP: (!) 167/109 BP Location: Right arm Patient Position: Sitting BP Cuff Size: Adult Pulse: 95 Resp: 17 Temp: 98.1 ??F (36.7 ??C) TempSrc: Temporal SpO2: 98% Weight: 179 lb (81.2 kg) Height: 5' 5 (1.651 m) Physical Exam Vitals and nursing note reviewed. Constitutional: Appearance: Normal appearance. HENT: Head: Normocephalic and atraumatic. Cardiovascular: Rate and Rhythm: Normal rate and regular rhythm. Pulses: Normal pulses. Heart sounds: Normal heart sounds. Pulmonary: Effort: Pulmonary effort is normal. Breath sounds: Normal breath sounds. Skin: General: Skin is warm and dry. Neurological: General: No focal deficit present. Mental Status: She is alert and oriented to person, place, and time. Psychiatric: Mood and Affect: Mood normal. Behavior: Behavior normal. ASSESSMENT/PLAN Problem List Items Addressed This Visit Hyperlipidemia associated with type 2 diabetes mellitus (CMS/HCC) ([facility]) Hypertensive disorder - Primary Relevant Orders ECG 12 lead (Completed) Mild intermittent asthma Type 2 diabetes mellitus without complication ([facility]) Current Assessment & Plan Cont Metformin 500mg daily Check BG twice a day Increase to 500mg BID if PP> 180, or fasting >110 Add ASA, continue statin Relevant Orders POCT Glucose (Completed) POCT HGB A1C (Completed) Migraine headache Current Assessment & Plan Start Propranolol for prophylaxis Increase rest and hydration Eat whole foods Fioricet or Excedrin migraine sparingly for pain Other Visit Diagnoses Dietary counseling Exercise counseling Overweight penitentiary current use of antipsychotic medication Relevant Orders ECG 12 lead (Completed) Follow Up: 3 months or sooner prn Allergies Allergen Reactions Trazodone Other reaction(s): Prolonged QTc Current Outpatient Medications: albuterol (ProAir HFA) 108 (90 Base) MCG/ACT inhaler, Inhale 2 puffs every 4 (four) hours., Disp: 18 g, Rfl: 11 Allergy Relief 180 MG tablet, Take 1 tablet (180 mg) by mouth Once per day., Disp: 90 tablet, Rfl: 3 amLODIPine (Norvasc) 10 MG tablet, TAKE 1 TABLET BY MOUTH EVERY MORNING, Disp: 90 tablet, Rfl: 3 ARIPiprazole (Abilify) 20 MG tablet, Take 20 mg by mouth Once per day., Disp: , Rfl: aspirin 81 MG chewable tablet, Chew 1 tablet (81 mg) Once per day., Disp: 90 tablet, Rfl: 3 atorvastatin (Lipitor) 80 MG tablet, Take 1 tablet (80 mg) by mouth at bedtime., Disp: 90 tablet, Rfl: 3 Blood Pressure Monitoring (Blood Pressure Monitor/M Cuff) [facility], Use kit to measure blood pressure once daily, Disp: 1 each, Rfl: 0 buPROPion XL (Wellbutrin XL) 150 MG 24 hr tablet, Take 150 mg by mouth in the morning., Disp: , Rfl: buPROPion XL (Wellbutrin XL) 300 MG 24 hr tablet, Take 300 mg by mouth in the morning., Disp: , Rfl: wkcthtgrmq-taxpxfmklkcta-mcyimexm 50-325-40 MG tablet, Take 1 tablet by mouth every 6 (six) hours if needed for migraine (max 2 tablets per week)., Disp: 10 tablet, Rfl: 3 cholecalciferol (Vitamin D-3) 50 MCG (2000 UT) tablet, Take 1 tablet (50 mcg) by mouth in the morning., Disp: 90 tablet, Rfl: 3 fish oil ([place]-3) 500 MG capsule, Take 1 capsule (500 mg) by mouth Once per day., Disp: 90 capsule, Rfl: 3 FLUoxetine (PROzac) 20 MG capsule, Take 3 capsules by mouth Once per day., Disp: , Rfl: gabapentin (Neurontin) 100 MG capsule, Take 1 capsule (100 mg) by mouth every 8 (eight) hours., Disp: 90 capsule, Rfl: 11 glucose blood (FREESTYLE LITE) test strip, TEST BLOOD SUGAR TWICE DAILY DIRECTED, Disp: 100 strip, Rfl: 7 hydrALAZINE (Apresoline) 50 MG tablet, TAKE 1 TABLET BY MOUTH THREE TIMES DAILY, Disp: 270 tablet, Rfl: 3 losartan (Cozaar) 100 MG tablet, TAKE 1 TABLET BY MOUTH EVERY DAY, Disp: 90 tablet, Rfl: 3 melatonin 5 MG tablet, Take 2 tablets by mouth if needed at bedtime (sleep)., Disp: , Rfl: metFORMIN XR (Glucophage-XR) 500 MG 24 hr tablet, Take 2 tablets by mouth with evening meal., Disp:, Rfl: naproxen (Naprosyn) 500 MG tablet, Take 1 tablet (500 mg) by mouth 2 times daily., Disp: 60 tablet,Rfl: 3 omeprazole (PriLOSEC) [address] capsule, Take 1 capsule by mouth Once per day., Disp: , Rfl: propranolol LA (Inderal LA) 60 MG 24 hr capsule, Take 1 capsule (60 mg) by mouth Once per day. Do not crush, chew, or split., Disp: 30 capsule, Rfl: 11 Spiriva Respimat 2.5 MCG/ACT inhaler, Inhale 2 puffs Once per day., Disp: 1 each, Rfl: 11 traZODone (Desyrel) 150 MG tablet, Take 2 tablets by mouth at bedtime., Disp: , Rfl: TRUEplus Lancets 33G [facility], USE DIRECTED TO TEST BLOOD SUGAR TWICE DAILY, Disp: 100 each, Rfl: 3 Upper Sorbian Translation: Provided by [facility] staff member JAMES Corbin documented in this encounter Miscellaneous Notes * Assessment & Plan Note - Chasidy Kimbrough MD - 08/16/2024 4:07 PM ESTAssociated Problem(s): Migraine headache Start Propranolol for prophylaxis Increase rest and hydration Eat whole foods Fioricet or Excedrin migraine sparingly for pain * Assessment & Plan Note - Chasidy Kimbrough MD - 08/16/2024 4:06 PM ESTAssociated Problem(s): Type 2 diabetes mellitus without complication ([facility]/HCC) Cont Metformin 500mg daily Check BG twice a day Increase to 500mg BID if PP> 180, or fasting >110 Add ASA, continue statin documented in this encounter Plan of Treatment Not on file documented as of this encounter Procedures Procedure Name Priority Date/Time Associated Diagnosis Comments ECG 12-LEAD Routine 08/16/2024 4:13 PM EST 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 hypertension 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 POCT GLYCATED HEMOGLOBIN, TOTAL Routine 08/12/2024 1:08 PM EST Type 2 diabetes mellitus without complication, without long-term current use of insulin ([facility]) POCT GLUCOSE Routine 08/12/2024 1:08 PM EST Type 2 diabetes mellitus without complication, without long-term current use of insulin ([facility]) documented in this encounter Results * ECG 12 lead (08/16/2024 4:13 PM EST) Narrative Chasidy Kimbrough MD - 08/16/2024 4:13 PM EST NR, Qtc 423, VR 87 us Chasidy Kimbrough MD ECG ORDERABLES Final Result * (ABNORMAL) POCT HGB A1C (08/12/2024 1:08 PM EST) Hemoglobin A1C 6.6(A) 4.0 - 6.0 % QC Media Lot # [id number] Lot# Expiration Date 500 Blood 08/12/2024 1:08 PM EST Chasidy Kimbrough MD POINT OF CARE TEST ENTER/EDIT ORDERABLES Final Result * POCT Glucose (08/12/2024 1:08 PM EST) Glucose Blood, POC 120 60 - 200 mg/dL QC Media Lot # [id number] Lot# Expiration Date [id number] Blood Capillary blood specimen / Unknown 08/12/2024 1:08 PM EST Chasidy Kimbrough MD POINT OF CARE TEST ENTER/EDIT ORDERABLES Final Result documented in this encounter Visit Diagnoses Diagnosis Primary hypertension- Primary Unspecified essential hypertension Type 2 diabetes mellitus without complication, without long-term current use of insulin ([facility]) Dietary counseling Dietary surveillance and counseling Exercise counseling Overweight Mild intermittent asthma without complication Hyperlipidemia associated with type 2 diabetes mellitus ([facility]/HCC) ([facility]) Chronic migraine without aura without status migrainosus, not intractable penitentiary current use of antipsychotic medication documented in this encounter Additional Health Concerns Assessment Noted Time PHQ-9 Depression Total Score: 3 11/30/19 24 1:27 PM EDT documented as of this encounter Care Teams Coin Machine Mechanic Relationship Specialty Start Date End Date Chasidy Kimbrough MD [address] [place] [address] PCP - General Family Medicine 02/14/21 documented as of this encounter
--- OUTSIDE RECORDS SUMMARY | 2024-08-18 16:21 | XMS_ITS | Encounter Summary ---
Author Organization [employer] Address [address] [facility] 7t [place] [address] Care Team Providers Care Glass Frame Fitter Name Role Phone Chasidy Kimbrough MD Primary Care Provider [phone] Reason for Visit * Reason Comments Med Refill Encounter Details Date Type Department Care Team ([facility] st Contact Info) Description 06/20/2024 Refill [facility] MEDICINE [address] [place], [place] [phone] Chasidy Kimbrough MD [address] [place], [place] [phone] Social History Tobacco Use Types Packs/Day Years [...] documented as of this encounter Care Teams Glass Frame Fitter Relationship Specialty Start Date End Date Chasidy Kimbrough MD [address] [place] [address] PCP - General Family Medicine 02/14/21 documented as of this encounter
--- OUTSIDE RECORDS SUMMARY | 2024-08-18 16:21 | XMS_ITS | Encounter Summary ---
Author Organization [employer] Address [address] [place] [address] [address] [place] [address] Care Team Providers Care Registered Respiratory Therapist Name Role Phone Chasidy Kimbrough MD Primary Care Provider [phone] Reason for Referral * Consultation (Routine) - Authorized Specialty Diagnoses / Procedures Referred By Conthemal esposito Referred To Contact Neurology Diagnoses Memory loss Chasidy Kimbrough MD [address] [place] [address] Phone: tel: fax: [facility] Referral ID Status Reason Start Date Expiration Date Visits Requested Visits Authorized [id number] Authorized Specialty Services Required 07/18/2024 07/18/2025 6 6 Encounter Details Date Type Department Care Team (Late st Contact Info) Description 07/13/2024 Orders Only [facility] MEDICINE [address] [place], [place] [phone] Chasidy Kimbrough MD [address] [place], [place] [phone] Memory loss (Primary Dx) Social History Tobacco Use Types [...] your housing situation today? I have maddie sing 04/28/[address] you li [...] Associated Diagnoses Orde r Schedule Referral to Neurology Outpatient Referral Routine Memory loss Expected: 07/13/2024 (Approximate), Expires: 07/13/2025 documented as of this encounter Visit Diagnoses Diagnosis Memory loss- Primary documented in this encounter Additional Health Concerns Assessment Noted Time PHQ-9 Depression Total Score: 3 11/30/19 24 1:27 PM EDT documented as of this encounter Care Teams Registered Respiratory Therapist Relationship Specialty Start Date End Date Chasidy Kimbrough MD [address] [place] [address] PCP - General Family Medicine 02/14/21 documented as of this encounter
--- OUTSIDE RECORDS SUMMARY | 2024-08-18 16:21 | XMS_ITS | Encounter Summary ---
Author Organization [employer] Address [address] [facility] 7t [place] [address] Care Team Providers Care Peanut Farmer Name Role Phone Chasidy Kimbrough MD Primary Care Provider [phone] Encounter Details Date Type Department Care Team (Late st Contact Info) Description 08/31/2023 Telephone [facility] MEDICINE [address] [place], [place] [phone] Chasidy Kimbrough MD [address] [place], [place] [phone] Social History Tobacco Use Types Packs/Day Years [...] documented as of this encounter Care Teams Peanut Farmer Relationship Specialty Start Date End Date Chasidy Kimbrough MD [address] [place] [address] PCP - General Family Medicine 02/14/21 documented as of this encounter
--- OUTSIDE RECORDS SUMMARY | 2024-08-18 16:21 | XMS_ITS | Clinical Summary ---
Author Organization [facility] Address [address] [place] [address] [address] [place] [address] Care Team Providers Care Engineering Test Specialist Name Role Phone Chasidy Kimbrough MD Primary Care Provider [phone] Allergies Active Allergy Reactions Criticality Noted Date Comments Trazodone 08/12/2011 Other reaction(s): Prolonged QTc Medications buPROPion XL (Wellbutrin XL) 300 MG 24 hr tablet Take 300 mg by mouth in the morning. 07/14/19 23 Active buPROPion XL (Wellbutrin XL) 150 MG 24 hr tablet Take 150 mg by mouth in the morning. 07/14/19 23 Active FLUoxetine (PROzac) 20 MG capsule Take 3 capsules by mouth Once per day. 07/14/19 23 Active Blood Pressure Monitoring (Blood Pressure Monitor/M Cuff) miscIndications: Primary hypertension Use kit to measure blood pressure once daily 1 each 07/25/19 23 Active glucose blood (FREESTYLE LITE) test stripIndications :Type 2 diabetes mellitus without complication, without long-term current use of insulin ([facility]) TEST BLOOD SUGAR TWICE DAILY DIRECTED 100 strip 7 08/06/19 24 Active Allergy Relief 180 MG tablet Take 1 tablet (180 mg) by mouth Once per day. 90 tablet 3 11/30/19 24 Active amLODIPine (Norvasc) 10 MG tabletIndication s:Primary hypertension TAKE 1 TABLET BY MOUTH EVERY MORNING 90 tablet 3 02/10/20 24 Active losartan (Cozaar) 100 MG tabletIndication s:Primary hypertension TAKE 1 TABLET BY MOUTH EVERY DAY 90 tablet 3 02/10/20 24 Active Spiriva Respimat 2.5 MCG/ACT inhaler Inhale 2 puffs Once per day. 1 each 02/10/20 Active cholecalciferol (Vitamin D-3) 50 MCG (2000 UT) tablet Take 1 tablet (50 mcg) by mouth in the morning. 90 tablet 02/10/20 Active albuterol (ProAir HFA) 108 (90 Base) MCG/ACT inhaler Inhale 2 puffs every 4 (four) hours. 18 g 02/10/20 Active hydrALAZINE (Apresoline) 50 MG tabletIndication s:Primary hypertension TAKE 1 TABLET BY MOUTH THREE TIMES DAILY 270 tablet 02/10/20 Active fish oil ([place]-3) 500 MG capsule Take 1 capsule (500 mg) by mouth Once per day. 90 capsule 02/10/20 Active atorvastatin (Lipitor) 80 MG tablet Take 1 tablet (80 mg) by mouth at bedtime. 90 tablet 05/09/20 Active naproxen (Naprosyn) 500 MG tablet Take 1 tablet (500 mg) by mouth 2 times daily. 60 tablet 05/09/20 24 025 Active gabapentin (Neurontin) 100 MG capsule Take 1 capsule (100 mg) by mouth every 8 (eight) hours. 90 capsule 05/09/20 025 Active TRUEplus Lancets 33G miscIndications: Type 2 diabetes mellitus without complication, without long-term current use of insulin ([facility]) USE DIRECTED TO TEST BLOOD SUGAR TWICE DAILY 100 each 3 06/01/20 24 Active ARIPiprazole (Abilify) 20 MG tablet Take 20 mg by mouth Once per day. Active traZODone (Desyrel) 150 MG tablet Take 2 tablets by mouth at bedtime. 07/21/19 25 Active omeprazole (PriLOSEC) [address] capsule Take 1 capsule by mouth Once per day. 08/08/19 25 Active metFORMIN XR (Glucophage-XR) 500 MG 24 hr tablet Take 2 tablets by mouth with evening meal. 08/08/19 25 Active melatonin 5 MG tablet Take 2 tablets by mouth if needed at bedtime (sleep). 08/08/19 25 Active aspirin 81 MG chewable tablet Chew 1 tablet (81 mg) Once per day. 90 tablet 3 08/12/19 25 026 Active propranolol LA (Inderal LA) 60 MG 24 hr capsule Take 1 capsule (60 mg) by mouth Once per day. Do not crush, chew, or split. 30 capsule 11 08/12/19 026 Active butalbital-aceta minophen-caffein e 50-325-40 MG tablet Take 1 tablet by mouth every 6 (six) hours if needed for migraine (max 2 tablets per week). 10 tablet 3 08/12/19 025 Active ARIPiprazole (Abilify) 10 MG tablet Take 10 mg by mouth in the morning. 07/14/19 025 Discontinued(Me d list cleanup (will not trigger notification to Pharmacy)) metFORMIN (Glucophage) 500 MG tablet TAKE 2 TABLET BY MOUTH EVERY EVENING WITH DINNER. DO NOT BREAK, CRUSH, DISSOLVE OR CHEW. 180 tablet 02/10/20 025 Discontinued(Me d list cleanup (will not trigger notification to Pharmacy)) Omeprazole 20 MG tablet delayed-release Take 20 mg by mouth Once per day. 90 tablet 02/10/20 025 Discontinued(Me d list cleanup (will not trigger notification to Pharmacy)) melatonin 10 MG tablet Take 1 tablet (10 mg) by mouth if needed at bedtime (insomnia). 90 tablet 02/10/20 025 Discontinued(Me d list cleanup (will not trigger notification to Pharmacy)) ibuprofen 600 MG tablet TAKE 1 TABLET BY MOUTH EVERY 8 HOURS FOR 10 DAYS NEEDED FOR PAIN 03/05/20 025 Discontinued(Th erapy completed) butalbital-aceta minophen-caffein e 50-325-40 MG tablet Take 1 tablet by mouth every 4 (four) hours if needed for migraine. 07/19/19 025 Discontinued OLANZapine (ZyPREXA) 2.5 MG tablet Take 1 tablet by mouth 2 times daily. 07/19/19 025 Discontinued(Th erapy completed) Active Problems Problem Noted Date Diagnosed Date Migraine headache 08/16/2024 Assessment & Plan (08/16/2024 4:07 PM EST): Start Propranolol for prophylaxis Increase rest and hydration Eat whole foods Fioricet or Excedrin migraine sparingly for pain Tenosynovitis of finger 05/02/2024 Assessment & Plan (05/02/2024 2:01 PM EST): On right MCP joint only, ro inflammatory arthritis, it could be reactive to meds/hydralazine? Order labs and fu with PCP next week Start Meloxicam daily x 2w max, take tylenol prn break through pain Finger was immobilized with finger immobilizer and dunia wrap, can keep it like this for at least 8h per day to decrease risk of trauma as well, can use at night. Memory loss 02/10/2024 Assessment & Plan (02/10/2024 3:02 PM EDT): MMSE score of 19, probably dementia/cognitive decline Will obtain MRI and refer to neurology Other dysphagia 12/30/2023 Thyroid nodule 11/30/2023 Abnormal thyroid ultrasound 12/23/2022 Overview (12/23/2022): US thyroid 12/01/22 impression FNA is recommended of the right mid nodule. Arthritis 07/25/2022 Gastroesophageal reflux disease 07/25/2022 Sleep disorder 07/25/2022 Joint pain 11/11/2017 Dental disorder 07/29/2017 Mood disorder 07/29/2017 Assessment & Plan (07/25/2022 10:30 AM EST): Continue followup with prescriber and therapist No SI/HI Talked about grounding exercises Hyperlipidemia associated wi th type 2 diabetes mellitus ([facility]/HCC) 07/29/2017 Assessment & Plan (07/25/2022 10:29 AM EST): Continue Atorvasatin 80mg daily Hypertensive disorder 07/29/2017 Assessment & Plan (05/14/2024 7:33 PM EST): Increase hydralazine to 50mg TID, continue Losartan 100mg, and Amlodipine 10mg Check BP daily and keep a log ER precautions for symptoms Call us if consistently > 140/90 at home Assessment & Plan (02/10/2024 3:04 PM EDT): Increase hydralazine to 50mg TID, continue Losartan 100mg, and Amlodipine 10mg Check BP daily and keep a log ER precautions for symptoms Call us if continues to be >160/100 at home Assessment & Plan (12/23/2022 5:40 AM EDT): Patients hypertension is not well controlled and has been out of medication for 3 month Discontinuing Hyzaar due to patients discomfort with side effects (polyuria). Adding losartan 100 mg PO daily, continue Amlodipine 10mg, Hydralazine 25mg TID Starting clonidine 0.1 mg nightly Continue statin Assessment & Plan (07/25/2022 10:29 AM EST): ADD hydralazine 25mg TID Check BP daily Cuff ordered ER precautions for symptoms Call us if continues to be >160/100 at home Mild intermittent asthma 07/29/2017 Assessment & Plan (07/25/2022 10:28 AM EST): Continue prn LINUS Seasonal allergic rhinitis 07/29/2017 Type 2 diabetes mellitus without complication Assessment & Plan (08/16/2024 4:06 PM EST): Cont Metformin 500mg daily Check BG twice a day Increase to 500mg BID if PP> 180, or fasting >110 Add ASA, continue statin Assessment & Plan (05/14/2024 7:32 PM EST): Cont Metformin 500mg daily Check BG twice a day Increase to 500mg BID if PP> 180, or fasting >110 Assessment & Plan (12/23/2022 5:41 AM EDT): A1C = 7.6 today. 8.5 on 07/25/22 DM2 not at goal <7.0, but making good progress. Increase metformin to 1000 mg daily. Assessment & Plan (07/25/2022 10:29 AM EST): Cont Metformin 500mg daily Check BG twice a day Increase to 500mg BID if PP> 180, or fasting >110 Vitamin D deficiency 07/29/2017 Resolved Problems Problem Noted Date Diagnosed Date Resolved Date Abdominal pain 07/25/2022 08/16/2024 Encounters Date Type Department Care Team Description 08/12/2024 1:00 PM EST Office Visit [facility] [address] [place] [phone] Chasidy Kimbrough MD Primary hypertension (Primary Dx); Type 2 diabetes mellitus without complication, without long-term current use of insulin ([facility]); Dietary counseling; Exercise counseling; Overweight; Mild intermittent asthma without complication; Hyperlipidemia associated with type 2 diabetes mellitus ([facility]/HCC) ([facility]); Chronic migraine without aura without status migrainosus, not intractable; alf current use of antipsychotic medication 08/12/2024 Travel 07/25/2024 Telephone [facility] [address] [place] [phone] Josephine Monge, YOVANY HDF 07/13/[address] [address] Zohreh Tabor RN Results; Referral 07/13/2024 Orders Only [facility] [address] [place] [phone] Chasidy Kimbrough MD Memory loss (Primary Dx) 07/07/2024 Orders Only GENERIC EXTERNAL DATA DEPARTMENT Provider, Generic External Data 06/20/2024 Refill [facility] [address] [place] [address] Chasidy Kimbrough MD 06/01/[address] [address] Wesley Sanchez MD Type 2 diabetes mellitus without complication, without long-term current use of insulin ([facility]) from Last 3 Months Immunizations Name Administration Dates Next Due Hep B, adult 02/01/2010,08/27/2009,06/20/1997 Influenza injectable quadriv alent IIV4 with preservative 03/10/2017,04/28/2016 Influenza injectable quadriv alent preservative free 03/16/2023,05/18/2019 Influenza, IIV3, injectable 06/28/2014,1 06/16/2010,03/28/2010,2009 Influenza, seasonal, injecta ble, preservative free 07/08/2024 MMR 06/20/1997 Pfizer Covid-19 Vaccine 12+ 09/08/2023 TD (adult), 2 Lf tetanus tox oid, preservative free, adsorbed 08/09/2018,08/20/2007,02/28/1997 Tdap 07/03/2016 Zoster, Recombinant 01/01/2022,10/28/2021 Social History Tobacco Use Types Packs/Day Years [...] not to disclose 2021 10:14 AM EDT Last Filed Vital Signs Vital Sign Reading [...] Mass Index 29.79 08/12/2024 12:58 PM EST Plan of Treatment Health Maintenance Due Date Last Done Comments CT Colonography 1965 Colonoscopy 1965 Colorectal Cancer Screening 1965 FIT DNA/Cologuard 1965 FIT 1965 FOBT 1965 Sigmoidoscopy 1965 Diabetes: Foot Exam 1975 Eye Exam 1975 Alcohol/Substance Use Screening 1977 Pneumococcal Vaccine: 50+ Years (1 of 2 - PCV) 01/16/1984 Pap Smear 1986 HPV/Cotest 1995 COVID-19 Vaccine ( season) 2024 09/08/2023, 11/22/2021, 05/30/2021, Additional history exists Mammogram 11/03/2024 11/04/2023, 09/13, 09/16/2022, Additional history exists Depression Screening 11/29/2024 11/30/2023, 11/30/19 24 Diabetes: Urine Protein Screening 11/29/2024 11/30/2023, 05/07/2020, 05/18/2019 Lipid Panel 11/29/2024 11/30/2023, 12/13, 10/25/2021, Additional history exists Diabetes: Hemoglobin A1C 02/09/2025 025, 05/09/2024, 11/30/2023, Additional history exists SDOH Screening 04/28/2025 04/28/2024 Tobacco Screening 08/15/2025 08/15/2024 DTaP/Tdap/Td Vaccines (3 - Td or Tdap) 08/09/2028 08/09/2018, 07/03/2016, 08/20/2007, Additional history exists RSV Patients and Patients Aged 60 years or older (1 - 1-dose 75+ series) 01/16/2040 Hepatitis B Vaccines Completed 02/01/2010, 08/27/2009, 06/20/1997 Zoster Vaccines Completed 01/01/2022, 10/28/2021 HIV Screening Completed 11/30/2023 Hepatitis C Screening Completed 05/09/2024, 024 Influenza Vaccine Completed 07/08/2024, , 05/18/2019, Additional history exists Cervical Cancer Screening Discontinued HIB Vaccines Aged Out No longer eligi ble based on patient's age to complete this topic HPV Vaccines Aged Out No longer eligi ble based on patient's age to complete this topic Hepatitis A Vaccines Aged Out No long er eligible based on patient's age to complete this topic IPV Vaccines Aged Out No longer eligi ble based on patient's age to complete this topic Meningococcal Vaccine Aged Out No thi ankit eligible based on patient's age to complete this topic RSV under 20 months Aged Out No longe r eligible based on patient's age to complete this topic Rotavirus Vaccines Aged Out No longer eligible based on patient's age to complete this topic Procedures Procedure Name Priority Date/Time Associated Diagnosis Comments ECG 12-LEAD Routine 08/16/2024 4:13 PM EST 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 hypertension 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 POCT GLYCATED HEMOGLOBIN, TOTAL Routine 08/12/2024 1:08 PM EST Type 2 diabetes mellitus without complication, without long-term current use of insulin (CMS/HCC) POCT GLUCOSE Routine 08/12/2024 1:08 PM EST Type 2 diabetes mellitus without complication, without long-term current use of insulin (CMS/HCC) CBC WITH AUTO DIFFERENTIAL Routine 07/07/2024 6:52 PM EST COMPREHENSIVE METABOLIC PANEL Routine 07/07/2024 6:52 PM EST ETHANOL Routine 07/07/2024 6:52 PM EST DRUG MONITOR, PANEL 1, SCREEN, URINE Routine 07/07/2024 6:11 PM EST URINALYSIS, COMPLETE, WITH REFLEX TO CULTURE Routine 07/07/2024 6:11 PM EST HEPATITIS PANEL, GENERAL Routine 05/09/2024 4:30 PM EST Tenosynovitis of finger HIV 1/2 ANTIGEN/ANTIBODY, FOURTH GENERATION W/RFL Routine 11/30/2023 1:19 PM EDT Routine screening for STI (sexually transmitted infection) ALBUMIN, RANDOM URINE W/CREATININE Routine 11/30/2023 1:19 PM EDT Type 2 diabetes mellitus without complication, without long-term current use of insulin (CMS/HCC) LIPID PANEL, STANDARD Routine 11/30/2023 1:19 PM EDT Type 2 diabetes mellitus without complication, without long-term current use of insulin (CMS/HCC) BI US BREAST LIMITED LEFT Routine 11/04/2023 2:27 PM EDT from Last 3 Months or Most Recently Relevant to Health Maintenance Results * ECG 12 lead (08/16/2024 4:13 PM EST) Narrative Chasidy Kimbrough MD - 08/16/2024 4:13 PM EST NR, Qtc 423, VR 87 Chasidy Kimbrough MD ECG ORDERABLES Final Result * (ABNORMAL) POCT HGB A1C (08/12/2024 1:08 PM EST) Hemoglobin A1C 6.6(A) 4.0 - 6.0 % QC Media Lot # [id number] Lot# Expiration Date Blood 08/12/2024 1:08 PM EST Chasidy Kimbrough MD POINT OF CARE TEST ENTER/EDIT ORDERABLES Final Result * POCT Glucose (08/12/2024 1:08 PM EST) Pathologist [facility] Glucose Blood, POC 120 60 - 200 mg/dL QC Media Lot # [id number] Lot# Expiration Date [id number] Blood Capillary blood specimen / Unknown 08/12/2024 1:08 PM EST Chasidy Kimbrough MD POINT OF CARE TEST ENTER/EDIT ORDERABLES Final Result * Ethanol (07/07/2024 6:52 PM EST) [facility] ETHANOL (MG/DL) IN SER/PLAS <10 mg/dL [facility] Comment:Serum/plasma ethanol results are to be used formedical/treatment purposes only. 07/07/2024 6:52 PM EST 07/07/2024 6:54 PM EST Generic External Data Provider LAB BLOOD ORDERAB LES Final Result [facility] [address] [place] [phone] * (ABNORMAL) CBC auto differential (07/07/2024 6:52 PM EST) [facility] White Blood Count 12.3(H) 4.8 - 10.8 X10*3/uL [facility] Red Blood Count 5.08 4.20 - 5.50 X10*6/uL [facility] Hemoglobin 13.7 12.0 - 16.0 g/dl [facility] Hematocrit 42.3 37.0 - 47.0 % [facility] Mean Corpuscular Volume 83.3 80.0 - 98.0 fL [facility] Mean Corpuscular Hemoglobin 27.0 27.0 - 33.0 pg [facility] Mean Corpuscular HGB Conc 32.4 31.0 - 35.0 g/dl [facility] Red Cell Distribution Width 13.8 11.0 - 16.0 % [facility] Platelet Count 321 160 - 400 X10*3/uL [facility] Mean Platelet Volume 9.6 9.4 - 12.3 fL [facility] Neutrophils Percent Auto 64.8 45 - 73 % [facility] Imm Gran Pct Auto 0.3 0.0 - 0.4 % [facility] Lymphocytes Percent Auto 27.3 20 - 40 % [facility] Monocytes Percent Auto 6.4 2 - 11 % [facility] Eosinophils Percent Auto 0.6 0 - 4 % [facility] Basophils Percent Auto 0.6 0 - 2 % [facility] NRBC Pct Auto 0.0 0.0 - 0.2 /100WBC [facility] Neutrophils Absolute Auto 7.9 2.0 - 8.3 x10*3/uL [facility] Imm Gran Abs Auto 0.04(H) 0.00 - 0.03 X10*3/uL [facility] Lymphocytes Absolute Auto 3.4 1.2 - 4.9 X10*3/uL [facility] Monocytes Absolute Auto 0.8 0.1 - 1.2 X10*3/uL [facility] Eosinophils Absolute Auto 0.1 0.0 - 0.4 X10*3/uL [facility] Basophils Absolute Auto 0.1 0.0 - 0.2 X10*3/uL [facility] NRBC Abs Auto 0.000 0.0 - 0.012 X10*3/uL [facility] 07/07/2024 6:52 PM EST 07/07/2024 6:54 PM EST us Generic External Data Provider LAB BLOOD ORDERAB LES Edited Result - Final [facility] [address] [place] [address] [phone] * (ABNORMAL) Comprehensive Metabolic Panel (07/07/2024 6:52 PM EST) Sodium 140 135 - 145 mmol/L [facility] Potassium 3.7 3.3 - 5.1 mmol/L [facility] Chloride 108 96 - 108 mmol/L [facility] Carbon Dioxide 25 22 - 29 mmol/L [facility] Anion Gap 11(L) 12 - 20 [facility] Urea Nitrogen (BUN) 12 9 - 16 mg/dL [facility] Creatinine, Serum 0.63 0.5 - 1.4 mg/dL [facility] Creatinine Clr Calc Pharmacy 97.3 [facility] Comment:Provided height and weight: 165.1 cm,74.843 kg.eGFR (calculated from the MDRD study equation) and eCrCl(calculated from the Cockcroft-Gault equation) are based ondifferent parameters and may not yield comparable results.If eCrCl result is absurd, please check patient'sheight/weight. Estimated Glomerular Filt Rate >60 [facility] Comment:Chronic Kidney Disea se: Estimated GFR < 60 mL/min/1.28w9Mmybay Kidney Disease: Estimated GFR < 15 mL/min/1.73m2 Glucose 121(H) 60 - 115 mg/dL [facility] Calcium 10.4(H) 8.4 - 10.2 mg/dL [facility] Bilirubin, Total 0.2 0.0 - 1.0 mg/dL [facility] Aspartate Amino Transferase 19 5 - 31 U/L [facility] Alanine Aminotransferase 11 0 - 31 U/L [facility] Total Protein 8.5(H) 6.5 - 8.0 g/dL [facility] Albumin Level 4.3 3.5 - 5.0 g/dL [facility] Alkaline Phosphatase 79 39 - 117 U/L [facility] 07/07/2024 6:52 PM EST 07/07/2024 6:54 PM EST us Generic External Data Provider LAB BLOOD ORDERAB LES Final Result [facility] [address] [place] [phone] * (ABNORMAL) Urinalysis, Complete, with Reflex to Culture (07/07/2024 6:11 PM EST) Color Urine Yellow [facility] Appearance Urine Clear [facility] PH 7.0 5.0 - 9.0 [facility] Glucose Urine UA Negative Negative mg/dL [facility] Urine Blood Small (1+)(A) Negative [facility] Specific [place] - Urine 1.015 1.005 - 1.025 [facility] Urine Protein 30 (1+)(A) Neg-Trace mg/dL [facility] Urine Ketones Negative Negative mg/dL [facility] Nitrite Urine Negative Negative [facility] Leukocyte Esterase Urine Negative Negative [facility] RBC Urine 11-20(A) 0 - 2 /HPF [facility] Urine WBC 0-5 0 - 5 /HPF [facility] Urine Squamous Epithelial Cell 3-5 0 - 2 /HPF [facility] Urine Bacteria Trace None Seen [facility] Hyaline Casts, Urine 0-2 0 - 2 /LPF [facility] 07/07/2024 6:11 PM EST 07/07/2024 6:14 PM EST Narrative [facility] - 07/07/2024 6:28 PM EST [id number], Clean [employer]atch us Generic External Data Provider LAB URINE ORDERAB LES Final Result [facility] [address] [place] [phone] * Drug Monitoring, Panel 1, Screen, Urine (07/07/2024 6:11 PM EST) Opiate Screen Urine Not Detected Not Detect [facility] Comment:Opiate cut-off is 30 0 ng/mL.Positive results are unconfirmed and should not be used fornon-medical purposes. Barbiturates, Urine Not Detected Not Detect [facility] Comment:Barbiturate cut-off is 200 ng/mL.Positive results are unconfirmed and should not be used fornon-medical purposes. Phencyclidine Screen Urine Not Detected Not Detect [facility] Comment:Phencyclidine cut-of f is 25 ng/mL.Positive results are unconfirmed and should not be used fornon-medical purposes. Amphetamine Screen Urine Not Detected Not Detect [facility] Comment:Amphetamine cut-off is 1000 ng/mL.Positive results are unconfirmed and should not be used fornon-medical purposes. Benzodiazepines Screen Urine Not Detected Not Detect [facility] Comment:Benzodiazepine cut-o ff is 200 ng/mL.Positive results are unconfirmed and should not be used fornon-medical purposes. Cocaine Screen Urine Not Detected Not Detect [facility] Comment:Cocaine cut-off is 3 00 ng/mL.Positive results are unconfirmed and should not be used fornon-medical purposes. Cannabinoid Screen Urine Not Detected Not Detect [facility] Comment:Cannabinoid cut-off is 50 ng/mL.Positive results are unconfirmed and should not be used fornon-medical purposes. Methadone Screen, Urine Not Detected Not Detect ng/mL [facility] Comment:Methadone cut-off is 300 ng/mL.Positive results are unconfirmed and should not be used fornon-medical purposes. FENTANYL URINE Not Detected Not Detect [facility] Comment:Fentanyl cut-off is 1 ng/mL.Positive results are unconfirmed and should not be used fornon-medical purposes. Oxycodone Urine Screen Not Detected Not Detect ng/mL [facility] Comment:Oxycodone cut-off is 100 ng/mL.Positive results are unconfirmed and should not be used fornon-medical purposes. Buprenorphine Screen Not Detected Not Detect ng/mL [facility] Comment:Buprenorphine cut-of f is 5 ng/mL.Positive results are unconfirmed and should not be used fornon-medical purposes. 07/07/2024 6:11 PM EST 07/07/2024 6:14 PM EST us Generic External Data Provider LAB URINE ORDERAB LES Final Result [facility] [facility] [address] [place] [phone] * Hepatitis Panel, General (05/09/2024 4:30 PM EST) Hepatitis A IgM Nonreactive Nonreactive [facility] Comment:IgM antibodies to GALAVIZ V not detected; does not exclude earlyacute or recovered HAV infection. ~Hepatitis B Surface Antibody REACTIVE Nonreactive [facility] Comment:REACTIVE: > 11.99 mI U/mL Hepatitis B Core Antibody Nonreactive Nonreactive [facility] Hepatitis C Antibody Nonreactive Nonreactive [facility] Comment:Antibodies to HCV no t detected; does not exclude early acuteHCV infection. Hepatitis B Surface Ag Negative Negative [facility] Blood 05/09/2024 4:30 PM EST 05/09/2024 5:40 PM EST us Mona Morris MD LAB BLOOD ORDERABLES Fin al Result Performing Organization Address [facility]/ZIP Co de Phone Number [facility] [address] [place] [address] [phone] * Albumin, Random Urine W/Creatinine (11/30/2023 1:19 PM EDT) Creatinine, Urine 118.88 mg/dL [facility] Microalbumin Urine 30.0 mg/L [facility] Microalbum Creatinine Ratio Ur 25.2 <30 ug/mg cr [facility] Comment:Albumin/Creatinine R atio Reference Ranges: Normal: < 30 ug/mg creatinine Microalbuminuria: 30 - 300 ug/mg creatinineClinical Albuminuria: > 300 ug/mg creatinine Urine (Urine, Random) 11/30/2023 1:19 PM EDT 11/30/2023 3:55 PM EDT us Chasidy Kimbrough MD LAB URINE ORDERABLES Final Res ult Performing Organization Address [facility]/ZIP Co de Phone Number [facility] [address] [place] [address] [phone] * HIV-1/2 Antigen and Antibodies, Fourth Generation, with Reflexes (11/30/2023 1:19 PM EDT) HIV AB/AG Nonreactive Nonreactive [facility] Comment:HIV-1 p24 Ag and/or HIV-1/HIV-2 Ab not detected.A test result that is nonreactive does not exclude thepossibility of exposure to or infection with HIV-1 and/orHIV-2. Nonreactive results in this assay for individualswith prior exposure to HIV-1 and/or HIV-2 may be due toantigen and antibody levels that are below the limit ofdetection of this assay.The Krux HIV Ag/Ab Combo assay result andsupplemental assay results should be interpreted inconjunction with the patient's clinical presentation,history and other laboratory results. If the results areinconsistent with clinical evidence, additional testing issuggested to confirm the result. Blood Venous blood specimen / Unknown 11/30/2023 1:19 PM EDT 11/30/2023 3:56 PM EDT us Chasidy Kimbrough MD LAB BLOOD ORDERABLES Final Res ult [facility] [address] [place] [address] [phone] * (ABNORMAL) Lipid Panel, Standard (11/30/2023 1:19 PM EDT) Triglycerides 114 <150 mg/dL [facility] Comment:Desirable Triglyceri de: less than 150 mg/dLBorderline High Triglyceride 150-199 mg/dLHigh Triglyceride: 200-499 mg/dLVery High Triglyceride: greater than or equal to 5OO mg/dL Cholesterol 229(H) <200 mg/dL [facility] Comment:Desirable Cholestero l: less than 200 mg/dLBorderline High Cholesterol: 200-239 mg/dLHigh Cholesterol: greater than 239 mg/dL LDL Cholesterol Calculated 143(H) <100 mg/dL [facility] Comment:Desirable LDL: less than 100 mg/dLNear Optimal/Above Optimal LDL: 110- 129 mg/dLBorderline High LDL: 130-159 mg/dLHigh LDL: 160-189 mg/dLVery High LDL: greater than or equal to 190 mg/dL HDL Cholesterol 64 >40 mg/dL [facility] Comment:Desirable HDL: great er than 40 mg/dL Note: This HDL assay may give artificially low results in patients with liver disease. Blood Venous blood specimen / Unknown 11/30/2023 1:19 PM EDT 11/30/2023 3:56 PM EDT us Chasidy Kimbrough MD LAB BLOOD ORDERABLES Final Res ult [facility] [address] [place] [phone] * BI US Breast Limited Left (11/04/2023 2:27 PM EDT) Anatomical Region Laterality Modality Breast Left Ultrasound 11/04/2023 2:27 PM EDT Narrative 11/05/2023 10:28 AM EDT ? [facility] [place] ? [address] ?[place] [phone] ? Ultrasound Report ? Signed ? Patient: Cynthia Stuart ?MR#: ?? [id number] ? : 1965 ?Acct:[id number] ? Age/Sex: 58 / F ?ADM Date: 11/04/23 ? Loc: HO.MAMMO ? Attending Dr: Chasidy Kimbrough MD ? Ordering Physician: Chasidy Kimbrough ?? Date of Service: 11/04/23 ?? Procedure(s): US breast LT limited mamm only ?? Accession Number(s): [id number] ? cc: Chasidy Kimbrough ? EXAMINATION: ?? MM DIAGNOSTIC DIGITAL BREAST TOMOSYNTHESIS, BILATERAL ?? US BREAST LIMITED, LEFT ? MAMMOGRAPHY: ?? CLINICAL INFORMATION: ? Callback diagnostic mammogram and ultrasound for right breast ?? calcifications, and oval mass left breast 3:00 axis. Prior history ?? benign left stereotactic biopsy in 2016. ? COMPARISON: ?? -Mammography: 09/25/2023, 09/16/2022, 09/16/2021, 09/13/2020, ?? 07/13/2018, 03/13/2017. ?? -01/16/2020 diagnostic mammography, 06/02/2019 diagnostic mammogram. ?? -Diagnostic left breast ultrasound 01/16/2020 and 06/02/2019. Diagnostic ?? right breast ultrasound 06/02/2019. ? TECHNIQUE: ?? Digital breast tomosynthesis is performed in the following views: 2-D ?? spot magnification views right breast in the CC and ML projections. 3-D ?? spot compression views of the left breast in the CC and MLO ?? projections. ? FINDINGS: ?? There are scattered areas of fibroglandular density (ACR BI-RADS breast ?? composition Category b). ? LEFT BREAST: ?? -Spot compression views reveal an oval circumscribed isodense mass mid ?? depth left breast 3:00 measuring 15 mm in length, with a small 7 mm ?? adjacent oval circumscribed isodense mass abutting medially. These were ?? evaluated previously in 2018, and 2019 ultrasound, and are is known to ?? represent 2 benign cysts. Repeat left breast ultrasound was performed ?? today for confirmation purposes. ?? There are no suspicious abnormalities in the left breast. ? RIGHT BREAST: ?? Spot magnification views demonstrate several scattered foci of ?? calcifications throughout the right breast, some which layer on the 90 ?? degree mediolateral projection suggesting milk of calcium. There are ?? several loosely grouped benign-appearing calcifications which are ?? unchanged from recent and more remote exams, dating back to 2020. No ?? suspicious calcifications are evident. No pleomorphism, branching ?? forms, linear suspicious forms, or suspicious distributions. These ?? findings are stable and benign. ?? There are no suspicious abnormalities in the right breast. ? ULTRASOUND: ?? CLINICAL INFORMATION: ?? Left breast cyst, 9:00 axis, reevaluate ? COMPARISON: ?? 01/16/2020, 06/02/2019. ? TECHNIQUE: ?? Targeted sonographic evaluation was performed using a high frequency ?? linear transducer. Attention was given to the circumscribed masses at ?? the 9:00 axis of the left breast. Selected archived documentation. ? FINDINGS: ? LEFT BREAST: There is a simple cyst at the 3:00 axis, 4 cm from the ?? nipple, measuring 1.1 x 0.9 x 1.1 cm. There is a small daughter cyst ?? measuring 0.7 cm. These are known and benign. There are no suspicious ?? abnormality is in the lateral left breast. ? US/US breast LT limited mamm only ?? IMPRESSION: ?? There are no findings in either breast suspicious for malignancy. ? 2 simple cysts are present in the left breast at the 3:00 axis. These ?? are benign. ? Scattered benign-appearing calcifications are present in the right ?? breast, unchanged from prior exams, none with suspicious features. ?? These are benign and no further follow-up is recommended. ? Recommend the patient return to routine annual screening mammography. ? OVERALL ASSESSMENT: ?? Mammography: BI-RADS 2 - Benign Findings ?? Ultrasound: BI-RADS 2 - Benign Findings ? RECOMMENDATION: ?? 1 year F/U ? This patient's information was entered into a reminder system with a ?? target due date for their next mammogram. ? Dictated By: ?Jones Oliva MD ? Signed By: ?<Electronically signed by Jones Oliva MD in OV> ?11/05/23 1024 ? DD/ 1427 ? TD/TT: ? College Professor: ? Procedure Note Carlos, Image - 11/05/2023 [place] [facility] [address] [place] [address] Ultrasound Report Signed Patient: Cynthia Stuart OMR#: [id number] : 1965Acct:[id number] Age/Sex: 58 / FADM Date: 11/04/23 Loc: [facility] Attending Dr: Chasidy Kimbrough MD Ordering Physician: Chasidy Kimbrough Date of Service: 11/04/23 Procedure(s): US breast LT limited mamm only Accession Number(s): [id number] cc: Chasidy Kimbrough EXAMINATION: MM DIAGNOSTIC DIGITAL BREAST TOMOSYNTHESIS, BILATERAL US BREAST LIMITED, LEFT MAMMOGRAPHY: CLINICAL INFORMATION: Callback diagnostic mammogram and ultrasound for right breast calcifications, and oval mass left breast 3:00 axis. Prior history benign left stereotactic biopsy in 2016. COMPARISON: -Mammography: 09/25/2023, 09/16/2022, 09/16/2021, 09/13/2020, 07/13/2018, 03/13/2017. -01/16/2020 diagnostic mammography, 06/02/2019 diagnostic mammogram. -Diagnostic left breast ultrasound 01/16/2020 and 06/02/2019. Diagnostic right breast ultrasound 06/02/2019. TECHNIQUE: Digital breast tomosynthesis is performed in the following views: 2-D spot magnification views right breast in the CC and ML projections. 3-D spot compression views of the left breast in the CC and MLO projections. FINDINGS: There are scattered areas of fibroglandular density (ACR BI-RADS breast composition Category b). LEFT BREAST: -Spot compression views reveal an oval circumscribed isodense mass mid depth left breast 3:00 measuring 15 mm in length, with a small 7 mm adjacent oval circumscribed isodense mass abutting medially. These were evaluated previously in 2018, and 2019 ultrasound, and are is known to represent 2 benign cysts. Repeat left breast ultrasound was performed today for confirmation purposes. There are no suspicious abnormalities in the left breast. RIGHT BREAST: Spot magnification views demonstrate several scattered foci of calcifications throughout the right breast, some which layer on the 90 degree mediolateral projection suggesting milk of calcium. There are several loosely grouped benign-appearing calcifications which are unchanged from recent and more remote exams, dating back to 2020. No suspicious calcifications are evident. No pleomorphism, branching forms, linear suspicious forms, or suspicious distributions. These findings are stable and benign. There are no suspicious abnormalities in the right breast. ULTRASOUND: CLINICAL INFORMATION: Left breast cyst, 9:00 axis, reevaluate COMPARISON: 01/16/2020, 06/02/2019. TECHNIQUE: Targeted sonographic evaluation was performed using a high frequency linear transducer. Attention was given to the circumscribed masses at the 9:00 axis of the left breast. Selected archived documentation. FINDINGS: LEFT BREAST: There is a simple cyst at the 3:00 axis, 4 cm from the nipple, measuring 1.1 x 0.9 x 1.1 cm. There is a small daughter cyst measuring 0.7 cm. These are known and benign. There are no suspicious abnormality is in the lateral left breast. US/US breast LT limited mamm only IMPRESSION: There are no findings in either breast suspicious for malignancy. 2 simple cysts are present in the left breast at the 3:00 axis. These are benign. Scattered benign-appearing calcifications are present in the right breast, unchanged from prior exams, none with suspicious features. These are benign and no further follow-up is recommended. Recommend the patient return to routine annual screening mammography. OVERALL ASSESSMENT: Mammography: BI-RADS 2 - Benign Findings Ultrasound: BI-RADS 2 - Benign Findings RECOMMENDATION: 1 year F/U This patient's information was entered into a reminder system with a target due date for their next mammogram. Dictated By: Jones Oliva MD Signed By: <Electronically signed by Jones Oliva MD in OV> 11/05/23 1024 DD/ 1427 TD/TT: College Professor: Chasidy Kimbrough MD IMG US PROCEDURES Final Result from Last 3 Months or Most Recently Relevant to Health Maintenance Insurance [employer] * Guarantor: Cynthia Pereyra Account Type Relation to Patient Date of Phone Billing Address Personal/Family Self [address] [facility] [place] Care Teams Engineering Test Specialist Relationship Specialty Start Date End Date Chasidy Kimbrough MD [address] [place] [address] PCP - General Family Medicine 02/14/21
== END 2024-08-18 13:44 | disposition home or self-care (01) ==
PROVIDERS: PCP General Practice; Visit Provider Physician Assistant
DX: M17.0 Bilateral primary osteoarthritis of knee (principal); E11.9 Type 2 diabetes mellitus without complications
CPT/HCPCS: 20610; 99214

== ENCOUNTER → 2024-08-18 13:26 | Outpatient (BNVA) | payer MEDICAID, SELFPAY | PROVIDERS: PCP General Practice; Visit Provider Physician Assistant | DX: M17.0 Bilateral primary osteoarthritis of knee (principal); E11.9 Type 2 diabetes mellitus without complications | CPT/HCPCS: 20610; 99212; J1010; J2003 ==

== ENCOUNTER 2024-08-23 10:50 | Outpatient (REF) | payer MEDICAID, SELFPAY ==
--- NOTE | ~2024-08-23 | XR_ITS ---
EXAMINATION: XR SOFT TISSUE NECK CLINICAL INDICATION: K22.2 - Esophageal obstruction COMPARISON: None available. TECHNIQUE: 2 views of the soft tissue neck were obtained. FINDINGS: Upper airways patent. No metallic or radiopaque foreign body. Poor dentition. Mild spondylosis C5-6 and C6-7. XR/XR soft tissue neck IMPRESSION: Negative soft tissue neck x-ray. Electronically signed by: Darian Vanegas MD 08/23/2024 03:07 PM EDT
--- OUTSIDE RECORDS SUMMARY | 2024-08-23 14:34 | XMS_ITS | Encounter Summary ---
Author Organization [employer] Address [address] [facility] 7t [place] [address] Care Team Providers Care Phone Manager Name Role Phone Chasidy Kimbrough MD Primary Care Provider [phone] Reason for Visit * Reason Comments Med Refill Encounter Details Date Type Department Care Team ([facility] st Contact Info) Description 06/20/[address] [facility] MEDICINE [address] [place], [place] [phone] Chasidy Kimbrough MD [address] [place], [place] [phone] Social History Tobacco Use Types Packs/Day Years [...] Description 11/15/2024 11:00 AM EDT Office Visit [facility] MEDICINE [address] [place] [address] Chasidy Kimbrough MD [address] [place], [place] [phone] documented as of this encounter Visit Diagnoses Not on filedocumented in this encounter Additional Health Concerns Assessment Noted Time PHQ-9 Depression Total Score: 3 11/30/19 24 1:27 PM EDT documented as of this encounter Care Teams Phone Manager Relationship Specialty Start Date End Date Chasidy Kimbrough MD [address] [place], [place] [phone] PCP - General Family Medicine 02/14/21 documented as of this encounter
--- OUTSIDE RECORDS SUMMARY | 2024-08-23 14:34 | XMS_ITS | Encounter Summary ---
Author Organization [facility] Address [address] [place] [address] 7t [place] [address] Care Team Providers Care Audiovisual Technician Name Role Phone Chasidy Kimbrough MD Primary Care Provider [phone] Reason for Visit * Reason Comments Med Refill Encounter Details Date Type Department Care Team (Late Contact Info) Description 12/29/2022 Refill [facility] MEDICINE [address] [place], [place] [phone] Chasidy Kimbrough MD [address] [place], [place] [phone] Social History Tobacco Use Types Packs/Day Years [...] Upcoming Encounters Date Type Department Care Team ([facility] Contact Info) Description 11/15/2024 11:00 AM EDT Office Visit [facility] MEDICINE [address] [place] [address] Chasidy Kimbrough MD [address] [place] [address] documented as of this encounter Visit Diagnoses Not on filedocumented in this encounter Additional Health Concerns Assessment Noted Time PHQ-9 Depression Total Score: 5 07/25/19 23 9:47 AM EST documented as of this encounter Care Teams Audiovisual Technician Relationship Specialty Start Date End Date Chasidy Kimbrough MD [address] [place] [address] PCP - General Family Medicine 02/14/21 documented as of this encounter
--- OUTSIDE RECORDS SUMMARY | 2024-08-23 14:35 | XMS_ITS | Encounter Summary ---
Author Organization [employer] Address [address] [facility] [address], [place] [address] Care Team Providers Care Pilot Control Operator Helper Name Role Phone Chasidy Kimbrough MD Primary Care Provider [phone] Reason for Referral * Consultation (Routine) - Authorized Specialty Diagnoses / Procedures Referred By Conthemal t Referred To Contact Rheumatology Diagnoses Tenosynovitis of finger Elevated erythrocyte sedimentation rate Positive DANO (antinuclear antibody) Chasidy Kimbrough MD [address] [place] [address] Phone: tel: fax: [facility] [address] [place] [address] Phone: tel: fax: Referral ID Status Reason Start Date Expiration Date Visits Requested Visits Authorized [id number] Authorized Specialty Services Required 4 05/25/2025 6 6 Encounter Details Date Type Department Care Team (Late st Contact Info) Description 05/16/2024 Orders Only [facility] MEDICINE [address] [place], [place] [phone] Chasidy Kimbrough MD [address] [place], [place] [phone] Tenosynovitis of finger (Primary Dx); Elevated erythrocyte [...] Description 11/15/2024 11:00 AM EDT Office Visit [facility] MEDICINE [address] [place], [place] [phone] Chasidy Kimbrough MD [address] [place] [address] Scheduled Referrals Name Type Priority Associated Diagnoses [...] documented as of this encounter Care Teams Pilot Control Operator Helper Relationship Specialty Start Date End Date Chasidy Kimbrough MD [address] [place] [address] PCP - General Family Medicine 02/14/21 documented as of this encounter
--- OUTSIDE RECORDS SUMMARY | 2024-08-23 14:35 | XMS_ITS | Encounter Summary ---
Author Organization [employer] Address [address] [facility] 7t [place] [address] Care Team Providers Care Neurology Stroke Physician Name Role Phone Chasidy Kimbrough MD Primary Care Provider [phone] Reason for Visit * Reason Onset Date Comments HDF 07/25/2024 Encounter Details Date Type Department Care Team ([facility] st Contact Info) Description 07/25/2024 Telephone [facility] MEDICINE [address] [place] [address] Josephine Monge, RN [address] [place] [address] HDF Social History Tobacco Use Types Packs/Day [...] appointment with PCP only. Patient [place] [facility] [place]08[place]07[place] for depression. RN scheduled patient for next HDF with PCP for 08/12/24 at 1pm. Patient did not have any further questions/concerns. Patient to f/u PRN. documented in this encounter Plan of Treatment Upcoming Encounters Date Type Department Care Team (Late st Contact Info) Description 11/15/2024 11:00 AM EDT Office Visit [facility] MEDICINE [address] [place] [address] Chasidy Kimbrough MD [address] [place] [address] documented as of this encounter Visit Diagnoses Not on filedocumented in this encounter Additional Health Concerns Assessment Noted Time PHQ-9 Depression Total Score: 3 11/30/19 24 1:27 PM EDT documented as of this encounter Care Teams Neurology Stroke Physician Relationship Specialty Start Date End Date Chasidy Kimbrough MD [address] [place] [address] PCP - General Family Medicine 02/14/21 documented as of this encounter
--- OUTSIDE RECORDS SUMMARY | 2024-08-23 14:35 | XMS_ITS | Clinical Summary ---
Author Organization [employer] Address [address] [place] [address] 7t [place] [address] Care Team Providers Care Technology Support Analyst Name Role Phone Chasidy Kimbrough MD Primary Care Provider [phone] Allergies Active Allergy Reactions Criticality Noted Date [...] complication, without long-term current use of insulin ([facility]) TEST BLOOD SUGAR TWICE [...] DAILY 270 tablet 02/10/20 Active fish oil (Eastlake-3) 500 MG capsule Take 1 capsule (500 [...] complication, without long-term current use of insulin ([facility]) USE DIRECTED TO TEST [...] associated wi th type 2 diabetes mellitus ([facility]) 07/29/2017 Assessment & Plan (07/25/2022 10:29 AM [...] Description 08/12/2024 1:00 PM EST Office Visit [facility] [address] [place] [phone] Chasidy Kimbrough MD Primary hypertension (Primary Dx); Type 2 diabetes mellitus without complication, without long-term current use of insulin ([facility]); Dietary counseling; Exercise counseling; Overweight; Mild intermittent asthma without complication; Hyperlipidemia associated with type 2 diabetes mellitus ([facility]) ([facility]); Chronic migraine without aura without status migrainosus, not intractable; care home current use of antipsychotic medication 08/12/2024 Travel 07/25/2024 Telephone [facility] [address] [place] [address] Josephine Monge, YOVANY HDF 07/13/[address] [address] Zohreh Tabor RN Results; Referral 07/13/2024 Orders Only [facility] [address] [place] [address] Chasidy Kimbrough MD Memory loss (Primary Dx) 07/07/2024 Orders Only GENERIC EXTERNAL DATA DEPARTMENT Provider, Generic External Data 06/20/2024 Refill [facility] [address] [place] [address] Chasidy Kimbrough MD 06/01/[address] [address] Wesley Sanchez MD Type 2 diabetes mellitus without complication, without long-term current use of insulin ([facility]) from Last 3 Months [...] Description 11/15/2024 11:00 AM EDT Office Visit [facility] [address] [place] [address] Chasidy Kimbrough MD [address] [place] [address] Health Maintenance Due Date Last Done Comments [...] Routine 08/16/2024 4:13 PM EST Primary hypertension care home current use of antipsychotic medication POCT GLYCATED HEMOGLOBIN, TOTAL Routine 08/12/2024 1:08 PM EST Type 2 diabetes mellitus without complication, without long-term current use of insulin ([facility]) POCT GLUCOSE Routine 08/12/2024 1:08 PM EST [...] HGB A1C (08/12/2024 1:08 PM EST) Pathologist [facility] Hemoglobin A1C 6.6(A) 4.0 - 6.0 % QC Media Lot # [id number] Lot# Expiration Date Blood 08/12/2024 1:08 PM EST Chasidy Kimbrough MD POINT OF CARE TEST ENTER/EDIT ORDERABLES Final Result * POCT Glucose (08/12/2024 1:08 PM EST) Pathologist [facility] Glucose Blood, POC 120 60 - 200 mg/dL QC Media Lot # [id number] Lot# Expiration Date Blood Capillary blood specimen / Unknown 08/12/2024 1:08 PM EST Chasidy Kimbrough MD POINT OF CARE TEST ENTER/EDIT ORDERABLES Final Result * Ethanol (07/07/2024 6:52 PM EST) Pathologist [facility] ETHANOL (MG/DL) IN SER/PLAS <10 mg/dL [facility] Comment:Serum/plasma ethanol results are to be used formedical/treatment purposes only. 07/07/2024 6:52 PM EST 07/07/2024 6:54 PM EST Generic External Data Provider LAB BLOOD ORDERAB LES Final Result [facility] [address] [place] [phone] * (ABNORMAL) CBC auto differential (07/07/2024 6:52 PM EST) [facility] White Blood Count 12.3(H) 4.8 - 10.8 X10*3/uL [facility] Red Blood Count 5.08 4.20 - 5.50 X10*6/uL [facility] Hemoglobin 13.7 12.0 - 16.0 g/dl [facility] Hematocrit 42.3 37.0 - 47.0 % [facility] Mean Corpuscular Volume 83.3 80.0 - 98.0 fL [facility] Mean Corpuscular Hemoglobin 27.0 27.0 - 33.0 pg [facility] Mean Corpuscular HGB Conc 32.4 31.0 - 35.0 g/dl [facility] Red Cell Distribution Width 13.8 11.0 - 16.0 % [facility] Platelet Count 321 160 - 400 X10*3/uL [facility] Mean Platelet Volume 9.6 9.4 - 12.3 fL [facility] Neutrophils Percent Auto 64.8 45 - 73 % [facility] Imm Gran Pct Auto 0.3 0.0 - 0.4 % [facility] Lymphocytes Percent Auto 27.3 20 - 40 % [facility] Monocytes Percent Auto 6.4 2 - 11 % [facility] Eosinophils Percent Auto 0.6 0 - 4 % [facility] Basophils Percent Auto 0.6 0 - 2 % [facility] NRBC Pct Auto 0.0 0.0 - 0.2 /100WBC [facility] Neutrophils Absolute Auto 7.9 2.0 - 8.3 x10*3/uL [facility] Imm Gran Abs Auto 0.04(H) 0.00 - 0.03 X10*3/uL [facility] Lymphocytes Absolute Auto 3.4 1.2 - 4.9 X10*3/uL [facility] Monocytes Absolute Auto 0.8 0.1 - 1.2 X10*3/uL [facility] Eosinophils Absolute Auto 0.1 0.0 - 0.4 X10*3/uL [facility] Basophils Absolute Auto 0.1 0.0 - 0.2 X10*3/uL [facility] NRBC Abs Auto 0.000 0.0 - 0.012 X10*3/uL [facility] 07/07/2024 6:52 PM EST 07/07/2024 6:54 PM EST us Generic External Data Provider LAB BLOOD ORDERAB LES Edited Result - Final [facility] [address] [place], [place] [phone] * (ABNORMAL) Comprehensive Metabolic Panel (07/07/2024 6:52 PM EST) Sodium 140 135 - 145 mmol/L [facility] Potassium 3.7 3.3 - 5.1 mmol/L [facility] Chloride 108 96 - 108 mmol/L [facility] Carbon Dioxide 25 22 - 29 mmol/L [facility] Anion Gap 11(L) 12 - 20 [facility] Urea Nitrogen (BUN) 12 9 - 16 mg/dL [facility] Creatinine, Serum 0.63 0.5 - 1.4 mg/dL [facility] Creatinine Clr Calc Pharmacy 97.3 [facility] Comment:Provided height and weight: 165.1 cm,74.843 kg.eGFR (calculated from the MDRD study equation) and eCrCl(calculated from the Cockcroft-Gault equation) are based ondifferent parameters and may not yield comparable results.If eCrCl result is absurd, please check patient'sheight/weight. Estimated Glomerular Filt Rate >60 [facility] Comment:Chronic Kidney Disea se: Estimated GFR < 60 mL/min/1.41t1Eaiiry Kidney Disease: Estimated GFR < 15 mL/min/1.73m2 Glucose 121(H) 60 - 115 mg/dL [facility] Calcium 10.4(H) 8.4 - 10.2 mg/dL [facility] Bilirubin, Total 0.2 0.0 - 1.0 mg/dL [facility] Aspartate Amino Transferase 19 5 - 31 U/L [facility] Alanine Aminotransferase 11 0 - 31 U/L [facility] Total Protein 8.5(H) 6.5 - 8.0 g/dL [facility] Albumin Level 4.3 3.5 - 5.0 g/dL [facility] Alkaline Phosphatase 79 39 - 117 U/L [facility] 07/07/2024 6:52 PM EST 07/07/2024 6:54 PM EST Generic External Data Provider LAB BLOOD ORDERAB LES Final Result Performing Organization Address City/[facility]/ZIP Co de Phone Number [facility] [address] [place] [phone] * (ABNORMAL) Urinalysis, Complete, with Reflex to Culture (07/07/2024 6:11 PM EST) Color Urine Yellow [facility] Appearance Urine Clear [facility] PH 7.0 5.0 - 9.0 [facility] Glucose Urine UA Negative Negative mg/dL [facility] Urine Blood Small (1+)(A) Negative [facility] Specific Empire - Urine 1.015 1.005 - 1.025 [facility] Urine Protein 30 (1+)(A) Neg-Trace mg/dL [facility] Urine Ketones Negative Negative mg/dL [facility] Nitrite Urine Negative Negative [facility] Leukocyte Esterase Urine Negative Negative [facility] RBC Urine 11-20(A) 0 - 2 /HPF [facility] Urine WBC 0-5 0 - 5 /HPF [facility] Urine Squamous Epithelial Cell 3-5 0 - 2 /HPF [facility] Urine Bacteria Trace None Seen [facility] Hyaline Casts, Urine 0-2 0 - 2 /LPF [facility] 07/07/2024 6:11 PM EST 07/07/2024 6:14 PM EST Narrative [facility] - 07/07/2024 6:28 PM EST [id number], Clean Catch us Generic External Data Provider LAB URINE ORDERAB LES Final Result Performing Organization Address [facility] Co de Phone Number [facility] [address] [place] [phone] * Drug Monitoring, Panel 1, Screen, Urine (07/07/2024 6:11 PM EST) Opiate Screen Urine Not Detected Not Detect [facility] Comment:Opiate cut-off is 30 0 ng/mL.Positive results are unconfirmed and should not be used fornon-medical purposes. Barbiturates, Urine Not Detected Not Detect [facility] Comment:Barbiturate cut-off is 200 ng/mL.Positive results are unconfirmed and should not be used fornon-medical purposes. Phencyclidine Screen Urine Not Detected Not Detect [facility] Comment:Phencyclidine cut-of f is 25 ng/mL.Positive results are unconfirmed and should not be used fornon-medical purposes. Amphetamine Screen Urine Not Detected Not Detect [facility] Comment:Amphetamine cut-off is 1000 ng/mL.Positive results are unconfirmed and should not be used fornon-medical purposes. Benzodiazepines Screen Urine Not Detected Not Detect [facility] Comment:Benzodiazepine cut-o ff is 200 ng/mL.Positive results are unconfirmed and should not be used fornon-medical purposes. Cocaine Screen Urine Not Detected Not Detect [facility] Comment:Cocaine cut-off is 3 00 ng/mL.Positive results are unconfirmed and should not be used fornon-medical purposes. Cannabinoid Screen Urine Not Detected Not Detect [facility] Comment:Cannabinoid cut-off is 50 ng/mL.Positive results are unconfirmed and should not be used fornon-medical purposes. Methadone Screen, Urine Not Detected Not Detect ng/mL [facility] Comment:Methadone cut-off is 300 ng/mL.Positive results are unconfirmed and should not be used fornon-medical purposes. FENTANYL URINE Not Detected Not Detect [facility] Comment:Fentanyl cut-off is 1 ng/mL.Positive results are unconfirmed and should not be used fornon-medical purposes. Oxycodone Urine Screen Not Detected Not Detect ng/mL [facility] Comment:Oxycodone cut-off is 100 ng/mL.Positive results are unconfirmed and should not be used fornon-medical purposes. Buprenorphine Screen Not Detected Not Detect ng/mL [facility] Comment:Buprenorphine cut-of f is 5 ng/mL.Positive results are unconfirmed and should not be used fornon-medical purposes. 07/07/2024 6:11 PM EST 07/07/2024 6:14 PM EST us Generic External Data Provider LAB URINE ORDERAB LES Final Result Performing Organization Address City/[facility]/ZIP Co de Phone Number [facility] [address] [place] [phone] * Hepatitis Panel, General (05/09/2024 4:30 PM EST) Hepatitis A IgM Nonreactive Nonreactive [facility] Comment:IgM antibodies to GALAVIZ V not detected; does not exclude earlyacute or recovered HAV infection. ~Hepatitis B Surface Antibody REACTIVE Nonreactive [facility] Comment:REACTIVE: > 11.99 mI U/mL Hepatitis B Core Antibody Nonreactive Nonreactive [facility] Hepatitis C Antibody Nonreactive Nonreactive [facility] Comment:Antibodies to HCV no t detected; does not exclude early acuteHCV infection. Hepatitis B Surface Ag Negative Negative [facility] Blood 05/09/2024 4:30 PM EST 05/09/2024 5:40 PM EST Mona Morris MD LAB BLOOD ORDERABLES Fin al Result Performing Organization Address City/[facility]/ZIP Co de Phone Number [facility] [address] [place] [phone] * Albumin, Random Urine W/Creatinine (11/30/2023 1:19 PM EDT) Creatinine, Urine 118.88 mg/dL [facility] Microalbumin Urine 30.0 mg/L [facility] Microalbum Creatinine Ratio Ur 25.2 <30 ug/mg cr [facility] Comment:Albumin/Creatinine R atio Reference Ranges: Normal: < 30 ug/mg creatinine Microalbuminuria: 30 - 300 ug/mg creatinineClinical Albuminuria: > 300 ug/mg creatinine Urine (Urine, Random) 11/30/2023 1:19 PM EDT 11/30/2023 3:55 PM EDT us Chasidy Kimbrough MD LAB URINE ORDERABLES Final Res ult Performing Organization Address [facility] Co de Phone Number [facility] [address] [place] [phone] * HIV-1/2 Antigen and Antibodies, Fourth Generation, with Reflexes (11/30/2023 1:19 PM EDT) HIV AB/AG Nonreactive Nonreactive [facility] Comment:HIV-1 p24 Ag and/or HIV-1/HIV-2 Ab not detected.A test result that is nonreactive does not exclude thepossibility of exposure to or infection with HIV-1 and/orHIV-2. Nonreactive results in this assay for individualswith prior exposure to HIV-1 and/or HIV-2 may be due toantigen and antibody levels that are below the limit ofdetection of this assay.[facility] HIV Ag/Ab Combo assay result andsupplemental assay results should be interpreted inconjunction with the patient's clinical presentation,history and other laboratory results. If the results areinconsistent with clinical evidence, additional testing issuggested to confirm the result. Blood Venous blood specimen / Unknown 11/30/2023 1:19 PM EDT 11/30/2023 3:56 PM EDT us Chasidy Kimbrough MD LAB BLOOD ORDERABLES Final Res ult Performing Organization Address [facility]/ZIP Co de Phone Number [facility] [address] [place] [phone] * (ABNORMAL) Lipid Panel, Standard (11/30/2023 1:19 PM EDT) Triglycerides 114 <150 mg/dL [facility] Comment:Desirable Triglyceri de: less than 150 mg/dLBorderline High Triglyceride 150-199 mg/dLHigh Triglyceride: 200-499 mg/dLVery High Triglyceride: greater than or equal to 5OO mg/dL Cholesterol 229(H) <200 mg/dL [facility] Comment:Desirable Cholestero l: less than 200 mg/dLBorderline High Cholesterol: 200-239 mg/dLHigh Cholesterol: greater than 239 mg/dL LDL Cholesterol Calculated 143(H) <100 mg/dL [facility] Comment:Desirable LDL: less than 100 mg/dLNear Optimal/Above Optimal LDL: 110- 129 mg/dLBorderline High LDL: 130-159 mg/dLHigh LDL: 160-189 mg/dLVery High LDL: greater than or equal to 190 mg/dL HDL Cholesterol 64 >40 mg/dL [facility] Comment:Desirable HDL: great er than 40 mg/dL Note: This HDL assay may give artificially low results in patients with liver disease. Blood Venous blood specimen / Unknown 11/30/2023 1:19 PM EDT 11/30/2023 3:56 PM EDT us Chasidy Kimbrough MD LAB BLOOD ORDERABLES Final Res ult Performing Organization Address [facility]/State/[facility] Co de Phone Number [facility] [address] [place] [phone] * BI US Breast Limited Left (11/04/2023 2:27 PM EDT) Anatomical Region Laterality Modality Breast Left Ultrasound 11/04/2023 2:27 PM EDT Narrative 11/05/2023 10:28 AM EDT ? [facility] ? [address] [facility] ?[place] [address] ? Ultrasound Report ? Signed ? Patient: Roddy Artreche,Cynthia O ?MR#: ?? [id number] ? : 1965 ?Acct:[id number] ? Age/Sex: 58 / F ?ADM Date: 05/22/24 ? Loc: HO.MAMMO ? Attending Dr: Chasidy Kimbrough MD ? Ordering Physician: Chasidy Kimbrough ?? Date of Service: 11/04/23 ?? Procedure(s): US breast LT limited mamm only ?? Accession Number(s): [id number] ? cc: Chasidy Kimbrough ? EXAMINATION: ?? [...] 1024 ? DD/ 1427 ? TD/TT: ? Graphics Coordinator: ? Procedure Note Carlos, Image - 11/05/2023 [facility] [address] [place] [address] Dr. Hsieh, LYRIC [address] Ultrasound Report Signed Patient: Cynthia Stuart OMR#: [id number] : 1965Acct:[id number] Age/Sex: 58 / FADM Date: 11/04/23 Loc: [facility] Attending Dr: Chasidy Kimbrough MD Ordering Physician: Chasidy Kimbrough Date of Service: 11/04/23 Procedure(s): US breast LT limited mamm only Accession Number(s): [id number] cc: Chasidy Kimbrough EXAMINATION: MM DIAGNOSTIC DIGITAL [...] in OV> 11/05/23 1024 DD/ 1427 TD/TT: Graphics Coordinator: us Chasidy Kimbrough MD IMG US PROCEDURES Final Result from Last 3 Months or Most Recently Relevant to Health Maintenance Insurance [facility] C3 Care Teams Technology Support Analyst Relationship Specialty Start Date End Date Chasidy Kimbrough MD [address] [place] [phone] PCP - General Family Medicine 02/14/21
--- OUTSIDE RECORDS SUMMARY | 2024-08-23 14:35 | XMS_ITS | Encounter Summary ---
Author Organization [facility] [facility] Address [address] [place] [address] [address] [address] Care Team Providers Care Cigar Machine Feeder Name Role Phone Chasidy Kimbrough MD Primary Care Provider [phone] Reason for Referral * Consultation (Routine) - Authorized Specialty Diagnoses / Procedures Referred By Conthemal t Referred To Contact Gastroenterology Diagnoses Other dysphagia Chasidy Kimbrough MD [address] [place] [address] Phone: tel: fax: [address] Phone: tel: fax: Referral ID Status Reason Start Date Expiration Date Visits Requested Visits Authorized [id number] Authorized Specialty Services Required 01/02/2024 01/01/2025 6 6 Encounter Details Date Type Department Care Team (Late st Contact Info) Description 12/30/2023 Orders Only [facility] [address] [place], [place] [phone] Chasidy Kimbrough MD [address] [place], [place] [phone] Other dysphagia (Primary Dx) Social History Tobacco [...] Description 11/15/2024 11:00 AM EDT Office Visit [facility] [address] [place] [address] Chasidy Kimbrough MD [address] [place] [address] Scheduled Referrals Name Type Priority Associated Diagnoses Order Schedule Referral to Gastroenterology Outpatient Referral Routine Other dysphagia Expected: 12/30/2023 (Approximate), Expires: 12/29/2024 documented as of this encounter Visit Diagnoses Diagnosis Other dysphagia- Primary documented in this encounter Additional Health Concerns Assessment Noted Time PHQ-9 Depression Total Score: 3 11/30/19 24 1:27 PM EDT documented as of this encounter Care Teams Cigar Machine Feeder Relationship Specialty Start Date End Date Chasidy Kimbrough MD [address] [place] [phone] PCP - General Family Medicine 02/14/21 documented as of this encounter
--- OUTSIDE RECORDS SUMMARY | 2024-08-23 14:35 | XMS_ITS | Encounter Summary ---
Author Organization [employer] Address [address] [facility] [address] [place] [address] Care Team Providers Care Legal Billing Coordinator Name Role Phone Chasidy Kimbrough MD Primary Care Provider Encounter Details Date Type Department Care Team (Late st Contact Info) Description 08/31/2023 Telephone [facility] [address] [place], [place] [phone] Chasidy Kimbrough MD [address] [place], [place] [phone] Social History Tobacco Use Types Packs/Day Years [...] Description 11/15/2024 11:00 AM EDT Office Visit [facility] [address] [place] [address] [phone] Chasidy Kimbrough MD [address] [place] [phone] documented as of this encounter Visit Diagnoses Not on filedocumented in this encounter Additional Health Concerns Assessment Noted Time PHQ-9 Depression Total Score: 5 07/25/19 23 9:47 AM EST documented as of this encounter Care Teams Legal Billing Coordinator Relationship Specialty Start Date End Date Chasidy Kimbrough MD [address] [place] [phone] PCP - General Family Medicine 02/14/21 documented as of this encounter
--- OUTSIDE RECORDS SUMMARY | 2024-08-23 14:35 | XMS_ITS | Encounter Summary ---
Author Organization [employer] Address [address] [place] [address] 7 [place] [address] Care Team Providers Care Molding Utility Worker Name Role Phone Chasidy Kimbrough MD Primary Care Provider [phone] Reason for Visit * Reason Comments Hospital Follow-up Encounter Details Date Type Department Care Team (Latest Contact Info) Description 08/12/2024 1:00 PM EST Office Visit [facility] MEDICINE [address] [place], [place] [phone] Chasidy Kimbrough MD [address] [place], [place] [phone] Primary hypertension (Primary Dx); Type 2 diabetes mellitus without complication, without long-term current use of insulin (CMS/HCC); Dietary counseling; Exercise counseling; Overweight; Mild intermittent asthma without complication; Hyperlipidemia associated with type 2 diabetes mellitus (CMS/HCC) ([facility]/HCC); Chronic migraine without aura without status migrainosus, not intractable; [facility] current use of antipsychotic medication Social History [...] ASA, started today. 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 regimen of Spiriva and [...] Background Pharmacist Erin Jarrell, AdrianaD and pharmacy retail support specialist Staci Loco contacted patient to discuss upcominghospital discharge visit for depression : Future Appointments Date Time Provider Department Center 08/12/2024 1:00 PM Chasidy Kimbrough MD MEDICINE [facility] Hospital Course and Medication Reconciliation [facility] 07/08/24 07/19/24 Patient with PMH of mood [...] mg tab: 2.5mg by mouth twice daily Kallkcivsy-aziutxcpqpgjj-qmhxpruk 50-325-40mg tab: 1 tablet by mouth every 4 hours as needed for migraine headache Bupropion HCl 150mg tab ER 24hr: 150mg by mouth daily - on EHR prior to hospitalization however fill history suggests non-adherence Vicks Vapor Rub: 1 appful topical twice daily as needed Changed: none Discontinued: Aripiprazole Preferred Pharmacy: [facility] - [address] [facility] [id number] Medbox: No Patient Reported History Patient was unable to complete med rec as they kept getting confused about medication names and unable to locate vials Agreed to ask daughter for updated medication list to bring to appointment Confirmed and agreeable to [facility] appointment as listed above Provider Recommendations Please ensure patient is not taking ibuprofen with naproxen due to duplication of therapy and increased risk of side effects. Ibuprofen removed from medlist as it was last filled 03/05/24 and was for a 17 day supply Pharmacist Notes [facility] contacted Dr. Kade Cardoza's office to confirm medication regimen as aripiprazole was renewed by their office on 08/01/24 along with other medications not listed on discharge summary Spoke with Dr. Kj Cardoza's hotel assistant manager Portia who confirmed the following regimen as of theirlast visit on 08/01/24: aripiprazole 20 mg once daily, bupropion XL 300 mg +150 mg once daily, fluoxetine 20 mg - 3 caps once daily, trazodone 150 mg - 2 tabs at bedtime [facility] inquired as to whether patient [...] associated with type 2 diabetes mellitus (CMS/HCC) ([facility]) Hypertensive disorder - Primary Relevant Orders ECG 12 lead (Completed) Mild intermittent asthma Type 2 diabetes mellitus without complication ([facility]) Current Assessment & Plan Cont [...] Visit Diagnoses Dietary counseling Exercise counseling Overweight [facility] current use of antipsychotic medication Relevant Orders [...] Blood Pressure Monitoring (Blood Pressure Monitor/M Cuff) [facility], Use kit to measure blood pressure once daily, Disp: 1 each, Rfl: 0 buPROPion XL (Wellbutrin XL) 150 MG 24 hr tablet, Take 150 mg by mouth in the morning., Disp: , Rfl: buPROPion XL (Wellbutrin XL) 300 MG 24 hr tablet, Take 300 mg by mouth in the morning., Disp: , Rfl: dpzhhcxvmd-vrbcwomhrcjbf-xobsayyb 50-325-40 MG tablet, Take 1 tablet by mouth every 6 (six) hours if needed for migraine (max 2 tablets per week)., Disp: 10 tablet, Rfl: 3 cholecalciferol (Vitamin D-3) 50 MCG (2000 UT) tablet, Take 1 tablet (50 mcg) by mouth in the morning., Disp: 90 tablet, Rfl: 3 fish oil ([place]-3) 500 MG capsule, Take 1 capsule (500 [...] bedtime., Disp: , Rfl: TRUEplus Lancets 33G [facility], USE DIRECTED TO TEST BLOOD SUGAR TWICE DAILY, Disp: 100 each, Rfl: 3 Icelandic Translation: Provided by [facility] staff member JAMES Corbin documented in this [...] 11:00 AM EDT Office Visit [facility] MEDICINE [address] [place] [address] Chasidy Kimbrough MD [address] [place] [address] documented as of this encounter Procedures Procedure Name Priority Date/Time Associated Diagnosis Comments ECG 12-LEAD Routine 08/16/2024 4:13 PM EST 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 hypertension 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 medication POCT GLYCATED [...] complication, without long-term current use of insulin ([facility]) Dietary counseling Dietary surveillance and counseling Exercise counseling Overweight Mild intermittent asthma without complication Hyperlipidemia associated with type 2 diabetes mellitus ([facility]) ([facility]) Chronic migraine without aura without status migrainosus, not intractable [facility] current use of antipsychotic medication documented in this encounter Additional Health Concerns Assessment Noted Time PHQ-9 Depression Total Score: 3 11/30/19 24 1:27 PM EDT documented as of this encounter Care Teams Molding Utility Worker Relationship Specialty Start Date End Date Chasidy Kimbrough MD [address] [place] [address] PCP - General Family Medicine 02/14/21 documented as of this encounter
--- OUTSIDE RECORDS SUMMARY | 2024-08-23 14:35 | XMS_ITS | Encounter Summary ---
Author Organization [employer] Address [address] [place] [address] 7 [place] [address] Care Team Providers Care Pole Incisor Operator Name Role Phone Chasidy Kimbrough MD Primary Care Provider Reason for Referral * Consultation (Routine) - Authorized Specialty Diagnoses / Procedures Referred By Conthemal esposito Referred To Contact Neurology Diagnoses Memory loss Chasidy Kimbrough MD [address] [place] [address] Phone: tel: fax: [facility] Referral ID Status Reason Start Date Expiration Date Visits Requested Visits Authorized [id number] Authorized Specialty Services Required 07/18/2024 07/18/2025 6 6 Encounter Details Date Type Department Care Team (Late st Contact Info) Description 07/13/2024 Orders Only [facility] MEDICINE [address] [place], [place] [phone] Chasidy Kimbrough MD [address] [place], [place] [phone] Memory loss (Primary Dx) Social History Tobacco [...] Description 11/15/2024 11:00 AM EDT Office Visit [facility] MEDICINE [address] [place] [address] Chasidy Kimbrough MD [address] [place] [address] Scheduled Referrals Name Type Priority Associated Diagnoses Orde r Schedule Referral to Neurology Outpatient Referral Routine Memory loss Expected: 07/13/2024 (Approximate), Expires: 07/13/2025 documented as of this encounter Visit Diagnoses Diagnosis Memory loss- Primary documented in this encounter Additional Health Concerns Assessment Noted Time PHQ-9 Depression Total Score: 3 11/30/19 24 1:27 PM EDT documented as of this encounter Care Teams Pole Incisor Operator Relationship Specialty Start Date End Date Chasidy Kimbrough MD [address] [place] [address] PCP - General Family Medicine 02/14/21 documented as of this encounter
--- OUTSIDE RECORDS SUMMARY | 2024-08-23 14:35 | XMS_ITS | Encounter Summary ---
Author Organization [employer] Address [address] [facility] 7t [place] [address] Care Team Providers Care Young Adult Librarian Name Role Phone Chasidy Kimbrough MD Primary Care Provider [phone] Encounter Details Date Type Department Care Team [...] Office Visit [facility] MEDICINE [address] [place] [address] Chasidy Kimbrough MD [address] [place] [address] documented as of this encounter Visit Diagnoses Not on filedocumented in this encounter Additional Health Concerns Assessment Noted Time PHQ-9 Depression Total Score: 3 11/30/19 24 1:27 PM EDT documented as of this encounter Care Teams Young Adult Librarian Relationship Specialty Start Date End Date Chasidy Kimbrough MD [address] [place] [address] PCP - General Family Medicine 02/14/21 documented as of this encounter
== END 2024-08-23 10:51 | disposition home or self-care (01) ==
LOC: HO.XRAY 10:50
PROVIDERS: PCP General Practice; Visit Provider Nurse Practitioner Family
DX: K22.2 Esophageal obstruction (principal); K21.9 Gastro-esophageal reflux disease without esophagitis; R13.12 Dysphagia, oropharyngeal phase; R10.13 Epigastric pain
CPT/HCPCS: 70360; 99212

== ENCOUNTER 2024-08-23 10:50 | Outpatient (AMB) | payer MEDICAID, SELFPAY ==
--- NOTE | 2024-08-23 10:54 | MHC.OFFVIS ---
Vital Signs 08/23/24 11:04 Height 5 ft 5 in Weight 175 lb 14.862 oz BMI 29.3 BP 142/82 H Blood Pressure Location Rt brachial Position Sitting Pulse 60 Pulse Source Pulse Oximeter Pulse Oximetry (%) 100 Oxygen Delivery Method Room Air Intake Visit Reasons: Dysphagia Intake Note: NEW PATIENT for evaluation of hiatal hernia w/ complications (dysphagia / achalasia, and unintentional weight loss) Prior hx of colo/egd? N, BA FL done to this point. Chief Complaint; C.O nausea w/o vomiting, reflux w/ dysphagia. No additional GI concerns at this time. Pt still taking all medications as instructed. Juvenile Court Judge Required: Yes Juvenile Court Judge Services: Juvenile Court Judge Offered & Declined Juvenile Court Judge Name: Daughter Information Interpreted: non-clinical & clinical Accompanied by: Daughter Allergies trazodone [TRAZODONE] Allergy (Intermediate, Verified 08/23/24 10:55) PROLONGED QT INTERVAL (PER H&P) HPI HPI Dysphagia: Details: 59-year-old female with past medical history of asthma, hyperlipidemia, depression, migraine headaches, hypertension, diabetes, osteoarthritis, depression, interstitial cystitis and thyroid nodule is here today for initial consultation. Patient was sent to us by her PCP. Back in December 2023 patient had barium swallow that was ordered by PCP and cry cricopharyngeal achalasia was seen as well as disorganized esophageal motility as well as possible gastritis. Patient was placed on 20 mg of omeprazole. Reports that she is not feeling that this is helpful. Patient had upper endoscopy done in the past, however she reports that that was many years ago. Patient reports that her symptoms have been lasting for the past 8 months. The symptoms are getting worse. She reports trouble swallowing, multiple times swallowing before she feels like the food is going down to her stomach. Patient reports acid reflux sometimes going up all the way to her throat. Patient denies eating late at night. She is trying to avoid dietary triggers. Sometimes reporting that symptoms when drinking water. Patient was diagnosed with nodule in her thyroid about a year ago or so. Patient denies nausea or vomiting. Denies dyspepsia or odynophagia. Patient reports feeling scratchy throat. She has a history of asthma and is on corticosteroid inhaler. Patient reports that she does rinse her mouth after using it. Patient is reporting that she moves her bowels well. Denies melena, hematochezia, unintentional weight loss or ribbon like stools. Patient reports that she never had colonoscopy in the past. [facility] Medical History (Updated 08/23/24 @ 20:36 by Margoth White [facility]) Diabetes education, encounter for GERD (gastroesophageal reflux disease) Asthma Elevated cholesterol PONV (postoperative nausea and vomiting) Diabetes Tietze syndrome Kidney calculi Depression HTN (hypertension) Surgical History History of umbilical hernia repair History of ventral hernia repair History of cystoscopy Hx of cholecystectomy History of excision of mass H/O: hysterectomy Family History Father Throat cancer Maternal Aunt Breast cancer Social History Household Members: None Household Members Other:: pt. lives alone. 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 Sexual orientation: Straight/Heterosexual Review of Systems Const Denies weight gain and Denies weight loss ENT Reports no additional complaints, Reports dysphagia and Denies odynophagia Card Reports no additional complaints Resp Reports no additional complaints GI Reports abdominal pain (Epigastric), Denies belching, Denies melena, Reports bloating, Denies change in bowel habits, Reports dysphagia, Denies excessive flatus, Denies dyspepsia, Reports heartburn, Denies diarrhea, Denies loose stools, Denies nausea, Denies odynophagia and Denies vomiting Reports no additional complaints Musc Reports no additional complaints Neuro Reports no additional complaints Psych Reports no additional complaints Endo Reports no additional complaints Physical Exam Vital Signs: Last Vital Signs Pulse 60 08/23/24 11:04 BP 142/82 H 08/23/24 11:04 Pulse Ox 100 08/23/24 11:04 Oxygen Delivery Method Room Air 08/23/24 11:04 BMI result Body Mass Index 29.3 Const General: healthy appearing and no acute distress Nutritional Appearance: obese Orientation/consciousness: patient oriented x3 Resp Effort & Inspection: normal respiratory effort, able to speak in complete sentences, no tracheal deviation and symmetric chest movement Auscultation: clear to auscultation bilaterally Cardio Rate: regular rate GI Inspection: Yes normal to inspection, No distended and Yes obesity Palpation (GI): Soft to palpation, not firm, nontender and No hepatosplenomegaly present Auscultation: normal bowel sounds General: Yes no CVA tenderness Back/Spine/Pelvis Back: no CVA tenderness Skin General skin exam: elasticity normal, turgor normal and dry skin Neuro General: patient oriented x3 Psych Appearance: grossly normal Mental Status: mental status grossly normal Results Reviewed Results Reviewed: BARIUM SWALLOW DECEMBER OF 2023 IMPRESSION: 1. Mild cricopharyngeal achalasia 2. Moderately disorganized esophageal peristalsis 3. Small type I hiatal hernia 4. Mildly thickened gastric rugal folds. In addition there are a few tiny foci of contrast pooling in the fundus of the stomach. These findings are suggestive of erosive gastritis. Recommend correlation with EGD. 5. Moderate size diverticulum in the distal third segment of the duodenum. Assessment & Plan Assessment & Plan (1) GERD (gastroesophageal reflux disease): Code(s): K21.9 - Gastro-esophageal reflux disease without esophagitis Category: Medical Qualifiers: Esophagitis presence: esophagitis presence not specified Qualified Code(s): K21.9 - Gastro-esophageal reflux disease without esophagitis (2) Dysphagia: Code(s): R13.10 - Dysphagia, unspecified Qualifiers: Dysphagia type: oropharyngeal phase Qualified Code(s): R13.12 - Dysphagia, oropharyngeal phase (3) Postprandial epigastric pain: Code(s): R10.13 - Epigastric pain Plan Will send patient for x-ray of her neck. Patient reports trouble swallowing in her throat. Will rule out any obstructions. Her symptoms are most likely related to reflux that is not very well controlled. Disorganized esophageal motility could be caused by severe reflux and weakness in her esophageal muscle related to inflammation. Patient will be started on Nexium 40 mg daily. Patient will try to avoid dietary triggers in late night snacking. Staying upright for minimal 3 hours after meals discussed with patient. Patient will return in 2 months. Message sent to Surgical schedules to call patient and bulk procedure. We will send her for upper endoscopy. Because patient had never had colonoscopy she will be sent for colonoscopy as well. Patient is agreeing to both of the procedures. Patient will call our office if she will have any GI concerning symptoms. Both patient and her daughter are agreeable to current plan of care and verbalizes understanding of instructions. They were given the opportunity to ask questions and all questions answered. Thank you for allowing me to participate in her care Orders: Orders XR soft tissue neck Today K22.2 - Esophageal obstruction Medications: New esomeprazole magnesium (Nexium) 40 mg PO DAILY 30 caps 5RF K21.9 - Gastro-esophageal reflux disease without esophagitis Coding Level of Care Code New Pt Level 4 (33832) Diagnoses Gastroesophageal reflux disease, unspecified whether esophagitis present K21.9 Esophagitis presence: esophagitis presence not specified Oropharyngeal dysphagia R13.12 Dysphagia type: oropharyngeal phase Postprandial epigastric pain R10.13 Time Spent (min) 45 Comment 30 minutes spent with patient and additional 15 minute spent reviewing her records
[2024-08-23 11:04] VITALS: BP 142/82; PULSE 60; O2SAT 100; BMI 29.3
--- OUTSIDE RECORDS SUMMARY | 2024-08-23 13:12 | XMS_ITS | Clinical Summary ---
Author Organization [employer] Address [address] [place] [address] [address] [place] [address] Care Team Providers Care Personal Driver Name Role Phone Chasidy Kimbrough MD Primary Care Provider [phone] Allergies Active Allergy Reactions Criticality Noted Date [...] complication, without long-term current use of insulin ([facility]) TEST BLOOD SUGAR TWICE DAILY DIRECTED 100 [...] DAILY 270 tablet 02/10/20 Active fish oil (Desdemona-3) 500 MG capsule Take 1 capsule (500 [...] complication, without long-term current use of insulin ([facility]) USE DIRECTED TO TEST BLOOD SUGAR TWICE [...] associated wi th type 2 diabetes mellitus ([facility]) 07/29/2017 Assessment & Plan (07/25/2022 10:29 [...] Description 08/12/2024 1:00 PM EST Office Visit [facility] [address] [place] [phone] Chasidy Kimbrough MD Primary hypertension (Primary Dx); Type 2 diabetes mellitus without complication, without long-term current use of insulin ([facility]); Dietary counseling; Exercise counseling; Overweight; Mild intermittent asthma without complication; Hyperlipidemia associated with type 2 diabetes mellitus ([facility]) ([facility]); Chronic migraine without aura without status migrainosus, not intractable; skilled nursing current use of antipsychotic medication 08/12/2024 Travel 07/25/2024 Telephone [facility] [address] [place] [address] Josephine Monge, YOVANY HDF 07/13/[address] [address] Zohreh Tabor RN Results; Referral 07/13/2024 Orders Only [facility] [address] [place] [address] Chasidy Kimbrough MD Memory loss (Primary Dx) 07/07/2024 Orders Only GENERIC EXTERNAL DATA DEPARTMENT Provider, Generic External Data 06/20/2024 Refill [facility] [address] [place] [address] Chasidy Kimbrough MD 06/01/[address] [address] Wesley Sanchez MD Type 2 diabetes mellitus without complication, without long-term current use of insulin ([facility]) from Last 3 Months Immunizations Name Administration [...] 08/12/2024 12:58 PM EST Plan of Treatment Upcoming Encounters Date Type Department Care Team (Late st Contact Info) Description 11/15/2024 11:00 AM EDT Office Visit [facility] [address] [place] [address] Chasidy Kimbrough MD [address] [place] [address] Health Maintenance Due Date Last Done Comments [...] 11/30/2023, 05/07/2020, 05/18/2019 Lipid Panel 11/29/2024 11/30/2023, 07/, 10/25/2021, Additional history exists Diabetes: Hemoglobin A1C [...] Routine 08/16/2024 4:13 PM EST Primary hypertension skilled nursing current use of antipsychotic medication POCT GLYCATED HEMOGLOBIN, TOTAL Routine 08/12/2024 1:08 PM EST Type 2 diabetes mellitus without complication, without long-term current use of insulin ([facility]) POCT GLUCOSE Routine 08/12/2024 1:08 PM EST [...] ECG 12 lead (08/16/2024 4:13 PM EST) Chasidy Forbes MD - 08/16/2024 4:13 PM EST NR, Qtc 423, VR 87 Chasidy Kimbrough MD ECG ORDERABLES Final Result * (ABNORMAL) POCT HGB A1C (08/12/2024 1:08 PM EST) Pathologist [facility] Hemoglobin A1C 6.6(A) 4.0 - 6.0 % QC Media Lot # [id number] Lot# Expiration Date Blood 08/12/2024 1:08 PM EST Chasidy Kimbrough MD POINT OF CARE TEST ENTER/EDIT ORDERABLES Final Result * POCT Glucose (08/12/2024 1:08 PM EST) Pathologist [facility] Glucose Blood, POC 120 60 - 200 mg/dL QC Media Lot # [id number] Lot# Expiration Date Blood Capillary blood specimen / Unknown 08/12/2024 1:08 PM EST Chasidy Kimbrough MD POINT OF CARE TEST ENTER/EDIT ORDERABLES Final Result * Ethanol (07/07/2024 6:52 PM EST) Pathologist [facility] ETHANOL (MG/DL) IN SER/PLAS <10 mg/dL [facility] Comment:Serum/plasma ethanol results are to be used formedical/treatment purposes only. 07/07/2024 6:52 PM EST 07/07/2024 6:54 PM EST Generic External Data Provider LAB BLOOD ORDERAB LES Final Result [facility] [address] [place] [phone] * (ABNORMAL) CBC auto differential (07/07/2024 6:52 PM EST) [facility] White Blood Count 12.3(H) 4.8 - 10.8 X10*3/uL [facility] Red Blood Count 5.08 4.20 - 5.50 X10*6/uL [facility] Hemoglobin 13.7 12.0 - 16.0 g/dl [facility] Hematocrit 42.3 37.0 - 47.0 % [facility] Mean Corpuscular Volume 83.3 80.0 - 98.0 fL [facility] Mean Corpuscular Hemoglobin 27.0 27.0 - 33.0 pg [facility] Mean Corpuscular HGB Conc 32.4 31.0 - 35.0 g/dl [facility] Red Cell Distribution Width 13.8 11.0 - 16.0 % [facility] Platelet Count 321 160 - 400 X10*3/uL [facility] Mean Platelet Volume 9.6 9.4 - 12.3 fL [facility] Neutrophils Percent Auto 64.8 45 - 73 % [facility] Imm Gran Pct Auto 0.3 0.0 - 0.4 % [facility] Lymphocytes Percent Auto 27.3 20 - 40 % [facility] Monocytes Percent Auto 6.4 2 - 11 % [facility] Eosinophils Percent Auto 0.6 0 - 4 % [facility] Basophils Percent Auto 0.6 0 - 2 % [facility] NRBC Pct Auto 0.0 0.0 - 0.2 /100WBC [facility] Neutrophils Absolute Auto 7.9 2.0 - 8.3 x10*3/uL [facility] Imm Gran Abs Auto 0.04(H) 0.00 - 0.03 X10*3/uL [facility] Lymphocytes Absolute Auto 3.4 1.2 - 4.9 X10*3/uL [facility] Monocytes Absolute Auto 0.8 0.1 - 1.2 X10*3/uL [facility] Eosinophils Absolute Auto 0.1 0.0 - 0.4 X10*3/uL [facility] Basophils Absolute Auto 0.1 0.0 - 0.2 X10*3/uL [facility] NRBC Abs Auto 0.000 0.0 - 0.012 X10*3/uL [facility] 07/07/2024 6:52 PM EST 07/07/2024 6:54 PM EST us Generic External Data Provider LAB BLOOD ORDERAB LES Edited Result - Final [facility] [address] [place], [place] [phone] * (ABNORMAL) Comprehensive Metabolic Panel (07/07/2024 6:52 PM EST) Sodium 140 135 - 145 mmol/L [facility] Potassium 3.7 3.3 - 5.1 mmol/L [facility] Chloride 108 96 - 108 mmol/L [facility] Carbon Dioxide 25 22 - 29 mmol/L [facility] Anion Gap 11(L) 12 - 20 [facility] Urea Nitrogen (BUN) 12 9 - 16 mg/dL [facility] Creatinine, Serum 0.63 0.5 - 1.4 mg/dL [facility] Creatinine Clr Calc Pharmacy 97.3 [facility] Comment:Provided height and weight: 165.1 cm,74.843 kg.eGFR (calculated from the MDRD study equation) and eCrCl(calculated from the Cockcroft-Gault equation) are based ondifferent parameters and may not yield comparable results.If eCrCl result is absurd, please check patient'sheight/weight. Estimated Glomerular Filt Rate >60 [facility] Comment:Chronic Kidney Disea se: Estimated GFR < 60 mL/min/1.95a4Tbvuzb Kidney Disease: Estimated GFR < 15 mL/min/1.73m2 Glucose 121(H) 60 - 115 mg/dL [facility] Calcium 10.4(H) 8.4 - 10.2 mg/dL [facility] Bilirubin, Total 0.2 0.0 - 1.0 mg/dL [facility] Aspartate Amino Transferase 19 5 - 31 U/L [facility] Alanine Aminotransferase 11 0 - 31 U/L [facility] Total Protein 8.5(H) 6.5 - 8.0 g/dL [facility] Albumin Level 4.3 3.5 - 5.0 g/dL [facility] Alkaline Phosphatase 79 39 - 117 U/L [facility] 07/07/2024 6:52 PM EST 07/07/2024 6:54 PM EST Generic External Data Provider LAB BLOOD ORDERAB LES Final Result Performing Organization Address City/[facility]/ZIP Co de Phone Number [facility] [address] [place] [address] [phone] * (ABNORMAL) Urinalysis, Complete, with Reflex to Culture (07/07/2024 6:11 PM EST) Color Urine Yellow [facility] Appearance Urine Clear [facility] PH 7.0 5.0 - 9.0 [facility] Glucose Urine UA Negative Negative mg/dL [facility] Urine Blood Small (1+)(A) Negative [facility] Specific Dexter - Urine 1.015 1.005 - 1.025 [facility] Urine Protein 30 (1+)(A) Neg-Trace mg/dL [facility] Urine Ketones Negative Negative mg/dL [facility] Nitrite Urine Negative Negative [facility] Leukocyte Esterase Urine Negative Negative [facility] RBC Urine 11-20(A) 0 - 2 /HPF [facility] Urine WBC 0-5 0 - 5 /HPF [facility] Urine Squamous Epithelial Cell 3-5 0 - 2 /HPF [facility] Urine Bacteria Trace None Seen [facility] Hyaline Casts, Urine 0-2 0 - 2 /LPF [facility] 07/07/2024 6:11 PM EST 07/07/2024 6:14 PM EST Narrative [facility] - 07/07/2024 6:28 PM EST [id number], Clean Catch us Generic External Data Provider LAB URINE ORDERAB LES Final Result Performing Organization Address [facility] Co de Phone Number [facility] [address] [place] [phone] * Drug Monitoring, Panel 1, Screen, Urine (07/07/2024 6:11 PM EST) Opiate Screen Urine Not Detected Not Detect [facility] Comment:Opiate cut-off is 30 0 ng/mL.Positive results are unconfirmed and should not be used fornon-medical purposes. Barbiturates, Urine Not Detected Not Detect [facility] Comment:Barbiturate cut-off is 200 ng/mL.Positive results are unconfirmed and should not be used fornon-medical purposes. Phencyclidine Screen Urine Not Detected Not Detect [facility] Comment:Phencyclidine cut-of f is 25 ng/mL.Positive results are unconfirmed and should not be used fornon-medical purposes. Amphetamine Screen Urine Not Detected Not Detect [facility] Comment:Amphetamine cut-off is 1000 ng/mL.Positive results are unconfirmed and should not be used fornon-medical purposes. Benzodiazepines Screen Urine Not Detected Not Detect [facility] Comment:Benzodiazepine cut-o ff is 200 ng/mL.Positive results are unconfirmed and should not be used fornon-medical purposes. Cocaine Screen Urine Not Detected Not Detect [facility] Comment:Cocaine cut-off is 3 00 ng/mL.Positive results are unconfirmed and should not be used fornon-medical purposes. Cannabinoid Screen Urine Not Detected Not Detect [facility] Comment:Cannabinoid cut-off is 50 ng/mL.Positive results are unconfirmed and should not be used fornon-medical purposes. Methadone Screen, Urine Not Detected Not Detect ng/mL [facility] Comment:Methadone cut-off is 300 ng/mL.Positive results are unconfirmed and should not be used fornon-medical purposes. FENTANYL URINE Not Detected Not Detect [facility] Comment:Fentanyl cut-off is 1 ng/mL.Positive results are unconfirmed and should not be used fornon-medical purposes. Oxycodone Urine Screen Not Detected Not Detect ng/mL [facility] Comment:Oxycodone cut-off is 100 ng/mL.Positive results are unconfirmed and should not be used fornon-medical purposes. Buprenorphine Screen Not Detected Not Detect ng/mL [facility] Comment:Buprenorphine cut-of f is 5 ng/mL.Positive results are unconfirmed and should not be used fornon-medical purposes. 07/07/2024 6:11 PM EST 07/07/2024 6:14 PM EST us Generic External Data Provider LAB URINE ORDERAB LES Final Result Performing Organization Address City/[facility]/ZIP Co de Phone Number [facility] [address] [place] [address] [phone] * Hepatitis Panel, General (05/09/2024 4:30 PM EST) Hepatitis A IgM Nonreactive Nonreactive [facility] Comment:IgM antibodies to GALAVIZ V not detected; does not exclude earlyacute or recovered HAV infection. ~Hepatitis B Surface Antibody REACTIVE Nonreactive [facility] Comment:REACTIVE: > 11.99 mI U/mL Hepatitis B Core Antibody Nonreactive Nonreactive [facility] Hepatitis C Antibody Nonreactive Nonreactive [facility] Comment:Antibodies to HCV no t detected; does not exclude early acuteHCV infection. Hepatitis B Surface Ag Negative Negative [facility] Blood 05/09/2024 4:30 PM EST 05/09/2024 5:40 PM EST Mona Morris MD LAB BLOOD ORDERABLES Fin al Result Performing Organization Address City/[facility]/ZIP Co de Phone Number [facility] [address] [place] [phone] * Albumin, Random Urine W/Creatinine (11/30/2023 1:19 PM EDT) Creatinine, Urine 118.88 mg/dL [facility] Microalbumin Urine 30.0 mg/L [facility] Microalbum Creatinine Ratio Ur 25.2 <30 ug/mg cr [facility] Comment:Albumin/Creatinine R atio Reference Ranges: Normal: < 30 ug/mg creatinine Microalbuminuria: 30 - 300 ug/mg creatinineClinical Albuminuria: > 300 ug/mg creatinine Urine (Urine, Random) 11/30/2023 1:19 PM EDT 11/30/2023 3:55 PM EDT us Chasidy Kimbrough MD LAB URINE ORDERABLES Final Res ult Performing Organization Address [facility] Co de Phone Number [facility] [address] [place] [address] [phone] * HIV-1/2 Antigen and Antibodies, Fourth Generation, with Reflexes (11/30/2023 1:19 PM EDT) HIV AB/AG Nonreactive Nonreactive [facility] Comment:HIV-1 p24 Ag and/or HIV-1/HIV-2 Ab not detected.A test result that is nonreactive does not exclude thepossibility of exposure to or infection with HIV-1 and/orHIV-2. Nonreactive results in this assay for individualswith prior exposure to HIV-1 and/or HIV-2 may be due toantigen and antibody levels that are below the limit ofdetection of this assay.The [employer] HIV Ag/Ab Combo assay result andsupplemental assay results should be interpreted inconjunction with the patient's clinical presentation,history and other laboratory results. If the results areinconsistent with clinical evidence, additional testing issuggested to confirm the result. Blood Venous blood specimen / Unknown 11/30/2023 1:19 PM EDT 11/30/2023 3:56 PM EDT us Chasidy Kimbrough MD LAB BLOOD ORDERABLES Final Res ult Performing Organization Address [facility]/ZIP Co de Phone Number [facility] [address] [place] [address] [phone] * (ABNORMAL) Lipid Panel, Standard (11/30/2023 1:19 PM EDT) Triglycerides 114 <150 mg/dL [facility] Comment:Desirable Triglyceri de: less than 150 mg/dLBorderline High Triglyceride 150-199 mg/dLHigh Triglyceride: 200-499 mg/dLVery High Triglyceride: greater than or equal to 5OO mg/dL Cholesterol 229(H) <200 mg/dL [facility] Comment:Desirable Cholestero l: less than 200 mg/dLBorderline High Cholesterol: 200-239 mg/dLHigh Cholesterol: greater than 239 mg/dL LDL Cholesterol Calculated 143(H) <100 mg/dL [facility] Comment:Desirable LDL: less than 100 mg/dLNear Optimal/Above Optimal LDL: 110- 129 mg/dLBorderline High LDL: 130-159 mg/dLHigh LDL: 160-189 mg/dLVery High LDL: greater than or equal to 190 mg/dL HDL Cholesterol 64 >40 mg/dL [facility] Comment:Desirable HDL: great er than 40 mg/dL Note: This HDL assay may give artificially low results in patients with liver disease. Blood Venous blood specimen / Unknown 11/30/2023 1:19 PM EDT 11/30/2023 3:56 PM EDT us Chasidy Kimbrough MD LAB BLOOD ORDERABLES Final Res ult Performing Organization Address [facility]/State/[facility] Co de Phone Number [facility] [address] [place] [address] [phone] * BI US Breast Limited Left (11/04/2023 2:27 PM EDT) Anatomical Region Laterality Modality Breast Left Ultrasound 11/04/2023 2:27 PM EDT Narrative 11/05/2023 10:28 AM EDT ? [facility] ? [address] [facility] ?[place] [address] ? Ultrasound Report ? Signed ? Patient: Roddy Artreche,Cynthia O ?MR#: ?? [id number] ? : 1965 ?Acct:[id number] ? Age/Sex: 58 / F ?ADM Date: 05/22/24 ? Loc: HO.MAMMO ? Attending Dr: Chasidy Kimbrough MD ? Ordering Physician: Chasidy Kimbrough ?? Date of Service: 11/04/23 ?? Procedure(s): US breast LT limited mamm only ?? Accession Number(s): [id number] ? cc: Chasidy Kimbrough ? EXAMINATION: ?? [...] 1024 ? DD/ 1427 ? TD/TT: ? Top Lift Compresser: ? Procedure Note Carlos, Image - 11/05/2023 [facility] [address] [place] [address] Dr. Hsieh, LYRIC [address] Ultrasound Report Signed Patient: yCnthia Stuart OMR#: [id number] : 1965Acct:[id number] Age/Sex: 58 / FADM Date: 11/04/23 Loc: [facility] Attending Dr: Chasidy Kimbrough MD Ordering Physician: Chasidy Kimbrough Date of Service: 11/04/23 Procedure(s): US breast LT limited mamm only Accession Number(s): [id number] cc: Chasidy Kimbrough EXAMINATION: MM DIAGNOSTIC DIGITAL [...] in OV> 11/05/23 1024 DD/ 1427 TD/TT: Top Lift Compresser: us Chasidy Kimbrough MD IMG US PROCEDURES Final Result from Last 3 Months or Most Recently Relevant to Health Maintenance Insurance [facility] C3 Care Teams Personal Driver Relationship Specialty Start Date End Date Chasidy Kimbrough MD [address] [place] [phone] PCP - General Family Medicine 02/14/21
--- OUTSIDE RECORDS SUMMARY | 2024-08-23 13:12 | XMS_ITS | Encounter Summary ---
Author Organization [employer] Address [address] [facility] [address], [place] [address] Care Team Providers Care Naphthol Soaping Machine Operator Name Role Phone Chasidy Kimbrough MD Primary Care Provider [phone] Reason for Referral * Consultation (Routine) - Authorized Specialty Diagnoses / Procedures Referred By Conthemal t Referred To Contact Rheumatology Diagnoses Tenosynovitis of finger Elevated erythrocyte sedimentation rate Positive DANO (antinuclear antibody) Chasidy Kimbrough MD [address] [place] [address] Phone: tel: fax: [facility] [address] [place] [address] Phone: tel: fax: Referral ID Status Reason Start Date Expiration Date Visits Requested Visits Authorized [id number] Authorized Specialty Services Required 4 05/25/2025 6 6 Encounter Details Date Type Department Care Team (Late st Contact Info) Description 05/16/2024 Orders Only [facility] [address] [place], [place] [phone] Chasidy Kimbrough MD [address] [place], [place] [phone] Tenosynovitis of finger (Primary Dx); Elevated erythrocyte [...] as of this encounter Plan of Treatment Upcoming Encounters Date Type Department Care Team (Late st Contact Info) Description 11/15/2024 11:00 AM EDT Office Visit [facility] [address] [place], [place] [phone] Chasidy Kimbrough MD [address] [place] [address] Scheduled Referrals Name Type Priority Associated Diagnoses [...] documented as of this encounter Care Teams Naphthol Soaping Machine Operator Relationship Specialty Start Date End Date Chasidy Kimbrough MD [address] [place] [address] PCP - General Family Medicine 02/14/21 documented as of this encounter
--- OUTSIDE RECORDS SUMMARY | 2024-08-23 13:12 | XMS_ITS | Encounter Summary ---
Author Organization [facility] Address [address] [place] [address] [address] [place] [address] Care Team Providers Care Earth Science Technician Name Role Phone Chasidy Kimbrough MD Primary Care Provider [phone] Reason for Visit * Reason Comments Med Refill Encounter Details Date Type Department Care Team (Late Contact Info) Description 12/29/2022 Refill [facility] [address] [place], [place] [phone] Chasidy Kimbrough MD [address] [place], [place] [phone] Social History Tobacco Use Types Packs/Day Years [...] Upcoming Encounters Date Type Department Care Team ([facility] Contact Info) Description 11/15/2024 11:00 AM EDT Office Visit [facility] [address] [place] [address] Chasidy Kimbrough MD [address] [place] [address] documented as of this encounter Visit Diagnoses Not on filedocumented in this encounter Additional Health Concerns Assessment Noted Time PHQ-9 Depression Total Score: 5 07/25/19 23 9:47 AM EST documented as of this encounter Care Teams Earth Science Technician Relationship Specialty Start Date End Date Chasidy Kimbrough MD [address] [place] [address] PCP - General Family Medicine 02/14/21 documented as of this encounter
--- OUTSIDE RECORDS SUMMARY | 2024-08-23 13:12 | XMS_ITS | Encounter Summary ---
Author Organization [employer] Address [address] [facility] [address] [place] [address] Care Team Providers Care Terminal System Operator Name Role Phone Chasidy Kimbrough MD Primary Care Provider [phone] Reason for Visit * Reason Comments Med Refill Encounter Details Date Type Department Care Team ([facility] st Contact Info) Description 06/20/2024 Refill [facility] [address] [place], [place] [phone] Chasidy Kimbrough MD [address] [place], [place] [phone] Social History Tobacco Use Types Packs/Day Years [...] documented in this encounter Plan of Treatment Upcoming Encounters Date Type Department Care Team (Late st Contact Info) Description 11/15/2024 11:00 AM EDT Office Visit [facility] [address] [place] [address] Chasidy Kimbrough MD [address] [place], [place] [phone] documented as of this encounter Visit Diagnoses Not on filedocumented in this encounter Additional Health Concerns Assessment Noted Time PHQ-9 Depression Total Score: 3 11/30/19 24 1:27 PM EDT documented as of this encounter Care Teams Terminal System Operator Relationship Specialty Start Date End Date Chasidy Kimbrough MD [address] [place], [place] [phone] PCP - General Family Medicine 02/14/21 documented as of this encounter
--- OUTSIDE RECORDS SUMMARY | 2024-08-23 13:13 | XMS_ITS | Encounter Summary ---
Author Organization [employer] Address [address] [place] [address] 7 [place] [address] Care Team Providers Care Stna Name Role Phone Chasidy Kimbrough MD Primary Care Provider [phone] Reason for Referral * Consultation (Routine) - Authorized Specialty Diagnoses / Procedures Referred By Conthemal esposito Referred To Contact Neurology Diagnoses Memory loss Chasidy Kimbrough MD [address] [place] [address] Phone: tel: fax: [facility] Referral ID Status Reason Start Date Expiration Date Visits Requested Visits Authorized [id number] Authorized Specialty Services Required 07/18/2024 07/18/2025 6 6 Encounter Details Date Type Department Care Team (Late st Contact Info) Description 07/13/2024 Orders Only [facility] MEDICINE [address] [place], [place] [phone] Chasidy Kimbrough MD [address] [place], [place] [phone] Memory loss (Primary Dx) Social History Tobacco [...] Description 11/15/2024 11:00 AM EDT Office Visit [facility] [address] [place] [address] Chasidy Kimbrough MD [address] [place] [address] Scheduled Referrals Name Type Priority Associated Diagnoses Orde r Schedule Referral to Neurology Outpatient Referral Routine Memory loss Expected: 07/13/2024 (Approximate), Expires: 07/13/2025 documented as of this encounter Visit Diagnoses Diagnosis Memory loss- Primary documented in this encounter Additional Health Concerns Assessment Noted Time PHQ-9 Depression Total Score: 3 11/30/19 24 1:27 PM EDT documented as of this encounter Care Teams Stna Relationship Specialty Start Date End Date Chasidy Kimbrough MD [address] [place] [address] PCP - General Family Medicine 02/14/21 documented as of this encounter
--- OUTSIDE RECORDS SUMMARY | 2024-08-23 13:13 | XMS_ITS | Encounter Summary ---
Author Organization [employer] Address [address] [facility] 7t [place] [address] Care Team Providers Care Manager Meat Name Role Phone Chasidy Kimbrough MD Primary Care Provider [phone] Reason for Visit * Reason Onset Date Comments HDF 07/25/2024 Encounter Details Date Type Department Care Team ([facility] st Contact Info) Description 07/25/2024 Telephone [facility] MED[facility]INE [address] [place] [address] Josephine Monge, RN [address] [place] [address] HDF Social History Tobacco Use Types Packs/Day [...] appointment with PCP only. Patient admitted to [facility] 07/08-07/19 for depression. RN scheduled patient for next HDF with PCP for 08/12/24 at 1pm. Patient did not have any further questions/concerns. Patient to f/u PRN. documented in this encounter Plan of Treatment Upcoming Encounters Date Type Department Care Team (Late st Contact Info) Description 11/15/2024 11:00 AM EDT Office Visit [facility]INE [address] [place] [address] Chasidy Kimbrough MD [address] [place] [address] documented as of this encounter Visit Diagnoses Not on filedocumented in this encounter Additional Health Concerns Assessment Noted Time PHQ-9 Depression Total Score: 3 11/30/19 24 1:27 PM EDT documented as of this encounter Care Teams Manager Meat Relationship Specialty Start Date End Date Chasidy Kimbrough MD [address] [place] [address] PCP - General Family Medicine 02/14/21 documented as of this encounter
--- OUTSIDE RECORDS SUMMARY | 2024-08-23 13:13 | XMS_ITS | Encounter Summary ---
Author Organization [employer] Address [address] [facility] 7t [place] [address] Care Team Providers Care Carpentry Supervisor Name Role Phone Chasidy Kimbrough MD Primary Care Provider [phone] Encounter Details Date Type Department Care Team [...] Description 11/15/2024 11:00 AM EDT Office Visit [facility] MEDICINE [address] [place] [address] Chasidy Kimbrough MD [address] [place] [address] documented as of this encounter Visit Diagnoses Not on filedocumented in this encounter Additional Health Concerns Assessment Noted Time PHQ-9 Depression Total Score: 3 11/30/19 24 1:27 PM EDT documented as of this encounter Care Teams Carpentry Supervisor Relationship Specialty Start Date End Date Chasidy Kimbrough MD [address] [place] [address] PCP - General Family Medicine 02/14/21 documented as of this encounter
--- OUTSIDE RECORDS SUMMARY | 2024-08-23 13:13 | XMS_ITS | Encounter Summary ---
Author Organization [employer] Address [address] [facility] 7t [place] [address] Care Team Providers Care Husbandry Person Name Role Phone Chasidy Kimbrough MD Primary Care Provider [phone] Encounter Details Date Type Department Care Team (Late st Contact Info) Description 08/31/2023 Telephone [facility] MEDICINE [address] [place], [place] [phone] Chasidy Kimbrough MD [address] [place], [place] [phone] Social History Tobacco Use Types Packs/Day Years [...] Description 11/15/2024 11:00 AM EDT Office Visit [facility] MEDICINE [address] [place] [phone] Chasidy Kimbrough MD [address] [place] [phone] documented as of this encounter Visit Diagnoses Not on filedocumented in this encounter Additional Health Concerns Assessment Noted Time PHQ-9 Depression Total Score: 5 07/25/19 23 9:47 AM EST documented as of this encounter Care Teams Husbandry Person Relationship Specialty Start Date End Date Chasidy Kimbrough MD [address] [place] [phone] PCP - General Family Medicine 02/14/21 documented as of this encounter
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
--- OUTSIDE RECORDS SUMMARY | 2024-08-23 13:13 | XMS_ITS | Encounter Summary ---
Author Organization [facility] Address [address] [place] [address] [address] [address] Care Team Providers Care Hat Block Maker Name Role Phone Chasidy Kimbrough MD Primary Care Provider [phone] Reason for Referral * Consultation (Routine) - Authorized Specialty Diagnoses / Procedures Referred By Conthemal t Referred To Contact Gastroenterology Diagnoses Other dysphagia Chasidy Kimbrough MD [address] [place] [address] Phone: tel: fax: [address] Phone: tel: fax: Referral ID Status Reason Start Date Expiration Date Visits Requested Visits Authorized [id number] Authorized Specialty Services Required 01/02/2024 01/01/2025 6 6 Encounter Details Date Type Department Care Team (Late st Contact Info) Description 12/30/2023 Orders Only [facility] MEDICINE [address] [place], [place] [phone] Chasidy Kimbrough MD [address] [place], [place] [phone] Other dysphagia (Primary Dx) Social History Tobacco [...] Description 11/15/2024 11:00 AM EDT Office Visit [facility] MEDICINE [address] [place] [address] Chasidy Kimbrough MD [address] [place] [address] Scheduled Referrals Name Type Priority Associated Diagnoses Order Schedule Referral to Gastroenterology Outpatient Referral Routine Other dysphagia Expected: 12/30/2023 (Approximate), Expires: 12/29/2024 documented as of this encounter Visit Diagnoses Diagnosis Other dysphagia- Primary documented in this encounter Additional Health Concerns Assessment Noted Time PHQ-9 Depression Total Score: 3 11/30/19 24 1:27 PM EDT documented as of this encounter Care Teams Hat Block Maker Relationship Specialty Start Date End Date Chasidy Kimbrough MD [address] [place] [address] PCP - General Family Medicine 02/14/21 documented as of this encounter
== END 2024-08-23 12:50 | disposition home or self-care (01) ==
LOC: HO.HGI 10:51
PROVIDERS: PCP General Practice; Visit Provider Nurse Practitioner Family
DX: K21.9 Gastro-esophageal reflux disease without esophagitis (principal); R13.12 Dysphagia, oropharyngeal phase; R10.13 Epigastric pain
CPT/HCPCS: 99204

== ENCOUNTER → 2024-08-23 11:50 | Outpatient (BNV) | payer MEDICAID, SELFPAY | PROVIDERS: PCP General Practice; Visit Provider Radiology Diagnostic Radiology | DX: K22.2 Esophageal obstruction (principal) | CPT/HCPCS: 70360 ==

== ENCOUNTER 2024-08-24 12:28 | Outpatient (AMB) | payer MEDICAID, SELFPAY ==
[2024-08-24 13:25] VITALS: BP 110/60; PULSE 62; O2SAT 100; BMI 29.3
--- NOTE | 2024-08-24 13:25 | MHC.OFFVIS ---
Vital Signs 08/24/24 13:25 Height 5 ft 5 in Weight 176 lb BMI 29.3 BP 110/60 Blood Pressure Location Lt brachial Position Sitting Pulse 62 Pulse Source Doppler Pulse Oximetry (%) 100 Oxygen Delivery Method Room Air Intake Visit Reasons: pulm nodule Senior Infrastructure Engineer Required: Yes Senior Infrastructure Engineer Name: Kristen Trimble C.L.M Allergies trazodone [TRAZODONE] Allergy (Intermediate, Verified 08/24/24 13:29) PROLONGED QT INTERVAL (PER H&P) HPI HPI pulm nodule: Details: 59-year-old lady, lifetime nonsmoker, followed for an incidental finding of a new (as compared to scan 3 years prior) right lower lobe [address] abdomen obtained secondary to abdominal pain. Patient denies family history of lung cancer. PET-CT from 05/19/2019 - no FDG uptake in previously noted right basilar nodule. Patient had a follow-up CT chest in October of 2019 that showed decreasing right lower lobe nodule. patient has had a follow-up CT chest November 2020 that showed right lower lobe nodule decreased down to 5 mm, however she does have several new nodules up to [address] chest demonstrates stable pulmonary nodules. Today she denies any acute exacerbations. [facility] Medical History (Updated 08/23/24 @ 20:36 by Margoth White [facility]) Diabetes education, encounter for GERD (gastroesophageal reflux disease) Asthma Elevated cholesterol PONV (postoperative nausea and vomiting) Diabetes Tietze syndrome Kidney calculi Depression HTN (hypertension) Surgical History History of umbilical hernia repair History of ventral hernia repair History of cystoscopy Hx of cholecystectomy History of excision of mass H/O: hysterectomy Family History Father Throat cancer Maternal Aunt Breast cancer Social History Household Members: None Household Members Other:: pt. lives alone. 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 Sexual orientation: Straight/Heterosexual Review of Systems Const Denies daytime sleepiness, Denies excessive sweating, Denies fatigue, Denies fever(s), Denies lethargy, Denies malaise, Denies night sweats, Denies snoring and Denies weight loss Eyes Denies blurry vision and Denies itchy eyes ENT Denies nasal congestion, Denies post nasal drip, Denies sinus pain, Denies sinus pressure and Denies other ( Thrush) Card Denies chest pain, Denies pedal edema, Denies dyspnea, Denies orthopnea and Denies paroxysmal nocturnal dyspnea Resp Denies cough, Denies hemoptysis, Denies excessive phlegm production, Denies dyspnea, Denies snoring and Denies wheezing GI Denies abdominal pain and Denies heartburn Musc Denies myalgias, Denies arthralgias and Denies joint swelling Skin/Breast Denies rash Neuro Denies memory loss and Denies seizure-like activity Psych Denies abnormal sleep pattern, Denies anxiety and Denies memory loss Endo Denies excessive sweating, Denies fatigue and Denies heat intolerance Chaim/Lymph Denies easy bruising Aller/Immun Denies itchy eyes, Denies seasonal rhinorrhea and Denies wheezing Physical Exam Vital Signs: Last Vital Signs Pulse 62 08/24/24 13:25 BP 110/60 08/24/24 13:25 Pulse Ox 100 08/24/24 13:25 Oxygen Delivery Method Room Air 08/24/24 13:25 BMI result Body Mass Index 29.3 Const General: no acute distress and alert Nutritional Appearance: not obese Orientation/consciousness: Other orientation findings ( oriented) HEENT Head: Yes atraumatic Eyes General: appearance normal, both eyes and all related structures Sclerae: sclerae normal EOM: EOMs intact bilaterally Neck Neck: Yes supple Lymphatic: no lymphadenopathy noted Resp Effort & Inspection: normal respiratory effort and no use of accessory muscles Auscultation: clear to auscultation bilaterally Cardio Rate: regular rate Rhythm: regular rhythm Heart sounds: no gallops, no murmurs and no rubs Skin General skin exam: other ( warm) Extrem General: No clubbing, No cyanosis and No edema Assessment & Plan Assessment & Plan (1) Asthma: Code(s): J45.909 - Unspecified asthma, uncomplicated Category: Medical Plan: Well controlled on current regimen of Spiriva and albuterol MDI. Continue current regimen. (2) Pulmonary nodules: Code(s): R91.8 - Other nonspecific abnormal finding of lung field Category: Medical Plan: Previously stable, follow-up CT chest is pending for February of 2025. Coding Level of Care Code Est Pt Level 4 (00763) Diagnoses Asthma J45.909 Pulmonary nodules R91.8
--- OUTSIDE RECORDS SUMMARY | 2024-08-24 14:31 | XMS_ITS | Encounter Summary ---
Author Organization [employer] Address [address] [facility] 7t [place] [address] Care Team Providers Care Multifocal Button Inspector Name Role Phone Chasidy Kimbrough MD Primary Care Provider [phone] Reason for Visit * Reason Comments Med Refill Encounter Details Date Type Department Care Team ([facility] st Contact Info) Description 06/20/2024 Refill [facility] MEDICINE [address] [place], [place] [phone] Chasidy Kimbrough MD [address] [place], [place] [phone] Social History Tobacco Use Types Packs/Day Years [...] Description 11/15/2024 11:00 AM EDT Office Visit [facility] MEDICINE [address] [place] [address] Chasidy Kimbrough MD [address] [place], [place] [phone] documented as of this encounter Visit Diagnoses Not on filedocumented in this encounter Additional Health Concerns Assessment Noted Time PHQ-9 Depression Total Score: 3 11/30/19 24 1:27 PM EDT documented as of this encounter Care Teams Multifocal Button Inspector Relationship Specialty Start Date End Date Chasidy Kimbrough MD [address] [place], [place] [phone] PCP - General Family Medicine 02/14/21 documented as of this encounter
--- OUTSIDE RECORDS SUMMARY | 2024-08-24 14:31 | XMS_ITS | Encounter Summary ---
Author Organization [employer] [facility] Address [address] [place] [address] [address] [place] [address] Care Team Providers Care Termination Clerk Name Role Phone Chasidy Kimbrough MD Primary Care Provider [phone] Reason for Visit * Reason Comments Med Refill Encounter Details Date Type Department Care Team (Late Contact Info) Description 12/29/2022 Refill [facility] MEDICINE [address] [place], [place] [phone] Chasidy Kimbrough MD [address] [place], [place] [phone] Social History Tobacco Use Types Packs/Day Years [...] Upcoming Encounters Date Type Department [facility] Description 11/15/2024 11:00 AM EDT Office Visit [facility] MEDICINE [address] [place] [address] Chasidy Kimbrough MD [address] [place] [address] documented as of this encounter Visit Diagnoses Not on filedocumented in this encounter Additional Health Concerns Assessment Noted Time PHQ-9 Depression Total Score: 5 07/25/19 23 9:47 AM EST documented as of this encounter Care Teams Termination Clerk Relationship Specialty Start Date End Date Chasidy Kimbrough MD [address] [place] [address] PCP - General Family Medicine 02/14/21 documented as of this encounter
--- OUTSIDE RECORDS SUMMARY | 2024-08-24 14:32 | XMS_ITS | Encounter Summary ---
Author Organization [employer] Address [address] [facility] 7t [place] [address] Care Team Providers Care Drapery Head Former Name Role Phone Chasidy Kimbrough MD Primary Care Provider [phone] Encounter Details Date Type Department Care Team (Late st Contact Info) Description 08/31/2023 Telephone [facility] MEDICINE [address] [place], [place] [phone] Chasidy Kimbrough MD [address] [place], [place] [phone] Social History Tobacco Use Types Packs/Day Years [...] Description 11/15/2024 11:00 AM EDT Office Visit [facility] MED[facility] [address] [place] [phone] Chasidy Kimbrough MD [address] [place] [address] documented as of this encounter Visit Diagnoses Not on filedocumented in this encounter Additional Health Concerns Assessment Noted Time PHQ-9 Depression Total Score: 5 07/25/19 23 9:47 AM EST documented as of this encounter Care Teams Drapery Head Former Relationship Specialty Start Date End Date Chasidy Kimbrough MD [address] [place] [phone] PCP - General Family Medicine 02/14/21 documented as of this encounter
--- OUTSIDE RECORDS SUMMARY | 2024-08-24 14:32 | XMS_ITS | Encounter Summary ---
Author Organization [employer] Address [address] [facility] 7t [place] [address] Care Team Providers Care Theater Manager Name Role Phone Chasidy Kimbrough MD Primary Care Provider [phone] Reason for Visit * Reason Onset Date Comments HDF 07/25/2024 Encounter Details Date Type Department Care Team ([facility] st Contact Info) Description 07/25/2024 Telephone [facility] MEDICINE [address] [place] [address] Josephine Monge, RN [address] [place] [address] HDF Social History Tobacco Use Types Packs/Day [...] appointment with PCP only. Patient admitted to [facility] 07/08-07/19 for depression. RN scheduled patient for next HDF with PCP for 08/12/24 at 1pm. Patient did not have any further questions/concerns. Patient to f/u PRN. documented in this encounter Plan of Treatment Upcoming Encounters Date Type Department Care Team (Late st Contact Info) Description 11/15/2024 11:00 AM EDT Office Visit [facility] MEDICINE [address] [place] [address] Chasidy Kimbrough MD [address] [place] [address] documented as of this encounter Visit Diagnoses Not on filedocumented in this encounter Additional Health Concerns Assessment Noted Time PHQ-9 Depression Total Score: 3 11/30/19 24 1:27 PM EDT documented as of this encounter Care Teams Theater Manager Relationship Specialty Start Date End Date Chasidy Kimbrough MD [address] [place] [address] PCP - General Family Medicine 02/14/21 documented as of this encounter
--- OUTSIDE RECORDS SUMMARY | 2024-08-24 14:32 | XMS_ITS | Encounter Summary ---
Author Organization [employer] Address [address] [facility] 7t [place] [address] Care Team Providers Care Glove Boarder Name Role Phone Chasidy Kimbrough MD Primary Care Provider [phone] Encounter Details Date Type Department Care Team (Late st Contact Info) Description 08/23/2024 Orders Only [facility] External Provider, [facility] Social History Tobacco Use Types Packs/Day Years [...] Description 11/15/2024 11:00 AM EDT Office Visit [facility] MEDICINE [address] [place] [address] Chasidy Kimbrough MD [address] [place] [address] documented as of this encounter Procedures Procedure Name Priority Date/Time Associated Diagnosis Comments XR NECK SOFT TISSUE Routine 08/23/2024 1 1:50 AM EDT documented in this encounter Results * XR Neck Soft Tissue (08/23/2024 11:50 AM EDT) Anatomical Region Laterality Modality Head, Neck Radiographic Cecily ging 08/23/2024 11:5 0 AM EDT Narrative 08/23/2024 3:10 PM EDT ? [facility] ?[address] ?[place] [address] ?XRay Report ? Signed ? Patient: Roddy Artreche,Cynthia O ?MR#: ?? [id number] ? : 1965 ?Acct:[id number] ? Age/Sex: 59 / F ?ADM Date: 03/11/25 ? Loc: HO.XRAY ? Attending Dr: Margoth ZHONG-BC ? Ordering Physician: Margoth White ?? Date of Service: 08/23/24 ?? Procedure(s): XR soft tissue neck ?? Accession Number(s): [id number] ? cc: Chasidy Kimbrough; Margoth White-NADEGE ? EXAMINATION: ?? XR SOFT TISSUE NECK ? CLINICAL INDICATION: ?? K22.2 - Esophageal obstruction ? COMPARISON: ?? None available. ? TECHNIQUE: ?? 2 views of the soft tissue neck were obtained. ? FINDINGS: ?? Upper airways patent. No metallic or radiopaque foreign body. Poor ?? dentition. Mild spondylosis C5-6 and C6-7. ? XR/XR soft tissue neck ?? IMPRESSION: ?? Negative soft tissue neck x-ray. ? Electronically signed by: ??Darian Vanegas MD ??08/23/2024 03:07 PM ?? EDT RP ? Dictated By: ?Darian Marte MD ? Signed By: ?<Electronically signed by Darian Reddy MD in OV> ? 08/23/24 1507 ? DD/ 1150 ? TD/TT: 08/23/24 1217 ? Inserter: ? Procedure Note Jhian Gonzalez - 08/23/[address] [address] XRay Report Signed Patient: Cynthia Stuart OMR#: [id number] : 1965Acct:[id number] Age/Sex: 59 / FADM Date: 08/23/24 Loc: [facility] Attending Dr: Margoth DE LA ROSA Ordering Physician: Margoth White Date of Service: 08/23/24 Procedure(s): XR soft tissue neck Accession Number(s): [id number] cc: Chasidy Kimbrough; Margoth White EXAMINATION: XR SOFT TISSUE NECK CLINICAL INDICATION: K22.2 - Esophageal obstruction COMPARISON: None available. TECHNIQUE: 2 views of the soft tissue neck were obtained. FINDINGS: Upper airways patent. No metallic or radiopaque foreign body. Poor dentition. Mild spondylosis C5-6 and C6-7. XR/XR soft tissue neck IMPRESSION: Negative soft tissue neck x-ray. Electronically signed by: Darian Vanegas MD 08/23/2024 03:07 PM EDT RP Dictated By: Darian Marte MD Signed By: <Electronically signed by Darian Reddy MDin OV> 08/23/24 1507 DD/ 1150 TD/TT: 08/23/24 1217 Inserter: [facility] External Provider IMG XR PROCEDURES Final Result documented in this encounter Visit Diagnoses Not on filedocumented in this encounter Additional Health Concerns Assessment Noted Time PHQ-9 Depression Total Score: 3 11/30/19 24 1:27 PM EDT documented as of this encounter Care Teams Glove Boarder Relationship Specialty Start Date End Date Chasidy Kimbrough MD [address] [place] [address] PCP - General Family Medicine 02/14/21 documented as of this encounter
--- OUTSIDE RECORDS SUMMARY | 2024-08-24 14:32 | XMS_ITS | Clinical Summary ---
Author Organization [employer] Address [address] [place] [address] 7[address] [place] [address] Care Team Providers Care Office Machine Punch Operator Name Role Phone Chasidy Kimbrough MD Primary Care Provider [phone] Allergies Active Allergy Reactions Criticality Noted Date [...] complication, without long-term current use of insulin ([facility]) TEST BLOOD SUGAR TWICE DAILY DIRECTED 100 [...] DAILY 270 tablet 02/10/20 Active fish oil (Cebolla-3) 500 MG capsule Take 1 capsule (500 [...] complication, without long-term current use of insulin ([facility]) USE DIRECTED TO TEST BLOOD SUGAR TWICE [...] associated wi th type 2 diabetes mellitus ([facility]) 07/29/2017 Assessment & Plan (07/25/2022 10:29 AM [...] Encounters Date Type Department Care Team Description 08/23/2024 Orders Only [facility] External Provider, [facility] 08/12/2024 1:00 PM EST Office Visit [facility] [address] [place] [address] Chasidy Kimbrough MD Primary hypertension (Primary Dx); Type 2 diabetes mellitus without complication, without long-term current use of insulin ([facility]); Dietary counseling; Exercise counseling; Overweight; Mild intermittent asthma without complication; Hyperlipidemia associated with type 2 diabetes mellitus ([facility]) ([facility]); Chronic migraine without aura without status migrainosus, not intractable; 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 08/12/2024 Travel 07/25/2024 Telephone [facility] [address] [place] [address] Josephine Monge, RN HDF 07/13/2024 Telephone [facility] [address] [place] [address] Zohreh Tabor, YOVANY Results; Referral 07/13/2024 Orders Only [facility] [address] [place] [address] Chasidy Kimbrough MD Memory loss (Primary Dx) 07/07/2024 Orders Only GENERIC EXTERNAL DATA DEPARTMENT Provider, Generic External Data 06/20/2024 Refill [facility] [address] [place] [address] Chasidy Kimbrough MD 06/01/2024 Refill [facility] [address] [place] [address] Wesley Sanchez MD Type 2 diabetes mellitus without complication, without long-term current use of insulin ([facility]) from Last 3 Months Immunizations Name Administration [...] Description 11/15/2024 11:00 AM EDT Office Visit [facility] [address] [place] [address] Chasidy Kimbrough MD [address] [place] [address] Health Maintenance Due Date Last Done Comments [...] 05/30/2021, Additional history exists Mammogram 11/03/2024 11/04/2023, 04/07/2023, 09/16/2022, Additional history exists Depression Screening 11/29/2024 11/30/2023, 06/17/20 24 Diabetes: Urine Protein Screening 11/29/2024 11/30/2023, [...] TISSUE Routine 08/23/2024 1 1:50 AM EDT ECG 12-LEAD Routine 08/16/2024 4:13 PM EST Primary hypertension 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 [facility] ?[address] ?[place] [address] ?XRay Report ? Signed ? Patient: Roddy Artreche,Cynthia O ?MR#: ?? [id number] ? : 1965 ?Acct:[id number] ? Age/Sex: 59 / F ?ADM Date: 08/23/24 ? Loc: HO.XRAY ? Attending Dr: Margoth ZHONG-NADEGE ? Ordering Physician: Margoth White ?? Date of Service: 08/23/24 ?? Procedure(s): XR soft tissue neck ?? Accession Number(s): [id number] ? cc: Chasidy Kimbrough; Margoth White-NADEGE ? [...] DD/ 1150 ? TD/TT: 08/23/24 1217 ? Research Engineer: ? Procedure Note Jihan Gonzalez - 08/23/[address] [address] XRay Report Signed Patient: Cynthia Stuart OMR#: [id number] : 1965Acct:[id number] Age/Sex: 59 / FADM Date: 08/23/24 Loc: HO.XRAY Attending Dr: Margoth White [facility]- Ordering Physician: Margoth White Date of Service: 08/23/24 Procedure(s): XR soft tissue neck Accession Number(s): [id number] cc: Chasidy Kimbrough; Margoth White- EXAMINATION: XR SOFT TISSUE NECK CLINICAL INDICATION: K22.2 - Esophageal obstruction COMPARISON: None available. TECHNIQUE: 2 views of the soft tissue neck were obtained. FINDINGS: Upper airways patent. No metallic or radiopaque foreign body. Poor dentition. Mild spondylosis C5-6 and C6-7. XR/XR soft tissue neck IMPRESSION: Negative soft tissue neck x-ray. Electronically signed by: Darian Vanegas MD 08/23/2024 03:07 PM EDT Dictated By: Darian Marte MD Signed By: <Electronically signed by Darian Reddy MDin OV> 08/23/24 1507 DD/ 1150 TD/TT: 08/23/24 1217 Research Engineer: [facility] External Provider IMG XR PROCEDURES Final Result * ECG 12 lead (08/16/2024 4:13 PM [...] POCT Glucose (08/12/2024 1:08 PM EST) Pathologist [facility] Glucose Blood, POC 120 60 - 200 mg/dL QC Media Lot # [id number] Lot# Expiration Date [id number] Blood Capillary blood specimen / Unknown 08/12/2024 1:08 PM EST Chasidy Kimbrough MD POINT OF CARE TEST ENTER/EDIT ORDERABLES Final Result * Ethanol (07/07/2024 6:52 PM EST) [facility] ETHANOL (MG/DL) IN SER/PLAS <10 mg/dL [facility] Comment:Serum/plasma ethanol results are to be used formedical/treatment purposes only. 07/07/2024 6:52 PM EST 07/07/2024 6:54 PM EST Generic External Data Provider LAB BLOOD ORDERAB LES Final Result Performing Organization Address City/State/[facility] Co de Phone Number [facility] [address] [place] [phone] * (ABNORMAL) CBC auto differential (07/07/2024 6:52 PM EST) [facility] White Blood Count 12.3(H) 4.8 - 10.8 X10*3/uL [facility] Red Blood Count 5.08 4.20 - 5.50 X10*6/uL [facility] Hemoglobin 13.7 12.0 - 16.0 g/dl [facility] Hematocrit 42.3 37.0 - 47.0 % [facility] Mean Corpuscular Volume 83.3 80.0 - 98.0 fL [facility] Mean Corpuscular Hemoglobin 27.0 27.0 - 33.0 pg [facility] Mean Corpuscular HGB Conc 32.4 31.0 - 35.0 g/dl [facility] Red Cell Distribution Width 13.8 11.0 - 16.0 % [facility] Platelet Count 321 160 - 400 X10*3/uL [facility] Mean Platelet Volume 9.6 9.4 - 12.3 fL [facility] Neutrophils Percent Auto 64.8 45 - 73 % [facility] Imm Gran Pct Auto 0.3 0.0 - 0.4 % [facility] Lymphocytes Percent Auto 27.3 20 - 40 % [facility] Monocytes Percent Auto 6.4 2 - 11 % [facility] Eosinophils Percent Auto 0.6 0 - 4 % [facility] Basophils Percent Auto 0.6 0 - 2 % [facility] NRBC Pct Auto 0.0 0.0 - 0.2 /100WBC [facility] Neutrophils Absolute Auto 7.9 2.0 - 8.3 x10*3/uL [facility] Imm Gran Abs Auto 0.04(H) 0.00 - 0.03 X10*3/uL [facility] Lymphocytes Absolute Auto 3.4 1.2 - 4.9 X10*3/uL [facility] Monocytes Absolute Auto 0.8 0.1 - 1.2 X10*3/uL [facility] Eosinophils Absolute Auto 0.1 0.0 - 0.4 X10*3/uL [facility] Basophils Absolute Auto 0.1 0.0 - 0.2 X10*3/uL [facility] NRBC Abs Auto 0.000 0.0 - 0.012 X10*3/uL [facility] 07/07/2024 6:52 PM EST 07/07/2024 6:54 PM EST us Generic External Data Provider LAB BLOOD ORDERAB LES Edited Result - Final [facility] [address] [place] [phone] * (ABNORMAL) Comprehensive Metabolic Panel (07/07/2024 6:52 PM EST) Sodium 140 135 - 145 mmol/L [facility] Potassium 3.7 3.3 - 5.1 mmol/L [facility] Chloride 108 96 - 108 mmol/L [facility] Carbon Dioxide 25 22 - 29 mmol/L [facility] Anion Gap 11(L) 12 - 20 [facility] Urea Nitrogen (BUN) 12 9 - 16 mg/dL [facility] Creatinine, Serum 0.63 0.5 - 1.4 mg/dL [facility] Creatinine Clr Calc Pharmacy 97.3 [facility] Comment:Provided height and weight: 165.1 cm,74.843 kg.eGFR (calculated from the MDRD study equation) and eCrCl(calculated from the Cockcroft-Gault equation) are based ondifferent parameters and may not yield comparable results.If eCrCl result is absurd, please check patient'sheight/weight. Estimated Glomerular Filt Rate >60 [facility] Comment:Chronic Kidney Disea se: Estimated GFR < 60 mL/min/1.49m0Tiwlwx Kidney Disease: Estimated GFR < 15 mL/min/1.73m2 Glucose 121(H) 60 - 115 mg/dL [facility] Calcium 10.4(H) 8.4 - 10.2 mg/dL [facility] Bilirubin, Total 0.2 0.0 - 1.0 mg/dL [facility] Aspartate Amino Transferase 19 5 - 31 U/L [facility] Alanine Aminotransferase 11 0 - 31 U/L [facility] Total Protein 8.5(H) 6.5 - 8.0 g/dL [facility] Albumin Level 4.3 3.5 - 5.0 g/dL [facility] Alkaline Phosphatase 79 39 - 117 U/L [facility] 07/07/2024 6:52 PM EST 07/07/2024 6:54 PM EST us Generic External Data Provider LAB BLOOD ORDERAB LES Final Result [facility] [address] [place] [address] [phone] * (ABNORMAL) Urinalysis, Complete, with Reflex to Culture (07/07/2024 6:11 PM EST) Color Urine Yellow [facility] Appearance Urine Clear [facility] PH 7.0 5.0 - 9.0 [facility] Glucose Urine UA Negative Negative mg/dL [facility] Urine Blood Small (1+)(A) Negative [facility] Specific [place] - Urine 1.015 1.005 - 1.025 [facility] Urine Protein 30 (1+)(A) Neg-Trace mg/dL [facility] Urine Ketones Negative Negative mg/dL [facility] Nitrite Urine Negative Negative [facility] Leukocyte Esterase Urine Negative Negative [facility] RBC Urine 11-20(A) 0 - 2 /HPF [facility] Urine WBC 0-5 0 - 5 /HPF [facility] Urine Squamous Epithelial Cell 3-5 0 - 2 /HPF [facility] Urine Bacteria Trace None Seen [facility] Hyaline Casts, Urine 0-2 0 - 2 /LPF [facility] 07/07/2024 6:11 PM EST 07/07/2024 6:14 PM EST Narrative [facility] - 07/07/2024 6:28 PM EST [id number], Clean Catch us Generic External Data Provider LAB URINE ORDERAB LES Final Result Performing Organization Address City/State/[facility] Co de Phone Number [facility] [address] [place] [phone] * Drug Monitoring, Panel 1, Screen, Urine (07/07/2024 6:11 PM EST) Opiate Screen Urine Not Detected Not Detect [facility] Comment:Opiate cut-off is 30 0 ng/mL.Positive results are unconfirmed and should not be used fornon-medical purposes. Barbiturates, Urine Not Detected Not Detect [facility] Comment:Barbiturate cut-off is 200 ng/mL.Positive results are unconfirmed and should not be used fornon-medical purposes. Phencyclidine Screen Urine Not Detected Not Detect [facility] Comment:Phencyclidine cut-of f is 25 ng/mL.Positive results are unconfirmed and should not be used fornon-medical purposes. Amphetamine Screen Urine Not Detected Not Detect [facility] Comment:Amphetamine cut-off is 1000 ng/mL.Positive results are unconfirmed and should not be used fornon-medical purposes. Benzodiazepines Screen Urine Not Detected Not Detect [facility] Comment:Benzodiazepine cut-o ff is 200 ng/mL.Positive results are unconfirmed and should not be used fornon-medical purposes. Cocaine Screen Urine Not Detected Not Detect [facility] Comment:Cocaine cut-off is 3 00 ng/mL.Positive results are unconfirmed and should not be used fornon-medical purposes. Cannabinoid Screen Urine Not Detected Not Detect [facility] Comment:Cannabinoid cut-off is 50 ng/mL.Positive results are unconfirmed and should not be used fornon-medical purposes. Methadone Screen, Urine Not Detected Not Detect ng/mL [facility] Comment:Methadone cut-off is 300 ng/mL.Positive results are unconfirmed and should not be used fornon-medical purposes. FENTANYL URINE Not Detected Not Detect [facility] Comment:Fentanyl cut-off is 1 ng/mL.Positive results are unconfirmed and should not be used fornon-medical purposes. Oxycodone Urine Screen Not Detected Not Detect ng/mL [facility] Comment:Oxycodone cut-off is 100 ng/mL.Positive results are unconfirmed and should not be used fornon-medical purposes. Buprenorphine Screen Not Detected Not Detect ng/mL [facility] Comment:Buprenorphine cut-of f is 5 ng/mL.Positive results are unconfirmed and should not be used fornon-medical purposes. 07/07/2024 6:11 PM EST 07/07/2024 6:14 PM EST us Generic External Data Provider LAB URINE ORDERAB LES Final Result [facility] [address] [place] [phone] * Hepatitis Panel, General (05/09/2024 4:30 PM EST) Hepatitis A IgM Nonreactive Nonreactive [facility] Comment:IgM antibodies to GALAVIZ V not detected; does not exclude earlyacute or recovered HAV infection. ~Hepatitis B Surface Antibody REACTIVE Nonreactive [facility] Comment:REACTIVE: > 11.99 mI U/mL Hepatitis B Core Antibody Nonreactive Nonreactive [facility] Hepatitis C Antibody Nonreactive Nonreactive [facility] Comment:Antibodies to HCV no t detected; does not exclude early acuteHCV infection. Hepatitis B Surface Ag Negative Negative [facility] Blood 05/09/2024 4:30 PM EST 05/09/2024 5:40 PM EST us Mona Morris MD LAB BLOOD ORDERABLES Fin al Result Performing Organization Address [facility] [[email or web address]] de Phone Number [facility] [address] [place] [phone] * Albumin, Random Urine W/Creatinine (11/30/2023 1:19 PM EDT) Creatinine, Urine 118.88 mg/dL [facility] Microalbumin Urine 30.0 mg/L [facility] Microalbum Creatinine Ratio Ur 25.2 <30 ug/mg cr [facility] Comment:Albumin/Creatinine R atio Reference Ranges: Normal: < 30 ug/mg creatinine Microalbuminuria: 30 - 300 ug/mg creatinineClinical Albuminuria: > 300 ug/mg creatinine Urine (Urine, Random) 11/30/2023 1:19 PM EDT 11/30/2023 3:55 PM EDT us Chasidy Kimbrough MD LAB URINE ORDERABLES Final Res ult Performing Organization Address [facility] Co de Phone Number [facility] [address] [place] [phone] * HIV-1/2 Antigen and Antibodies, Fourth Generation, with Reflexes (11/30/2023 1:19 PM EDT) HIV AB/AG Nonreactive Nonreactive [facility] Comment:HIV-1 p24 Ag and/or HIV-1/HIV-2 Ab not detected.A test result that is nonreactive does not exclude thepossibility of exposure to or infection with HIV-1 and/orHIV-2. Nonreactive results in this assay for individualswith prior exposure to HIV-1 and/or HIV-2 may be due toantigen and antibody levels that are below the limit ofdetection of this assay.The [employer] HIV Ag/Ab Combo assay result andsupplemental assay results should be interpreted inconjunction with the patient's clinical presentation,history and other laboratory results. If the results areinconsistent with clinical evidence, additional testing issuggested to confirm the result. Blood Venous blood specimen / Unknown 11/30/2023 1:19 PM EDT 11/30/2023 3:56 PM EDT us Chasidy Kimbrough MD LAB BLOOD ORDERABLES Final Res ult [facility] [address] [place], [place] [phone] * (ABNORMAL) Lipid Panel, Standard (11/30/2023 1:19 PM EDT) Pathologist [facility] Triglycerides 114 <150 mg/dL [facility] Comment:Desirable Triglyceri de: less than 150 mg/dLBorderline High Triglyceride 150-199 mg/dLHigh Triglyceride: 200-499 mg/dLVery High Triglyceride: greater than or equal to 5OO mg/dL Cholesterol 229(H) <200 mg/dL [facility] Comment:Desirable Cholestero l: less than 200 mg/dLBorderline High Cholesterol: 200-239 mg/dLHigh Cholesterol: greater than 239 mg/dL LDL Cholesterol Calculated 143(H) <100 mg/dL [facility] Comment:Desirable LDL: less than 100 mg/dLNear Optimal/Above Optimal LDL: 110- 129 mg/dLBorderline High LDL: 130-159 mg/dLHigh LDL: 160-189 mg/dLVery High LDL: greater than or equal to 190 mg/dL HDL Cholesterol 64 >40 mg/dL [facility] Comment:Desirable HDL: great er than 40 mg/dL Note: This HDL assay may give artificially low results in patients with liver disease. Blood Venous blood specimen / Unknown 11/30/2023 1:19 PM EDT 11/30/2023 3:56 PM EDT us Chasidy Kimbrough MD LAB BLOOD ORDERABLES Final Res ult [facility] [address] [place] [phone] * BI US Breast Limited Left (11/04/2023 2:27 PM EDT) Anatomical Region Laterality Modality Breast Left Ultrasound 11/04/2023 2:27 PM EDT Narrative 11/05/2023 10:28 AM EDT ? [facility] ? [address] ?[place] [address] ? Ultrasound Report ? Signed ? Patient: Cynthia Stuart ?MR#: ?? [id number] ? : 1965 ?Acct:[id number] ? Age/Sex: 58 / F ?ADM Date: 11/04/23 ? Loc: HO.MAMMO ? Attending Dr: Chasidy Kimbrough MD ? Ordering Physician: Chasidy Kimbrough ?? Date of Service: 11/04/23 ?? Procedure(s): US breast LT limited mamm only ?? Accession Number(s): [id number] ? cc: Chasidy Kimbrough ? EXAMINATION: ?? [...] 1024 ? DD/ 1427 ? TD/TT: ? Research Engineer: ? Procedure Note Carlos, Image - 11/05/2023 [facility] [address] [place] [address] Ultrasound Report Signed Patient: Cynthia Stuart OMR#: [id number] : 1965Acct:[id number] Age/Sex: 58 / FADM Date: 11/04/23 Loc: [facility] Attending Dr: Chasidy Kimbrough MD Ordering Physician: Chasidy Kimbrough Date of Service: 11/04/23 Procedure(s): US breast LT limited mamm only Accession Number(s): [id number] cc: Chasidy Kimbrough EXAMINATION: MM DIAGNOSTIC DIGITAL [...] in OV> 11/05/23 1024 DD/ 1427 TD/TT: Research Engineer: us Chasidy Kimbrough MD IMG US PROCEDURES Final Result from Last 3 Months or Most Recently Relevant to Health Maintenance Insurance [facility] C3 * Guarantor: Cynthia Pereyra Account Type Relation to Patient Date of Phone Billing Address Personal/Family Self [address] [facility] [place] Care Teams Office Machine Punch Operator Relationship Specialty Start Date End Date Chasidy Kimbrough MD [address] [place] [address] PCP - General Family Medicine 02/14/21
--- OUTSIDE RECORDS SUMMARY | 2024-08-24 14:32 | XMS_ITS | Encounter Summary ---
Author Organization [employer] Address [address] [facility] [address], [place] [address] Care Team Providers Care Medical Scheduler Name Role Phone Chasidy Kimbrough MD Primary Care Provider [phone] Reason for Referral * Consultation (Routine) - Authorized Specialty Diagnoses / Procedures Referred By Conthemal t Referred To Contact Rheumatology Diagnoses Tenosynovitis of finger Elevated erythrocyte sedimentation rate Positive DANO (antinuclear antibody) Chasidy Kimbrough MD [address] [place] [address] Phone: tel: fax: [facility] [address] [place] [address] Phone: tel: fax: Referral ID Status Reason Start Date Expiration Date Visits Requested Visits Authorized [id number] Authorized Specialty Services Required 4 05/25/2025 6 6 Encounter Details Date Type Department Care Team (Late st Contact Info) Description 05/16/2024 Orders Only [facility] [address] [place], [place] [phone] Chasidy Kimbrough MD [address] [place], [place] [phone] Tenosynovitis of finger (Primary Dx); Elevated erythrocyte [...] Description 11/15/2024 11:00 AM EDT Office Visit [facility] [address] [place], [place] [phone] Chasidy Kimbrough MD [address] [place] [address] Scheduled Referrals Name Type Priority Associated Diagnoses [...] documented as of this encounter Care Teams Medical Scheduler Relationship Specialty Start Date End Date Chasidy Kimbrough MD [address] [place] [address] PCP - General Family Medicine 02/14/21 documented as of this encounter
--- OUTSIDE RECORDS SUMMARY | 2024-08-24 14:32 | XMS_ITS | Encounter Summary ---
Author Organization [employer] Address [address] [place] [address] [address] [place] [address] Care Team Providers Care Associate Java Developer Name Role Phone Chasidy Kimbrough MD Primary Care Provider [phone] Reason for Referral * Consultation (Routine) - Authorized Specialty Diagnoses / Procedures Referred By Conthemal esposito Referred To Contact Neurology Diagnoses Memory loss Chasidy Kimbrough MD [address] [place] [address] Phone: tel: fax: [facility] Referral ID Status Reason Start Date Expiration Date Visits Requested Visits Authorized [id number] Authorized Specialty Services Required 07/18/2024 07/18/2025 6 6 Encounter Details Date Type Department Care Team (Late st Contact Info) Description 07/13/[address] [facility] [address] [place], [place] [phone] Chasidy Kimbrough MD [address] [place], [place] [phone] Memory loss (Primary Dx) Social History Tobacco [...] Description 11/15/2024 11:00 AM EDT Office [address] [facility] [address] [place] [address] Chasidy Kimbrough MD [address] [place] [address] Scheduled Referrals Name Type Priority Associated Diagnoses Orde r Schedule Referral to Neurology Outpatient Referral Routine Memory loss Expected: 07/13/2024 (Approximate), Expires: 07/13/2025 documented as of this encounter Visit Diagnoses Diagnosis Memory loss- Primary documented in this encounter Additional Health Concerns Assessment Noted Time PHQ-9 Depression Total Score: 3 11/30/19 24 1:27 PM EDT documented as of this encounter Care Teams Associate Java Developer Relationship Specialty Start Date End Date Chasidy Kimbrough MD [address] [place] [address] PCP - General Family Medicine 02/14/21 documented as of this encounter
--- OUTSIDE RECORDS SUMMARY | 2024-08-24 14:32 | XMS_ITS | Encounter Summary ---
Author Organization [employer] Address [address] [place] [address] [address] [place] [address] Care Team Providers Care Director Of Radio Services Name Role Phone Chasidy Kimbrough MD Primary Care Provider [phone] Reason for Visit * Reason Comments Hospital Follow-up Encounter Details Date Type Department Care Team (Latest Contact Info) Description 08/12/2024 1:00 PM EST Office Visit [facility] MEDICINE [address] [place], [place] [phone] Chasidy Kimbrough MD [address] [place], [place] [phone] Primary hypertension (Primary Dx); Type 2 diabetes mellitus without complication, without long-term current use of insulin (CMS/HCC); Dietary counseling; Exercise counseling; Overweight; Mild intermittent asthma without complication; Hyperlipidemia associated with type 2 diabetes mellitus (CMS/HCC) ([facility]/HCC); Chronic migraine without aura without status migrainosus, not intractable; long-term current use of antipsychotic medication Social History [...] ASA, started today. - Needs help booking [facility] Neurology appt for migraines and memory loss - needs EKG for Qtc monitoring Interim Events: 03/08 Dr. Moore, color control supervisor controlled on current regimen of Spiriva and [...] continued Background Pharmacist Erin Jarrell, AdrianaD and international student advisor Staci Loco contacted patient to discuss upcominghospital discharge visit for depression : Future Appointments Date Time Provider Department Center 08/12/2024 1:00 PM Chasidy Kimbrough MD MEDICINE [facility] Hospital Course and Medication Reconciliation [facility] 07/08/24 07/19/24 Patient with PMH [...] mg tab: 2.5mg by mouth twice daily Jkikglmpoc-umskfiazhorqk-bkfbzkmy 50-325-40mg tab: 1 tablet by mouth every 4 hours as needed for migraine headache Bupropion HCl 150mg tab ER 24hr: 150mg by mouth daily - on EHR prior to hospitalization however fill history suggests non-adherence Vicks Vapor Rub: 1 appful topical twice daily as needed Changed: none Discontinued: Aripiprazole Preferred Pharmacy: [facility] - [address] [facility] [id number] Medbox: No Patient Reported History Patient was unable to complete med rec as they kept getting confused about medication names and unable to locate vials Agreed to ask daughter for updated medication list to bring to appointment Confirmed and agreeable to [facility] appointment as listed above Provider Recommendations [...] discharge summary Spoke with Dr. Kj Cardoza's product safety technical assistant Portia who confirmed the following regimen [...] associated with type 2 diabetes mellitus (CMS/HCC) ([facility]) Hypertensive disorder - Primary Relevant Orders ECG 12 lead (Completed) Mild intermittent asthma Type 2 diabetes mellitus without complication ([facility]) Current Assessment & Plan Cont Metformin 500mg [...] Visit Diagnoses Dietary counseling Exercise counseling Overweight long-term current use of antipsychotic medication Relevant Orders [...] Blood Pressure Monitoring (Blood Pressure Monitor/M Cuff) [facility], Use kit to measure blood pressure once daily, Disp: 1 each, Rfl: 0 buPROPion XL (Wellbutrin XL) 150 MG 24 hr tablet, Take 150 mg by mouth in the morning., Disp: , Rfl: buPROPion XL (Wellbutrin XL) 300 MG 24 hr tablet, Take 300 mg by mouth in the morning., Disp: , Rfl: byyonyrbov-lrbvkeywzkcdc-qhkzmhrc 50-325-40 MG tablet, Take 1 tablet by mouth every 6 (six) hours if needed for migraine (max 2 tablets per week)., Disp: 10 tablet, Rfl: 3 cholecalciferol (Vitamin D-3) 50 MCG (2000 UT) tablet, Take 1 tablet (50 mcg) by mouth in the morning., Disp: 90 tablet, Rfl: 3 fish oil ([place]-3) 500 MG capsule, Take 1 capsule (500 [...] bedtime., Disp: , Rfl: TRUEplus Lancets 33G [facility], USE DIRECTED TO TEST BLOOD SUGAR TWICE DAILY, Disp: 100 each, Rfl: 3 Wolof Translation: Provided by [facility] staff member JAMES Corbin documented in [...] Description 11/15/2024 11:00 AM EDT Office Visit [facility] MEDICINE [address] [place] [address] Chasidy Kimbrough MD [address] [place] [address] documented as of this encounter Procedures Procedure Name Priority Date/Time Associated Diagnosis Comments ECG 12-LEAD Routine 08/16/2024 4:13 PM EST Primary hypertension 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 current use of antipsychotic medication POCT GLYCATED [...] complication, without long-term current use of insulin ([facility]) Dietary counseling Dietary surveillance and counseling Exercise counseling Overweight Mild intermittent asthma without complication Hyperlipidemia associated with type 2 diabetes mellitus ([facility]) ([facility]) Chronic migraine without aura without status migrainosus, not intractable long-term current use of antipsychotic medication documented in this encounter Additional Health Concerns Assessment Noted Time PHQ-9 Depression Total Score: 3 11/30/19 24 1:27 PM EDT documented as of this encounter Care Teams Director Of Radio Services Relationship Specialty Start Date End Date Chasidy Kimbrough MD [address] [place] [address] PCP - General Family Medicine 02/14/21 documented as of this encounter
--- OUTSIDE RECORDS SUMMARY | 2024-08-24 14:32 | XMS_ITS | Encounter Summary ---
Author Organization [employer] [facility] Address [address] [place] [address] [address], [place] [address] Care Team Providers Care Body Design Checker Name Role Phone Chasidy Kimbrough MD Primary Care Provider [phone] Reason for Referral * Consultation (Routine) - Closed Specialty Diagnoses / Procedures Referred By Conthemal t Referred To Contact Gastroenterology Diagnoses Other dysphagia Chasidy Kimbrough MD [address] [place] [address] Phone: tel: fax: [address] Phone: tel: fax: Referral ID Status Reason Start Date Expiration Date V isits Requested Visits Authorized [id number] Closed Specialty Services Required 01/02/2024 01/01/2025 6 6 Encounter Details Date Type Department Care Team (Late st Contact Info) Description 12/30/2023 Orders Only [facility] MEDICINE [address] [place], [place] [phone] Chasidy Kimbrough MD [address] [place] [address] Other dysphagia (Primary Dx) Social History Tobacco [...] Description 11/15/2024 11:00 AM EDT Office Visit [facility] MEDICINE [address] [place] [address] Chasidy Kimbrough MD [address] [place] [address] Scheduled Referrals Name Type Priority Associated Diagnoses Order Schedule Referral to Gastroenterology Outpatient Referral Routine Other dysphagia Expected: 12/30/2023 (Approximate), Expires: 12/29/2024 documented as of this encounter Visit Diagnoses Diagnosis Other dysphagia- Primary documented in this encounter Additional Health Concerns Assessment Noted Time PHQ-9 Depression Total Score: 3 11/30/19 24 1:27 PM EDT documented as of this encounter Care Teams Body Design Checker Relationship Specialty Start Date End Date Chasidy Kimbrough MD [address] [place] [address] PCP - General Family Medicine 02/14/21 documented as of this encounter
--- OUTSIDE RECORDS SUMMARY | 2024-08-24 14:32 | XMS_ITS | Encounter Summary ---
Author Organization [employer] Address [address] [facility] [address] [place] [address] Care Team Providers Care Instrument Lens Inspector Name Role Phone Chasidy Kimbrough MD Primary Care Provider [phone] Encounter Details Date Type Department Care Team [...] Description 11/15/2024 11:00 AM EDT Office Visit [facility] MEDICINE [address] [place] [address] Chasidy Kimbrough MD [address] [place] [address] documented as of this encounter Visit Diagnoses Not on filedocumented in this encounter Additional Health Concerns Assessment Noted Time PHQ-9 Depression Total Score: 3 11/30/19 24 1:27 PM EDT documented as of this encounter Care Teams Instrument Lens Inspector Relationship Specialty Start Date End Date Chasidy Kimbrough MD [address] [place] [address] PCP - General Family Medicine 02/14/21 documented as of this encounter
== END 2024-08-24 13:47 | disposition home or self-care (01) ==
LOC: HO.HPS 12:29
PROVIDERS: PCP General Practice; Visit Provider Internal Medicine Pulmonary Disease
DX: J45.909 Unspecified asthma, uncomplicated (principal); R91.8 Other nonspecific abnormal finding of lung field
CPT/HCPCS: 99214

== ENCOUNTER → 2024-08-24 12:28 | Outpatient (BNVA) | payer MEDICAID, SELFPAY | PROVIDERS: PCP General Practice; Visit Provider Internal Medicine Pulmonary Disease | DX: J45.909 Unspecified asthma, uncomplicated (principal); R91.8 Other nonspecific abnormal finding of lung field | CPT/HCPCS: 99212 ==

== ENCOUNTER 2024-09-27 13:32 | Outpatient (REF) | payer MEDICAID, SELFPAY ==
--- OUTSIDE RECORDS SUMMARY | 2024-09-27 16:36 | XMS_ITS | Encounter Summary ---
Author Organization [employer] Address [address] [facility] [address] [place] [address] Care Team Providers Care Egg Crater Name Role Phone Chasidy Kimbrough MD Primary Care Provider [phone] Reason for Visit * Reason Comments Med Refill Encounter Details Date Type Department Care Team ([facility] st Contact Info) Description 06/20/2024 Refill [facility] MEDICINE [address] [place], [place] [phone] Chasidy Kimbrough MD [address] [place], [place] [phone] Social History Tobacco Use Types Packs/Day Years [...] 11/15/2024 11:00 AM EDT Office Visit [facility] MEDICINE [address] [place] [address] Chasidy Kimbrough MD [address] [place], [place] [phone] documented as of this encounter Visit Diagnoses Not on filedocumented in this encounter Additional Health Concerns Assessment Noted Time PHQ-9 Depression Total Score: 3 11/30/19 24 1:27 PM EDT documented as of this encounter Care Teams Egg Crater Relationship Specialty Start Date End Date Chasidy Kimbrough MD [address] [place], [place] [phone] PCP - General Family Medicine 02/14/21 documented as of this encounter
--- OUTSIDE RECORDS SUMMARY | 2024-09-27 16:36 | XMS_ITS | Encounter Summary ---
Author Organization [employer] Address [address] [facility] [address] [place] [address] Care Team Providers Care Engineering Lab Technician Name Role Phone Chasidy Kimbrough MD Primary Care Provider [phone] Encounter Details Date Type Department Care Team (Late st Contact Info) Description 08/31/2023 Telephone [facility] MEDICINE [address] [place], [place] [phone] Chasidy Kimbrough MD [address] [place], [place] [phone] Social History Tobacco Use Types Packs/Day Years [...] Office Visit [facility] MEDICINE [address] [place] [phone] Chasidy Kimbrough MD [address] [place] [phone] documented as of this encounter Visit Diagnoses Not on filedocumented in this encounter Additional Health Concerns Assessment Noted Time PHQ-9 Depression Total Score: 5 07/25/19 23 9:47 AM EST documented as of this encounter Care Teams Engineering Lab Technician Relationship Specialty Start Date End Date Chasidy Kimbrough MD [address] [place] [phone] PCP - General Family Medicine 02/14/21 documented as of this encounter
--- OUTSIDE RECORDS SUMMARY | 2024-09-27 16:36 | XMS_ITS | Encounter Summary ---
Author Organization [employer] Address [address] [place] [address] [address] [place] [address] Care Team Providers Care Garment Fitter Name Role Phone Chasidy Kimbrough MD Primary Care Provider [phone] Reason for Referral * Consultation (Routine) - Authorized Specialty Diagnoses / Procedures Referred By Conthemal esposito Referred To Contact Neurology Diagnoses Memory loss Chasidy Kimbrough MD [address] [place] [address] Phone: tel: fax: [facility] Referral ID Status Reason Start Date Expiration Date Visits Requested Visits Authorized [id number] Authorized Specialty Services Required 07/18/2024 07/18/2025 6 6 Encounter Details Date Type Department Care Team (Late st Contact Info) Description 07/13/2024 Orders Only [facility] MEDICINE [address] [place], [place] [phone] Chasidy Kimbrough MD [address] [place], [place] [phone] Memory loss (Primary Dx) Social History Tobacco [...] Visit [facility] MEDICINE [address] [place] [address] Chasidy Kimbrough MD [address] [place] [address] Scheduled Referrals Name Type Priority Associated Diagnoses Orde r Schedule Referral to Neurology Outpatient Referral Routine Memory loss Expected: 07/13/2024 (Approximate), Expires: 07/13/2025 documented as of this encounter Visit Diagnoses Diagnosis Memory loss- Primary documented in this encounter Additional Health Concerns Assessment Noted Time PHQ-9 Depression Total Score: 3 11/30/19 24 1:27 PM EDT documented as of this encounter Care Teams Garment Fitter Relationship Specialty Start Date End Date Chasidy Kimbrough MD [address] [place] [address] PCP - General Family Medicine 02/14/21 documented as of this encounter
--- OUTSIDE RECORDS SUMMARY | 2024-09-27 16:36 | XMS_ITS | Clinical Summary ---
Author Organization [employer] Address [address] [place] [address] [address] [place] [address] Care Team Providers Care Slasher Tender Helper Name Role Phone Chasidy Kimbrough MD Primary Care Provider [phone] Allergies Active Allergy Reactions Criticality Noted Date Comments Trazodone 08/12/2011 Other reaction(s): Prolonged QTc Medications buPROPion XL (Wellbutrin XL) 300 MG 24 hr tablet Take 300 mg by mouth in the morning. 3 Active buPROPion XL (Wellbutrin XL) 150 MG 24 hr tablet Take 150 mg by mouth in the morning. 3 Active FLUoxetine (PROzac) 20 MG capsule Take 3 capsules by mouth Once per day. 3 Active Blood Pressure Monitoring (Blood Pressure Monitor/M Cuff) miscIndications:P rimary hypertension Use kit to measure blood pressure once daily 1 each 3 Active glucose blood (FREESTYLE LITE) test stripIndications: Type 2 diabetes mellitus without complication, without long-term current use of insulin ([facility]) TEST BLOOD SUGAR TWICE DAILY DIRECTED 100 strip 7 4 Active Allergy Relief 180 MG tablet Take 1 tablet (180 mg) by mouth Once per day. 90 tablet 3 4 Active amLODIPine (Norvasc) 10 MG tabletIndications :Primary hypertension TAKE 1 TABLET BY MOUTH EVERY MORNING 90 tablet 3 4 Active losartan (Cozaar) 100 MG tabletIndications :Primary hypertension TAKE 1 TABLET BY MOUTH EVERY DAY 90 tablet 3 4 Active Spiriva Respimat 2.5 MCG/ACT inhaler Inhale 2 puffs Once per day. 1 each 4 Active cholecalciferol (Vitamin D-3) 50 MCG (2000 UT) tablet Take 1 tablet (50 mcg) by mouth in the morning. 90 tablet 3 4 Active albuterol (ProAir HFA) 108 (90 Base) MCG/ACT inhaler Inhale 2 puffs every 4 (four) hours. 18 g 4 Active hydrALAZINE (Apresoline) 50 MG tabletIndications :Primary hypertension TAKE 1 TABLET BY MOUTH THREE TIMES DAILY 270 tablet 3 4 Active fish oil ([place]-3) 500 MG capsule Take 1 capsule (500 mg) by mouth Once per day. 90 capsule 3 4 Active atorvastatin (Lipitor) 80 MG tablet Take 1 tablet (80 mg) by mouth at bedtime. 90 tablet 3 4 Active gabapentin (Neurontin) 100 MG capsule Take 1 capsule (100 mg) by mouth every 8 (eight) hours. 90 capsule 11 4 05/09/20 25 Active TRUEplus Lancets 33G miscIndications:T ype 2 diabetes mellitus without complication, without long-term current use of insulin ([facility]) USE DIRECTED TO TEST BLOOD SUGAR TWICE DAILY 100 each 3 4 Active ARIPiprazole (Abilify) 20 MG tablet Take 20 mg by mouth Once per day. Active traZODone (Desyrel) 150 MG tablet Take 2 tablets by mouth at bedtime. 5 Active omeprazole (PriLOSEC) [address] capsule Take 1 capsule by mouth Once per day. 5 Active metFORMIN XR (Glucophage-XR) 500 MG 24 hr tablet Take 2 tablets by mouth with evening meal. 5 Active melatonin 5 MG tablet Take 2 tablets by mouth if needed at bedtime (sleep). 5 Active aspirin 81 MG chewable tablet Chew 1 tablet (81 mg) Once per day. 90 tablet 3 5 08/12/19 Active propranolol LA (Inderal LA) 60 MG 24 hr capsule Take 1 capsule (60 mg) by mouth Once per day. Do not crush, chew, or split. 30 capsule 11 5 08/12/19 26 Active naproxen (Naprosyn) 500 MG tablet Take 1 tablet (500 mg) by mouth 2 times daily. 60 tablet 3 4 09/07/19 25 butalbital-acetam inophen-caffeine 50-325-40 MG tablet Take 1 tablet by mouth every 6 (six) hours if needed for migraine (max 2 tablets per week). 10 tablet 3 5 09/12/19 25 Active Problems Problem Noted Date Diagnosed Date [...] SI/HI Talked about grounding exercises Hyperlipidemia associated with type 2 diabetes m rosa maria 07/29/2017 Assessment & Plan (07/25/2022 10:29 AM [...] Encounters Date Type Department Care Team Description 08/26/2024 [facility] Risk Score [facility] () Department [address] [place] [phone] Provider, [facility] Generic 08/23/2024 Orders Only [facility] External Provider, [facility] 08/12/2024 1:00 PM EST Office Visit [facility] [address] [place] [phone] Chasidy Kimbrough MD Primary hypertension (Primary Dx); Type 2 diabetes mellitus without complication, without long-term current use of insulin ([facility]); Dietary counseling; Exercise counseling; Overweight; Mild intermittent asthma without complication; Hyperlipidemia associated with type 2 diabetes mellitus (CMS/HCC) ([facility]); Chronic migraine without aura without status migrainosus, not intractable; 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 08/12/2024 Travel 07/25/2024 Telephone [facility] [address] [place], [place] [phone] Josephine Monge, RN HDF 07/13/2024 Telephone [facility] [address] [place], [place] [phone] Zohreh Pratt, RN Results; Referral 07/13/2024 Orders Only [facility] [address] [place] [address] Cahsidy Kimbrough MD Memory loss (Primary Dx) 07/07/2024 Orders Only GENERIC EXTERNAL DATA DEPARTMENT Provider, Generic External Data from Last 3 Months Immunizations Name Administration [...] Description 11/15/2024 11:00 AM EDT Office Visit [facility] [address] [place] [address] Chasidy Kimbrough MD [address] [place] [address] Health Maintenance Due Date Last Done Comments [...] history exists Depression Screening 11/29/2024 11/30/2023, 11/30/19 Diabetes: Urine Protein Screening 11/29/2024 11/30/2023, 05/07/2020, [...] Routine 08/16/2024 4:13 PM EST 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 [facility] ?[address] ?[place] [address] ?XRay Report ? Signed ? Patient: Cynthia Stuart Georges ?MR#: ?? [id number] ? : 1965 ?Acct:[id number] ? Age/Sex: 59 / F ?ADM Date: 08/23/24 ? Loc: HO.XRAY ? Attending Dr: Margoth HILLMANP-BC ? Ordering Physician: Margoth WhitePMADALYN ?? Date of Service: 08/23/24 ?? Procedure(s): XR soft tissue neck ?? Accession Number(s): [id number] ? cc: Chasidy Kimbrough; Margoth White ACCOUNTING MACHINE SERVICER-BC ? EXAMINATION: ?? XR SOFT TISSUE NECK [...] DD/ 1150 ? TD/TT: 08/23/24 1217 ? Market Reporter: ? Procedure Note Donotuseinterpreter, Image - 08/23/[address] [address] XRay Report Signed Patient: Cynthia Stuart OMR#: [id number] : 1965Acct:[id number] Age/Sex: 59 / FADM Date: 08/23/24 Loc: HO.XRAY Attending Dr: Margoth White ACCOUNTING MACHINE SERVICER- Ordering Physician: Margoth White ACCOUNTING MACHINE SERVICER- Date of Service: 08/23/24 Procedure(s): XR soft tissue neck Accession Number(s): [id number] cc: Chasidy Kimbrough; Margoth WhiteP- EXAMINATION: XR SOFT TISSUE NECK CLINICAL INDICATION: [...] 08/23/24 1507 DD/ 1150 TD/TT: 08/23/24 1217 Market Reporter: [facility] External Provider IMG XR PROCEDURES Final Result [...] Healthcare ETHANOL (MG/DL) IN SER/PLAS <10 mg/dL [facility] Comment:Serum/plasma ethanol results are to be used formedical/treatment purposes only. 07/07/2024 6:52 PM EST 07/07/2024 6:54 PM EST Generic External Data Provider LAB BLOOD ORDERAB LES Final Result [facility] [address] [place] [phone] * (ABNORMAL) CBC auto differential (07/07/2024 6:52 PM EST) [facility] White Blood Count 12.3(H) 4.8 - 10.8 X10*3/uL [facility] Red Blood Count 5.08 4.20 - 5.50 X10*6/uL [facility] Hemoglobin 13.7 12.0 - 16.0 g/dl [facility] Hematocrit 42.3 37.0 - 47.0 % [facility] Mean Corpuscular Volume 83.3 80.0 - 98.0 fL [facility] Mean Corpuscular Hemoglobin 27.0 27.0 - 33.0 pg [facility] Mean Corpuscular HGB Conc 32.4 31.0 - 35.0 g/dl [facility] Red Cell Distribution Width 13.8 11.0 - 16.0 % [facility] Platelet Count 321 160 - 400 X10*3/uL [facility] Mean Platelet Volume 9.6 9.4 - 12.3 fL [facility] Neutrophils Percent Auto 64.8 45 - 73 % [facility] Imm Gran Pct Auto 0.3 0.0 - 0.4 % [facility] Lymphocytes Percent Auto 27.3 20 - 40 % [facility] Monocytes Percent Auto 6.4 2 - 11 % [facility] Eosinophils Percent Auto 0.6 0 - 4 % [facility] Basophils Percent Auto 0.6 0 - 2 % [facility] NRBC Pct Auto 0.0 0.0 - 0.2 /100WBC [facility] Neutrophils Absolute Auto 7.9 2.0 - 8.3 x10*3/uL [facility] Imm Gran Abs Auto 0.04(H) 0.00 - 0.03 X10*3/uL [facility] Lymphocytes Absolute Auto 3.4 1.2 - 4.9 X10*3/uL [facility] Monocytes Absolute Auto 0.8 0.1 - 1.2 X10*3/uL [facility] Eosinophils Absolute Auto 0.1 0.0 - 0.4 X10*3/uL [facility] Basophils Absolute Auto 0.1 0.0 - 0.2 X10*3/uL [facility] NRBC Abs Auto 0.000 0.0 - 0.012 X10*3/uL [facility] 07/07/2024 6:52 PM EST 07/07/2024 6:54 PM EST us Generic External Data Provider LAB BLOOD ORDERAB LES Edited Result - Final Performing Organization Address [facility]/State/ZIP Co de Phone Number [facility] [address], [place] [phone] * (ABNORMAL) Comprehensive Metabolic Panel (07/07/2024 6:52 PM EST) Sodium 140 135 - 145 mmol/L [facility] Potassium 3.7 3.3 - 5.1 mmol/L [facility] Chloride 108 96 - 108 mmol/L [facility] Carbon Dioxide 25 22 - 29 mmol/L [facility] Anion Gap 11(L) 12 - 20 [facility] Urea Nitrogen (BUN) 12 9 - 16 mg/dL [facility] Creatinine, Serum 0.63 0.5 - 1.4 mg/dL [facility] Creatinine Clr Calc Pharmacy 97.3 [facility] Comment:Provided height and weight: 165.1 cm,74.843 kg.eGFR (calculated from the MDRD study equation) and eCrCl(calculated from the Cockcroft-Gault equation) are based ondifferent parameters and may not yield comparable results.If eCrCl result is absurd, please check patient'sheight/weight. Estimated Glomerular Filt Rate >60 [facility] Comment:Chronic Kidney Disea se: Estimated GFR < 60 mL/min/1.60h2Veiyxa Kidney Disease: Estimated GFR < 15 mL/min/1.73m2 Glucose 121(H) 60 - 115 mg/dL [facility] Calcium 10.4(H) 8.4 - 10.2 mg/dL [facility] Bilirubin, Total 0.2 0.0 - 1.0 mg/dL [facility] Aspartate Amino Transferase 19 5 - 31 U/L [facility] Alanine Aminotransferase 11 0 - 31 U/L [facility] Total Protein 8.5(H) 6.5 - 8.0 g/dL [facility] Albumin Level 4.3 3.5 - 5.0 g/dL [facility] Alkaline Phosphatase 79 39 - 117 U/L [facility] 07/07/2024 6:52 PM EST 07/07/2024 6:54 PM EST Generic External Data Provider LAB BLOOD ORDERAB LES Final Result Performing Organization Address [facility]/ZIP Co de Phone Number [facility] [address] [place] [phone] * (ABNORMAL) Urinalysis, Complete, with Reflex to Culture (07/07/2024 6:11 PM EST) Color Urine Yellow [facility] Appearance Urine Clear [facility] PH 7.0 5.0 - 9.0 [facility] Glucose Urine UA Negative Negative mg/dL [facility] Urine Blood Small (1+)(A) Negative [facility] Specific [place] - Urine 1.015 1.005 - 1.025 [facility] Urine Protein 30 (1+)(A) Neg-Trace mg/dL [facility] Urine Ketones Negative Negative mg/dL [facility] Nitrite Urine Negative Negative [facility] Leukocyte Esterase Urine Negative Negative [facility] RBC Urine 11-20(A) 0 - 2 /HPF [facility] Urine WBC 0-5 0 - 5 /HPF [facility] Urine Squamous Epithelial Cell 3-5 0 - 2 /HPF [facility] Urine Bacteria Trace None Seen [facility] Hyaline Casts, Urine 0-2 0 - 2 /LPF [facility] 07/07/2024 6:11 PM EST 07/07/2024 6:14 PM EST Narrative [facility] - 07/07/2024 6:28 PM EST [id number], Clean Catch us Generic External Data Provider LAB URINE ORDERAB LES Final Result Performing Organization Address [facility]/ZIP Co de Phone Number [facility] [address] [place] [phone] * Drug Monitoring, Panel 1, Screen, Urine (07/07/2024 6:11 PM EST) Opiate Screen Urine Not Detected Not Detect [facility] Comment:Opiate cut-off is 30 0 ng/mL.Positive results are unconfirmed and should not be used fornon-medical purposes. Barbiturates, Urine Not Detected Not Detect [facility] Comment:Barbiturate cut-off is 200 ng/mL.Positive results are unconfirmed and should not be used fornon-medical purposes. Phencyclidine Screen Urine Not Detected Not Detect [facility] Comment:Phencyclidine cut-of f is 25 ng/mL.Positive results are unconfirmed and should not be used fornon-medical purposes. Amphetamine Screen Urine Not Detected Not Detect [facility] Comment:Amphetamine cut-off is 1000 ng/mL.Positive results are unconfirmed and should not be used fornon-medical purposes. Benzodiazepines Screen Urine Not Detected Not Detect [facility] Comment:Benzodiazepine cut-o ff is 200 ng/mL.Positive results are unconfirmed and should not be used fornon-medical purposes. Cocaine Screen Urine Not Detected Not Detect [facility] Comment:Cocaine cut-off is 3 00 ng/mL.Positive results are unconfirmed and should not be used fornon-medical purposes. Cannabinoid Screen Urine Not Detected Not Detect [facility] Comment:Cannabinoid cut-off is 50 ng/mL.Positive results are unconfirmed and should not be used fornon-medical purposes. Methadone Screen, Urine Not Detected Not Detect ng/mL [facility] Comment:Methadone cut-off is 300 ng/mL.Positive results are unconfirmed and should not be used fornon-medical purposes. FENTANYL URINE Not Detected Not Detect [facility] Comment:Fentanyl cut-off is 1 ng/mL.Positive results are unconfirmed and should not be used fornon-medical purposes. Oxycodone Urine Screen Not Detected Not Detect ng/mL [facility] Comment:Oxycodone cut-off is 100 ng/mL.Positive results are unconfirmed and should not be used fornon-medical purposes. Buprenorphine Screen Not Detected Not Detect ng/mL [facility] Comment:Buprenorphine cut-of f is 5 ng/mL.Positive results are unconfirmed and should not be used fornon-medical purposes. 07/07/2024 6:11 PM EST 07/07/2024 6:14 PM EST us Generic External Data Provider LAB URINE ORDERAB LES Final Result Performing Organization Address [facility]/ZIP Co de Phone Number [facility] [address] [place] [phone] * Hepatitis Panel, General (05/09/2024 4:30 PM EST) Hepatitis A IgM Nonreactive Nonreactive [facility] Comment:IgM antibodies to GALAVIZ V not detected; does not exclude earlyacute or recovered HAV infection. ~Hepatitis B Surface Antibody REACTIVE Nonreactive [facility] Comment:REACTIVE: > 11.99 mI U/mL Hepatitis B Core Antibody Nonreactive Nonreactive [facility] Hepatitis C Antibody Nonreactive Nonreactive [facility] Comment:Antibodies to HCV no t detected; does not exclude early acuteHCV infection. Hepatitis B Surface Ag Negative Negative [facility] Blood 05/09/2024 4:30 PM EST 05/09/2024 5:40 PM EST Mona Morris MD LAB BLOOD ORDERABLES Fin al Result Performing Organization Address [facility]/ZIP Co de Phone Number [facility] [address] [place] [phone] * Albumin, Random Urine W/Creatinine (11/30/2023 1:19 PM EDT) Creatinine, Urine 118.88 mg/dL [facility] Microalbumin Urine 30.0 mg/L [facility] Microalbum Creatinine Ratio Ur 25.2 <30 ug/mg cr [facility] Comment:Albumin/Creatinine R atio Reference Ranges: Normal: < 30 ug/mg creatinine Microalbuminuria: 30 - 300 ug/mg creatinineClinical Albuminuria: > 300 ug/mg creatinine Urine (Urine, Random) 11/30/2023 1:19 PM EDT 11/30/2023 3:55 PM EDT us Chasidy Kimbrough MD LAB URINE ORDERABLES Final Res ult Performing Organization Address [facility] Co de Phone Number [facility] [address] [place] [phone] * HIV-1/2 Antigen and Antibodies, Fourth Generation, with Reflexes (11/30/2023 1:19 PM EDT) HIV AB/AG Nonreactive Nonreactive [facility] Comment:HIV-1 p24 Ag and/or HIV-1/HIV-2 Ab not detected.A test result that is nonreactive does not exclude thepossibility of exposure to or infection with HIV-1 and/orHIV-2. Nonreactive results in this assay for individualswith prior exposure to HIV-1 and/or HIV-2 may be due toantigen and antibody levels that are below the limit ofdetection of this assay.The judge[employer] HIV Ag/Ab Combo assay result andsupplemental assay results should be interpreted inconjunction with the patient's clinical presentation,history and other laboratory results. If the results areinconsistent with clinical evidence, additional testing issuggested to confirm the result. Blood Venous blood specimen / Unknown 11/30/2023 1:19 PM EDT 11/30/2023 3:56 PM EDT us Chasidy Kimbrough MD LAB BLOOD ORDERABLES Final Res ult Performing Organization Address [facility] Co de Phone Number [facility] [address] [place] [phone] * (ABNORMAL) Lipid Panel, Standard (11/30/2023 1:19 PM EDT) Triglycerides 114 <150 mg/dL [facility] Comment:Desirable Triglyceri de: less than 150 mg/dLBorderline High Triglyceride 150-199 mg/dLHigh Triglyceride: 200-499 mg/dLVery High Triglyceride: greater than or equal to 5OO mg/dL Cholesterol 229(H) <200 mg/dL [facility] Comment:Desirable Cholestero l: less than 200 mg/dLBorderline High Cholesterol: 200-239 mg/dLHigh Cholesterol: greater than 239 mg/dL LDL Cholesterol Calculated 143(H) <100 mg/dL [facility] Comment:Desirable LDL: less than 100 mg/dLNear Optimal/Above Optimal LDL: 110- 129 mg/dLBorderline High LDL: 130-159 mg/dLHigh LDL: 160-189 mg/dLVery High LDL: greater than or equal to 190 mg/dL HDL Cholesterol 64 >40 mg/dL [facility] Comment:Desirable HDL: great er than 40 mg/dL Note: This HDL assay may give artificially low results in patients with liver disease. Blood Venous blood specimen / Unknown 11/30/2023 1:19 PM EDT 11/30/2023 3:56 PM EDT us Chasidy Kimbrough MD LAB BLOOD ORDERABLES Final Res ult Performing Organization Address City/State/[facility] Co de Phone Number [facility] [address] [place] [phone] * BI US Breast Limited Left (11/04/2023 2:27 PM EDT) Anatomical Region Laterality Modality Breast Left Ultrasound 11/04/2023 2:27 PM EDT Narrative 11/05/2023 10:28 AM EDT ? [facility] [place] ? [address] ?[place] [address] ? Ultrasound Report ? Signed ? Patient: Roddy Artreche,Cynthia O ?MR#: ?? [id number] ? : 1965 ?Acct:[id number] ? Age/Sex: 58 / F ?ADM Date: 05/22/24 ? Loc: HO.MAMMO ? Attending Dr: Chasidy Kimbrough MD ? Ordering Physician: Chasidy Kimbrough ?? Date of Service: 11/04/23 ?? Procedure(s): US breast LT limited mamm only ?? Accession Number(s): [id number] ? cc: Chasidy Kimbrough ? EXAMINATION: ?? [...] 1024 ? DD/ 1427 ? TD/TT: ? Market Reporter: ? Procedure Note Carlos, Image - 11/05/2023 [facility] [address] [place] [address] Dr. Hsieh, LYRIC [address] Ultrasound Report Signed Patient: Cynthia Stuart OMR#: [id number] : 1965Acct:[id number] Age/Sex: 58 / FADM Date: 11/04/23 Loc: LULA Attending Dr: Chasidy Kimbrough MD Ordering Physician: Chasidy Kimbrough Date of Service: 11/04/23 Procedure(s): US breast LT limited mamm only Accession Number(s): [id number] cc: Chasidy Kimbrough EXAMINATION: MM DIAGNOSTIC DIGITAL [...] in OV> 11/05/23 1024 DD/ 1427 TD/TT: Market Reporter: us Chasidy Kimbrough MD IMG US PROCEDURES Final Result from Last 3 Months or Most Recently Relevant to Health Maintenance Insurance [facility] C3 Care Teams Slasher Tender Helper Relationship Specialty Start Date End Date Chasidy Kimbrough MD [address] [place] [address] [place] [address] PCP - General Family Medicine 02/14/21
--- OUTSIDE RECORDS SUMMARY | 2024-09-27 16:36 | XMS_ITS | Encounter Summary ---
Author Organization [employer] Address [address] [address] Care Team Providers Care Laboratory Secretary Name Role Phone hCasidy Kimbrough MD Primary Care Provider [phone] Reason for Referral * Consultation (Routine) - Authorized Specialty Diagnoses / Procedures Referred By Conthemal t Referred To Contact Rheumatology Diagnoses Tenosynovitis of finger Elevated erythrocyte sedimentation rate Positive DANO (antinuclear antibody) Chasidy Kimbrough MD [address] [place] [address] Phone: tel: fax: [facility] [address] [place] [address] Phone: tel: fax: Referral ID Status Reason Start Date Expiration Date Visits Requested Visits Authorized [id number] Authorized Specialty Services Required 4 05/25/2025 6 6 Encounter Details Date Type Department Care Team (Late st Contact Info) Description 05/16/2024 Orders Only [facility] [address] [place], [place] [phone] Chasidy Kimbrough MD [address] [place], [place] [phone] Tenosynovitis of finger (Primary Dx); Elevated erythrocyte [...] 11/15/2024 11:00 AM EDT Office Visit [facility] [address] [place], [place] [phone] Chasidy Kimbrough MD [address] [place] [address] Scheduled Referrals Name Type Priority Associated Diagnoses [...] as of this encounter Care Teams Laboratory Secretary Relationship Specialty Start Date End Date Chasidy Kimbrough MD [address] [place] [address] PCP - General Family Medicine 02/14/21 documented as of this encounter
--- OUTSIDE RECORDS SUMMARY | 2024-09-27 16:36 | XMS_ITS | Encounter Summary ---
Author Organization [facility] Address [address] [place] [address], [place] [address] Care Team Providers Care Facer Operator Name Role Phone Chasidy Kimbrough MD Primary Care Provider [phone] Reason for Referral * Consultation (Routine) - Closed Specialty Diagnoses / Procedures Referred By Conthemal t Referred To Contact Gastroenterology Diagnoses Other dysphagia Chasidy Kimbrough MD [address] [place] [address] Phone: tel: fax: [address] Phone: tel: fax: Referral ID Status Reason Start Date Expiration Date V isits Requested Visits Authorized [id number] Closed Specialty Services Required 01/02/2024 01/01/2025 6 6 Encounter Details Date Type Department Care Team (Late st Contact Info) Description 12/30/2023 Orders Only [facility] [address] [place], [place] [phone] Chasidy Kimbrough MD [address] [place] [address] Other dysphagia (Primary Dx) Social [...] 11/15/2024 11:00 AM EDT Office Visit [facility] [address] [place] [address] Chasidy Kimbrough MD [address] [place] [address] Scheduled Referrals Name Type Priority Associated Diagnoses Order Schedule Referral to Gastroenterology Outpatient Referral Routine Other dysphagia Expected: 12/30/2023 (Approximate), Expires: 12/29/2024 documented as of this encounter Visit Diagnoses Diagnosis Other dysphagia- Primary documented in this encounter Additional Health Concerns Assessment Noted Time PHQ-9 Depression Total Score: 3 11/30/19 24 1:27 PM EDT documented as of this encounter Care Teams Facer Operator Relationship Specialty Start Date End Date Chasidy Kimbrough MD [address] [place] [address] PCP - General Family Medicine 02/14/21 documented as of this encounter
--- OUTSIDE RECORDS SUMMARY | 2024-09-27 16:36 | XMS_ITS | Encounter Summary ---
Author Organization [email or web address] [facility] Address [address] [place] [address] [address] [place] [address] Care Team Providers Care Waist Pleater Name Role Phone Chasidy Kimbrough MD Primary Care Provider [phone] Reason for Visit * Reason Comments Med Refill Encounter Details Date Type Department Care Team (Late Contact Info) Description 12/29/2022 Refill [facility] MEDICINE [address] [place], [place] [phone] Chasidy Kimbrough MD [address] [place], [place] [phone] Social History Tobacco Use Types Packs/Day Years [...] Upcoming Encounters Date Type Department Care Team ([facility] Contact Info) Description 11/15/2024 11:00 AM EDT Office Visit [facility] [address] [place] [address] Chasidy Kimbrough MD [address] [place] [address] documented as of this encounter Visit Diagnoses Not on filedocumented in this encounter Additional Health Concerns Assessment Noted Time PHQ-9 Depression Total Score: 5 07/25/19 23 9:47 AM EST documented as of this encounter Care Teams Waist Pleater Relationship Specialty Start Date End Date Chasidy Kimbrough MD [address] [place] [address] PCP - General Family Medicine 02/14/21 documented as of this encounter
== END 2024-09-27 13:33 | disposition home or self-care (01) ==
LOC: HO.MAMMO 13:32
PROVIDERS: PCP General Practice; Visit Provider General Practice
DX: Z12.31 Encounter for screening mammogram for malignant neoplasm of breast (principal)
CPT/HCPCS: 77063; 77067

== ENCOUNTER → 2024-09-27 14:00 | Outpatient (BNV) | payer MEDICAID, SELFPAY | PROVIDERS: PCP General Practice; Visit Provider Internal Medicine | DX: Z12.31 Encounter for screening mammogram for malignant neoplasm of breast (principal) | CPT/HCPCS: 77063; 77067 ==

== ENCOUNTER 2024-11-08 11:18 | Outpatient (AMB) | payer MEDICAID, SELFPAY ==
--- NOTE | 2024-11-08 11:19 | MHC.OFFVIS ---
Vital Signs 11/08/24 11:33 Height 5 ft 5 in Weight 175 lb BMI 29.1 BP 138/78 Blood Pressure Location Rt brachial Position Sitting Pulse 84 Pulse Source Pulse Oximeter Pulse Oximetry (%) 97 Oxygen Delivery Method Room Air Intake Visit Reasons: discuss prep Intake Note: ESTABLISHED PATIENT for mgmt of GERD + Dysphagia. Pre op (11/25) Chief Complaint; Pt denies any GI sx or concerns at this time. Pt does report a concern about her thyroid well being based on results of recent neck xray that was done? Comments that she never received the results and that she would like to discuss this if possible. GERD is OK. Engineering Supplies Sales Required: Yes Engineering Supplies Sales Services: Engineering Supplies Sales Present Engineering Supplies Sales Name: Rj [id number] + [facility] Information Interpreted: clinical only Accompanied by: Self / Same As Patient Allergies trazodone [TRAZODONE] Allergy (Intermediate, Verified 11/08/24 11:25) PROLONGED QT INTERVAL (PER H&P) HPI HPI discuss prep: Details: LAST VISIT GERD (gastroesophageal reflux disease) Dysphagia Postprandial epigastric pain Plan Will send patient for x-ray of her neck. Patient reports trouble swallowing in her throat. Will rule out any obstructions. Her symptoms are most likely related to reflux that is not very well controlled. Disorganized esophageal motility could be caused by severe reflux and weakness in her esophageal muscle related to inflammation. Patient will be started on Nexium 40 mg daily. Patient will try to avoid dietary triggers in late night snacking. Staying upright for minimal 3 hours after meals discussed with patient. Patient will return in 2 months. Message sent to Surgical schedules to call patient and book procedure. We will send her for upper endoscopy. Because patient had never had colonoscopy she will be sent for colonoscopy as well. Patient is agreeing to both of the procedures. Patient will call our office if she will have any GI concerning symptoms. Both patient and her daughter are agreeable to current plan of care and verbalizes understanding of instructions. They were given the opportunity to ask questions and all questions answered. ? Thank you for allowing me to participate in her care Orders Orders XR soft tissue neck Today K22.2 Medications New esomeprazole magnesium (Nexium) 40 mg PO DAILY 30 caps 5RF K21.9 TODAY'S VISIT Patient is here today for follow-up and to discuss going for colonoscopy and upper endoscopy. Patient reports that in the past she had to be intubated after anesthesia, trouble waking her up. Patient reports that this happened several years ago. Patient is on low-dose aspirin. No history of sleep apnea. Patient reports that she is moving her bowels well. Denies melena, hematochezia, unintentional weight loss or ribbon like stools. Patient denies any family history of CRC. Currently taking Nexium and states that her symptoms of acid reflux are controlled for the most part. Patient reports occasionally feeling like she is still having trouble swallowing. Patient will be going for upper endoscopy to evaluate closer. [facility] Medical History Diabetes education, encounter for GERD (gastroesophageal reflux disease) Asthma Elevated cholesterol PONV (postoperative nausea and vomiting) Diabetes Tietze syndrome Kidney calculi Depression HTN (hypertension) Surgical History History of umbilical hernia repair History of ventral hernia repair History of cystoscopy Hx of cholecystectomy History of excision of mass H/O: hysterectomy Family History Father Throat cancer Maternal Aunt Breast cancer Social History Household Members: None Household Members Other:: pt. lives alone. 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 Sexual orientation: Straight/Heterosexual Review of Systems Const Denies weight gain and Denies weight loss ENT Reports no additional complaints, Reports dysphagia (Occasional) and Denies odynophagia Card Reports no additional complaints Resp Reports no additional complaints GI Denies abdominal pain, Denies belching, Denies melena, Denies bloating, Denies change in bowel habits, Reports dysphagia (Occasional), Denies excessive flatus, Denies dyspepsia, Denies heartburn, Denies diarrhea, Denies loose stools, Denies nausea, Denies odynophagia and Denies vomiting Reports no additional complaints Musc Reports no additional complaints Neuro Reports no additional complaints Psych Reports no additional complaints Endo Reports no additional complaints Physical Exam Const General: healthy appearing and no acute distress Nutritional Appearance: obese Orientation/consciousness: patient oriented x3 Resp Effort & Inspection: normal respiratory effort, able to speak in complete sentences, no tracheal deviation and symmetric chest movement Auscultation: clear to auscultation bilaterally Cardio Rate: regular rate GI Inspection: Yes normal to inspection, No distended and Yes obesity Palpation (GI): Soft to palpation, not firm, nontender and No hepatosplenomegaly present Auscultation: normal bowel sounds General: Yes no CVA tenderness Back/Spine/Pelvis Back: no CVA tenderness Skin General skin exam: elasticity normal, turgor normal and dry skin Neuro General: patient oriented x3 Psych Appearance: grossly normal Mental Status: mental status grossly normal Assessment & Plan Assessment & Plan (1) GERD (gastroesophageal reflux disease): Code(s): K21.9 - Gastro-esophageal reflux disease without esophagitis Category: Medical Qualifiers: Esophagitis presence: esophagitis presence not specified Qualified Code(s): K21.9 - Gastro-esophageal reflux disease without esophagitis (2) Dysphagia: Code(s): R13.10 - Dysphagia, unspecified Qualifiers: Dysphagia type: pharyngoesophageal phase Qualified Code(s): R13.14 - Dysphagia, pharyngoesophageal phase (3) Postprandial epigastric pain: Code(s): R10.13 - Epigastric pain (4) Screen for colon cancer: Code(s): Z12.11 - Encounter for screening for malignant neoplasm of colon Plan Patient has upper endoscopy and colonoscopy on 25 of November. What to expect before during and after procedure discussed with patient. Stressed the importance of good bowel prep and clear liquid diet day before procedure. Patient will follow-up after the procedure. Continue taking Nexium daily. Avoid dietary triggers and late night snacking. Staying upright for minimum 3 hours after meals discussed with patient. Patient is agreeable to current plan of care and verbalizes understanding of instructions. She was given the opportunity to ask questions and all questions answered. Thank you for allowing me to participate in her care Medications: New bisacodyl (Dulcolax (bisacodyl)) take 4 tabs at noon the day before your colonoscopy 20 mg (4 x 5 mg) PO ONCE 1 day 4 tabs 0RF constipation Z12.11 - Encounter for screening for malignant neoplasm of colon polyethylene glycol 3350 (Miralax) As directed by gastroenterology department at [facility] 238 grams PO ONCE 238 grams 0RF Z12.11 - Encounter for screening for malignant neoplasm of colon Coding Level of Care Code Est Pt Level 4 (95273) Complex EM visit Add On G2211 Diagnoses Gastroesophageal reflux disease, unspecified whether esophagitis present K21.9 Esophagitis presence: esophagitis presence not specified Pharyngoesophageal dysphagia R13.14 Dysphagia type: pharyngoesophageal phase Postprandial epigastric pain R10.13 Screen for colon cancer Z12.11 Time Spent (min) 35 Comment 25 minutes spent with patient and additional 10 minutes spent reviewing her records
[2024-11-08 11:33] VITALS: BP 138/78; PULSE 84; O2SAT 97; BMI 29.1
--- OUTSIDE RECORDS SUMMARY | 2024-11-08 12:06 | XMS_ITS | Encounter Summary ---
Author Organization [employer] Address [address] [facility] [address] [place] [address] Care Team Providers Care Sales Representative Facility Services Name Role Phone Chasidy Kimbrough MD Primary Care Provider [phone] Reason for Visit * Reason Comments Med Refill Encounter Details Date Type Department Care Team ([facility] st Contact Info) Description 06/20/2024 Refill [facility]INE [address] [place], [place] [phone] Chasidy Kimbrough MD [address] [place], [place] [phone] Social History Tobacco Use Types Packs/Day Years [...] Description 11/15/2024 11:00 AM EDT Office Visit [facility] [address] [place] [phone] Chasidy Kimbrough MD [address] [place] [phone] 01/16/2025 1:30 PM EDT Office Visit [facility] [address] [place] [phone] Chasidy Kimbrough MD [address] [place] [phone] documented as of this encounter Visit Diagnoses Not on filedocumented in this encounter Additional Health Concerns Assessment Noted Time PHQ-9 Depression Total Score: 3 11/30/19 24 1:27 PM EDT documented as of this encounter Care Teams Sales Representative Facility Services Relationship Specialty Start Date End Date Chasidy Kimbrough MD [address] [place] [phone] PCP - General Family Medicine 02/14/21 documented as of this encounter
== END 2024-11-08 11:46 | disposition home or self-care (01) ==
LOC: HO.HGI 11:18
PROVIDERS: PCP General Practice; Visit Provider Nurse Practitioner Family
DX: Z01.818 Encounter for other preprocedural examination (principal); Z12.11 Encounter for screening for malignant neoplasm of colon; K21.9 Gastro-esophageal reflux disease without esophagitis; R13.14 Dysphagia, pharyngoesophageal phase; R10.13 Epigastric pain
CPT/HCPCS: 99214

== ENCOUNTER → 2024-11-08 11:18 | Outpatient (BNVA) | payer MEDICAID, SELFPAY | PROVIDERS: PCP General Practice; Visit Provider Nurse Practitioner Family | DX: Z12.11 Encounter for screening for malignant neoplasm of colon (principal); K21.9 Gastro-esophageal reflux disease without esophagitis; R13.14 Dysphagia, pharyngoesophageal phase; R10.13 Epigastric pain | CPT/HCPCS: 99212 ==

== ENCOUNTER 2024-11-15 11:57 | Outpatient (REF) | payer MEDICAID, SELFPAY ==
--- OUTSIDE RECORDS SUMMARY | 2024-11-15 13:27 | XMS_ITS | Encounter Summary ---
Author Organization [employer] Address [address] [facility] [address] [place] [address] Care Team Providers Care Numerical Control Router Operator Name Role Phone Chasidy Kimbrough MD Primary Care Provider [phone] Reason for Visit * Reason Comments Med Refill Encounter Details Date Type Department Care Team ([facility] st Contact Info) Description 06/20/2024 Refill [facility] MEDICINE [address] [place], [place] [phone] Chasidy Kimbrough MD [address] [place], [place] [phone] Social History Tobacco Use Types Packs/Day Years [...] housing situation today? I have [employer] [employer] 04/28/[address] you [...] Care Team (Late st Contact Info) Description 01/16/2025 1:30 PM EDT Office Visit [facility] MEDICINE [address] [place], [place] [phone] Chasidy Kimbrough MD [address] [place] [address] documented as of this encounter Visit Diagnoses Not on filedocumented in this encounter Additional Health Concerns Assessment Noted Time PHQ-9 Depression Total Score: 3 11/30/19 24 1:27 PM EDT documented as of this encounter Care Teams Numerical Control Router Operator Relationship Specialty Start Date End Date Chasidy Kimbrough MD [address] [place] [address] PCP - General Family Medicine 02/14/21 documented as of this encounter
[2024-11-15 13:37] LABS: MANUAL DIFF FLAG NO
[2024-11-15 13:56] LABS: Basophils Absolute Auto 0.1 X10*3/uL (0.0-0.2); Basophils Percent Auto 0.6 % (0-2); Eosinophils Absolute Auto 0.1 X10*3/uL (0.0-0.4); Eosinophils Percent Auto 1.2 % (0-4); Hematocrit 40.9 % (37.0-47.0); Hemoglobin 12.7 g/dl (12.0-16.0); Imm Gran Abs Auto 0.03 X10*3/uL (0.00-0.03); Imm Gran Pct Auto 0.3 % (0.0-0.4); Lymphocytes Absolute Auto 3.2 X10*3/uL (1.2-4.9); Lymphocytes Percent Auto 35.7 % (20-40); Mean Corpuscular HGB Conc 31.1 g/dl (31.0-35.0); Mean Corpuscular Hemoglobin 26.6 pg (27.0-33.0); Mean Corpuscular Volume 85.7 fL (80.0-98.0); Mean Platelet Volume 10.3 fL (9.4-12.3); Monocytes Absolute Auto 0.6 X10*3/uL (0.1-1.2); Monocytes Percent Auto 6.7 % (2-11); Neutrophils Percent Auto 55.5 % (45-73); Platelet Count 350 X10*3/uL (160-400); Red Blood Count 4.77 X10*6/uL (4.20-5.50); Red Cell Distribution Width 13.9 % (11.0-16.0)
[2024-11-15 14:02] LABS: C Reactive Protein 1.27 mg/dL (< or = 0.50)
[2024-11-15 14:30] LABS: Rheumatoid Factor < 13.0 IU/mL (<15.0)
[2024-11-15 14:38] LABS: Erythrocyte Sedimentation Rate 39 MM/HR (0-20)
[2024-11-15 15:00] LABS: Folate 10.3 ng/mL (> or = 4.0); Vitamin B12 478 pg/mL (200-900)
[2024-11-16 20:18] LABS: Anti DNA DS Antibody <1 IU/mL
[2024-11-17 09:58] LABS: Cyclic Citrullinated Peptide <16 UNITS
[2024-11-17 11:43] LABS: RPR Rapid Plasma Reagin NON-REACTIVE (NON-REACTIVE)
== END 2024-11-15 11:58 | disposition home or self-care (01) ==
LOC: HO.HHCL 11:57
PROVIDERS: Internal Medicine; Visit Provider General Practice
DX: M65.949 Unspecified synovitis and tenosynovitis, unspecified hand (principal); R53.83 Other fatigue; R41.3 Other amnesia
CPT/HCPCS: 36415; 82607; 82746; 85025; 85652; 86140; 86200; 86225; 86431; 86592

== ENCOUNTER 2024-11-25 11:24 | Day surgery (SDC) | payer MEDICAID, SELFPAY ==
--- NOTE | 2024-11-24 11:25 | P.CONAN_ITS ---
Documented by User: Iris Hatch NP 11/24/24 11:26 HPI - Anesthesia Eval Consult details Narrative: 59yo F for Upper Endoscopy and Colonoscopy PMF Active Problems Active Problems: All Active Problems GERD (gastroesophageal reflux disease) (Acute) Osteoarthritis of knees, bilateral (Acute) Depression (Acute) Thoracic radiculopathy (Acute) Asthma (Acute) Thyroid nodule greater than or equal to 1 cm in diameter incidentally noted on imaging study (Acute) Diabetes (Acute) Diabetes education, encounter for (Acute) Bilateral primary osteoarthritis of knee (Acute) Microscopic hematuria (Acute) Pelvic pain (Acute) Incisional hernia (Acute) Pulmonary nodules (Acute) Dyspnea (Acute) Interstitial cystitis (Acute) Past Medical History Medical History Diabetes education, encounter for GERD (gastroesophageal reflux disease) Asthma Elevated cholesterol PONV (postoperative nausea and vomiting) Diabetes Tietze syndrome Kidney calculi Depression HTN (hypertension) Family History Family History Father Throat cancer Maternal Aunt Breast cancer Family history of problems with anesthesia: No Surgical History Surgical History (Updated 11/25/24 @ 12:23 by Sandra Fountain RN) Hx of colonoscopy History of esophagogastroduodenoscopy (EGD) History of umbilical hernia repair History of ventral hernia repair History of cystoscopy Hx of cholecystectomy History of excision of mass H/O: hysterectomy History of Problems with Anesthesia: Yes Social History Social History Household Members: None Household Members Other:: pt. lives alone. Housing: Apartment Are you a primary healthcare network pricing consultant to a significant other at home: No Do you presently have visiting nurse or other home services: No Alcohol intake: never Comment: no count Patient Tobacco Use Status: Never used Tobacco Second Hand Smoke Exposure: Yes Have you been hit, kicked, punched, or otherwise hurt by someone within the past year? 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 Sexual orientation: Straight/Heterosexual Meds Allergies Allergy/AdvReac Type Severity Reaction Status Date / Time trazodone [TRAZODONE] Allergy Intermediate PROLONGED Verified 11/08/24 11:25 QT INTERVAL (PER H&P) Home Medications ?Medication ?Instructions ?Recorded ?Confirmed ?Last Taken ?Type amlodipine 10 mg tablet 1 tab PO QAM 02/26/21 07/07/24 07/07/24 08:00 History albuterol sulfate 90 mcg/actuation 2 puff inhalation Q4H PRN Wheezing 07/07/24 07/07/24 Unknown History aerosol inhaler (Ventolin HFA) fexofenadine 180 mg tablet 180 mg PO DAILY 07/07/24 07/07/24 07/07/24 08:00 History hydralazine 50 mg tablet 50 mg PO TID 07/07/24 07/07/24 07/07/24 14:00 History losartan 100 mg tablet 100 mg PO DAILY 07/07/24 07/07/24 07/07/24 09:00 History melatonin 5 mg tablet 10 mg PO BEDTIME PRN Insomnia 07/07/24 07/07/24 Unknown History tiotropium bromide 2.5 2 puff inhalation DAILY 07/07/24 07/07/24 07/07/24 08:00 History mcg/actuation mist for inhalation (Spiriva Respimat) atorvastatin 80 mg tablet 80 mg PO BEDTIME 07/08/24 07/08/24 Unknown History metformin 500 mg tablet,extended 1,000 mg PO DAILY@1700 07/08/24 07/08/24 Unknown History release 24 hr aripiprazole 15 mg tablet 15 mg PO DAILY 08/23/24 Unknown History aspirin 81 mg tablet,delayed 81 mg PO DAILY 08/23/24 11/22/24 History release (Adult Aspirin Regimen) bupropion HCl 300 mg 24 hr tablet, 300 mg PO QAM depressive disorder 08/23/24 Unknown History extended release gabapentin 100 mg capsule 100 mg PO Q8H 08/23/24 Unknown History Assessment and Plan Assessment Anesthesia Assessment: Chart Reviewed Final Anesthetic Review Family History of Problems with Anesthesia: No History of Problems with Anesthesia: Yes Documented by User: Leonid Leija MD 11/25/24 12:25 [facility] Past Medical History Medical History Diabetes education, encounter for GERD (gastroesophageal reflux disease) Asthma Elevated cholesterol PONV (postoperative nausea and vomiting) Diabetes Tietze syndrome Kidney calculi Depression HTN (hypertension) Family History Family History Father Throat cancer Maternal Aunt Breast cancer Surgical History Surgical History (Updated 11/25/24 @ 12:23 by Sandra Fountain RN) Hx of colonoscopy History of esophagogastroduodenoscopy (EGD) History of umbilical hernia repair History of ventral hernia repair History of cystoscopy Hx of cholecystectomy History of excision of mass H/O: hysterectomy History of Problems with Anesthesia: No Social History Social History Household Members: None Household Members Other:: pt. lives alone. Housing: Apartment Are you a primary healthcare network pricing consultant to a significant other at home: No Do you presently have visiting nurse or other home services: No Alcohol intake: never Comment: no count Patient Tobacco Use Status: Never used Tobacco Second Hand Smoke Exposure: Yes Have you been hit, kicked, punched, or otherwise hurt by someone within the past year? 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 Sexual orientation: Straight/Heterosexual Meds Allergies Allergy/AdvReac Type Severity Reaction Status Date / Time trazodone [TRAZODONE] Allergy Intermediate PROLONGED Verified 11/08/24 11:25 QT INTERVAL (PER H&P) Home Medications ?Medication ?Instructions ?Recorded ?Confirmed ?Last Taken ?Type amlodipine 10 mg tablet 1 tab PO QAM 02/26/21 07/07/24 07/07/24 08:00 History albuterol sulfate 90 mcg/actuation 2 puff inhalation Q4H PRN Wheezing 07/07/24 07/07/24 Unknown History aerosol inhaler (Ventolin HFA) fexofenadine 180 mg tablet 180 mg PO DAILY 07/07/24 07/07/24 07/07/24 08:00 History hydralazine 50 mg tablet 50 mg PO TID 07/07/24 07/07/24 07/07/24 14:00 History losartan 100 mg tablet 100 mg PO DAILY 07/07/24 07/07/24 07/07/24 09:00 History melatonin 5 mg tablet 10 mg PO BEDTIME PRN Insomnia 07/07/24 07/07/24 Unknown History tiotropium bromide 2.5 2 puff inhalation DAILY 07/07/24 07/07/24 07/07/24 08:00 History mcg/actuation mist for inhalation (Spiriva Respimat) atorvastatin 80 mg tablet 80 mg PO BEDTIME 07/08/24 07/08/24 Unknown History metformin 500 mg tablet,extended 1,000 mg PO DAILY@1700 07/08/24 07/08/24 Unknown History release 24 hr aripiprazole 15 mg tablet 15 mg PO DAILY 08/23/24 Unknown History aspirin 81 mg tablet,delayed 81 mg PO DAILY 08/23/24 11/22/24 History release (Adult Aspirin Regimen) bupropion HCl 300 mg 24 hr tablet, 300 mg PO QAM depressive disorder 08/23/24 Unknown History extended release gabapentin 100 mg capsule 100 mg PO Q8H 08/23/24 Unknown History Exam Airway Mallampati Class: II TM Dist: >3cm Neck ROM: Full Assessment and Plan Assessment Anesthesia Assessment: Anesthesia Plan Discussed Final Anesthetic Review History of Problems with Anesthesia: No NPO: Yes ASA Class: III Final Preanesthetic Review: No Changes in Pt Med Stat, Meds/Allgs Chart Reviewed, Consent Obtained/Reviewed and Anes Risks/Benef Reviewed Patient Risk: Intermediate Procedure Risk: Low Anesthetic Plan Anesthetic Plan: TIVA Disposition: Standard PACU
[2024-11-25 11:44] VITALS: BP 195/98; PULSE 91; RESP 18; TEMP 36.4; O2SAT 97; BMI 29.9
[2024-11-25 11:56] LABS: Glucose, Whole Blood 102 mg/dL (60-115)
[2024-11-25] MEDS: Lactated Ringers 1,000 ML 100 ML IVCONT (12:06)
--- NOTE | 2024-11-25 12:12 | MHC.SHP ---
Pre-Procedural Eval Section A - 24 Hr Update-Section A only Date of Service: 11/25/24 The patient is an INPATIENT: No Section B - Complete if H&P > 30 days Chief Complaint: Dysphagia,screening Relevant Family History (Specify if Yes): No Relevant Social History: None Present Medications: see Short Stay Collaborative assessment Medical History: Significant History (GERD (gastroesophageal reflux disease) Asthma Elevated cholesterol PONV (postoperative nausea and vomiting) Diabetes Tietze syndrome Kidney calculi Depression HTN (hypertension)) History of Previous Operations: Relevant previous surgery/procedure and date(s) (History of umbilical hernia repair History of ventral hernia repair History of cystoscopy Hx of cholecystectomy History of excision of mass H/O: hysterectomy) Allergies: Allergies Allergy/AdvReac Type Severity Reaction Status Date / Time trazodone [TRAZODONE] Allergy Intermediate PROLONGED Verified 11/08/24 11:25 QT INTERVAL (PER H&P) Review of Systems Sugical H&P ROS: Negative: Constitution, Cardiovascular, Respiratory and Gastrointestinal Exam Surgical H&P Exam: Normal: Heart, Normal: Lungs, Normal: Extremities and Normal: Abdomen Plan Diagnosis/Plan: Unchanged I have reviewed the history and physical and performed a pertinent physical examination on my patient. No changes have occurred unless specified. Time Spent With Patient Time: Total time managing care of this patient today ____ minutes.
[2024-11-25 12:21] VITALS: BP 187/103
--- NOTE | 2024-11-25 12:47 | HO.OPN-COLON ---
Colonoscopy Operative Note Operative Note Date of Service: 11/25/24 Narrative: FLEXIBLE TRANSORAL UPPER GASTROINTESTINAL ENDOSCOPY WITH BIOPSIES AND ESOPHAGEAL BALLOON DILATION AND COLONOSCOPY TILL CECUM WITH BIOPSIES AND SNARE POLYPECTOMY Pre-op diagnosis: Colon cancer screening, dysphagia, GERD Post-op diagnosis: GERD, hiatal hernia, Gastritis, gastric nodule, Colon Polyps, Diverticulosis, hemorrhoids Endoscopist:? Hermilo George MD Anesthesia:?MAC UPPER ENDOSCOPY Consent: Indications for the procedure and potential complications of bleeding, perforation, reaction to medications and missed diagnosis were discussed with the patient and informed consent was obtained. Instrument: Olympus GIF H 190 mid size upper endoscope Monitoring: Vital signs and clinical assessment, continuous EKG monitoring, Pulse oximetry, Carbon Dioxide monitoring and blood pressure monitoring were done throughout the procedure. Procedure: The patient was placed in the left lateral decubitis position and pre-procedure medications were administered and a bite block was placed. The endoscope was inserted into the mouth and advanced under direct vision to the third part of duodenum. A careful inspection was made as the upper endoscope was withdrawn including a retroflexed examination of the proximal stomach; Findings and interventions are described below. Findings: Larynx: Normal Esophagus: GE junction at 34 cms, small hiatal hernia 34 to 36 cms. No esophagitis or Ann's. Mildly tortuous esophagus without stricture or ring. Empiric dilation of proximal esophagus was performed with 18 mm CRE balloon x 60 seconds Stomach: Moderate diffuse gastric erythema - biopsies were obtained from the antrum. Grade 2 flap valve on retroflexed examination of the cardia. Duodenum: Normal bulb and descending duodenum Biopsies were obtained from descending duodenum to check for celiac sprue Intervention: Biopsies as noted above COLONOSCOPY PROCEDURE NOTE Instrument: Olympus PCF H 190 L variable stiffness pediatric colonoscope Monitoring: Vital signs and clinical assessment, intermittent blood pressure monitoring, continuous EKG monitoring, Pulse oximetry and Carbon Dioxide monitoring were done throughout the procedure. Please see anesthesia flowsheet. Colon withdrawl time was 14 minutes. Procedure: The patient was placed in the left lateral decubitis position and pre-procedure medications were administered. After a digital rectal examination of the ano-rectum, the video colonoscope was inserted into the rectum and advanced through the colon to the cecum. The colonoscope was slowly withdrawn in a retrograde panoramic fashion and the colon mucosa was carefully examined including a retroflexed view of the rectum. Findings and interventions are described below. Procedure Difficulty: without difficulty Findings: Terminal Ileum: Not evaluated Cecum: Normal Ascending Colon: Normal Transverse Colon: A 7-8 mm sessile polyp - removed with a cold snare Descending Colon: Normal Sigmoid Colon: Moderate diverticulosis Rectum: A 3-4 mm sessile polyp in the distal rectum - removed with a cold biopsy Ano-rectum: Moderate internal hemorrhoids Colon preparation: Excellent, after some irrigation. [place] Bowel Preparation Scale Right colon; 3 Transverse colon: 3 Left colon; 3 (0 = Unprepared colon segment with mucosa not seen due to solid stool that cannot be cleared. 1 = Portion of mucosa of the colon segment seen, but other areas of the colon segment not well seen due to staining, residual stool and/or opaque liquid. 2 = Minor amount of residual staining, small fragments of stool and/or opaque liquid, but mucosa of colon segment seen well. 3 = Entire mucosa of colon segment seen well with no residual staining, small fragments of stool or opaque liquid) Impression and Post Procedure Diagnosis: Endoscopy Findings: ESOPHAGUS: Small hiatal hernia and mildly tortuous esophagus without stricture or ring. Empiric dilation of proximal esophagus was performed with 18 mm CRE balloon x 60 seconds STOMACH: Diffuse gastritis DUODENUM: Normal - biopsied to check for celiac sprue. Colonoscopy Findings: Two small polyps were removed Moderate diverticulosis seen in the entire colon Moderate hemorrhoids on retroflexed exam. Plan: Pt has a FU appointment on 12/07/24 with Mary White NP Repeat Colonoscopy in 5 years if polyps are adenomatous and 10 year if polyps are hyperplastic. A summary of above findings and relevant handouts were given to the patient. BIOPSIES SHOWED: A. Stomach, antrum, biopsy: H pylori gastritis; negative for intestinal metaplasia/dysplasia. B. Stomach, nodule, biopsy: H pylori gastritis; negative for intestinal metaplasia/dysplasia. C. Stomach, body, biopsy: H pylori gastritis; negative for intestinal metaplasia/dysplasia. D. Colon, transverse, polyp: Tubular adenoma; negative for high-grade dysplasia. E. Rectum, polyp: Hyperplastic polyp; negative for dysplasia Biopsy results reviewed with the patient during FU GI clinic visit and patient was treated for H pylori with quadruple therapy Patient placed on the GI recall list for repeat colonoscopy in 5 years.
[2024-11-25 13:17] VITALS: BP 118/58; PULSE 80; RESP 12; TEMP 36.2; O2SAT 97
[2024-11-25 13:32] VITALS: BP 126/66; PULSE 87; RESP 18; O2SAT 98
[2024-11-25 13:47] VITALS: BP 148/86; PULSE 70; RESP 17; O2SAT 98
[2024-11-25 14:02] VITALS: BP 164/86; PULSE 70; RESP 17; TEMP 36.1; O2SAT 98
== END 2024-11-25 14:35 | disposition home or self-care (01) ==
PROVIDERS: PCP General Practice; Visit Provider Internal Medicine Gastroenterology
PROC: (CPT 45385; principal; 2024-11-25 13:30)
DX: Z12.11 Encounter for screening for malignant neoplasm of colon (principal); D12.3 Benign neoplasm of transverse colon; K62.1 Rectal polyp; K57.30 Diverticulosis of large intestine without perforation or abscess without bleeding; K64.8 Other hemorrhoids; R13.14 Dysphagia, pharyngoesophageal phase; R13.10 Dysphagia, unspecified; K21.9 Gastro-esophageal reflux disease without esophagitis; K29.70 Gastritis, unspecified, without bleeding; B96.81 Helicobacter pylori [H. pylori] as the cause of diseases classified elsewhere; K31.7 Polyp of stomach and duodenum; K44.9 Diaphragmatic hernia without obstruction or gangrene; I10 Essential (primary) hypertension; E78.00 Pure hypercholesterolemia, unspecified; E11.9 Type 2 diabetes mellitus without complications; J45.909 Unspecified asthma, uncomplicated; N20.0 Calculus of kidney; M94.0 Chondrocostal junction syndrome [Tietze]; F32.A Depression, unspecified; Z79.51 Long term (current) use of inhaled steroids; Z79.82 Long term (current) use of aspirin; Z79.84 Long term (current) use of oral hypoglycemic drugs; Z79.899 Other long term (current) drug therapy; Z88.8 Allergy status to other drugs, medicaments and biological substances; Z90.49 Acquired absence of other specified parts of digestive tract; Z98.890 Other specified postprocedural states
CPT/HCPCS: 45385; 45380; 43249; 43239; 82947; 88305; 88313; 88342; C1726; J2003; J2704

== ENCOUNTER → 2024-11-25 11:24 | Outpatient (BNV) | payer MEDICAID, SELFPAY | PROVIDERS: PCP General Practice; Visit Provider Internal Medicine Gastroenterology | DX: Z12.11 Encounter for screening for malignant neoplasm of colon (principal); D12.3 Benign neoplasm of transverse colon; D12.8 Benign neoplasm of rectum; K57.30 Diverticulosis of large intestine without perforation or abscess without bleeding; K64.8 Other hemorrhoids; R13.10 Dysphagia, unspecified; K29.70 Gastritis, unspecified, without bleeding | CPT/HCPCS: 43239; 43249; 45380; 45385 ==

== ENCOUNTER 2024-12-07 08:17 | Outpatient (AMB) | payer MEDICAID, SELFPAY ==
--- NOTE | 2024-12-07 08:21 | A.OFFVIS_ITS ---
Vital Signs 12/07/24 08:31 Height 5 ft 5 in Weight 189 lb BMI 31.4 BP 138/88 Blood Pressure Location Rt brachial Position Sitting Pulse 80 Pulse Source Pulse Oximeter Pulse Oximetry (%) 98 Oxygen Delivery Method Room Air Intake Visit Reasons: s/p colo egd frankie Intake Note: ESTABLISHED PATIENT for mgmt of GERD + Dysphagia. S/P (11/25) Chief Complaint; C.O. wanting to review any pertinent findings of their hernia diagnosis as well as their concern pertaining to their recent weight loss. Pt is not sure if they are having difficulties with their thyroid or if there is a GI reason behind their unintentional weight loss. System Programmer Required: Yes System Programmer Services: System Programmer Present System Programmer Name: [facility] [place] [place] + Cynthia [phone] Information Interpreted: clinical only Accompanied by: Self / Same As Patient Allergies trazodone (TRAZODONE) Allergy (Intermediate, Verified 12/07/24 08:22) PROLONGED QT INTERVAL (PER H&P) HPI HPI s/p colo egd frankie: Details: LAST VISIT GERD (gastroesophageal reflux disease) Dysphagia Postprandial epigastric pain Screen for colon cancer Plan Patient has upper endoscopy and colonoscopy on 25 of November. What to expect before during and after procedure discussed with patient. Stressed the importance of good bowel prep and clear liquid diet day before procedure. Patient will follow-up after the procedure. Continue taking Nexium daily. Avoid dietary triggers and late night snacking. Staying upright for minimum 3 hours after meals discussed with patient. Patient is agreeable to current plan of care and verbalizes understanding of instructions. She was given the opportunity to ask questions and all questions answered. ? Thank you for allowing me to participate in her care Medications New bisacodyl (Dulcolax (bisacodyl)) take 4 tabs at noon the day before your colonoscopy 20 mg (4 x 5 mg) PO ONCE 1 day 4 tabs 0RF constipation Z12.11 polyethylene glycol 3350 (Miralax) As directed by gastroenterology department at [facility] 238 grams PO ONCE 238 grams 0RF Z12.11 UPPER ENDOSCOPY AND COLONOSCOPY Findings: Larynx: Normal Esophagus: GE junction at 34 cms, small hiatal hernia 34 to 36 cms. No esophagitis or Ann's. Mildly tortuous esophagus without stricture or ring. Empiric dilation of proximal esophagus was performed with 18 mm CRE balloon x 60 seconds Stomach: Moderate diffuse gastric erythema - biopsies were obtained from the antrum. Grade 2 flap valve on retroflexed examination of the cardia. Duodenum: Normal bulb and descending duodenum Biopsies were obtained from descending duodenum to check for celiac sprue Intervention: Biopsies as noted above Findings: Terminal Ileum: Not evaluated Cecum: Normal Ascending Colon: Normal Transverse Colon: A 7-8 mm sessile polyp - removed with a cold snare Descending Colon: Normal Sigmoid Colon: Moderate diverticulosis Rectum: A 3-4 mm sessile polyp in the distal rectum - removed with a cold biopsy Ano-rectum: Moderate internal hemorrhoids Colon preparation: Excellent, after some irrigation. [place] Bowel Preparation Scale Right colon; 3 Transverse colon: 3 Left colon; 3 (0 = Unprepared colon segment with mucosa not seen due to solid stool that cannot be cleared. 1 = Portion of mucosa of the colon segment seen, but other areas of the colon segment not well seen due to staining, residual stool and/or opaque liquid. 2 = Minor amount of residual staining, small fragments of stool and/or opaque liquid, but mucosa of colon segment seen well. 3 = Entire mucosa of colon segment seen well with no residual staining, small fragments of stool or opaque liquid) Impression and Post Procedure Diagnosis: Endoscopy Findings: ESOPHAGUS: [] STOMACH: [] DUODENUM: [] Colonoscopy Findings: Two small polyps were removed Moderate diverticulosis seen in the entire colon Moderate hemorrhoids on retroflexed exam. Plan: Repeat Colonoscopy in 5 years if polyps are adenomatous and 10 year if polyps are hyperplastic. PATHOLOGY RESULTS Diagnosis A. Stomach, antrum, biopsy: H pylori gastritis; negative for intestinal metaplasia/dysplasia. B. Stomach, nodule, biopsy: H pylori gastritis; negative for intestinal metaplasia/dysplasia. C. Stomach, body, biopsy: H pylori gastritis; negative for intestinal metaplasia/dysplasia. D. Colon, transverse, polyp: Tubular adenoma; negative for high-grade dysplasia. E. Rectum, polyp: Hyperplastic polyp; negative for dysplasia TODAY'S VISIT Patient is here today for follow-up and to discuss upper endoscopy and colonoscopy results. Patient continues to have epigastric pain postprandially. H pylori found and gastritis on upper endoscopy without intestinal metaplasia or dysplasia. One tubular adenoma found on colonoscopy and 1 hyperplastic polyp. Patient denies any ill effects from the prep, anesthesia or procedure itself. Dilation was performed. Patient denies any dysphagia. Acid reflux fairly controlled. Patient reports epigastric pain and abdominal bloating. Not related to meals. Patient denies dysphagia or odynophagia. Denies melena, hematochezia. Reports weight loss about 2-3 lb daily. Patient reports decreased appetite. Reports to be moving her bowels without any issues. Daily bowel movements [facility] Medical History (Updated 12/07/24 @ 08:44 by Margoth White, [facility]) Helicobacter pylori (H. pylori) Diabetes education, encounter for GERD (gastroesophageal reflux disease) Asthma Elevated cholesterol PONV (postoperative nausea and vomiting) Diabetes Tietze syndrome Kidney calculi Depression HTN (hypertension) Surgical History Hx of colonoscopy History of esophagogastroduodenoscopy (EGD) History of umbilical hernia repair History of ventral hernia repair History of cystoscopy Hx of cholecystectomy History of excision of mass H/O: hysterectomy Family History Father Throat cancer Maternal Aunt Breast cancer Social History Household Members: None Household Members Other:: pt. lives alone. 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 Sexual orientation: Straight/Heterosexual Review of Systems Const Denies weight gain and Denies weight loss ENT Reports no additional complaints, Reports dysphagia (Occasional) and Denies o dynophagia Card Reports no additional complaints Resp Reports no additional complaints GI Denies abdominal pain, Denies belching, Denies melena, Denies bloating, Denies change in bowel habits, Reports dysphagia (Occasional), Denies excessive flatus, Denies dyspepsia, Denies heartburn, Denies diarrhea, Denies loose stools, D enies nausea, Denies odynophagia and Denies vomiting Reports no additional complaints Musc Reports no additional complaints Neuro Reports no additional complaints Psych Reports no additional complaints Endo Reports no additional complaints Physical Exam Vital Signs: Last Vital Signs Pulse 80 12/07/24 08:31 BP 138/88 12/07/24 08:31 Pulse Ox 98 12/07/24 08:31 Oxygen Delivery Method Room Air 12/07/24 08:31 BMI result Body Mass Index 31.4 Const General: healthy appearing and no acute distress Nutritional Appearance: obese Orientation/consciousness: patient oriented x3 Resp Effort & Inspection: normal respiratory effort, able to speak in complete sentences, no tracheal deviation and symmetric chest movement Auscultation: clear to auscultation bilaterally Cardio Rate: regular rate GI Inspection: Yes normal to inspection, No distended and Yes obesity Palpation (GI): Soft to palpation, not firm, nontender and No hepatosplenomegaly present Auscultation: normal bowel sounds General: Yes no CVA tenderness Back/Spine/Pelvis Back: no CVA tenderness Skin General skin exam: elasticity normal, turgor normal and dry skin Neuro General: patient oriented x3 Psych Appearance: grossly normal Mental Status: mental status grossly normal Assessment & Plan Assessment & Plan (1) GERD (gastroesophageal reflux disease): Code(s): K21.9 - Gastro-esophageal reflux disease without esophagitis Category: Medical Qualifiers: Esophagitis presence: esophagitis presence not specified Qualified Code(s): K21.9 - Gastro-esophageal reflux disease without esophagitis (2) Helicobacter pylori (H. pylori): Code(s): A04.8 - Other specified bacterial intestinal infections Category: Medical (3) Postprandial epigastric pain: Code(s): R10.13 - Epigastric pain (4) Postprandial abdominal bloating: Code(s): R14.0 - Abdominal distension (gaseous) Plan H pylori found without dysplasia on upper endoscopy. Will treat empirically and will retest. Patient reports epigastric pain hopefully with antibiotics patient will be able to feel better after treatment. Patient was instructed to take Zofran if she will feel nauseous. Will send her for upper GI with barium swallow. Patient reports occasional trouble swallowing. Patient will continue taking PPI. Follow-up in 10 weeks, sooner as needed. Encouraged patient to avoid dietary triggers and late night snacking. Staying upright for minimum 3 hours after meals discussed with patient. Patient is agreeable to plan of care and verbalizes understanding of instructions. She was given the opportunity to ask questions and all questions answered. Thank you for allowing me to participate in her care Orders: Orders [place] upper GI w Ba Swallow Today K21.9 - Gastro-esophageal reflux disease without esophagitis Medications: New doxycycline hyclate 100 mg PO BID 28 tabs 0RF 14 days bismuth subsalicylate 2 tabs PO QID 112 tabs 0RF 14 days A04.8 - Other specified bacterial intestinal infections metronidazole 1,000 mg (2 x 500 mg) PO BID 56 tabs 0RF A04.8 - Other specified bacterial intestinal infections ondansetron 4 mg PO Q8H PRN 20 tabs 0RF nausea and vomiting R11.0 - Nausea Coding Level of Care Code Est Pt Level 4 (99286) Complex EM visit Add On G2211 Diagnoses Gastroesophageal reflux disease, unspecified whether esophagitis present K21.9 Esophagitis presence: esophagitis presence not specified Helicobacter pylori (H. pylori) A04.8 Postprandial epigastric pain R10.13 Postprandial abdominal bloating R14.0 Time Spent (min) 35 Comment 25 minutes spent with patient and additional 10 minutes spent reviewing her records
--- OUTSIDE RECORDS SUMMARY | 2024-12-07 08:30 | XMS_ITS | Encounter Summary ---
Author Organization [employer] Address [address] [place] [address] Care Team Providers Care Tin Whiz Machine Operator Name Role Phone Chasidy Kimbrough MD Primary Care Provider [phone] Reason for Visit * Reason Comments Med Refill Encounter Details Date Type Department Care Team ([facility] st Contact Info) Description 06/20/2024 Refill [facility] [address] [place], [place] [phone] Chasidy Kimbrough MD [address] [place], [place] [phone] Social History Tobacco Use Types Packs/Day Years [...] Description 01/16/2025 1:30 PM EDT Office Visit [facility] [address] [place], [place] [phone] Chasidy Kimbrough MD [address] [place] [address] documented as of this encounter Visit Diagnoses Not on filedocumented in this encounter Additional Health Concerns Assessment Noted Time PHQ-9 Depression Total Score: 3 11/30/19 24 1:27 PM EDT documented as of this encounter Care Teams Tin Whiz Machine Operator Relationship Specialty Start Date End Date Chasidy Kimbrough MD [address] [place] [address] PCP - General Family Medicine 02/14/21 documented as of this encounter
[2024-12-07 08:31] VITALS: BP 138/88; PULSE 80; O2SAT 98; BMI 31.4
== END 2024-12-07 08:59 | disposition home or self-care (01) ==
LOC: HO.HGI 08:17
PROVIDERS: PCP General Practice; Visit Provider Nurse Practitioner Family
DX: K21.9 Gastro-esophageal reflux disease without esophagitis (principal); A04.8 Other specified bacterial intestinal infections; R10.13 Epigastric pain; R14.0 Abdominal distension (gaseous)
CPT/HCPCS: 99214

== ENCOUNTER → 2024-12-07 08:17 | Outpatient (BNVA) | payer MEDICAID, SELFPAY | PROVIDERS: PCP General Practice; Visit Provider Nurse Practitioner Family | DX: K21.9 Gastro-esophageal reflux disease without esophagitis (principal); A04.8 Other specified bacterial intestinal infections; R10.13 Epigastric pain; R14.0 Abdominal distension (gaseous) | CPT/HCPCS: 99212 ==

== ENCOUNTER 2024-12-20 11:36 | Outpatient (AMB) | payer MEDICAID, SELFPAY ==
--- NOTE | 2024-12-20 11:39 | A.OFFVIS_ITS ---
Intake Visit Reasons: B/L knee Injections (40), last inj 08/18/24 Intake Note: Cynthia is a 59 year old female who presents today for a repeat injection for her B/L knee OA, last injection 08/18/24. Patient reports her last injections gave her relief and would like to repeat. She has noticed a sharp pain in her knees that started about 2 weeks ago. Allergies trazodone (TRAZODONE) Allergy (Intermediate, Verified 12/20/24 11:50) PROLONGED QT INTERVAL (PER H&P) HPI HPI B/L knee Injections (40), last inj 08/18/24: Details: Patient presents to the office today for repeat cortisone injections in bilateral knees. Last cortisone injection was on 08/18/2024. Of note patient does have a past medical history of diabetes. She would like to repeat cortisone injections while in the office today. [facility] Medical History (Updated 12/07/24 @ 08:44 by Margoth White [facility]) Helicobacter pylori (H. pylori) Diabetes education, encounter for GERD (gastroesophageal reflux disease) Asthma Elevated cholesterol PONV (postoperative nausea and vomiting) Diabetes Tietze syndrome Kidney calculi Depression HTN (hypertension) Surgical History Hx of colonoscopy History of esophagogastroduodenoscopy (EGD) History of umbilical hernia repair History of ventral hernia repair History of cystoscopy Hx of cholecystectomy History of excision of mass H/O: hysterectomy Family History Father Throat cancer Maternal Aunt Breast cancer Social History Household Members: None Household Members Other:: pt. lives alone. 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 No ecchymosis, erythema or edema. Patient is able to demonstrate full knee flexion and extension. Negative Vadim's. NVI. Office Procedures AMB Joint Injection/Aspiration Joint Injection/Aspiration Primary Site: right knee Secondary Site: left knee Prep: site was prepped using aseptic technique, ethochloride spray was applied and injection warnings given Injected: 40 mg of, with 8 mL of (2% plain lidocaine) and in the joint Approach Used: anterolateral Procedure: The patient tolerated the procedure well, but had some pain with the injection and there was some relief with the local anesthesia Coding 39700 - Bilateral Large Joint Procedure code (CPT) selection complete Assessment & Plan Assessment & Plan (1) Osteoarthritis of knees, bilateral: Code(s): M17.0 - Bilateral primary osteoarthritis of knee Category: Medical (2) Diabetes: Code(s): E11.9 - Type 2 diabetes mellitus without complications Category: Medical Plan Ms. Huntley is a 78-year-old female who presents to the office today status post right hip CRPP performed on 07/14/[address] Hayden. Patient was overall doing very well. She is accompanied by 2 family members due to the patient's history of dementia. It is unclear if the patient is working with physical therapy but is a permanent resident at the [facility]. Overall the patient is doing very well and does not complain of any pain. The patient was offered a cortisone injection in bilateral knees with 40 mg of DepoMedrol. The patient was explained the risks, benefits, and alternatives to receiving this injection. After receiving consent for the injection, the patient had the procedure done while in the office today. The patient tolerated the procedure well with no complications. Due to the patient?s history of diabetes, they were instructed to monitor their blood glucose level. The patient was informed that they could see a rise in their numbers and if the numbers became too high, they were instructed to call their PCP. The patient was also informed that they could have facial flushing as a side effect of the injection, but this will pass. While in the office today, the patient also expressed multiple joint pain complaints. I have recommended the patient be evaluated by Rheumatology for any possibility of rheumatologic pathology causing her multiple joint pains. Follow-up will be PRN, or sooner if needed Orders: Referrals Rheumatology Referral M25.50 - Pain in unspecified joint Coding Level of Care Code Est Pt Level 4 (62414) Diagnoses Osteoarthritis of knees, bilateral M17.0 Diabetes E11.9 CPT Codes Coding - 57090 - Bilateral Large Joint: 31789 - Bilateral Large Joint ([id number])
--- OUTSIDE RECORDS SUMMARY | 2024-12-20 12:41 | XMS_ITS | Encounter Summary ---
Author Organization [employer] Address [address] [place] [address] Care Team Providers Care Floral Specialist Name Role Phone Chasidy Kimbrough MD Primary Care Provider [phone] Reason for Visit * Reason Comments Med Refill Encounter Details Date Type Department Care Team ([facility] st Contact Info) Description 06/20/2024 Refill [facility] [address] [place], [place] [phone] Chasidy Kimbrough MD [address] [place], [place] [phone] Social History Tobacco Use Types Packs/Day Years [...] Description 01/16/2025 1:30 PM EDT Office Visit [facility] [address] [place], [place] [phone] Chasidy Kimbrough MD [address] [place] [address] documented as of this encounter Visit Diagnoses Not on filedocumented in this encounter Additional Health Concerns Assessment Noted Time PHQ-9 Depression Total Score: 3 11/30/19 24 1:27 PM EDT documented as of this encounter Care Teams Floral Specialist Relationship Specialty Start Date End Date Chasidy Kimbrough MD [address] [place] [address] PCP - General Family Medicine 02/14/21 documented as of this encounter
== END 2024-12-20 12:01 | disposition home or self-care (01) ==
LOC: HO.HOS 11:37
PROVIDERS: PCP General Practice; Visit Provider Physician Assistant
DX: M17.0 Bilateral primary osteoarthritis of knee (principal); E11.9 Type 2 diabetes mellitus without complications
CPT/HCPCS: 20610; 99214

== ENCOUNTER → 2024-12-20 11:36 | Outpatient (BNVA) | payer MEDICAID, SELFPAY | PROVIDERS: PCP General Practice; Visit Provider Physician Assistant | DX: M17.0 Bilateral primary osteoarthritis of knee (principal); E11.9 Type 2 diabetes mellitus without complications; M25.50 Pain in unspecified joint | CPT/HCPCS: 20610; 99212; J1010; J2003 ==

== ENCOUNTER 2025-01-17 13:03 | Outpatient (REF) | payer MEDICAID, SELFPAY ==
--- OUTSIDE RECORDS SUMMARY | 2025-01-17 13:41 | XMS_ITS | Encounter Summary ---
Author Organization [employer] Address [address] [facility] [address] [place] [address] Care Team Providers Care Advertising Agent Name Role Phone Chasidy Kimbrough MD Primary Care Provider [phone] Reason for Visit * Reason Comments Med Refill Encounter Details Date Type Department Care Team ([facility] Contact Info) Description 12/29/2022 Refill [facility] MEDICINE [address] [place] [address] Chasidy Kimbrough MD [address] [place] [address] Social History Tobacco Use Types Packs/Day Years [...] Upcoming Encounters Date Type Department Care Team ([facility] Contact Info) Description 01/31/2025 1:00 PM EDT Clinical Support [facility] MED[facility]INE [address] [place] [address] documented as of this encounter Visit Diagnoses Not on filedocumented in this encounter Additional Health Concerns Assessment Noted Time PHQ-9 Depression Total Score: 5 07/25/19 23 9:47 AM EST documented as of this encounter Care Teams Advertising Agent Relationship Specialty Start Date End Date Chasidy Kimbrough MD [address] [place] [address] PCP - General Family Medicine 02/14/21 documented as of this encounter
[2025-01-17 16:39] LABS: Alanine Aminotransferase 11 U/L (0-31); Albumin Level 4.3 g/dL (3.5-5.0); Alkaline Phosphatase 79 U/L (39-117); Anion Gap 14 (12-20); Aspartate Amino Transferase 25 U/L (5-31); Blood Urea Nitrogen 11 mg/dL (9-16); Calcium 9.4 mg/dL (8.4-10.2); Carbon Dioxide 26 mmol/L (22-29); Chloride 105 mmol/L (96-108); Cholesterol 223 mg/dL (<200); Estimated Glomerular Filt Rate > 60; HDL Cholesterol 61 mg/dL (>40); Potassium 3.9 mmol/L (3.3-5.1); Sodium 141 mmol/L (135-145); Total Protein 7.8 g/dL (6.5-8.0); Triglycerides 99 mg/dL (<150)
[2025-01-17 16:56] LABS: Microalbum/Creatinine Ratio Ur 20.1 ug/mg cr (<30)
== END 2025-01-17 13:04 | disposition home or self-care (01) ==
LOC: HO.HHCL 13:03
PROVIDERS: PCP General Practice; Visit Provider General Practice
DX: E11.9 Type 2 diabetes mellitus without complications (principal)
CPT/HCPCS: 36415; 80053; 80061; 82043; 82570

== ENCOUNTER 2025-02-02 07:10 | Outpatient (REF) | payer MEDICAID, SELFPAY ==
--- NOTE | ~2025-02-02 | CT_ITS ---
CLINICAL HISTORY: R91.8 - Other nonspecific abnormal finding of lung field CT chest without contrast Comparison: 10/24/2022 Findings: The heart is normal size. The thyroid gland is heterogeneous and prominent, not significantly changed. Mediastinal structures are unremarkable The lungs are clear. No new solid or semi solid lesion. The visualized upper abdomen is unremarkable. No acute fractures. IMPRESSION: 1. No acute findings. This document has been electronically signed by: Kun Aguirre MD on 02/03/2025 09:03:46
--- OUTSIDE RECORDS SUMMARY | 2025-02-02 07:12 | XMS_ITS | Encounter Summary ---
Author Organization [employer] Address [address] [facility] [address] [place] [address] Care Team Providers Care Product Development Intern Name Role Phone Chasidy Kimborugh MD Primary Care Provider [phone] Reason for Visit * Reason Comments Med Refill Encounter Details Date Type Department Care Team ([facility] st Contact Info) Description 12/29/2022 Refill [facility] MEDICINE [address], [place] [phone] Chasidy Kimbrough MD [address] [place], [place] [phone] Social History Tobacco Use Types Packs/Day Years [...] documented as of this encounter Care Teams Product Development Intern Relationship Specialty Start Date End Date Chasidy Kimbrough MD [address] [place] [address] PCP - General Family Medicine 02/14/21 documented as of this encounter
== END 2025-02-02 07:11 | disposition home or self-care (01) ==
LOC: HO.CT 07:10
PROVIDERS: PCP General Practice; Visit Provider Internal Medicine Pulmonary Disease
DX: R91.8 Other nonspecific abnormal finding of lung field (principal)
CPT/HCPCS: 71250

== ENCOUNTER → 2025-02-02 07:11 | Outpatient (BNV) | payer MEDICAID, SELFPAY | PROVIDERS: PCP General Practice; Visit Provider Specialist | DX: R91.8 Other nonspecific abnormal finding of lung field (principal) | CPT/HCPCS: 71250 ==

== ENCOUNTER 2025-02-15 08:54 | Outpatient (AMB) | payer MEDICAID, SELFPAY ==
--- NOTE | 2025-02-15 09:23 | A.OFFVIS_ITS ---
Vital Signs 02/15/25 09:37 Height 5 ft 5 in Weight 185 lb 3.013 oz BMI 30.8 BP 168/74 H Blood Pressure Location Lt brachial Position Sitting Pulse 69 Intake Visit Reasons: 2.5 mo f/u Intake Note: Patient is seen in office for 2 months follow up visit. Patient c/o: admits to loss of appetite, RUQ pain, swollen, painful to sleep on Surfboard Designer Required: Yes Surfboard Designer Language: Log Handler Services: Surfboard Designer Offered & Declined Surfboard Designer Name: Kim RAMIREZ Information Interpreted: non-clinical & clinical Accompanied by: Self / Same As Patient Allergies trazodone (TRAZODONE) Allergy (Intermediate, Verified 02/15/25 09:30) PROLONGED QT INTERVAL (PER H&P) HPI HPI 2.5 mo f/u: Details: LAST VISIT: GERD (gastroesophageal reflux disease) Helicobacter pylori (H. pylori) Postprandial epigastric pain Postprandial abdominal bloating Plan H pylori found without dysplasia on upper endoscopy. Will treat empirically and will retest. Patient reports epigastric pain hopefully with antibiotics patient will be able to feel better after treatment. Patient was instructed to take Zofran if she will feel nauseous. Will send her for upper GI with barium swallow. Patient reports occasional trouble swallowing. Patient will continue taking PPI. Follow-up in 10 weeks, sooner as needed. Encouraged patient to avoid dietary triggers and late night snacking. Staying upright for minimum 3 hours after meals discussed with patient. Patient is agreeable to plan of care and verbalizes understanding of instructions. She was given the opportunity to ask questions and all questions answered. ? Thank you for allowing me to participate in her care Orders FL upper GI w Ba Swallow Today K21.9 New doxycycline hyclate 100 mg PO BID 28 tabs 0RF 14 days bismuth subsalicylate 2 tabs PO QID 112 tabs 0RF 14 days A04.8 metronidazole 1,000 mg (2 x 500 mg) PO BID 56 tabs 0RF A04.8 ondansetron 4 mg PO Q8H PRN 20 tabs 0RF nausea and vomiting R11.0 TODAY'S VISIT Patient is here today for follow-up. Patient reports that she completed 2 weeks antibiotic therapy for H pylori. Reports that her symptoms of acid reflux control. She has been taking Nexium daily. Denies any acid reflux, dyspepsia, dysphagia or odynophagia. However patient does report right up in any left upper quadrant pain. Patient reports that she feels like she has hernia or lipoma there. Patient reports that both of these areas hurt upon palpation. Trouble sleeping on her side. Patient denies any fever or chills. Denies any nausea or vomiting. Reports that she is moving her bowels today. Denies any diarrhea or constipation. Denies melena, hematochezia, unintentional weight loss or ribbon like stools. [facility] Medical History Helicobacter pylori (H. pylori) Diabetes education, encounter for GERD (gastroesophageal reflux disease) Asthma Elevated cholesterol PONV (postoperative nausea and vomiting) Diabetes Tietze syndrome Kidney calculi Depression HTN (hypertension) Surgical History Hx of colonoscopy History of esophagogastroduodenoscopy (EGD) History of umbilical hernia repair History of ventral hernia repair History of cystoscopy Hx of cholecystectomy History of excision of mass H/O: hysterectomy Family History Father Throat cancer Maternal Aunt Breast cancer Social History Household Members: None Household Members Other:: pt. lives alone. 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 Sexual orientation: Straight/Heterosexual Review of Systems Const Denies weight gain and Denies weight loss ENT Reports no additional complaints, Denies dysphagia and Denies odynophagia Card Reports no additional complaints Resp Reports no additional complaints GI Denies abdominal pain, Denies belching, Denies melena, Denies bloating, Denies change in bowel habits, Denies dysphagia, Denies excessive flatus, Denies dyspepsia, Denies heartburn, Denies diarrhea, Denies loose stools, Denies nausea, Denies odynophagia and Denies vomiting Reports no additional complaints Musc Reports no additional complaints Neuro Reports no additional complaints Psych Reports no additional complaints Endo Reports no additional complaints Physical Exam Vital Signs: Last Vital Signs Pulse 69 02/15/25 09:37 BP 168/74 H 02/15/25 09:37 BMI result Body Mass Index 30.8 Const General: healthy appearing and no acute distress Nutritional Appearance: obese Orientation/consciousness: patient oriented x3 Resp Effort & Inspection: normal respiratory effort, able to speak in complete sentences, no tracheal deviation and symmetric chest movement Auscultation: clear to auscultation bilaterally Cardio Rate: regular rate GI Inspection: Yes normal to inspection, No distended and Yes obesity Palpation (GI): Soft to palpation, not firm, Tenderness to palpation present (GI) (RUQ, LUQ) and No hepatosplenomegaly present Auscultation: normal bowel sounds General: Yes no CVA tenderness Back/Spine/Pelvis Back: no CVA tenderness Skin General skin exam: elasticity normal, turgor normal and dry skin Neuro General: patient oriented x3 Psych Appearance: grossly normal Mental Status: mental status grossly normal Assessment & Plan Assessment & Plan (1) GERD (gastroesophageal reflux disease): Code(s): K21.9 - Gastro-esophageal reflux disease without esophagitis Category: Medical Qualifiers: Esophagitis presence: esophagitis presence not specified Qualified Code(s): K21.9 - Gastro-esophageal reflux disease without esophagitis (2) Helicobacter pylori (H. pylori): Code(s): A04.8 - Other specified bacterial intestinal infections Category: Medical (3) Incisional hernia: Code(s): K43.2 - Incisional hernia without obstruction or gangrene Category: Medical Qualifiers: Obstruction and gangrene presence: without obstruction or gangrene Qualified Code(s): K43.2 - Incisional hernia without obstruction or gangrene (4) Postprandial abdominal bloating: Code(s): R14.0 - Abdominal distension (gaseous) Plan Will send patient for ultrasound to evaluate for hernia. Patient reports also epigastric pain postprandially. She will take famotidine and will return in 2 weeks for H pylori breath test. Will treat empirically if positive. Avoid dietary triggers and late night snacking. Staying upright for minimum 3 hours after meals discussed with patient. Patient will follow-up in 3 months. She will call us if she will have any GI concerning symptoms. May restart the Nexium after H pylori testing. Patient is agreeable to current plan of care and verbalizes understanding of instructions. She was given the opportunity to ask questions and all questions answered. Thank you for allowing me to participate in her care Orders: Orders US abdomen limited 02/15/25 K43.2 - Incisional hernia without obstruction or gangrene H Pylori Breath Test 02/15/25 K21.9 - Gastro-esophageal reflux disease without esophagitis Medications: New famotidine (Acid Silverware Cleaner (famotidine)) 20 mg PO BID 30 tabs 0RF Coding Level of Care Code Est Pt Level 4 (77194) Complex EM visit Add On G2211 Diagnoses Gastroesophageal reflux disease, unspecified whether esophagitis present K21.9 Esophagitis presence: esophagitis presence not specified Helicobacter pylori (H. pylori) A04.8 Incisional hernia, without obstruction or gangrene K43.2 Obstruction and gangrene presence: without obstruction or gangrene Postprandial abdominal bloating R14.0 Time Spent (min) 35 Comment 25 minutes spent with patient and additional 10 minutes spent reviewing her records
--- OUTSIDE RECORDS SUMMARY | 2025-02-15 09:28 | XMS_ITS | Encounter Summary ---
Author Organization [email or web address] Address [address] [facility] [address] [place] [address] Care Team Providers Care Delivery Sales Worker Name Role Phone Chasidy Kimbrough MD Primary Care Provider [phone] Reason for Visit * Reason Comments Med Refill Encounter Details Date Type Department Care Team ([facility] Contact Info) Description 12/29/2022 Refill [facility] [address] [place] [address] Chasidy Kimbrough MD [address] [place] [address] Social History Tobacco Use Types Packs/Day Years [...] Upcoming Encounters Date Type Department Care Team ([facility] Contact Info) Description 02/28/2025 1:00 PM EDT Clinical Support [facility] [address] [place] [address] documented as of this encounter Visit Diagnoses Not on filedocumented in this encounter Additional Health Concerns Assessment Noted Time PHQ-9 Depression Total Score: 5 07/25/19 23 9:47 AM EST documented as of this encounter Care Teams Delivery Sales Worker Relationship Specialty Start Date End Date Chasidy Kimbrough MD [address] [place] [address] PCP - General Family Medicine 02/14/21 documented as of this encounter
--- OUTSIDE RECORDS SUMMARY | 2025-02-15 09:28 | XMS_ITS | Clinical Summary ---
Author Organization [employer] Address [address] [place] [address] Care Team Providers Care Information Technology Consultant Name Role Phone Chasidy Kimbrough MD Primary Care Provider [phone] Allergies Active Allergy Reactions Criticality Noted Date [...] mouth Once per day. 07/14/19 23 Active glucose blood (FREESTYLE LITE) test stripIndication s:Type 2 diabetes mellitus without complication, without long-term current use of insulin (CMS/[facility]) TEST BLOOD SUGAR TWICE DAILY DIRECTED 100 strip 7 08/06/19 24 Active Spiriva Respimat 2.5 MCG/ACT inhaler Inhale 2 puffs Once per day. 1 each 02/10/20 24 Active cholecalciferol (Vitamin D-3) 50 MCG (1999 UT) tablet Take 1 tablet (50 mcg) by mouth in the morning. 90 tablet 3 02/10/20 24 Active gabapentin (Neurontin) 100 MG capsule Take 1 capsule (100 mg) by mouth every 8 (eight) hours. 90 capsule 11 05/09/20 24 2024 Active TRUEplus Lancets 33G miscIndications :Type 2 diabetes mellitus without complication, without long-term current use of insulin (CMS/[facility]) USE DIRECTED TO TEST BLOOD SUGAR TWICE DAILY 100 each 3 06/01/20 Active ARIPiprazole (Abilify) 20 MG tablet Take 20 mg by mouth Once per day. Active traZODone (Desyrel) 150 MG tablet Take 2 tablets by mouth at bedtime. 07/21/19 Active omeprazole (PriLOSEC) [address] capsule Take 1 capsule by mouth Once per day. 08/08/19 Active metFORMIN XR (Glucophage-XR) 500 MG 24 hr tablet Take 2 tablets by mouth with evening meal. 08/08/19 Active melatonin 5 MG tablet Take 2 tablets by mouth if needed at bedtime (sleep). 08/08/19 Active OLANZapine (ZyPREXA) 2.5 MG tablet Take 1 tablet by mouth 2 times daily. 09/28/19 Active polyethylene glycol, PEG, 3350 (Glycolax) 17 GM/SCOOP powder MIX WITH WATER DIRECTED THEN FOLLOW INSTRUCTION SHEET GIVEN TO YOU AT YOUR DOCTOR'S OFFICE DIRECTED. 11/09/19 Active atorvastatin (Lipitor) 80 MG tablet Take 1 tablet (80 mg) by mouth at bedtime. 90 tablet 3 11/19/19 Active aspirin 81 MG chewable tablet Chew 1 tablet (81 mg) Once per day. 90 tablet 3 11/19/19 25 2025 Active propranolol LA (Inderal LA) 60 MG 24 hr capsule Take 1 capsule (60 mg) by mouth Once per day. Do not crush, chew, or split. 90 capsule 1 11/19/19 25 2025 Active fexofenadine (Zohra) 180 MG tablet Take 1 tablet (180 mg) by mouth if needed each day (Allergies). 90 tablet 3 11/19/19 25 2024 Active naproxen (Naprosyn) 500 MG tablet TAKE 1 TABLET BY MOUTH TWICE DAILY 60 tablet 11/26/19 Active meloxicam (Mobic) 15 MG tablet Take 1 tablet (15 mg) by mouth Once per day. 15 tablet 01/10/20 25 2025 Active cyclobenzaprine (Flexeril) 10 MG tablet Take 1 tablet (10 mg) by mouth at bedtime for 10 days. 10 tablet 01/10/20 Active esomeprazole (NexIUM) [address] capsuleIndicati ons:Gastroesoph ageal reflux disease without esophagitis Take 1 capsule by mouth Once per day. 12/22/19 Active amLODIPine (Norvasc) 10 MG tabletIndicatio ns:Primary hypertension TAKE 1 TABLET BY MOUTH EVERY MORNING 90 tablet 3 01/18/20 25 Active Blood Pressure Monitor miscIndications :Primary hypertension Apply 1 each topically Once per day. Use kit to measure blood pressure once daily 1 each 01/18/20 25 2025 Active losartan (Cozaar) 100 MG tabletIndicatio ns:Primary hypertension TAKE 1 TABLET BY MOUTH EVERY DAY 90 tablet 3 01/18/20 25 Active butalbital-acet aminophen-caffe ine 50-325-40 MG tablet TAKE 1 TABLET BY MOUTH EVERY 6 HOURS NEEDED FOR MIGRAINE DO NOT EXCEED 2 TABLETS PER WEEK 10 tablet 01/19/20 25 Active Blood Pressure Monitoring (Blood Pressure Monitor/M Cuff) miscIndications :Primary hypertension Use kit to measure blood pressure once daily 1 each 07/25/192024 Discontinued(R eorder (will not trigger notification to Pharmacy)) amLODIPine (Norvasc) 10 MG tabletIndicatio ns:Primary hypertension TAKE 1 TABLET BY MOUTH EVERY MORNING 90 tablet 3 02/10/20 24 2024 Discontinued(R eorder (will not trigger notification to Pharmacy)) losartan (Cozaar) 100 MG tabletIndicatio ns:Primary hypertension TAKE 1 TABLET BY MOUTH EVERY DAY 90 tablet 3 02/10/20 24 2024 Discontinued(R eorder (will not trigger notification to Pharmacy)) butalbital-acet aminophen-caffe ine 50-325-40 MG tablet TAKE 1 TABLET BY MOUTH EVERY 6 HOURS NEEDED FOR MIGRAINE DO NOT EXCEED 2 TABLETS PER WEEK 09/29/19 25 2024 Discontinued Diclofenac Sodium 1 % gel Apply 1 inch topically if needed in the morning, at noon, and at bedtime (pain). 60 g 01/10/20 25 2024 Active Problems Problem Noted Date Diagnosed Date Neck sprain 01/09/2025 Assessment & Plan (01/09/2025 1:47 PM EDT): Probably trapezius compromise. Patient to get Toradol 30 mg today, continue meloxicam daily for 2 weeks + Tylenol and Flexeril nightly. Advised to hold naproxen for the next 2 weeks Use diclofenac to affected area along with ice packs as needed pain Advised to come to acupuncture clinic and call back as needed if symptoms do not improve within 2 weeks, may need referral to PT Migraine headache 08/16/2024 Assessment & Plan (08/16/2024 [...] 07/25/2022 Sleep disorder 07/25/2022 Joint pain 11/11/2017 Assessment & Plan (11/18/2024 8:45 AM EDT): Need to [facility] for appointment DANO is positive 1:40 titer with speckled pattern ESR 39 and CRP 1.72 Dental disorder 07/29/2017 Mood disorder 07/29/2017 Assessment & Plan (07/25/2022 10:30 AM EST): Continue followup with prescriber and therapist No SI/HI Talked about grounding exercises Hyperlipidemia associated with type 2 diabetes ramiro crane 07/29/2017 Assessment & Plan (07/25/2022 10:29 AM EST): Continue Atorvasatin 80mg daily Hypertensive disorder 07/29/2017 Assessment & Plan (01/16/2025 3:40 PM EDT): STOP hydralazine to 50mg TID continue Losartan 100mg, and Amlodipine 10mg Check BP daily and keep a log ER precautions for symptoms of chest pain, jaw pain Follow up with the Nurse for blood pressure check in 2 weeks. Continue with a low sodium diet and regular exercise as tolerated. For BP < or = to 139/89 (or 129/79 for diabetic patients) continue current medication regimen and follow up with PCP in 6 months. For BP > or = to 140/90 (or 130/80 for diabetic patients) increase Start new medication Chlorthalidone 12.5 mg once a day Follow up with the Nurse for a second blood pressure check in 2-4 weeks if BP 140-150/90+ (or 130-150/80+ for diabetic patients). Refer to CDTM for BP >150/90+. If second Nurse visit is needed: For BP < or = to 139/89 (or 129/79 for diabetic patients) continue current medication regimen and follow up with the PCP in 6 months. For BP > or = to 140/90 (or 130/80 for diabetic patients) increase Chlorthalidone to 25 mg once a day Follow up with the PCP in 3 months. Assessment & Plan (05/14/2024 7:33 PM EST): [...] Encounters Date Type Department Care Team Description 02/09/[address] [address] Chasidy Kimbrough MD telephone call 02/09/[address] [address] Chasidy Kimbrough MD Primary hypertension 02/06/[address] [address] Darcie Thibodeaux, YOVANY f/up from BP CHECK 02/02/2025 Orders Only [facility] External Provider, [facility] 01/31/2025 1:00 PM EDT Clinical Support [address] [address] Jeannie Slaughter RN Primary hypertension 01/31/2025 Travel 01/19/2025 Results Follow-Up [address] [address] Chasidy Kimbrough MD POCT Glucose, Lipid Panel, Standard, Albumin, Random Urine W/Creatinine, Comprehensive Metabolic Panel 01/18/[address] [address] Chasidy Kimbrough MD 01/17/[address] [address] Chasidy Kimbrough MD telephone call 01/16/2025 1:30 PM EDT Office Visit [address] [address] Chasidy Kimbrough MD Primary hypertension (Primary Dx); Type 2 diabetes mellitus without complication, without long-term current use of insulin ([facility]); Gastroesophageal reflux disease without esophagitis 01/16/2025 Travel 01/13/[address] [address] Chasidy Kimbrough MD Chart Prep 01/09/2025 1:20 PM EDT Office Visit [facility] [address] [address] Dano Morris MD Neck sprain, initial encounter (Primary Dx) 01/09/2025 Travel 01/05/2025 Patient Outreach [address] [address] Chasidy Kimbrough MD Pre-visit Planning ((Unable to reach for PVP screening, LVM) to be completed in office ) 12/20/2024 Orders Only [facility] [place] [address] Chasidy Kimbrough MD 11/30/2024 Results Follow-Up [address] [place] [address] Chasidy Kimbrough MD Glucose, Whole Blood, Hematoxylin and Eosin Stain 11/25/2024 Orders Only GENERIC EXTERNAL DATA DEPARTMENT Provider, Generic External Data 11/23/2024 Refill [facility] [address] Chasidy Kimbrough MD 11/18/2024 Telephone [facility] [place] [address] Chasidy Kimbrough MD Results 11/15/2024 11:00 AM EDT Office Visit [facility] [place] [address] Chasidy Kimbrough MD Other fatigue (Primary Dx); Type 2 diabetes mellitus without complication, without long-term current use of insulin (CMS/HCC); Hyperlipidemia associated with type 2 diabetes mellitus (CMS/HCC); Primary hypertension; Thyroid nodule; Gastroesophageal reflux disease without esophagitis; Mood disorder (CMS/HCC); Pain in other joint 11/15/2024 Travel from Last 3 Months Immunizations Immunization Administration Dates Next Due Hep B, adult [...] Packs/Day Years Used Date Smoking Tobacco: Never Passive Smoke Exposure: Never Smokeless Tobacco: Never Tobacco Cessation:Counseling Given: Not Answered Alcohol Use Standard Drinks/Week Comments Never 0 (1 standard drink = 0.6 oz pur e alcohol) Depression Answer Date Recorded Patient Health Questionnaire-9 Score 1 01/16/2025 Patient Health Questionnaire-9 Score 1 01/16/2025 Last PHQ-9: Questionnaire Data Not on file 0 01/16/2025 Housing Stability Answer Date Recorded What is [...] Answer Date Recorded Patient Health Questionnaire-2 Score 0 01/16/2025 Internet Access Answer Date Recorded Internet Access Q1 Yes 04/28/2024 Internet Access Q2 Not on file 04/28/2024 Comments No Sex and Gender Information Value Date Recorded Sex Assigned at Female 04/14/2022 10:14 AM EDT Legal Sex Female 10:14 AM EDT Gender Identity Female 04/14/2022 10:14 AM EDT Sexual Orientation Choose not to disclose 2021 10:14 AM EDT Last Filed Vital Signs Vital Sign Reading Time Taken Comments Blood Pressure 152/94 01/31/2025 1:17 PM EDT Pulse 78 01/31/2025 1:17 PM EDT Temperature 36.3 C (97.4 F) 01/16/2025 1:21 PM EDT Respiratory Rate 18 01/31/2025 1:17 PM EDT Oxygen Saturation 100% 01/31/2025 1:17 PM EDT Inhaled Oxygen Concentration - - Weight 82.6 kg (182 lb) 01/16/2025 1:21 PM EDT Height 165.1 cm (5' 5 ) 01/16/2025 1:21 PM EDT Body Mass Index 30.29 01/16/2025 1:21 PM EDT Plan of Treatment Upcoming Encounters Date Type Department Care Team (Late st Contact Info) Description 02/28/2025 1:00 PM EDT Clinical Support [facility] [address] [place] [phone] Health Maintenance Due Date Last Done Comments CT Colonography 1965 FIT DNA/Cologuard 1965 FIT 1965 FOBT 1965 Sigmoidoscopy 1965 Diabetes: Foot Exam 1975 Eye Exam 1975 Pneumococcal Vaccine: 50+ Years (1 of 2 - PCV) 01/16/1984 Pap Smear 1986 HPV/Cotest 1995 RSV Patients and Patients Aged 60 years or older (1 - Risk 60-74 years 1-dose series) 2025 Diabetes: Hemoglobin A1C 02/09/2025 025, 05/09/2024, 11/30/2023, Additional history exists COVID-19 Vaccine ( season) 2025 09/08/2023, 11/22/2021, 05/30/2021, Additional history exists Influenza Vaccine (#1) 2025 , 03/16/2023, 05/18/2019, Additional history exists SDOH Screening 04/28/2025 04/28/2024 Mammogram 09/27/2025 09/27/2024, 10/14, 09/25/2023, Additional history exists Alcohol/Substance Use Screening 11/15/2025 11/15/2024 Disability Screening 11/15/2025 11/15/2024 Depression Screening 01/16/2026 01/16/2025, 01/17/20 Tobacco Screening 01/16/2026 01/16/2025 Diabetes: Urine Protein Screening 01/17/2026 01/17/2025, 11/30/2023, 05/07/2020, Additional history exists Lipid Panel 01/17/2026 01/17/2025, 11/13, 12/22/2022, Additional history exists DTaP/Tdap/Td Vaccines (3 - Td or Tdap) 08/09/2028 08/09/2018, 07/03/2016, 08/20/2007, Additional history exists Colonoscopy 12/14/2029 12/14/2024 Colorectal Cancer Screening 12/14/2029 Hepatitis B Vaccines Completed 02/01/2010, 08/27/2009, 06/20/1997 Zoster Vaccines Completed 01/01/2022, 10/28/2021 HIV Screening Completed 11/30/2023 Hepatitis C Screening Completed 05/09/2024, 024 Cervical Cancer Screening Discontinued HIB Vaccines Aged [...] patient's age to complete this topic Meningococcal B Vaccine Aged Out No l onger eligible based on patient's age to complete [...] Procedure Name Priority Date/Time Associated Diagnosis Comments CT CHEST WO CONTRAST Routine 02/03/2025 9:03 AM EDT COMPREHENSIVE METABOLIC PANEL Routine 01/17/2025 1:17 PM EDT Type 2 diabetes mellitus without complication, without long-term current use of insulin (CMS/HCC) ALBUMIN, RANDOM URINE W/CREATININE Routine 01/17/2025 1:17 PM EDT Type 2 diabetes mellitus without complication, without long-term current use of insulin (CMS/HCC) LIPID PANEL, STANDARD Routine 01/17/2025 1:17 PM EDT Type 2 diabetes mellitus without complication, without long-term current use of insulin ([facility]) POCT GLUCOSE Routine 01/16/2025 1:27 PM EDT Type 2 diabetes mellitus without complication, without long-term current use of insulin ([facility]) COLONOSCOPY Routine 12/14/2024 HEMATOXYLIN AND EOSIN STAIN Routine 11/25/2024 12:45 PM EDT GLUCOSE, WHOLE BLOOD Routine 11/25/2024 11:53 AM EDT CBC WITH AUTO DIFFERENTIAL Routine 11/15/2024 12:00 PM EDT Other fatigue DNA (DS) ANTIBODY Routine 11/15/2024 12: 00 PM EDT Tenosynovitis of finger CYCLIC CITRULLINATED PEPTIDE (CCP) AB (IGG) Routine 11/15/2024 12:00 PM EDT Tenosynovitis of finger RHEUMATOID FACTOR Routine 11/15/2024 12: 00 PM EDT Tenosynovitis of finger C-REACTIVE PROTEIN Routine 11/15/2024 12 :00 PM EDT Tenosynovitis of finger SED RATE BY MODIFIED WESTERGREN Routine 11/15/2024 12:00 PM EDT Tenosynovitis of finger RPR (MONITOR) W/REFL TITER Routine 11/15/2024 12:00 PM EDT Memory loss VITAMIN B12/FOLATE, SERUM PANEL Routine 11/15/2024 12:00 PM EDT Memory loss POCT GLUCOSE Routine 11/15/2024 11:06 AM EDT Type 2 diabetes mellitus without complication, without long-term current use of insulin (CMS/HCC) BI MAMMOGRAM SCREENING TOMOSYNTHESIS BILATERAL Routine 09/27/2024 1:34 PM EDT POCT GLYCATED HEMOGLOBIN, TOTAL Routine 08/12/2024 1:08 PM EST Type 2 diabetes mellitus without complication, without long-term current use of insulin (CMS/HCC) HEPATITIS PANEL, GENERAL Routine 05/09/2024 4:30 PM EST Tenosynovitis of finger HIV 1/2 ANTIGEN/ANTIBODY, FOURTH GENERATION W/RFL Routine 11/30/2023 1:19 PM EDT Routine screening for STI (sexually transmitted infection) from Last 3 Months or Most Recently Relevant to Health Maintenance Results * CT Chest w/o Contrast (02/03/2025 9:03 AM EDT) Anatomical Region Laterality Modality Body, Chest Computed Tomogra phy 02/03/2025 9:03 AM EDT Narrative 02/03/2025 9:04 AM EDT [place] [address] CT Scan Report Signed Patient: Cynthia Stuart MR#: [id number] : 1965 Acct:[id number] Age/Sex: 60 / F ADM Date: 02/02/25 Loc: HO.CT Attending Dr: Mg Moore MD Ordering Physician: Mg Moore MD Date of Service: 02/02/25 Procedure(s): CT chest wo IV con Accession Number(s): [id number] cc: Chasidy Kimbrough; Mg Moore MD Report Number: [id number]: Total DLP = 152.00 mGy-cm CLINICAL HISTORY: R91.8 - Other nonspecific abnormal finding of lung field CT chest without contrast Comparison: 10/24/2022 Findings: The heart is normal size. The thyroid gland is heterogeneous and prominent, not significantly changed. Mediastinal structures are unremarkable The lungs are clear. No new solid or semi solid lesion. The visualized upper abdomen is unremarkable. No acute fractures. IMPRESSION: 1. No acute findings. This document has been electronically signed by: Kun Aguirre MD on 02/03/2025 09:03:46 Dictated By: Kun Aguirre MD Signed By: <Electronically signed by Kun Aguirre MD in OV> 02/03/25903 DD/ 2 TD/TT: 02/03/25902 Spindle Carver: Procedure Note Donotuseinterpreter, Image - 02/03/[address] [place] [address] [address] Scan Report Signed Patient: Cynthia Stuart OMR#: [id number] : 1965Acct:[id number] Age/Sex: 60 / FADM Date: 02/02/25 Loc: HO.CT Attending Dr: Mg Moore MD Ordering Physician: Mg Moore MD Date of Service: 02/02/25 Procedure(s): CT chest wo IV con Accession Number(s): [id number] cc: Chasidy Kimbrough; Mg Moore MD Report Number: [id number]: Total DLP = 152.00 mGy-cm CLINICAL HISTORY: R91.8 - Other nonspecific abnormal finding of lung field CT chest without contrast Comparison: 10/24/2022 Findings: The heart is normal size. The thyroid gland is heterogeneous and prominent, not significantly changed. Mediastinal structures are unremarkable The lungs are clear. No new solid or semi solid lesion. The visualized upper abdomen is unremarkable. No acute fractures. IMPRESSION: 1. No acute findings. This document has been electronically signed by: Kun Aguirre MD on 02/03/2025 09:03:46 Dictated By: Kun Aguirre MD Signed By: <Electronically signed by Kun Aguirre MD in OV> 02/03/25903 DD/ 2 TD/TT: 02/03/25902 Spindle Carver: [facility] External Provider IMG CT PROCEDURES Final Result * Albumin, Random Urine W/Creatinine (01/17/2025 1:17 PM EDT) Creatinine, Urine 243.58 mg/dL [facility] Microalbumin Urine 49.0 mg/L [facility] Microalbum Creatinine Ratio Ur 20.1 <30 ug/mg cr [facility] Comment:Albumin/Creatinine R atio Reference Ranges: Normal: < 30 ug/mg creatinine Microalbuminuria: 30 - 300 ug/mg creatinineClinical Albuminuria: > 300 ug/mg creatinine Urine (Urine, Random) 01/17/2025 1:17 PM EDT 01/17/2025 3:57 PM EDT us Chasidy Kimbrough MD LAB URINE ORDERABLES Final Res ult [facility] [address] [place] [phone] * (ABNORMAL) Lipid Panel, Standard (01/17/2025 1:17 PM EDT) Triglycerides 99 <150 mg/dL [facility] Comment:Desirable Triglyceri de: less than 150 mg/dLBorderline High Triglyceride 150-199 mg/dLHigh Triglyceride: 200-499 mg/dLVery High Triglyceride: greater than or equal to 5OO mg/dL Cholesterol 223(H) <200 mg/dL [facility] Comment:Desirable Cholestero l: less than 200 mg/dLBorderline High Cholesterol: 200-239 mg/dLHigh Cholesterol: greater than 239 mg/dL LDL Cholesterol Calculated 143(H) <100 mg/dL [facility] Comment:Desirable LDL: less than 100 mg/dLNear Optimal/Above Optimal LDL: 110- 129 mg/dLBorderline High LDL: 130-159 mg/dLHigh LDL: 160-189 mg/dLVery High LDL: greater than or equal to 190 mg/dL HDL Cholesterol 61 >40 mg/dL [facility] Comment:Desirable HDL: great er than 40 mg/dL Note: This HDL assay may give artificially low results in patients with liver disease. Blood Venous blood specimen / Unknown 01/17/2025 1:17 PM EDT 01/17/2025 4:03 PM EDT Chasidy Kimbrough MD LAB BLOOD ORDERABLES Final Res ult [facility] [address] [place] [phone] * (ABNORMAL) Comprehensive Metabolic Panel (01/17/2025 1:17 PM EDT) Sodium 141 135 - 145 mmol/L [facility] Potassium 3.9 3.3 - 5.1 mmol/L [facility] Comment:Slight Hemolysis.Int erpret result with caution. Chloride 105 96 - 108 mmol/L [facility] Carbon Dioxide 26 22 - 29 mmol/L [facility] Anion Gap 14 12 - 20 [facility] Urea Nitrogen (BUN) 11 9 - 16 mg/dL [facility] Creatinine, Serum 0.64 0.5 - 1.4 mg/dL [facility] Estimated Glomerular Filt Rate >60 [facility] Comment:Chronic Kidney Disea se: Estimated GFR < 60 mL/min/[id number] Kidney Disease: Estimated GFR < 15 mL/min/1.73m2 Glucose 116(H) 60 - 115 mg/dL [facility] Calcium 9.4 8.4 - 10.2 mg/dL [facility] Bilirubin, Total 0.2 0.0 - 1.0 mg/dL [facility] Aspartate Amino Transferase 25 5 - 31 U/L [facility] Comment:Slight Hemolysis.Int erpret result with caution. Alanine Aminotransferase 11 0 - 31 U/L [facility] Total Protein 7.8 6.5 - 8.0 g/dL [facility] Albumin Level 4.3 3.5 - 5.0 g/dL [facility] Alkaline Phosphatase 79 39 - 117 U/L [facility] Blood Venous blood specimen / Unknown 01/17/2025 1:17 PM EDT 01/17/2025 4:03 PM EDT Chasidy Kimbrough MD LAB BLOOD ORDERABLES Final Res ult [facility] [address] [place] [phone] * POCT Glucose (01/16/2025 1:27 PM EDT) Only the most recent of2 resultswithin the time period is included. Glucose Blood, POC 150 60 - 200 mg/dL QC Media Lot # [id number] Lot# Expiration Date [id number] Blood Capillary blood specimen / Unknown 01/16/2025 1:27 PM EDT Chasidy Kimbrough MD POINT OF CARE TEST ENTER/EDIT ORDERABLES Final Result * Colonoscopy (12/14/2024) Anatomical Region Laterality Modality Endoscopy Other Impressions 12/14/2024 7-8mm polyp, adenomatous [facility] Ángela KOCH ENDOSCOPY PROCEDURE ORDER KEELY Final Result * Hematoxylin and Eosin Stain (11/25/2024 12:45 PM EDT) 11/25/2024 12:4 5 PM EDT 11/25/2024 3:00 PM EDT Narrative [facility] - 11/29/2024 3:16 PM EDT ----- ------- Name: Cynthia Stuart Georges Age/Sex: 59/F : 1965 Unit#: [id number] Attend Dr: Hermilo George MD Re11/25/24 Status: [facility] Location: [facility] Disch: ----- ------- SPEC : [id number] RECD: 11/25/24 STATUS: SOFIA DELGADO NUM: [id number] BRANDY: 11/25/[address] [facility] [address]: Hermilo George MD ENTERED: 11/25/24 SP TYPE: Surgical OTHR DR: Chasidy Kimbrough ORDERED: HE Stain/15, Gross Micro L4/5, IHC, Special st. 2/3, H. pylori, AB/PAS/3 Diagnosis A. Stomach, antrum, biopsy: H pylori gastritis; negative for intestinal metaplasia/dysplasia. B. Stomach, nodule, biopsy: H pylori gastritis; negative for intestinal metaplasia/dysplasia. C. Stomach, body, biopsy: H pylori gastritis; negative for intestinal metaplasia/dysplasia. D. Colon, transverse, polyp: Tubular adenoma; negative for high-grade dysplasia. E. Rectum, polyp: Hyperplastic polyp; negative for dysplasia. Clinical History Pre-Op Dx: Dysphagia, screening Post-Op Dx: Hiatal hernia, gastritis, gastric nodule, diverticulosis, colon polyps, hemorrhoids Microscopic Description A-E. Microscopic sections reviewed. Special stains for AB/PAS on A-C and immunohistochemical stain for H pylori on B supports the diagnosis Material Received A. Gastric antrum bx's R/O H. pylori B. Gastric nodule bx's C. Gastric body bx's D. Transverse colon polyp E. Rectal polyp Gross Description Received in 5 parts. A. Received in formalin labeled gastric antrum biopsies R/0 H pylori are 3 fragments of gee-white soft tissue measuring 0.3-0.4 cm in greatest dimension which are wrapped in lens paper and entirely submitted for microscopic examination, 3 pieces in cassette A. CONTINUED ON NEXT PAGE ----- ------- Name: Cynthia Stuart Age/Sex: 59/F : 1965 Unit#: [id number] Attend Dr: Hermilo George MD Re11/25/24 Status: [facility] Location: [facility] Disch: ----- ------- SPEC : [id number] RECD: 11/25/24 STATUS: SOFIA DELGADO NUM: [id number] BRANDY: 11/25/24-[address] [facility] [address]: Hermilo George MD ENTERED: 11/25/24-151 SP TYPE: Surgical OTHR DR: Chasidy Kimbrough ORDERED: HE Stain/15, Gross Micro L4/5, IHC, Special st. 2/3, H. pylori, AB/PAS/3 Gross Description (Continued) B. Received in formalin labeled gastric nodule biopsies are 2 fragments of gee-white soft tissue measuring 0.4 and 0.5 cm in greatest dimension which are wrapped in lens paper and entirely submitted for microscopic examination, 2 pieces in cassette B C. Received in formalin labeled gastric body biopsies are 2 fragments of gee-white soft tissue measuring 0.2 and 0.4 cm in greatest dimension which are wrapped in lens paper and entirely submitted for microscopic examination, 2 pieces in cassette C. D. Received in formalin labeled transverse colon polyp is a fragment of translucent, gee- white soft tissue measuring 0.4 cm in greatest dimension which is wrapped in lens paper and entirely submitted for microscopic examination, 1 piece in cassette D. E. Received in formalin labeled rectal polyp is a fragment of gee-white soft tissue measuring 0.3 cm in greatest dimension which is wrapped in lens paper and entirely submitted for microscopic examination, 1 piece in cassette E. ([facility]) Special stains ordered and performed:Special stains for AB/PAS on A-C and immunohistochemical stain for H pylori on B IHC S/NG Disclaimer NOTE: Unless otherwise stated, all tissue is formalin-fixed and paraffin-embedded. Some or all of the immunohistochemical tests reported herein may have been developed and their performance characteristics determined by [facility]. They have not been cleared or approved by the U.S. Food and Drug Administration (FDA). However, the FDA has determined that such clearance or approval is not necessary. This laboratory is certified under the Clinical Laboratory Improvement Amendments of 1988 (CLIA) as qualified to perform high complexity clinical laboratory testing. Copies To: Chasidy Kimbrough [address] [place] [address] [phone] Hermilo George MD [facility] [place] [facility] [address] [place] [phone] CONTINUED ON NEXT PAGE ----- ------- Name: Cynthia Stuart Age/Sex: 59/F : 1965 Unit#: [id number] Attend Dr: Hermilo George MD Re11/25/24 Status: [facility] Location: [facility] Disch: ----- ------- SPEC : [id number] RECD: 11/25/24-1499 STATUS: SOFIA DELGADO NUM: [id number] BRANDY: 11/25/24-[address]: Hermilo George MD ENTERED: 11/25/24-1510 SP TYPE: Surgical OTHR DR: Chasidy Kimbrough ORDERED: HE Stain/15, Gross Micro L4/5, IHC, Special st. 2/3, H. pylori, AB/PAS/3 ----- ------- Signed (signature on file) Carlos Prather MD 11/29/24 1516 ----- ------- END OF REPORT Generic External Data Provider LAB BLOOD ORDERAB LES Final Result Performing Organization Address [facility] Co de Phone Number [facility] [address] [place] [phone] * Glucose, Whole Blood (11/25/2024 11:53 AM EDT) Glucose, Whole Blood 102 60 - 115 mg/dL [facility] Comment:METER #: [id number] 11/25/2024 11:5 3 AM EDT 11/25/2024 11:56 AM EDT Generic External Data Provider LAB BLOOD ORDERAB LES Final Result Performing Organization Address [facility] Co de Phone Number [facility] [address] [place] [phone] * Vitamin B12/Folate, Serum Panel (11/15/2024 12:00 PM EDT) Pathologist [facility] Vitamin B12 478 200 - 900 pg/mL [facility] Comment:NORMAL 200-900 PG/ML INDETERMINATE 160-199 PG/ML DEFICIENT < 160 PG/ML Folate 10.3 > or = 4.0 ng/mL [facility] Comment:Reference Values:> o r = 4.0 ng/mL< 4.0 ng/mL suggests folate deficiency Methotrexate, aminopterin and folinic acid(leucovorin) are chemotherapeutic agents whose molecularstructures are similar to folate; therefore, the Architectfolate assay cannot be used for patients using these drugs. Blood Venous blood specimen / Unknown 11/15/2024 12:00 PM EDT 11/15/2024 1:34 PM EDT us Chasidy Kimbrough MD LAB BLOOD ORDERABLES Final Res ult [facility] [address] [place] [phone] * (ABNORMAL) CBC auto differential (11/15/2024 12:00 PM EDT) [facility] White Blood Count 9.0 4.8 - 10.8 X10*3/uL [facility] Red Blood Count 4.77 4.20 - 5.50 X10*6/uL [facility] Hemoglobin 12.7 12.0 - 16.0 g/dl [facility] Hematocrit 40.9 37.0 - 47.0 % [facility] Mean Corpuscular Volume 85.7 80.0 - 98.0 fL [facility] Mean Corpuscular Hemoglobin 26.6(L) 27.0 - 33.0 pg [facility] Mean Corpuscular HGB Conc 31.1 31.0 - 35.0 g/dl [facility] Red Cell Distribution Width 13.9 11.0 - 16.0 % [facility] Platelet Count 350 160 - 400 X10*3/uL [facility] Mean Platelet Volume 10.3 9.4 - 12.3 fL [facility] Neutrophils Percent Auto 55.5 45 - 73 % [facility] Imm Gran Pct Auto 0.3 0.0 - 0.4 % [facility] Lymphocytes Percent Auto 35.7 20 - 40 % [facility] Monocytes Percent Auto 6.7 2 - 11 % [facility] Eosinophils Percent Auto 1.2 0 - 4 % [facility] Basophils Percent Auto 0.6 0 - 2 % [facility] NRBC Pct Auto 0.0 0.0 - 0.2 /100WBC [facility] Neutrophils Absolute Auto 5.0 2.0 - 8.3 x10*3/uL [facility] Imm Gran Abs Auto 0.03 0.00 - 0.03 X10*3/uL [facility] Lymphocytes Absolute Auto 3.2 1.2 - 4.9 X10*3/uL [facility] Monocytes Absolute Auto 0.6 0.1 - 1.2 X10*3/uL [facility] Eosinophils Absolute Auto 0.1 0.0 - 0.4 X10*3/uL [facility] Basophils Absolute Auto 0.1 0.0 - 0.2 X10*3/uL [facility] NRBC Abs Auto 0.000 0.0 - 0.012 X10*3/uL [facility] Blood Venous blood specimen / Unknown 11/15/2024 12:00 PM EDT 11/15/2024 1:34 PM EDT us Chasidy Kimbrough MD LAB BLOOD ORDERABLES Final Res ult [facility] [address] [place] [phone] * Cyclic Citrullinated Peptide (CCP) Antibody (IgG) (11/15/2024 12:00 PM EDT) Cyclic Citrullinated Peptide <16 UNITS [facility] Comment:Reference RangeNegat sloan: <20Weak Positive: 20-39Moderate Positive: 40-59Strong Positive: >59THIS TEST WAS PERFORMED AT:[facility] [address] [id number] DUNCAN MD Blood Venous blood specimen / Unknown 11/15/2024 12:00 PM EDT 11/15/2024 1:34 PM EDT Dano Morris MD LAB BLOOD ORDERABLES Fin al Result Performing Organization Address [facility]/ZIP Co de Phone Number [facility] [address] [place] [phone] * DNA (ds) Antibody (11/15/2024 12:00 PM EDT) Anti DNA DS Antibody <1 IU/mL [facility] Comment:IU/mL Interpretation < or = 4 Negative 5-9 Indeterminate > or = 10 PositiveTHIS TEST WAS PERFORMED AT:[facility] [address] [phone] DUNCAN MD Blood Venous blood specimen / Unknown 11/15/2024 12:00 PM EDT 11/15/2024 1:34 PM EDT Dano Morris MD LAB BLOOD ORDERABLES Fin al Result Performing Organization Address [facility]/ZIP Co de Phone Number [facility] [address] [place] [phone] * RPR (Monitor) with Reflex to??Titer (11/15/2024 12:00 PM EDT) RPR (Monitor) w/Refl Titer NON-REACTI VE NON-REACT SLOAN [facility] Comment:THIS TEST WAS PERFOR MED AT:[facility] [address] [phone] ANTONIO DUNCAN MD Rapid Plasma Reagin Ab Titer TNP [facility] Blood Venous blood specimen / Unknown 11/15/2024 12:00 PM EDT 11/15/2024 1:34 PM EDT Chasidy Kimbrough MD LAB BLOOD ORDERABLES Final Res ult Performing Organization Address [facility] Co de Phone Number [facility] [address] [place] [phone] * (ABNORMAL) Sed Rate by Modified Westergren (11/15/2024 12:00 PM EDT) Erythrocyte Sedimentation Rate 39(H) 0 - 20 MM/HR [facility] Comment:Patients with polycy themia and many hemoglobin abnormalitiesmay have depressed sed rates whereas patients with anemiamay have elevated sed rates. Blood Venous blood specimen / Unknown 11/15/2024 12:00 PM EDT 11/15/2024 1:34 PM EDT Dano Morris MD LAB BLOOD ORDERABLES Fin al Result Performing Organization Address [facility] Co de Phone Number [facility] [address] [place] [phone] * Rheumatoid Factor (11/15/2024 12:00 PM EDT) Rheumatoid Factor <13.0 <15.0 IU/mL [facility] Blood Venous blood specimen / Unknown 11/15/2024 12:00 PM EDT 11/15/2024 1:34 PM EDT Dano Morris MD LAB BLOOD ORDERABLES Fin al Result Performing Organization Address [facility] Co de Phone Number [facility] [address] [place] [phone] * (ABNORMAL) C-reactive Protein (11/15/2024 12:00 PM EDT) C Reactive Protein 1.27(H) < or = 0.50 mg/dL [facility] Blood Venous blood specimen / Unknown 11/15/2024 12:00 PM EDT 11/15/2024 1:34 PM EDT Dano Morris MD LAB BLOOD ORDERABLES Fin al Result [facility] [address] [place] [phone] * BI Mammogram Screening Tomosynthesis Bilateral (09/27/2024 1:34 PM EDT) Anatomical Region Laterality Modality Breast Bilateral Mammography 09/27/2024 1:34 PM EDT Narrative 10/08/2024 11:06 AM EDT [address] [place] [address] Mammography Report Signed Patient: Cynthia Stuart MR#: [id number] : 1965 Acct:[id number] Age/Sex: 59 / F ADM Date: 09/27/24 Loc: HO.MAMMO Attending Dr: Chasidy Kimbrough MD Ordering Physician: Chasidy Kimbrough Results: 2Benign F indings Date of Service: 09/27/24 Follow Up: 1 Year From [facility] Mammogram Procedure(s): MM tomosynthesis screening BI Accession Number(s): [id number] cc: Chasidy Kimbrough EXAMINATION: MM SCREENING DIGITAL BREAST TOMOSYNTHESIS, BILATERAL CLINICAL INFORMATION: Screening. Asymptomatic. COMPARISON: Mammography: Comparison is made with available priors TECHNIQUE: Digital breast mammography with tomosynthesis is performed in both the craniocaudal and mediolateral oblique views along with computer-aided detection (CAD). FINDINGS: There are scattered areas of fibroglandular density (ACR BI-RADS breast composition Category b). Lateral scattered focal asymmetries are stable. Circumscribed oval masses which wax and wane consistent with benign fibrocystic changes some were demonstrated to be simple cyst on prior ultrasounds. There are no significant masses, abnormal calcifications, or other abnormalities. MM/MM tomosynthesis screening BI IMPRESSION: No mammographic evidence of malignancy. ASSESSMENT: BI-RADS BI-RADS 2 - Benign Findings RECOMMENDATION: Routine annual mammography screening. 1 year F/U This examination should not preclude the clinical evaluation of a suspicious palpable abnormality. This patient's information was entered into a reminder system with a target due date for their next mammogram. Electronically signed by: Isidra Griffin DO 10/08/2024 11:03 AM EDT RP Dictated By: Isidra Griffin DO Signed By: <Electronically signed by Isidra Griffin DO in OV> 10/08/24 1103 DD/ 1334 TD/TT: 09/27/24 1357 Spindle Carver: Procedure Note Donotuseinterpreter, Image - 10/08/2024 [facility] [address] [place] [address] Mammography Report Signed Patient: Cynthia Stuart OMR#: [id number] : 1965Acct:[id number] Age/Sex: 59 / FADM Date: 09/27/24 Loc: HO.MAMMO Attending Dr: Chasidy Kimbrough MD Ordering Physician: Jian Kimbroughults: 2Benign F indings Date of Service: 09/27/24Follow Up: 1 Year From [facility] Mammogram Procedure(s): MM tomosynthesis screening BI Accession Number(s): [id number] cc: Chasidy Kimbrough EXAMINATION: MM SCREENING DIGITAL BREAST TOMOSYNTHESIS, BILATERAL CLINICAL INFORMATION: Screening. Asymptomatic. COMPARISON: Mammography: Comparison is made with available priors TECHNIQUE: Digital breast mammography with tomosynthesis is performed in both the craniocaudal and mediolateral oblique views along with computer-aided detection (CAD). FINDINGS: There are scattered areas of fibroglandular density (ACR BI-RADS breast composition Category b). Lateral scattered focal asymmetries are stable. Circumscribed oval masses which wax and wane consistent with benign fibrocystic changes some were demonstrated to be simple cyst on prior ultrasounds. There are no significant masses, abnormal calcifications, or other abnormalities. MM/MM tomosynthesis screening BI IMPRESSION: No mammographic evidence of malignancy. ASSESSMENT: BI-RADS BI-RADS 2 - Benign Findings RECOMMENDATION: Routine annual mammography screening. 1 year F/U This examination should not preclude the clinical evaluation of a suspicious palpable abnormality. This patient's information was entered into a reminder system with a target due date for their next mammogram. Electronically signed by: Isidra Griffin DO 10/08/2024 11:03 AM EDT Dictated By: Isidra Griffin DO Signed By: <Electronically signed by Isidra Griffin DO in OV> 10/08/24 1103 DD/ 1334 TD/TT: 09/27/24 1357 Spindle Carver: Result [facility] Chasidy Kimbrough MD IMG BI PROCEDURES Edited Resul t - Final * (ABNORMAL) POCT HGB A1C (08/12/2024 1:08 PM EST) Hemoglobin A1C 6.6(A) 4.0 - 6.0 % QC Media Lot # [id number] Lot# Expiration Date Blood 08/12/2024 1:08 PM EST Result [facility] Chasidy Kimbrough MD POINT OF CARE TEST ENTER/EDIT ORDERABLES Final Result * Hepatitis Panel, General (05/09/2024 4:30 PM EST) Hepatitis A IgM Nonreactive Nonreactive [facility] Comment:IgM antibodies to GALAVIZ V not detected; does not exclude earlyacute or recovered HAV infection. ~Hepatitis B Surface Antibody REACTIVE Nonreactive [facility] Comment:REACTIVE: > 11.99 mI U/mL Hepatitis B Core Antibody Nonreactive Nonreactive [facility] Hepatitis C Antibody Nonreactive Nonreactive [facility] Comment:Antibodies to HCV no t detected; does not exclude early acuteHCV infection. Hepatitis B Surface Ag Negative Negative [facility] Blood 05/09/2024 4:30 PM EST 05/09/2024 5:40 PM EST Dano Morris MD LAB BLOOD ORDERABLES Fin al Result Performing Organization Address City/[facility]/ZIP Co de Phone Number [facility] [address] [place] [phone] * HIV-1/2 Antigen and Antibodies, Fourth Generation, with Reflexes (11/30/2023 1:19 PM EDT) [facility] HIV AB/AG Nonreactive Nonreactive [facility] Comment:HIV-1 p24 Ag and/or HIV-1/HIV-2 Ab not detected.A test result that is nonreactive does not exclude thepossibility of exposure to or infection with HIV-1 and/orHIV-2. Nonreactive results in this assay for individualswith prior exposure to HIV-1 and/or HIV-2 may be due toantigen and antibody levels that are below the limit ofdetection of this assay.The [employer] HIV Ag/Ab Combo assay result andsupplemental assay results should be interpreted inconjunction with the patient's clinical presentation,history and other laboratory results. If the results areinconsistent with clinical evidence, additional testing issuggested to confirm the result. Blood Venous blood specimen / Unknown 11/30/2023 1:19 PM EDT 11/30/2023 3:56 PM EDT us Chasidy Kimbrough MD LAB BLOOD ORDERABLES Final Res ult Performing Organization Address [facility]/ZIP Co de Phone Number [facility] [address] [place] [phone] from Last 3 Months or Most Recently Relevant to Health Maintenance Insurance [facility] [employer] Care Teams Information Technology Consultant Relationship Specialty Start Date End Date Chasidy Kimbrough MD [address] [place] [phone] PCP - General Family Medicine 02/14/21
--- OUTSIDE RECORDS SUMMARY | 2025-02-15 09:28 | XMS_ITS | Encounter Summary ---
Author Organization [employer] Address [address] [facility] [address] [place] [address] Care Team Providers Care Principal Technologist Name Role Phone Chasidy Kimbrough MD Primary Care Provider [phone] Reason for Referral * Consultation (Routine) - Authorized Specialty Diagnoses / Procedures Referred By Conthemal t Referred To Contact Rheumatology Diagnoses Tenosynovitis of finger Elevated erythrocyte sedimentation rate Positive DANO (antinuclear antibody) Chasidy Kimbrough MD [address] [place] [phone] Phone: tel: fax: [facility] [address] [place] [address] Phone: tel: fax: Referral ID Status Reason Start Date Expiration Date Visits Requested Visits Authorized [id number] Authorized Specialty Services Required 4 05/25/2025 6 6 Encounter Details Date Type Department Care Team (Late st Contact Info) Description 05/16/2024 Orders Only [facility] [address] [place] [address] [phone] Chasidy Kimbrough MD [address] [place] [phone] Tenosynovitis of finger (Primary Dx); Elevated erythrocyte [...] Description 02/28/2025 1:00 PM EDT Clinical Support [facility] [address] [place] [address] [phone] Scheduled Referrals Name Type Priority Associated Diagnoses [...] documented as of this encounter Care Teams Principal Technologist Relationship Specialty Start Date End Date Chasidy Kimbrough MD [address] [place] [phone] PCP - General Family Medicine 02/14/21 documented as of this encounter
--- OUTSIDE RECORDS SUMMARY | 2025-02-15 09:29 | XMS_ITS | Encounter Summary ---
Author Organization [employer] Address [address] [facility] [address] [place] [address] Care Team Providers Care Thread Laster Name Role Phone Chasidy Kimbrough MD Primary Care Provider [phone] Reason for Referral * Consultation (Routine) - Closed Specialty Diagnoses / Procedures Referred By Conthemal t Referred To Contact Gastroenterology Diagnoses Other dysphagia Chasidy Kimbrough MD [address] [place] [address] Phone: tel: fax: [address] Phone: tel: fax: Referral ID Status Reason Start Date Expiration Date V isits Requested Visits Authorized [id number] Closed Specialty Services Required 01/02/2024 01/01/2025 6 6 Encounter Details Date Type Department Care Team (Late st Contact Info) Description 12/30/2023 Orders Only [facility] [address] [place], [place] [phone] Chasidy Kimbrough MD [address] [place] [address] Other dysphagia (Primary Dx) Social [...] Description 02/28/2025 1:00 PM EDT Clinical Support [facility] [address] [place] [address] Scheduled Referrals Name Type Priority Associated Diagnoses Order Schedule Referral to Gastroenterology Outpatient Referral Routine Other dysphagia Expected: 12/30/2023 (Approximate), Expires: 12/29/2024 documented as of this encounter Visit Diagnoses Diagnosis Other dysphagia- Primary documented in this encounter Additional Health Concerns Assessment Noted Time PHQ-9 Depression Total Score: 3 11/30/19 24 1:27 PM EDT documented as of this encounter Care Teams Thread Laster Relationship Specialty Start Date End Date Chasidy Kimbrough MD [address] [place] [address] PCP - General Family Medicine 02/14/21 documented as of this encounter
--- OUTSIDE RECORDS SUMMARY | 2025-02-15 09:29 | XMS_ITS | Encounter Summary ---
Author Organization [employer] Address [address] [facility] [address] [place] [address] Care Team Providers Care Patch Setter Name Role Phone Chasidy Kimbrough MD Primary Care Provider [phone] Encounter Details Date Type Department Care Team (Late st Contact Info) Description 12/20/2024 Orders Only [facility] [address] [place], [place] [phone] Chasidy Kimbrough MD [address] [place], [place] [phone] Social History Tobacco Use Types Packs/Day Years [...] Upcoming Encounters Date Type Department Care Team ([facility] st Contact Info) Description 02/28/2025 1:00 PM EDT Clinical Support [facility] [address] [place] [address] documented as of this encounter Procedures Procedure Name Priority Date/Time Associated Diagnosis Comments COLONOSCOPY Routine 12/14/2024 documented in this encounter Results * Colonoscopy (12/14/2024) Anatomical Region Laterality Modality Endoscopy Other Impressions 12/14/2024 7-8mm polyp, adenomatous Historical Provider ENDOSCOPY PROCEDURE ORDER KEELY Final Result documented in this encounter Visit Diagnoses Not on filedocumented in this encounter Additional Health Concerns Assessment Noted Time PHQ-9 Depression Total Score: 3 11/30/19 24 1:27 PM EDT documented as of this encounter Care Teams Patch Setter Relationship Specialty Start Date End Date Chasidy Kimbrough MD [address] [place] [address] PCP - General Family Medicine 02/14/21 documented as of this encounter
--- OUTSIDE RECORDS SUMMARY | 2025-02-15 09:29 | XMS_ITS | Encounter Summary ---
Author Organization [employer] Address [address] [facility] [address] [place] [address] Care Team Providers Care Budget Officer Name Role Phone Chasidy Kimbrough MD Primary Care Provider [phone] Encounter Details Date Type Department Care Team ([facility] st Contact Info) Description 08/31/2023 Telephone [facility] [address] [place], [place] [phone] Chasidy Kimbrough MD [address] [place], [place] [phone] Social History Tobacco Use Types Packs/Day Years [...] Description 02/28/2025 1:00 PM EDT Clinical Support [facility] [address] [place] [address] documented as of this encounter Visit Diagnoses Not on filedocumented in this encounter Additional Health Concerns Assessment Noted Time PHQ-9 Depression Total Score: 5 07/25/19 23 9:47 AM EST documented as of this encounter Care Teams Budget Officer Relationship Specialty Start Date End Date Chasidy Kimbrough MD [address] [place] [address] PCP - General Family Medicine 02/14/21 documented as of this encounter
--- OUTSIDE RECORDS SUMMARY | 2025-02-15 09:29 | XMS_ITS | Encounter Summary ---
Author Organization [employer] Address 75 [facility] 7t [place] [address] Care Team Providers Care Quantity Surveyor Name Role Phone Chasidy Kimbrough MD Primary Care Provider [phone] Reason for Visit * Reason Comments Med Refill Encounter Details Date Type Department Care Team ([facility] st Contact Info) Description 02/09/2025 Refill [facility] [address] [place], [place] [phone] Chasidy Kimbrough MD [address] [place], [place] [phone] Primary hypertension Social History Tobacco Use Types Packs/Day Years Used Date Smoking Tobacco: Never Passive Smoke Exposure: Never Smokeless Tobacco: Never Alcohol Use Standard [...] Description 02/28/2025 1:00 PM EDT Clinical Support [facility] [address] [place] [address] documented as of this encounter Visit Diagnoses Diagnosis Primary hypertension Unspecified essential hypertension documented in this encounter Additional Health Concerns Assessment Noted Time PHQ-9 Depression Total Score: 1 01/17/20 25 1:22 PM EDT documented as of this encounter Care Teams Quantity Surveyor Relationship Specialty Start Date End Date Chasidy Kimbrough MD [address] [place] [address] PCP - General Family Medicine 02/14/21 documented as of this encounter
--- OUTSIDE RECORDS SUMMARY | 2025-02-15 09:29 | XMS_ITS | Encounter Summary ---
Author Organization [employer] Address 75 [facility] 7t [place] [address] Care Team Providers Care Tire Wrapper Name Role Phone Chasidy Kimbrough MD Primary Care Provider [phone] Reason for Visit * Reason Onset Date Comments telephone call 02/09/2025 Encounter Details Date Type Department Care Team ([facility] st Contact Info) Description 02/09/2025 Telephone [facility] [address] [place] [address] Chasidy Kimbrough MD [address] [place] [address] telephone call Social History Tobacco Use Types Packs/Day Years [...] encounter Miscellaneous Notes * Telephone Encounter - Bao Eisenberg RN - 02/10/2025 11:10 AM EDT TC placed to patient [phone] regarding below message. RN left an VM for the patient to Red team nurses. PT to F/U PRN. * Telephone Encounter - Kristen Cuevas - 02/09/2025 2:30 PM EDT Pt walked in requesting a refill for hwrvtqvetd-vgrhksjwtobcn-esbzbnda 50-325-40 MG tablet . documented in this encounter Plan of Treatment Upcoming Encounters Date Type Department Care Team (Late st Contact Info) Description 02/28/2025 1:00 PM EDT Clinical Support [facility] [address] [place] [address] documented as of this encounter Visit Diagnoses Not on filedocumented in this encounter Additional Health Concerns Assessment Noted Time PHQ-9 Depression Total Score: 1 01/17/20 25 1:22 PM EDT documented as of this encounter Care Teams Tire Wrapper Relationship Specialty Start Date End Date Chasidy Kimbrough MD [address] [place] [address] PCP - General Family Medicine 02/14/21 documented as of this encounter
--- OUTSIDE RECORDS SUMMARY | 2025-02-15 09:29 | XMS_ITS | Encounter Summary ---
Author Organization [employer] Address 75 [facility] 7t [place] [address] Care Team Providers Care Time Motion Analyst Name Role Phone Chasidy Kimbrough MD Primary Care Provider [phone] Reason for Referral * Consultation (Routine) - Authorized Specialty Diagnoses / Procedures Referred By Conthemal esposito Referred To Contact Neurology Diagnoses Memory loss Chasidy Kimbrough MD [address] [place] [address] Phone: tel: fax: [facility] Referral ID Status Reason Start Date Expiration Date Visits Requested Visits Authorized [id number] Authorized Specialty Services Required 07/18/2024 07/18/2025 6 6 Encounter Details Date Type Department Care Team ([facility] st Contact Info) Description 07/13/2024 Orders Only [facility] [address] [place], [place] [phone] Chasidy Kimbrough MD [address] [place], [place] [phone] Memory loss (Primary Dx) Social History Tobacco [...] Description 02/28/2025 1:00 PM EDT Clinical Support [facility] [address] [place] [address] Scheduled Referrals Name Type Priority Associated Diagnoses Orde r Schedule Referral to Neurology Outpatient Referral Routine Memory loss Expected: 07/13/2024 (Approximate), Expires: 07/13/2025 documented as of this encounter Visit Diagnoses Diagnosis Memory loss- Primary documented in this encounter Additional Health Concerns Assessment Noted Time PHQ-9 Depression Total Score: 3 11/30/19 24 1:27 PM EDT documented as of this encounter Care Teams Time Motion Analyst Relationship Specialty Start Date End Date Chasidy Kimbrough MD [address] [place] [address] PCP - General Family Medicine 02/14/21 documented as of this encounter
--- OUTSIDE RECORDS SUMMARY | 2025-02-15 09:29 | XMS_ITS | Encounter Summary ---
Author Organization [employer] Address 75 [facility] 7t [place] [address] Care Team Providers Care Reflector Driller And Deburrer Name Role Phone Chasidy Kimbrough MD Primary Care Provider [phone] Reason for Visit * Reason Comments Med Refill Encounter Details Date Type Department Care Team ([facility] st Contact Info) Description 06/20/2024 Refill [facility] [address] [place], [place] [phone] Chasidy Kimbrough MD [address] [place], [place] [phone] Social History Tobacco Use Types Packs/Day Years [...] Description 02/28/2025 1:00 PM EDT Clinical Support [facility] [address] [place] [address] documented as of this encounter Visit Diagnoses Not on filedocumented in this encounter Additional Health Concerns Assessment Noted Time PHQ-9 Depression Total Score: 3 11/30/19 24 1:27 PM EDT documented as of this encounter Care Teams Reflector Driller And Deburrer Relationship Specialty Start Date End Date Chasidy Kimbrough MD [address] [place] [address] PCP - General Family Medicine 02/14/21 documented as of this encounter
[2025-02-15 09:37] VITALS: BP 168/74; PULSE 69; BMI 30.8
== END 2025-02-15 09:50 | disposition home or self-care (01) ==
LOC: HO.HGI 08:55
PROVIDERS: PCP General Practice; Visit Provider Nurse Practitioner Family
DX: K21.9 Gastro-esophageal reflux disease without esophagitis (principal); A04.8 Other specified bacterial intestinal infections; K43.2 Incisional hernia without obstruction or gangrene; R14.0 Abdominal distension (gaseous)
CPT/HCPCS: 99214

== ENCOUNTER → 2025-02-15 08:54 | Outpatient (BNVA) | payer MEDICAID, SELFPAY | PROVIDERS: PCP General Practice; Visit Provider Nurse Practitioner Family | DX: K21.9 Gastro-esophageal reflux disease without esophagitis (principal); A04.8 Other specified bacterial intestinal infections; K43.2 Incisional hernia without obstruction or gangrene; R14.0 Abdominal distension (gaseous) | CPT/HCPCS: 99212 ==

== ENCOUNTER 2025-03-21 07:49 | Outpatient (REF) | payer MEDICAID, SELFPAY ==
--- NOTE | ~2025-03-21 | FL_ITS ---
EXAMINATION: XR FLUOROSCOPY barium swallow X-ray fluoroscopy upper GI series CLINICAL INFORMATION: Gastroesophageal reflux COMPARISON: Fluoroscopy 12/29/2023 TECHNIQUE: Barium swallow and upper GI series. Patient swallowed thick and thin barium under fluoroscopic evaluation. FINDINGS: Normal swallowing mechanism. No evidence of laryngeal penetration or aspiration. No mass or mucosal lesion is identified. Esophagus demonstrates normal distention and motility. No evidence of stricture, mass or mucosal lesion. Mild esophageal dysmotility. Stomach demonstrates normal distention. No mass or mucosal lesions are seen. There is normal passage of the barium through the stomach into the proximal small bowel. Small sliding hiatal hernia. No reflux is seen during the course of the procedure. FLUOROSCOPY TIME: 2 minutes 1 second DOSE AREA PRODUCT: 2146 uGy-m2 (microgray-meter squared) FL/FL upper GI w Ba Swallow IMPRESSION: 1. No evidence of laryngeal penetration or aspiration. 2. No evidence of stricture, mass or mucosal lesion. 3. Small sliding hiatal hernia. 4. No reflux is seen during the course of the procedure. Electronically signed by: Serge Evans MD 03/21/2025 11:29 AM EDT
--- OUTSIDE RECORDS SUMMARY | 2025-03-21 07:53 | XMS_ITS | Encounter Summary ---
Author Organization [employer] Address 75 [facility] 7t [place] [address] Care Team Providers Care Purchasing Manager Name Role Phone Chasidy Kimbrough MD Primary Care Provider [phone] Encounter Details Date Type Department Care Team ([facility] st Contact Info) Description 08/31/2023 Telephone [facility] MED[facility]INE [address] [place], [place] [phone] Chasidy Kimbrough MD [address] [place], [place] [phone] Social History Tobacco Use Types Packs/Day Years [...] documented as of this encounter Care Teams Purchasing Manager Relationship Specialty Start Date End Date Chasidy Kimbrough MD [address] [place] [address] PCP - General Family Medicine 02/14/21 documented as of this encounter
--- OUTSIDE RECORDS SUMMARY | 2025-03-21 07:53 | XMS_ITS | Encounter Summary ---
Author Organization [employer] Address 75 [facility] 7t [place] [address] Care Team Providers Care Sustainability Coordinator Name Role Phone Chasidy Kimbrough MD Primary Care Provider [phone] Reason for Visit * Reason Comments Med Refill Encounter Details Date Type Department Care Team ([facility] st Contact Info) Description 06/20/2024 Refill [facility] [address] [place], [place] [phone] Chasidy Kimbrough MD [address] [place], [place] [phone] Social History Tobacco Use Types Packs/Day Years [...] documented as of this encounter Care Teams Sustainability Coordinator Relationship Specialty Start Date End Date Chasidy Kimbrough MD [address] [place] [address] PCP - General Family Medicine 02/14/21 documented as of this encounter
--- OUTSIDE RECORDS SUMMARY | 2025-03-21 07:53 | XMS_ITS | Encounter Summary ---
Author Organization [employer] Address 75 [facility] 7t [place] [address] Care Team Providers Care Dehydrating Press Operator Name Role Phone Chasidy Kimbrough MD Primary Care Provider Reason for Visit * Reason Comments Med Refill Encounter Details Date Type Department Care Team ([facility] st Contact Info) Description 12/29/2022 Refill [facility] [address] [place], [place] [phone] Chasidy Kimbrough MD 230 [place], [place] [phone] Social History Tobacco Use Types Packs/Day Years [...] documented as of this encounter Care Teams Dehydrating Press Operator Relationship Specialty Start Date End Date Chasidy Kimbrough MD [address] [place] [address] PCP - General Family Medicine 02/14/21 documented as of this encounter
--- OUTSIDE RECORDS SUMMARY | 2025-03-21 07:53 | XMS_ITS | Clinical Summary ---
Author Organization [employer] Address 75 [facility] 7t [place] [address] Care Team Providers Care Wash House Worker Name Role Phone Chasidy Kimbrough MD Primary Care Provider [phone] Allergies Active Allergy Reactions Criticality Noted Date [...] complication, without long-term current use of insulin (HCC) TEST BLOOD SUGAR TWICE DAILY DIRECTED 100 [...] complication, without long-term current use of insulin (HCC) USE DIRECTED TO TEST BLOOD SUGAR TWICE [...] mouth with evening meal. 08/08/19 25 Active OLANZapine (ZyPREXA) 2.5 MG tablet Take 1 tablet by mouth 2 times daily. 09/28/19 25 Active polyethylene glycol, PEG, 3350 (Glycolax) 17 GM/SCOOP powder MIX WITH WATER DIRECTED THEN FOLLOW INSTRUCTION SHEET GIVEN TO YOU AT YOUR DOCTOR'S OFFICE DIRECTED. 11/09/19 25 Active atorvastatin (Lipitor) 80 MG tablet Take [...] day (Allergies). 90 tablet 3 11/19/19 25 Active naproxen (Naprosyn) 500 MG tablet TAKE 1 TABLET BY MOUTH TWICE DAILY 60 tablet 11/26/19 25 Active meloxicam (Mobic) 15 MG tablet Take 1 tablet (15 mg) by mouth Once per day. 15 tablet 01/10/20 25 2025 Active cyclobenzaprine (Flexeril) 10 MG tablet Take 1 tablet (10 mg) by mouth at bedtime for 10 days. 10 tablet 01/10/20 25 Active esomeprazole (NexIUM) [address] capsuleIndicati ons:Gastroesoph ageal reflux disease without esophagitis Take 1 capsule by mouth Once per day. 12/22/19 25 Active amLODIPine (Norvasc) 10 MG tabletIndicatio ns:Primary [...] 25 Active butalbital-acet aminophen-caffe ine 50-325-40 MG tabletIndicatio ns:Chronic migraine without aura without status migrainosus, not intractable TAKE 1 TABLET BY MOUTH EVERY 6 HOURS NEEDED FOR MIGRAINE DO NOT EXCEED 2 TABLETS PER WEEK 10 tablet 03/01/20 25 Active melatonin 5 MG tablet TAKE 2 TABLETS (10 MG) BY MOUTH EVERY DAY AT BEDTIME NEEDED FOR SLEEP 180 tablet 3 03/15/20 25 Active melatonin 5 MG tablet Take 2 tablets by mouth if needed at bedtime (sleep). 08/08/19 25 2024 Discontinued butalbital-acet aminophen-caffe ine 50-325-40 MG tablet TAKE 1 TABLET BY MOUTH EVERY 6 HOURS NEEDED FOR MIGRAINE DO NOT EXCEED 2 TABLETS PER WEEK 10 tablet 01/19/20 25 2024 Discontinued(R eorder (will not trigger notification to Pharmacy)) Active Problems Problem Noted Date Diagnosed Date [...] Continue followup with prescriber and therapist No YENI/HI Talked about grounding exercises Hyperlipidemia associated with [...] Encounters Date Type Department Care Team Description 03/14/2025 Refill [facility] [address] [place] [address] Chasidy Kimbrough MD Primary hypertension 03/07/2025 Telephone [facility] [address] [place] [address] Chasidy Kimbrough MD Durable Medical Equipment (DME Request: Shower Chair and Grab Bars) 03/01/2025 Refill [facility] [address] [place] [address] Chasidy Kimbrough MD 02/28/2025 1:00 PM EDT Clinical Support [facility] [address] [place] [address] Darcie Thibodeaux, YOVANY Primary hypertension 02/28/2025 Travel 02/09/2025 Refill [facility] [address] [place] [address] Chasidy Kimbrough MD Chronic migraine without aura without status migrainosus, not intractable 02/09/2025 Refill [facility] [address] [place] [address] Chasidy Kimbrough MD Primary hypertension 02/06/2025 Telephone [facility] [address] [place] [address] Darcie Thibodeaux RN f/up from BP CHECK 02/02/2025 Orders Only [facility] External Provider, [facility] 01/31/2025 1:00 PM EDT Clinical Support [address] [address] Jeannie Slaughter RN Primary hypertension 01/31/2025 Travel 01/19/2025 Results Follow-Up [address] [address] Chasidy Kimbrough MD POCT Glucose, Lipid Panel, Standard, Albumin, Random Urine W/Creatinine, Comprehensive Metabolic Panel 01/18/[address] [address] Chasidy Kimbrough MD 01/17/[address] [address] Chasidy Kimbrough MD telephone call 01/16/2025 1:30 PM EDT Office Visit [address] [address] Chasidy Kimbrough MD Primary hypertension (Primary Dx); Type 2 diabetes mellitus without complication, without long-term current use of insulin ([facility]); Gastroesophageal reflux disease without esophagitis 01/16/2025 Travel 01/13/[address] [address] Chasidy Kimbrough MD Chart Prep 01/09/2025 1:20 PM EDT Office Visit [facility] [address] [place] [address] Dano Morris MD Neck sprain, initial encounter (Primary Dx) 01/09/2025 Travel 01/05/2025 Patient Outreach [facility] [address] [place] [address] Chasidy Kimbrough MD Pre-visit Planning ((Unable to reach for PVP screening, LVM) to be completed in office ) 12/20/2024 Orders Only [facility] [address] [place] [address] Chasidy Kimbrough MD from Last 3 Months Immunizations Immunization Administration [...] Sign Reading Time Taken Comments Blood Pressure 126/84 02/28/2025 4:38 PM EDT Pulse 64 02/28/2025 4:38 PM EDT Temperature 36.3 C (97.4 F) 01/16/2025 1:21 PM EDT Respiratory Rate 18 01/31/2025 1:17 PM EDT Oxygen Saturation 100% 01/31/2025 1:17 PM EDT Inhaled Oxygen Concentration - - Weight 82.6 kg (182 lb) 01/16/2025 1:21 PM EDT Height 165.1 cm (5' 5 ) 01/16/2025 1:21 PM EDT Body Mass Index 30.29 01/16/2025 1:21 PM EDT Plan of Treatment Health Maintenance Due Date [...] use of insulin (CMS/HCC) POCT GLUCOSE Routine 01/16/2025 1:27 PM EDT Type 2 diabetes mellitus without complication, without long-term current use of insulin (CMS/HCC) COLONOSCOPY Routine 12/14/2024 BI MAMMOGRAM SCREENING TOMOSYNTHESIS BILATERAL Routine 09/27/2024 [...] AM EDT Narrative 02/03/2025 9:04 AM EDT [place] [address] [place] Scan Report Signed Patient: Cynthia Stuart MR#: [id number] : 1965 Acct:[id number] Age/Sex: 60 / F ADM Date: 02/02/25 Loc: HO.CT Attending Dr: Mg Moore MD Ordering Physician: Mg Moore MD Date of Service: 02/02/25 Procedure(s): CT chest wo IV con Accession Number(s): [id number] cc: Chasidy Kimbrough; Mg Moore MD Report Number: [id number]: Total DLP = 152.00 mGy-cm CLINICAL HISTORY: [...] in OV> 02/03/25903 DD/ 2 TD/TT: 02/03/25902 Publishing Director: Procedure Note Donotuseinterpreter, Image - 02/03/[address] [address] [address] Scan Report Signed Patient: Cynthia Stuart OMR#: [id number] : 1965Acct:[id number] Age/Sex: 60 / FADM Date: 02/02/25 Loc: .CT Attending Dr: Mg Moore MD Ordering Physician: Mg Moore MD Date of Service: 02/02/25 Procedure(s): CT chest wo IV con Accession Number(s): [id number] cc: Chasidy Kimbrough; Mg Moore MD Report Number: [id number]: Total DLP = 152.00 mGy-cm CLINICAL HISTORY: [...] in OV> 02/03/25903 DD/ 2 TD/TT: 02/03/25902 Publishing Director: [facility] External Provider IMG CT PROCEDURES Final Result * Albumin, Random Urine W/Creatinine (01/17/2025 1:17 PM EDT) Creatinine, Urine 243.58 mg/dL [facility] Microalbumin Urine 49.0 mg/L [facility] Microalbum Creatinine Ratio Ur 20.1 <30 ug/mg cr [facility] Comment:Albumin/Creatinine R atio Reference Ranges: Normal: < 30 ug/mg creatinine Microalbuminuria: 30 - 300 ug/mg creatinineClinical Albuminuria: > 300 ug/mg creatinine Urine (Urine, Random) 01/17/2025 1:17 PM EDT 01/17/2025 3:57 PM EDT Chasidy Kimbrough MD LAB URINE ORDERABLES Final Res ult Performing Organization Address City/[facility]/ZIP Co de Phone Number [facility] [address] [place] [address] [phone] * (ABNORMAL) Lipid Panel, Standard (01/17/2025 1:17 PM EDT) Triglycerides 99 <150 mg/dL [facility] Comment:Desirable Triglyceri de: less than 150 mg/dLBorderline High Triglyceride 150-199 mg/dLHigh Triglyceride: 200-499 mg/dLVery High Triglyceride: greater than or equal to 5OO mg/dL Cholesterol 223(H) <200 mg/dL [facility] Comment:Desirable Cholestero l: less than 200 mg/dLBorderline High Cholesterol: 200-239 mg/dLHigh Cholesterol: greater than 239 mg/dL LDL Cholesterol Calculated 143(H) <100 mg/dL [facility] Comment:Desirable LDL: less than 100 mg/dLNear Optimal/Above Optimal LDL: 110- 129 mg/dLBorderline High LDL: 130-159 mg/dLHigh LDL: 160-189 mg/dLVery High LDL: greater than or equal to 190 mg/dL HDL Cholesterol 61 >40 mg/dL [facility] Comment:Desirable HDL: great er than 40 mg/dL Note: This HDL assay may give artificially low results in patients with liver disease. Blood Venous blood specimen / Unknown 01/17/2025 1:17 PM EDT 01/17/2025 4:03 PM EDT Chasidy Kimbrough MD LAB BLOOD ORDERABLES Final Res ult [facility] [address] [place] [address] [phone] * (ABNORMAL) Comprehensive Metabolic Panel (01/17/2025 1:17 PM EDT) Sodium 141 135 - 145 mmol/L [facility] Potassium 3.9 3.3 - 5.1 mmol/L [facility] Comment:Slight Hemolysis.Int erpret result with caution. Chloride 105 96 - 108 mmol/L [facility] Carbon Dioxide 26 22 - 29 mmol/L [facility] Anion Gap 14 12 - 20 [facility] Urea Nitrogen (BUN) 11 9 - 16 mg/dL [facility] Creatinine, Serum 0.64 0.5 - 1.4 mg/dL [facility] Estimated Glomerular Filt Rate >60 [facility] Comment:Chronic Kidney Disea se: Estimated GFR < 60 mL/min/[id number] Kidney Disease: Estimated GFR < 15 mL/min/1.73m2 Glucose 116(H) 60 - 115 mg/dL [facility] Calcium 9.4 8.4 - 10.2 mg/dL [facility] Bilirubin, Total 0.2 0.0 - 1.0 mg/dL [facility] Aspartate Amino Transferase 25 5 - 31 U/L [facility] Comment:Slight Hemolysis.Int erpret result with caution. Alanine Aminotransferase 11 0 - 31 U/L [facility] Total Protein 7.8 6.5 - 8.0 g/dL [facility] Albumin Level 4.3 3.5 - 5.0 g/dL [facility] Alkaline Phosphatase 79 39 - 117 U/L [facility] Blood Venous blood specimen / Unknown 01/17/2025 1:17 PM EDT 01/17/2025 4:03 PM EDT Chasidy Kimbrough MD LAB BLOOD ORDERABLES Final Res ult [facility] [address] [place] [address] [phone] * POCT Glucose (01/16/2025 1:27 PM EDT) Glucose Blood, POC 150 60 - 200 mg/dL QC Media Lot # [id number] Lot# Expiration Date ,243,464 Blood Capillary blood specimen / Unknown 01/16/2025 1:27 PM EDT Chasidy Kimbrough MD POINT OF CARE TEST ENTER/EDIT ORDERABLES Final Result * Colonoscopy (12/14/2024) Anatomical Region Laterality Modality Endoscopy Other Impressions 12/14/2024 7-8mm polyp, adenomatous Historical Provider ENDOSCOPY PROCEDURE ORDER KEELY Final Result * BI Mammogram Screening Tomosynthesis Bilateral (09/27/2024 1:34 PM EDT) Anatomical Region Laterality Modality Breast Bilateral Mammography 09/27/2024 1:34 PM EDT Narrative 10/08/2024 11:06 AM EDT [facility] [address] [place] [address] Mammography Report Signed Patient: Cynthia Stuart MR#: [id number] : 1965 Acct:[id number] Age/Sex: 59 / F ADM Date: 09/27/24 Loc: HO.MAMMO Attending Dr: Chasidy Kimbrough MD Ordering Physician: Chasidy Kimbrough Results: 2Benign F indings Date of Service: 09/27/24 Follow Up: 1 Year From [facility] Mammogram Procedure(s): MM tomosynthesis screening BI Accession Number(s): [id number] cc: Chasidy Kimbrough EXAMINATION: MM SCREENING DIGITAL [...] 10/08/24 1103 DD/ 1334 TD/TT: 09/27/24 1357 Publishing Director: Procedure Note Donotuseinterpreter, Image - 10/08/2024 [facility] [address] [place] [address] Mammography Report Signed Patient: Cynthia Stuart OMR#: [id number] : 1965Acct:[id number] Age/Sex: 59 / FADM Date: 09/27/24 Loc: HO.MAMMO Attending Dr: Chasidy Kimbrough MD Ordering Physician: Jian Kimbroughults: 2Benign F indings Date of Service: 09/27/24Follow Up: 1 Year From Orig ina Mammogram Procedure(s): MM tomosynthesis screening BI Accession Number(s): [id number] cc: Chasidy Kimbrough EXAMINATION: MM SCREENING DIGITAL [...] 10/08/24 1103 DD/ 1334 TD/TT: 09/27/24 1357 Publishing Director: Chasidy Kimbrough MD IMG BI PROCEDURES Edited Resul t - Final * (ABNORMAL) POCT HGB A1C (08/12/2024 1:08 PM EST) Hemoglobin A1C 6.6(A) 4.0 - 6.0 % QC Media Lot # [id number] Lot# Expiration Date Blood 08/12/2024 1:08 PM EST Result [facility] Chasidy Kimbrough MD POINT OF CARE TEST ENTER/EDIT ORDERABLES Final Result * Hepatitis Panel, General (05/09/2024 4:30 PM EST) Hepatitis A IgM Nonreactive Nonreactive [facility] Comment:IgM antibodies to GALAVIZ V not detected; does not exclude earlyacute or recovered HAV infection. ~Hepatitis B Surface Antibody REACTIVE Nonreactive [facility] Comment:REACTIVE: > 11.99 mI U/mL Hepatitis B Core Antibody Nonreactive Nonreactive [facility] Hepatitis C Antibody Nonreactive Nonreactive [facility] Comment:Antibodies to HCV no t detected; does not exclude early acuteHCV infection. Hepatitis B Surface Ag Negative Negative [facility] Blood 05/09/2024 4:30 PM EST 05/09/2024 5:40 PM EST Dano Morris MD LAB BLOOD ORDERABLES Fin al Result [facility] [address] [place] [address] [phone] * HIV-1/2 Antigen and Antibodies, Fourth Generation, with Reflexes (11/30/2023 1:19 PM EDT) HIV AB/AG Nonreactive Nonreactive [facility] Comment:HIV-1 p24 Ag and/or HIV-1/HIV-2 Ab not detected.A test result that is nonreactive does not exclude thepossibility of exposure to or infection with HIV-1 and/orHIV-2. Nonreactive results in this assay for individualswith prior exposure to HIV-1 and/or HIV-2 may be due toantigen and antibody levels that are below the limit ofdetection of this assay.The [employer] HIV Ag/Ab Combo assay result andsupplemental assay results should be interpreted inconjunction with the patient's clinical presentation,history and other laboratory results. If the results areinconsistent with clinical evidence, additional testing issuggested to confirm the result. Blood Venous blood specimen / Unknown 11/30/2023 1:19 PM EDT 11/30/2023 3:56 PM EDT us Chasidy Kimbrough MD LAB BLOOD ORDERABLES Final Res ult [facility] [address] [place] [address] [phone] from Last 3 Months or Most Recently Relevant to Health Maintenance [email or web address] Care Teams Wash House Worker Relationship Specialty Start Date End Date Chasidy Kimbrough MD [address] [place] [address] PCP - General Family Medicine 02/14/21
--- OUTSIDE RECORDS SUMMARY | 2025-03-21 07:53 | XMS_ITS | Encounter Summary ---
Author Organization [employer] Address [address] [facility] 7t [place] [address] Care Team Providers Care Anthropologist Name Role Phone Chasidy Kimbrough MD Primary Care Provider [phone] Reason for Visit * Reason Comments Med Refill Encounter Details Date Type Department Care Team ([facility] st Contact Info) Description 02/09/2025 Refill [facility] [address] [place], [place] [phone] Chasidy Kimbrough MD [address] [place], [place] [phone] Primary hypertension Social History Tobacco Use Types [...] documented as of this encounter Care Teams Anthropologist Relationship Specialty Start Date End Date Chasidy Kimbrough MD [address] [place] [address] PCP - General Family Medicine 02/14/21 documented as of this encounter
--- OUTSIDE RECORDS SUMMARY | 2025-03-21 07:53 | XMS_ITS | Encounter Summary ---
Author Organization [employer] Address [address] [facility] [address]t [place] [address] Care Team Providers Care Erp Pm Name Role Phone Chasidy Kimrbough MD Primary Care Provider [phone] Reason for Referral * Consultation (Routine) - Closed Specialty Diagnoses / Procedures Referred By Conthemal t Referred To Contact Gastroenterology Diagnoses Other dysphagia Chasidy Kimbrough MD [address] [place] [address] Phone: tel: fax: [address] Phone: tel: fax: Referral ID Status Reason Start Date Expiration Date V isits Requested Visits Authorized [id number] Closed Specialty Services Required 01/02/2024 01/01/2025 6 6 Encounter Details Date Type Department Care Team (Late st Contact Info) Description 12/30/2023 Orders Only [facility] [address] [place], [place] [phone] Chasidy Kimbrough MD [address] [place] [address] Other dysphagia (Primary Dx) Social [...] documented as of this encounter Care Teams Erp Pm Relationship Specialty Start Date End Date Chasidy Kimbrough MD [address] [place] [address] PCP - General Family Medicine 02/14/21 documented as of this encounter
--- OUTSIDE RECORDS SUMMARY | 2025-03-21 07:53 | XMS_ITS | Encounter Summary ---
Author Organization [employer] Address [address] [facility] 7t [place] [address] Care Team Providers Care Telecommunications Consultant Name Role Phone Chasidy Kimbrough MD Primary Care Provider [phone] Encounter Details Date Type Department Care Team (Late st Contact Info) Description 12/20/2024 Orders Only [facility] MED[facility]INE [address] [place], [place] [phone] Chasidy Kimbrough MD [address] [place], [place] [phone] Social History Tobacco Use Types Packs/Day Years [...] Endoscopy Other Impressions 12/14/2024 7-8mm polyp, adenomatous us Historical Provider ENDOSCOPY PROCEDURE ORDER KEELY Final Result documented in this encounter Visit Diagnoses Not on filedocumented in this encounter Additional Health Concerns Assessment Noted Time PHQ-9 Depression Total Score: 3 11/30/19 24 1:27 PM EDT documented as of this encounter Care Teams Telecommunications Consultant Relationship Specialty Start Date End Date Chasidy Kimbrough MD [address] [place] [address] PCP - General Family Medicine 02/14/21 documented as of this encounter
--- OUTSIDE RECORDS SUMMARY | 2025-03-21 07:53 | XMS_ITS | Encounter Summary ---
Author Organization [employer] Address [address] [facility] 7t [place] [address] Care Team Providers Care Sprue Cutting Press Operator Name Role Phone Chasidy Kimbrough MD Primary Care Provider [phone] Reason for Referral * Consultation (Routine) - Authorized Specialty Diagnoses / Procedures Referred By Contehmal esposito Referred To Contact Neurology Diagnoses Memory loss Chasidy Kimbrough MD [address] [place] [address] Phone: tel: fax: [facility] Referral ID Status Reason Start Date Expiration Date Visits Requested Visits Authorized [id number] Authorized Specialty Services Required 07/18/2024 07/18/2025 6 6 Encounter Details Date Type Department Care Team ([facility] st Contact Info) Description 07/13/2024 Orders Only [facility] [address] [place], [place] [phone] Chasidy Kimbrough MD [address] [place], [place] [phone] Memory loss (Primary Dx) Social History Tobacco [...] documented as of this encounter Care Teams Sprue Cutting Press Operator Relationship Specialty Start Date End Date Chasidy Kimbrough MD [address] [place] [address] PCP - General Family Medicine 02/14/21 documented as of this encounter
--- OUTSIDE RECORDS SUMMARY | 2025-03-21 07:53 | XMS_ITS | Encounter Summary ---
Author Organization [employer] Address [address] [facility] 7t [place] [address] Care Team Providers Care Change Advisor Name Role Phone Chasidy Kimbrough MD Primary Care Provider [phone] Reason for Visit * Reason Onset Date Comments Durable Medical Equipment 03/07/2025 DME Re quest: Shower Chair and Grab Bars Encounter Details Date Type Department Care Team ([facility] st Contact Info) Description 03/07/2025 Telephone [facility] [address] [place] [address] Chasidy Kimbrough MD [address] [place] [address] Durable Medical Equipment (DME Request: Shower Chair and Grab Bars) Social History Tobacco Use Types Packs/Day Years [...] encounter Miscellaneous Notes * Telephone Encounter - Elizabeth Braun - 03/20/2025 4:46 PM EDT DME Orders for Shower Chair and Grabs Bars was generated and sent via FAX to Juan with supporting documentation. Confirmation was uploaded to Media. * Telephone Encounter - Laurel Franoc - 03/07/2025 10:30 AM EDT Tc from [facility] requesting a DME order for shower chair and handles for around bathroom too help with safety for pt Contact at [phone] documented in this encounter Plan of Treatment Not on file documented as of this encounter Visit Diagnoses Not on filedocumented in this encounter Additional Health Concerns Assessment Noted Time PHQ-9 Depression Total Score: 1 01/17/20 25 1:22 PM EDT documented as of this encounter Care Teams Change Advisor Relationship Specialty Start Date End Date Chasidy Kimbrough MD [address] [place] [address] PCP - General Family Medicine 02/14/21 documented as of this encounter
--- OUTSIDE RECORDS SUMMARY | 2025-03-21 07:53 | XMS_ITS | Encounter Summary ---
Author Organization [employer] Address 75 [facility] 7t [place] [address] Care Team Providers Care Health And Safety Tech Name Role Phone Chasidy Kimbrough MD Primary Care Provider Reason for Referral * Consultation (Routine) - Authorized Specialty Diagnoses / Procedures Referred By Conthemal t Referred To Contact Rheumatology Diagnoses Tenosynovitis of finger Elevated erythrocyte sedimentation rate Positive DANO (antinuclear antibody) Chasidy Kimbrough MD [address] [place] [address] Phone: tel: fax: [facility] [address] [place] [address] Phone: tel: fax: Referral ID Status Reason Start Date Expiration Date Visits Requested Visits Authorized [id number] Authorized Specialty Services Required 4 05/25/2025 6 6 Encounter Details Date Type Department Care Team (Late st Contact Info) Description 05/16/2024 Orders Only [facility] MEDICINE [address] [place] [phone] Chasidy Kimbrough MD [address] [place] [address] [phone] Tenosynovitis of finger (Primary Dx); Elevated erythrocyte [...] documented as of this encounter Care Teams Health And Safety Tech Relationship Specialty Start Date End Date Chasidy Kimbrough MD [address] [place] [address] PCP - General Family Medicine 02/14/21 documented as of this encounter
--- OUTSIDE RECORDS SUMMARY | 2025-03-21 07:53 | XMS_ITS | Encounter Summary ---
Author Organization [employer] Address 75 [facility] 7t [place] [address] Care Team Providers Care Painting Contractor Name Role Phone Chasidy Kimbrough MD Primary Care Provider [phone] Reason for Visit * Reason Comments Med Refill Encounter Details Date Type Department Care Team ([facility] st Contact Info) Description 03/01/2025 Refill [facility] [address] [place] [address] Chasidy Kimbrough MD [address] [place], [place] [phone] Social History Tobacco Use Types Packs/Day Years [...] documented as of this encounter Care Teams Painting Contractor Relationship Specialty Start Date End Date Chasidy Kimbrough MD [address] [place] [address] PCP - General Family Medicine 02/14/21 documented as of this encounter
== END 2025-03-21 07:50 | disposition home or self-care (01) ==
LOC: HO.XRAY 07:49
PROVIDERS: PCP General Practice; Visit Provider Nurse Practitioner Family
DX: K21.9 Gastro-esophageal reflux disease without esophagitis (principal)
CPT/HCPCS: 74240

== ENCOUNTER → 2025-03-21 07:51 | Outpatient (BNV) | payer MEDICAID, SELFPAY | PROVIDERS: PCP General Practice; Visit Provider Radiology Diagnostic Ultrasound | DX: K44.9 Diaphragmatic hernia without obstruction or gangrene (principal); K21.9 Gastro-esophageal reflux disease without esophagitis | CPT/HCPCS: 74246 ==

== ENCOUNTER 2025-03-22 08:38 | Outpatient (REF) | payer MEDICAID, SELFPAY ==
--- NOTE | ~2025-03-22 | US_ITS ---
CLINICAL HISTORY: K43.2 - Incisional hernia without obstruction or gangrene --- Additional Notes or Special Instructions: Right upper quadrant possible hernia, left upper quadrant possible hernia US abdominal wall nonvascular Comparison: None Findings: Ultrasound evaluation of the right upper quadrant and left upper quadrant abdominal wall showed no masses fluid collections or hernia. The liver measures 15 cm in length. The right kidney measures 11.1 cm. Spleen normal 8.9 cm. Left kidney measures 11.7 cm. No hydronephrosis. Impression: No ventral abdominal wall hernias demonstrated in the right upper quadrant or left upper quadrant. No hepatosplenomegaly. No hydronephrosis. This document has been electronically signed by: Seamus Kaur MD on 03/23/2025 10:14:22
== END 2025-03-22 08:39 | disposition home or self-care (01) ==
LOC: HO.US 08:38
PROVIDERS: PCP General Practice; Visit Provider Nurse Practitioner Family
DX: K43.2 Incisional hernia without obstruction or gangrene (principal); R10.11 Right upper quadrant pain
CPT/HCPCS: 76705

== ENCOUNTER → 2025-03-22 08:40 | Outpatient (BNV) | payer MEDICAID, SELFPAY | PROVIDERS: PCP General Practice; Visit Provider Radiology Diagnostic Radiology | DX: K43.2 Incisional hernia without obstruction or gangrene (principal) | CPT/HCPCS: 76705 ==

== ENCOUNTER 2025-03-31 10:33 | Outpatient (REF) | payer MEDICAID, SELFPAY ==
--- OUTSIDE RECORDS SUMMARY | 2025-03-31 17:41 | XMS_ITS | Encounter Summary ---
Author Organization [employer] Address 75 [facility] 7t [place] [address] Care Team Providers Care Calender Worker Helper Name Role Phone Chasidy Kimbrough MD Primary Care Provider [phone] Reason for Visit * Reason Comments Med Refill Encounter Details Date Type Department Care Team ([facility] st Contact Info) Description 12/29/2022 Refill [facility] [address] [place], [place] [phone] Chasidy Kimbrough MD [address] [place], [place] [phone] Social History Tobacco Use Types Packs/Day Years [...] documented as of this encounter Care Teams Calender Worker Helper Relationship Specialty Start Date End Date Chasidy Kimbrough MD [address] [place] [address] PCP - General Family Medicine 02/14/21 documented as of this encounter
--- OUTSIDE RECORDS SUMMARY | 2025-03-31 17:42 | XMS_ITS | Encounter Summary ---
Author Organization [employer] Address [address] [facility] 7t [place] [address] Care Team Providers Care Board Lining Machine Operator Name Role Phone Chasidy Kimbrough MD Primary Care Provider [phone] Reason for Referral * Consultation (Routine) - Authorized Specialty Diagnoses / Procedures Referred By Conthemal t Referred To Contact Rheumatology Diagnoses Tenosynovitis of finger Elevated erythrocyte sedimentation rate Positive DANO (antinuclear antibody) Chasidy Kimbrough MD [address] [place] [address] Phone: tel: fax: [facility] [address] [place] [address] Phone: tel: fax: Referral ID Status Reason Start Date Expiration Date Visits Requested Visits Authorized [id number] Authorized Specialty Services Required 4 05/25/2025 6 6 Encounter Details Date Type Department Care Team (Late st Contact Info) Description 05/16/2024 Orders Only [facility] MEDICINE [address] [place] [phone] Chasidy Kimbrough MD [address] [place] [phone] Tenosynovitis of finger (Primary Dx); Elevated erythrocyte [...] documented as of this encounter Care Teams Board Lining Machine Operator Relationship Specialty Start Date End Date Chasidy Kimbrough MD [address] [place] [address] PCP - General Family Medicine 02/14/21 documented as of this encounter
--- OUTSIDE RECORDS SUMMARY | 2025-03-31 17:42 | XMS_ITS | Encounter Summary ---
Author Organization [employer] Address [address] [facility] 7t [place] [address] Care Team Providers Care Business Process Engineer Name Role Phone Chasidy Kimbrough MD Primary Care Provider [phone] Reason for Visit * Reason Comments Med Refill Encounter Details Date Type Department Care Team ([facility] st Contact Info) Description 03/01/2025 Refill [facility] MEDICINE [address] [place] [address] Chasidy Kimbrough MD [address] [place], [place] [phone] Social History Tobacco Use Types Packs/Day Years [...] documented as of this encounter Care Teams Business Process Engineer Relationship Specialty Start Date End Date Chasidy Kimbrough MD [address] [place] [address] PCP - General Family Medicine 02/14/21 documented as of this encounter
--- OUTSIDE RECORDS SUMMARY | 2025-03-31 17:42 | XMS_ITS | Clinical Summary ---
Author Organization [employer] Address [address] [facility] [address] [place] [address] Care Team Providers Care Prosthetic Aide Name Role Phone Chasidy Kimbrough MD Primary Care Provider [phone] Allergies Active Allergy Reactions Criticality Noted Date [...] complication, without long-term current use of insulin ([facility]) TEST BLOOD SUGAR TWICE DAILY DIRECTED 100 [...] (eight) hours. 90 capsule 11 05/09/20 24 025 Active ARIPiprazole (Abilify) 20 MG tablet Take [...] mouth at bedtime. 90 tablet 3 11/19/19 25 Active aspirin 81 MG chewable tablet Chew 1 tablet (81 mg) Once per day. 90 tablet 3 11/19/19 25 026 Active propranolol LA (Inderal LA) 60 MG 24 hr capsule Take 1 capsule (60 mg) by mouth Once per day. Do not crush, chew, or split. 90 capsule 1 11/19/19 25 026 Active fexofenadine (Zohra) 180 MG tablet Take 1 tablet (180 mg) by mouth if needed each day (Allergies). 90 tablet 3 11/19/19 25 Active naproxen (Naprosyn) 500 MG tablet TAKE 1 TABLET BY MOUTH TWICE DAILY 60 tablet 11/26/19 25 Active meloxicam (Mobic) 15 MG tablet Take 1 tablet (15 mg) by mouth Once per day. 15 tablet 01/10/20 25 026 Active cyclobenzaprine (Flexeril) 10 MG tablet Take [...] pressure once daily 1 each 01/18/20 25 026 Active losartan (Cozaar) 100 MG tabletIndicatio ns:Primary hypertension TAKE 1 TABLET BY MOUTH EVERY DAY 90 tablet 3 01/18/20 25 Active melatonin 5 MG tablet TAKE 2 TABLETS (10 MG) BY MOUTH EVERY DAY AT BEDTIME NEEDED FOR SLEEP 180 tablet 3 03/15/20 25 Active butalbital-acet aminophen-caffe ine 50-325-40 MG tabletIndicatio ns:Chronic migraine without aura without status migrainosus, not intractable TAKE 1 TABLET BY MOUTH EVERY 6 HOURS NEEDED FOR MIGRAINE. DO NOT EXCEED 2 TABLETS PER WEEK. 10 tablet 03/22/20 25 Active polyvinyl alcohol (Liquifilm Tears) 1.4 % ophthalmic solutionIndicat ions:Dry eye of right side 1-2 drops in both eyes every 2-4 hrs 15 mL 1 03/23/20 25 Active TRUEplus Lancets 33G miscIndications :Type 2 diabetes mellitus without complication, without long-term current use of insulin (HCC) TEST BLOOD SUGAR TWICE DAILY DIRECTED 100 each 3 03/31/20 25 Active TRUEplus Lancets 33G miscIndications :Type 2 diabetes mellitus without complication, without long-term current use of insulin (HCC) USE DIRECTED TO TEST BLOOD SUGAR TWICE DAILY 100 each 3 06/01/20 24 025 Discontinued melatonin 5 MG tablet Take 2 tablets by mouth if needed at bedtime (sleep). 08/08/19 25 025 Discontinued butalbital-acet aminophen-caffe ine 50-325-40 MG tabletIndicatio ns:Chronic migraine without aura without status migrainosus, not intractable TAKE 1 TABLET BY MOUTH EVERY 6 HOURS NEEDED FOR MIGRAINE DO NOT EXCEED 2 TABLETS PER WEEK 10 tablet 03/01/20 25 025 Discontinued Active Problems Problem Noted Date Diagnosed Date Dry eye of right side 03/24/2025 Neck sprain 01/09/2025 Assessment & Plan (01/09/2025 [...] Hyperlipidemia associated with type 2 diabetes m ellitus 07/29/2017 Assessment & Plan (07/25/2022 10:29 AM [...] Encounters Date Type Department Care Team Description 03/30/2025 Refill [facility] [address] [place] [address] Phalen, Hawa, MOLD INSPECTOR Type 2 diabetes mellitus without complication, without long-term current use of insulin ([facility]) 03/23/2025 3:40 PM EDT Office Visit [facility] [address] [place] [address] Liz Malone, MOLD INSPECTOR Dry eye of right side (Primary Dx); Primary hypertension 03/23/2025 Travel 03/22/2025 Refill [facility] [address] [place] [address] Chasidy Kimbrough MD Chronic migraine without aura without status migrainosus, not intractable 03/21/2025 Orders Only [facility] External Provider, [facility] 03/14/2025 Refill [facility] [address] [place] [address] Chasidy Kimbrough MD Primary hypertension 03/07/2025 Telephone [facility] [address] [facility] [place] [address] Chasidy Kimbrough MD Durable Medical Equipment (DME Request: Shower Chair and Grab Bars) 03/01/2025 Refill [facility] [address] [place] [address] Cahsidy Kimbrough MD 02/28/2025 1:00 PM EDT Clinical Support [facility] [address] [place] [address] Darcie Thibodeaux RN Primary hypertension 02/28/2025 Travel 02/09/2025 Refill [facility] [address] [place] [address] Chasidy Kimbrough MD Chronic migraine without aura without status migrainosus, not intractable 02/09/2025 Refill [facility] [address] [place] [address] Chasidy Kimbrough MD Primary hypertension 02/06/2025 Telephone [facility] [address] [place] [address] Darcie Thibodeaux, RN f/up from BP CHECK 02/02/2025 Orders Only [facility] External Provider, [facility] 01/31/2025 1:00 PM EDT Clinical Support [facility] [address] [facility] [place] [address] Jeannie Slaughter RN Primary hypertension 01/31/2025 Travel 01/19/2025 Results Follow-Up [address] [address] Chasidy Kimbrough MD POCT Glucose, Lipid Panel, Standard, Albumin, Random Urine W/Creatinine, Comprehensive Metabolic Panel 01/18/[address] [address] Chasidy Kimbrough MD 01/17/[address] [address] Chasidy Kimbrough MD telephone call 01/16/2025 1:30 PM EDT Office Visit [address] [address] Chasidy Kimbrough MD Primary hypertension (Primary Dx); Type 2 diabetes mellitus without complication, without long-term current use of insulin ([facility]); Gastroesophageal reflux disease without esophagitis 01/16/2025 Travel 01/13/[address] [address] Chasidy Kimbrough MD Chart Prep 01/09/2025 1:20 PM EDT Office Visit [facility] [address] [place] [phone] Dano Morris MD Neck sprain, initial encounter (Primary Dx) 01/09/2025 Travel 01/05/2025 Patient Outreach [address] [address] Chasidy Kimbrough MD Pre-visit Planning ((Unable to reach for PVP screening, LVM) to be completed in office ) from Last 3 Months Immunizations Immunization Administration [...] Sign Reading Time Taken Comments Blood Pressure 176/69 03/23/2025 2:48 PM EDT w o ut meds Pulse 66 03/23/2025 2:48 PM EDT Temperature 37 C (98.6 F) 03/23/2025 2:48 PM EDT Respiratory Rate 18 03/23/2025 2:48 PM EDT Oxygen Saturation 98% 03/23/2025 2:48 PM EDT Inhaled Oxygen Concentration - - Weight 87.1 kg (192 lb) 03/23/2025 2:48 PM EDT Height 165.1 cm (5' 5 ) 03/23/2025 2:48 PM EDT Body Mass Index 31.95 03/23/2025 2:48 PM EDT Plan of Treatment Health Maintenance [...] SDOH Screening 04/28/2025 04/28/2024 Mammogram 09/27/2025 09/27/2024, 0507/2023, 09/25/2023, Additional history exists Alcohol/Substance Use Screening 11/15/2025 11/15/2024 Disability Screening 11/15/2025 11/15/2024 Depression Screening 01/16/2026 01/16/2025, 01/17/20 Diabetes: Urine Protein Screening 01/17/2026 01/17/2025, 11/30/2023, 05/07/2020, Additional history exists Lipid Panel 01/17/2026 01/17/2025, 11/13, 12/22/2022, Additional history exists Tobacco Screening 03/23/2026 03/23/2025 DTaP/Tdap/Td Vaccines (3 - Td or Tdap) [...] Procedure Name Priority Date/Time Associated Diagnosis Comments US ABDOMEN LIMITED Routine 03/23/2025 10 :14 AM EDT FL UPPER GI W BARIUM SWALLOW Routine 03/21/2025 8:[address] CHEST WO CONTRAST Routine 02/03/2025 9:03 [...] Recently Relevant to Health Maintenance Results * US Abdomen Limited (03/23/2025 10:14 AM EDT) Anatomical Region Laterality Modality Abdomen Ultrasound 03/23/2025 10:1 4 AM EDT Narrative 03/23/2025 10:15 AM EDT [address] [address] Ultrasound Report Signed Patient: Cynthia Stuart MR#: [id number] : 1965 Acct:[id number] Age/Sex: 60 / F ADM Date: 03/22/25 Loc: HO.US Attending Dr: Margoth DE LA ROSA Ordering Physician: Margoth White Date of Service: 03/22/25 Procedure(s): US abdomen limited Accession Number(s): [id number] cc: Chasidy Kimbrough; Margoth White Reason for Exam: K43.2 - Incisional hernia without obstruction or gangrene CLINICAL HISTORY: K43.2 - Incisional hernia without obstruction or gangrene --- Additional Notes or Special Instructions: Right upper quadrant possible hernia, left upper quadrant possible hernia US abdominal wall nonvascular Comparison: None Findings: Ultrasound evaluation of the right upper quadrant and left upper quadrant abdominal wall showed no masses fluid collections or hernia. The liver measures 15 cm in length. The right kidney measures 11.1 cm. Spleen normal 8.9 cm. Left kidney measures 11.7 cm. No hydronephrosis. Impression: No ventral abdominal wall hernias demonstrated in the right upper quadrant or left upper quadrant. No hepatosplenomegaly. No hydronephrosis. This document has been electronically signed by: Seamus Kaur MD on 03/23/2025 10:14:22 Dictated By: Seamus Kaur MD Signed By: <Electronically signed by Seamus Kaur MD in OV> 03/23/25 1014 DD/ 1014 TD/TT: 03/23/25 1014 Cold Strip Feeder: Procedure Note Donotuseinterpreter, Image - 03/23/2025 [place] [address] Ultrasound Report Signed Patient: Cynthia Stuart OMR#: [id number] : 1965Acct:[id number] Age/Sex: 60 / FADM Date: 03/22/25 Loc: HO.US Attending Dr: Margoth ZHONG-NADEGE Ordering Physician: Margoth White Date of Service: 03/22/25 Procedure(s): US abdomen limited Accession Number(s): [id number] cc: Chasidy Kimbrough; Margoth White [facility] Reason for Exam: K43.2 - Incisional hernia without obstruction organgrene CLINICAL HISTORY: K43.2 - Incisional hernia without obstruction organgrene --- Additional Notes or Special Instructions: Right upper quadrant possible hernia, left upperquadrant possible hernia US abdominal wall nonvascular Comparison: None Findings: Ultrasound evaluation of the right upper quadrant and left upper quadrant abdominal wall showed no masses fluid collections or hernia. The liver measures 15 cm in length. The right kidney measures 11.1 cm. Spleen normal 8.9 cm. Left kidney measures 11.7 cm. No hydronephrosis. Impression: No ventral abdominal wall hernias demonstrated in the right upper quadrant or left upper quadrant. No hepatosplenomegaly. No hydronephrosis. This document has been electronically signed by: Seamus Kaur MD on 03/23/2025 10:14:22 Dictated By: Seamus Kaur MD Signed By: <Electronically signed by Seamus Kaur MD in OV> 03/23/25 1014 DD/ 1014 TD/TT: 03/23/25 1014 Cold Strip Feeder: [employer] External Provider IMG US PROCEDURES Final Result * FL Upper GI w/Barium Swallow (03/21/2025 8:10 AM EDT) Anatomical Region Laterality Modality Body Radiographic Cecily ging 03/21/2025 8:10 AM EDT Narrative 03/21/2025 11:32 AM EDT [address] [address] Fluoroscopy Report Signed Patient: Cynthia Stuart MR#: [id number] : 1965 Acct:[id number] Age/Sex: 60 / F ADM Date: 03/21/25 Loc: RUSSEL Attending Dr: Margoth DE LA ROSA Ordering Physician: Margoth White Date of Service: 03/21/25 Procedure(s): FL upper GI w Ba Swallow Accession Number(s): [id number] cc: Chasidy Kimbrough; Margoth White-NADEGE Reason for Exam: K21.9 - Gastro-esophageal reflux disease without esophagitis EXAMINATION: XR FLUOROSCOPY barium swallow X-ray fluoroscopy upper GI series CLINICAL INFORMATION: Gastroesophageal reflux COMPARISON: Fluoroscopy 12/29/2023 TECHNIQUE: Barium swallow and upper GI series. Patient swallowed thick and thin barium under fluoroscopic evaluation. FINDINGS: Normal swallowing mechanism. No evidence of laryngeal penetration or aspiration. No mass or mucosal lesion is identified. Esophagus demonstrates normal distention and motility. No evidence of stricture, mass or mucosal lesion. Mild esophageal dysmotility. Stomach demonstrates normal distention. No mass or mucosal lesions are seen. There is normal passage of the barium through the stomach into the proximal small bowel. Small sliding hiatal hernia. No reflux is seen during the course of the procedure. FLUOROSCOPY TIME: 2 minutes 1 second DOSE AREA PRODUCT: 2146 uGy-m2 (microgray-meter squared) FL/FL upper GI w Ba Swallow IMPRESSION: 1. No evidence of laryngeal penetration or aspiration. 2. No evidence of stricture, mass or mucosal lesion. 3. Small sliding hiatal hernia. 4. No reflux is seen during the course of the procedure. Electronically signed by: Serge Evans MD 03/21/2025 11:29 AM EDT Dictated By: Serge Evans MD Signed By: <Electronically signed by Serge Evans MD in OV> 03/21/25 1129 DD/ 0810 TD/TT: 03/21/25 0900 Cold Strip Feeder: Procedure Note Donotuseinterpreter, Image - 03/21/[address] [address] Fluoroscopy Report Signed Patient: Cynthia Stuart OMR#: [id number] : 1965Acct:[id number] Age/Sex: 60 / FADM Date: 03/21/25 Loc: HO.XRAY Attending Dr: Margoth ZHONG-NADEGE Ordering Physician: Margoth White-NADEGE Date of Service: 03/21/25 Procedure(s): FL upper GI w Ba Swallow Accession Number(s): [id number] cc: Chasidy Kimbrough; Margoth White [facility] Reason for Exam: K21.9 - Gastro-esophageal reflux disease withoutesophagitis EXAMINATION: XR FLUOROSCOPY barium swallow X-ray fluoroscopy upper GI series CLINICAL INFORMATION: Gastroesophageal reflux COMPARISON: Fluoroscopy 12/29/2023 TECHNIQUE: Barium swallow and upper GI series. Patient swallowed thick and thin barium under fluoroscopic evaluation. FINDINGS: Normal swallowing mechanism. No evidence of laryngeal penetration or aspiration. No mass or mucosal lesion is identified. Esophagus demonstrates normal distention and motility. No evidence of stricture, mass or mucosal lesion. Mild esophageal dysmotility. Stomach demonstrates normal distention. No mass or mucosal lesions are seen. There is normal passage of the barium through the stomach into the proximal small bowel. Small sliding hiatal hernia. No reflux is seen during the course of the procedure. FLUOROSCOPY TIME: 2 minutes 1 second DOSE AREA PRODUCT: 2146 uGy-m2 (microgray-meter squared) FL/FL upper GI w Ba Swallow IMPRESSION: 1. No evidence of laryngeal penetration or aspiration. 2. No evidence of stricture, mass or mucosal lesion. 3. Small sliding hiatal hernia. 4. No reflux is seen during the course of the procedure. Electronically signed by: Serge Evans MD 03/21/2025 11:29 AM EDT Dictated By: Serge Evans MD Signed By: <Electronically signed by Serge Evans MD in OV> 03/21/25 1129 DD/ 0810 TD/TT: 03/21/25 0900 Cold Strip Feeder: MERLYN [employer] External Provider IMG FLU OROSCOPY PROCEDURES Final Result * CT Chest w/o Contrast (02/03/2025 9:03 AM EDT) Anatomical Region Laterality Modality Body, Chest Computed Tomogra phy 02/03/2025 9:03 AM EDT Narrative 02/03/2025 9:04 AM EDT [place] [address] [address] Scan Report Signed Patient: Cynthia Stuart O MR#: [id number] : 1965 Acct:[id number] Age/Sex: 60 / F ADM Date: 02/02/25 Loc: HO.CT Attending Dr: Mg Moore MD Ordering Physician: Mg Moore MD Date of Service: 02/02/25 Procedure(s): CT chest wo IV con Accession Number(s): [id number] cc: Chasidy Kimbrough; Mg Moore MD Report Number: [id number]: Total DLP = 152.00 mGy-cm CLINICAL HISTORY: [...] in OV> 02/03/25903 DD/ 2 TD/TT: 02/03/25902 Cold Strip Feeder: Procedure Note Donotuseinterpreter, Image - 02/03/[address] [address] [address] Scan Report Signed Patient: Cynthia Stuart OMR#: [id number] : 1965Acct:[id number] Age/Sex: 60 / FADM Date: 02/02/25 Loc: HO.CT Attending Dr: Mg Moore MD Ordering Physician: Mg Moore MD Date of Service: 02/02/25 Procedure(s): CT chest wo IV con Accession Number(s): [id number] cc: Chasidy Kimbrough; Mg Moore MD Report Number: [id number]: Total DLP = 152.00 mGy-cm CLINICAL HISTORY: [...] in OV> 02/03/25903 DD/ 2 TD/TT: 02/03/25902 Cold Strip Feeder: [employer] External Provider IMG CT PROCEDURES Final Result * Albumin, Random Urine W/Creatinine (01/17/2025 1:17 PM EDT) Creatinine, Urine 243.58 mg/dL [facility] Microalbumin Urine 49.0 mg/L [facility] Microalbum Creatinine Ratio Ur 20.1 <30 ug/mg cr [facility] Comment:Albumin/Creatinine R atio Reference Ranges: Normal: < 30 ug/mg creatinine Microalbuminuria: 30 - 300 ug/mg creatinineClinical Albuminuria: > 300 ug/mg creatinine Urine (Urine, Random) 01/17/2025 1:17 PM EDT 01/17/2025 3:57 PM EDT Chasidy Kimbrough MD LAB URINE ORDERABLES Final Res ult [facility] [address] [place], [place] [phone] * (ABNORMAL) Lipid Panel, Standard (01/17/2025 1:17 PM EDT) Triglycerides 99 <150 mg/dL [facility] Comment:Desirable Triglyceri de: less than 150 mg/dLBorderline High Triglyceride 150-199 mg/dLHigh Triglyceride: 200-499 mg/dLVery High Triglyceride: greater than or equal to 5OO mg/dL Cholesterol 223(H) <200 mg/dL [facility] Comment:Desirable Cholestero l: less than 200 mg/dLBorderline High Cholesterol: 200-239 mg/dLHigh Cholesterol: greater than 239 mg/dL LDL Cholesterol Calculated 143(H) <100 mg/dL [facility] Comment:Desirable LDL: less than 100 mg/dLNear Optimal/Above Optimal LDL: 110- 129 mg/dLBorderline High LDL: 130-159 mg/dLHigh LDL: 160-189 mg/dLVery High LDL: greater than or equal to 190 mg/dL HDL Cholesterol 61 >40 mg/dL [facility] Comment:Desirable HDL: great er than 40 mg/dL Note: This HDL assay may give artificially low results in patients with liver disease. Blood Venous blood specimen / Unknown 01/17/2025 1:17 PM EDT 01/17/2025 4:03 PM EDT us Chasidy Kimbrough MD LAB BLOOD ORDERABLES Final Res ult [facility] [address] [place] [phone] * (ABNORMAL) Comprehensive Metabolic Panel (01/17/2025 1:17 PM EDT) Sodium 141 135 - 145 mmol/L [facility] Potassium 3.9 3.3 - 5.1 mmol/L [facility] Comment:Slight Hemolysis.Int erpret result with caution. Chloride 105 96 - 108 mmol/L [facility] Carbon Dioxide 26 22 - 29 mmol/L [facility] Anion Gap 14 12 - 20 [facility] Urea Nitrogen (BUN) 11 9 - 16 mg/dL [facility] Creatinine, Serum 0.64 0.5 - 1.4 mg/dL [facility] Estimated Glomerular Filt Rate >60 [facility] Comment:Chronic Kidney Disea se: Estimated GFR < 60 mL/min/1.86b2Jrfyxw Kidney Disease: Estimated GFR < 15 mL/min/1.73m2 Glucose 116(H) 60 - 115 mg/dL [facility] Calcium 9.4 8.4 - 10.2 mg/dL [facility] Bilirubin, Total 0.2 0.0 - 1.0 mg/dL [facility] Aspartate Amino Transferase 25 5 - 31 U/L [facility] Comment:Slight Hemolysis.Int erpret result with caution. Alanine Aminotransferase 11 0 - 31 U/L [facility] Total Protein 7.8 6.5 - 8.0 g/dL [facility] Albumin Level 4.3 3.5 - 5.0 g/dL [facility] Alkaline Phosphatase 79 39 - 117 U/L [facility] Blood Venous blood specimen / Unknown 01/17/2025 1:17 PM EDT 01/17/2025 4:03 PM EDT Chasidy Kimbrough MD LAB BLOOD ORDERABLES Final Res ult Performing Organization Address City/State/[facility] Co de Phone Number [facility] [address] [place] [phone] * POCT Glucose (01/16/2025 1:27 PM EDT) Glucose Blood, POC 150 60 - 200 mg/dL QC Media Lot # [id number] Lot# Expiration Date [id number] Blood Capillary blood specimen / Unknown 01/16/2025 1:27 PM EDT Chasidy Kimbrough MD POINT OF CARE TEST ENTER/EDIT ORDERABLES Final Result * Colonoscopy (12/14/2024) Anatomical Region Laterality Modality Endoscopy Other Impressions 12/14/2024 7-8mm polyp, adenomatous Mey Motta MD ENDOSCOPY PROCEDURE ORDER KEELY Final Result * BI Mammogram Screening Tomosynthesis Bilateral (09/27/2024 1:34 PM EDT) Anatomical Region Laterality Modality Breast Bilateral Mammography 09/27/2024 1:34 PM EDT Narrative 10/08/2024 11:06 AM EDT [facility] [address] Hsieh, LYRIC [phone] Mammography Report Signed Patient: Cynthia Stuart MR#: [id number] : 1965 Acct:[id number] Age/Sex: 59 / F ADM Date: 09/27/24 Loc: HO.MAMMO Attending Dr: Chasidy Kimbrough MD Ordering Physician: Chasidy Kimbrough Results: 2Benign F indings Date of Service: 09/27/24 Follow Up: 1 Year From Orig ina Mammogram Procedure(s): MM tomosynthesis screening BI Accession Number(s): [id number] cc: Chasidy Kimbrough EXAMINATION: MM SCREENING DIGITAL [...] 10/08/24 1103 DD/ 1334 TD/TT: 09/27/24 1357 Cold Strip Feeder: Procedure Note Donotuseinterpreter, Image - 10/08/2024 Jori [facility] [address] [place] [address] Mammography Report Signed Patient: Cynthia Stuart OMR#: [id number] : 1965Acct:[id number] Age/Sex: 59 / FADM Date: 09/27/24 Loc: HO.MAMMO Attending Dr: Chasidy Kimbrough MD Ordering Physician: Jian Kimbroughults: 2Benign F indings Date of Service: 09/27/24Follow Up: 1 Year From Orig inal Mammogram Procedure(s): MM tomosynthesis screening BI Accession Number(s): [id number] cc: Chasidy Kimbrough EXAMINATION: MM SCREENING DIGITAL [...] 10/08/24 1103 DD/ 1334 TD/TT: 09/27/24 1357 Cold Strip Feeder: Chasidy Kimbrough MD IMG BI PROCEDURES Edited Resul t - Final * (ABNORMAL) POCT HGB A1C (08/12/2024 1:08 PM EST) Hemoglobin A1C 6.6(A) 4.0 - 6.0 % QC Media Lot # [id number] Lot# Expiration Date Blood 08/12/2024 1:08 PM EST Result [facility] Chasidy Kimbrough MD POINT OF CARE TEST ENTER/EDIT ORDERABLES Final Result * Hepatitis Panel, General (05/09/2024 4:30 PM EST) Hepatitis A IgM Nonreactive Nonreactive [facility] Comment:IgM antibodies to GALAVIZ V not detected; does not exclude earlyacute or recovered HAV infection. ~Hepatitis B Surface Antibody REACTIVE Nonreactive [facility] Comment:REACTIVE: > 11.99 mI U/mL Hepatitis B Core Antibody Nonreactive Nonreactive [facility] Hepatitis C Antibody Nonreactive Nonreactive [facility] Comment:Antibodies to HCV no t detected; does not exclude early acuteHCV infection. Hepatitis B Surface Ag Negative Negative [facility] Blood 05/09/2024 4:30 PM EST 05/09/2024 5:40 PM EST Dano Morris MD LAB BLOOD ORDERABLES Fin al Result [facility] [address] [place] [phone] * HIV-1/2 Antigen and Antibodies, Fourth Generation, with Reflexes (11/30/2023 1:19 PM EDT) HIV AB/AG Nonreactive Nonreactive [facility] Comment:HIV-1 p24 Ag and/or HIV-1/HIV-2 Ab not detected.A test result that is nonreactive does not exclude thepossibility of exposure to or infection with HIV-1 and/orHIV-2. Nonreactive results in this assay for individualswith prior exposure to HIV-1 and/or HIV-2 may be due toantigen and antibody levels that are below the limit ofdetection of this assay.The [employer] Alinity HIV Ag/Ab Combo assay result andsupplemental assay results should be interpreted inconjunction with the patient's clinical presentation,history and other laboratory results. If the results areinconsistent with clinical evidence, additional testing issuggested to confirm the result. Blood Venous blood specimen / Unknown 11/30/2023 1:19 PM EDT 11/30/2023 3:56 PM EDT us hCasidy Kimbrough MD LAB BLOOD ORDERABLES Final Res ult [facility] [address] [place] [phone] from Last 3 Months or Most Recently Relevant to Health Maintenance Insurance [facility] Care Teams Prosthetic Aide Relationship Specialty Start Date End Date Chasidy Kimbrough MD [address] [place] [address] PCP - General Family Medicine 02/14/21
--- OUTSIDE RECORDS SUMMARY | 2025-03-31 17:42 | XMS_ITS | Encounter Summary ---
Author Organization [employer] Address [address] [facility] [address] [place] [address] Care Team Providers Care Locomotive Mechanic Apprentice Name Role Phone Chasidy Kimbrough MD Primary Care Provider [phone] Reason for Referral * Consultation (Routine) - Closed Specialty Diagnoses / Procedures Referred By Conthemal t Referred To Contact Gastroenterology Diagnoses Other dysphagia Chasidy Kimbrough MD [address] [place] [address] Phone: tel: fax: [address] Phone: tel: fax: Referral ID Status Reason Start Date Expiration Date V isits Requested Visits Authorized [id number] Closed Specialty Services Required 01/02/2024 01/01/2025 6 6 Encounter Details Date Type Department Care Team (Late st Contact Info) Description 12/30/[address] [facility] [address] [place], [place] [phone] Chasidy Kimbrough MD [address] [place] [address] Other dysphagia (Primary Dx) Social [...] documented as of this encounter Care Teams Locomotive Mechanic Apprentice Relationship Specialty Start Date End Date Chasidy Kimbrough MD [address] [place] [address] PCP - General Family Medicine 02/14/21 documented as of this encounter
--- OUTSIDE RECORDS SUMMARY | 2025-03-31 17:42 | XMS_ITS | Encounter Summary ---
Author Organization [employer] Address [address] [facility] [address]t [place] [address] Care Team Providers Care Cookee Name Role Phone Chasidy Kimbrough MD Primary Care Provider [phone] Reason for Visit * Reason Comments Med Refill Encounter Details Date Type Department Care Team ([facility] st Contact Info) Description 02/09/2025 Refill [facility] [address] [place], [place] [phone] Chasidy Kimbrough MD [address] [place], [place] [phone] Primary hypertension Social History Tobacco Use Types [...] documented as of this encounter Care Teams Cookee Relationship Specialty Start Date End Date Chasidy Kimbrough MD [address] [place] [address] PCP - General Family Medicine 02/14/21 documented as of this encounter
--- OUTSIDE RECORDS SUMMARY | 2025-03-31 17:42 | XMS_ITS | Encounter Summary ---
Author Organization [employer] Address [address] [facility] 7t [place] [address] Care Team Providers Care Elect Equip Maint Eng Name Role Phone Chasidy Kimbrough MD Primary Care Provider [phone] Encounter Details Date Type Department Care Team (Late st Contact Info) Description 12/20/2024 Orders Only [facility] [address] [place], [place] [phone] Chasidy Kimbrough MD [address] [place], [place] [phone] Social History Tobacco Use Types Packs/Day Years [...] documented as of this encounter Care Teams Elect Equip Maint Eng Relationship Specialty Start Date End Date Chasidy Kimbrough MD [address] [place] [id number] PCP - General Family Medicine 02/14/21 documented as of this encounter
--- OUTSIDE RECORDS SUMMARY | 2025-03-31 17:42 | XMS_ITS | Encounter Summary ---
Author Organization [employer] Address [address] [facility] [address] [place] [address] Care Team Providers Care Upholstery Repairer Name Role Phone Chasidy Kimbrough MD Primary Care Provider [phone] Reason for Visit * Reason Comments Med Refill Encounter Details Date Type Department Care Team ([facility] st Contact Info) Description 03/30/2025 Refill [facility] [address] [place] [address] Hawa Zambrano FNP [address] [place] [address] Type 2 diabetes mellitus without complication, without long-term current use of insulin (HCC) Social History Tobacco Use Types Packs/Day Years [...] as of this encounter Visit Diagnoses Diagnosis Type 2 diabetes mellitus without complication, without long-term current use of insulin (HCC) documented in this encounter Additional Health Concerns Assessment Noted Time PHQ-9 Depression Total Score: 1 01/17/20 25 1:22 PM EDT documented as of this encounter Care Teams Upholstery Repairer Relationship Specialty Start Date End Date Chasidy Kimbrough MD [address] [place] [address] PCP - General Family Medicine 02/14/21 documented as of this encounter
--- OUTSIDE RECORDS SUMMARY | 2025-03-31 17:42 | XMS_ITS | Encounter Summary ---
Author Organization [employer] Address [address] [facility] 7t [place] [address] Care Team Providers Care Utility Bill Collection Clerk Name Role Phone Chasidy Kimbrough MD Primary Care Provider [phone] Reason for Visit * Reason Comments Med Refill Encounter Details Date Type Department Care Team ([facility] st Contact Info) Description 06/20/2024 Refill [facility] MED[facility]INE [address] [place], [place] [phone] Chasidy Kimbrough MD [address] [place], [place] [phone] Social History Tobacco Use Types Packs/Day Years [...] documented as of this encounter Care Teams Utility Bill Collection Clerk Relationship Specialty Start Date End Date Chasidy Kimbrough MD [address] [place] [address] PCP - General Family Medicine 02/14/21 documented as of this encounter
--- OUTSIDE RECORDS SUMMARY | 2025-03-31 17:42 | XMS_ITS | Encounter Summary ---
Author Organization [email or web address] Address [address] [facility] 7[address] [place] [address] Care Team Providers Care Phonograph Mechanic Name Role Phone Chasidy Kimbrough MD Primary Care Provider [phone] Reason for Referral * Consultation (Routine) - Authorized Specialty Diagnoses / Procedures Referred By Conthemal esposito Referred To Contact Neurology Diagnoses Memory loss Chasidy Kimbrough MD [address] [place] [address] Phone: tel: fax: [facility] Referral ID Status Reason Start Date Expiration Date Visits Requested Visits Authorized [id number] Authorized Specialty Services Required 07/18/2024 07/18/2025 6 6 Encounter Details Date Type Department Care Team ([facility] st Contact Info) Description 07/13/2024 Orders Only [facility] [address] [place], [place] [phone] Chasidy Kimbrough MD [address] [place], [place] [phone] Memory loss (Primary Dx) Social History Tobacco [...] documented as of this encounter Care Teams Phonograph Mechanic Relationship Specialty Start Date End Date Chasidy Kimbrough MD [address] [place] [address] PCP - General Family Medicine 02/14/21 documented as of this encounter
--- OUTSIDE RECORDS SUMMARY | 2025-03-31 17:42 | XMS_ITS | Encounter Summary ---
Author Organization [employer] Address [address] [facility] [address] [place] [address] Care Team Providers Care Damage Cutter Name Role Phone Chasidy Kimbrough MD Primary Care Provider [phone] Encounter Details Date Type Department Care Team ([facility] st Contact Info) Description 08/31/[address] [facility] MEDICINE [address] [place], [place] [phone] Chasidy Kimbrough MD [address] [place], [place] [phone] Social History Tobacco Use Types Packs/Day Years [...] documented as of this encounter Care Teams Damage Cutter Relationship Specialty Start Date End Date Chasidy Kimbrough MD [address] [place] [address] PCP - General Family Medicine 02/14/21 documented as of this encounter
== END 2025-03-31 10:34 | disposition home or self-care (01) ==
LOC: HO.LNP 10:33
PROVIDERS: PCP General Practice; Visit Provider Nurse Practitioner Family
DX: K21.9 Gastro-esophageal reflux disease without esophagitis (principal)
CPT/HCPCS: 83013; 99211

== ENCOUNTER 2025-03-31 10:33 | Outpatient (AMB) | payer MEDICAID, SELFPAY ==
[2025-03-31 11:00] VITALS: BMI 31.0
--- NOTE | 2025-03-31 11:01 | AM.OFFVISNUR ---
Vital Signs 03/31/25 11:00 Height 5 ft 5 in Weight 186 lb 8.177 oz BMI 31.0 Blood Pressure Location Lt brachial Position Sitting Intake Visit Reasons: H pylori breath test Intake Note: Patient presents for collection of?H Pylori?breath test. Patient has been fasting for 1 hour (nothing to eat, drink, no chewing gum or smoking) has not taken any antacid medication for at least 2 weeks and has no allergies to artificial sweeteners.?? Allergies trazodone (TRAZODONE) Allergy (Intermediate, Verified 02/15/25 09:30) PROLONGED QT INTERVAL (PER H&P) Assessment & Plan Assessment & Plan (1) GERD (gastroesophageal reflux disease): Code(s): K21.9 - Gastro-esophageal reflux disease without esophagitis Category: Medical Qualifiers: Esophagitis presence: esophagitis presence not specified Qualified Code(s): K21.9 - Gastro-esophageal reflux disease without esophagitis (2) Helicobacter pylori (H. pylori): Code(s): A04.8 - Other specified bacterial intestinal infections Category: Medical Plan Patient presents for collection of?H Pylori?breath test. Patient has been fasting for 1 hour (nothing to eat, drink, no chewing gum or smoking) has not taken any antacid medication for at least 2 weeks and has no allergies to artificial sweeteners.???This test checks for an overgrowth of bacteria in your stomach. We all have bacteria but some may have more than others. It is treatable. if the test comes back negative there is nothing else to do. If the test result is positive we will treat you with 2 antibiotics and a medication to decrease the acid in your stomach (PPI) for 2 weeks. Two weeks after you have completed the treatment we will retest you to make sure the overgrowth has resolved. Patient Instructions: Process for specimen collection and reason for testing was explained to the patient. Specimen collection. Patient instructed to take a deep breath and then exhale into the blue bag, filling it up as much as possible. Patient instructed to drink a mixture of water and the artificial sweetener with a straw. A 15 minute wait period was observed. Patient instructed to take a deep breath and then exhale into the pink bag, filling it up as much as possible.?? Coding Level of Care Code Est Pt Level 1 (80217) Diagnoses Gastroesophageal reflux disease, unspecified whether esophagitis present K21.9 Esophagitis presence: esophagitis presence not specified Helicobacter pylori (H. pylori) A04.8
== END 2025-03-31 15:15 | disposition home or self-care (01) ==
LOC: HO.HGI 10:33
PROVIDERS: PCP General Practice; Visit Provider Nurse Practitioner Family
DX: K21.9 Gastro-esophageal reflux disease without esophagitis (principal); A04.8 Other specified bacterial intestinal infections

== ENCOUNTER 2025-04-21 11:03 | Outpatient (AMB) | payer MEDICAID, SELFPAY ==
--- NOTE | 2025-04-21 11:23 | MHC.OFFVIS ---
Intake Visit Reasons: B/L knee Injections, last inj 12/20/24 Intake Note: Cynthia is a 59 year old female who presents today for a repeat injection for her B/L knee OA, last injection 12/20/24. Patient reports her last injections gave her relief and would like to repeat. Allergies trazodone (TRAZODONE) Allergy (Intermediate, Verified 04/21/25 11:23) PROLONGED QT INTERVAL (PER H&P) HPI HPI B/L knee Injections, last inj 12/20/24: Details: Ms. Roddy Denney this is a 60-year-old female who presents to the office today for chronic bilateral knee pain. Last cortisone injections were administered in bilateral knees on 12/20/2024. Patient is looking to repeat injections while in the office today. [facility] Medical History Helicobacter pylori (H. pylori) Diabetes education, encounter for GERD (gastroesophageal reflux disease) Asthma Elevated cholesterol PONV (postoperative nausea and vomiting) Diabetes Tietze syndrome Kidney calculi Depression HTN (hypertension) Surgical History Hx of colonoscopy History of esophagogastroduodenoscopy (EGD) History of umbilical hernia repair History of ventral hernia repair History of cystoscopy Hx of cholecystectomy History of excision of mass H/O: hysterectomy Family History Father Throat cancer Maternal Aunt Breast cancer Social History Household Members: None Household Members Other:: pt. lives alone. 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 No ecchymosis, erythema or edema. Patient is able to demonstrate full knee flexion and extension. Negative Vadim's. NVI. Office Procedures AMB Joint Injection/Aspiration Joint Injection/Aspiration Primary Site: right knee Secondary Site: left knee Prep: site was prepped using aseptic technique, ethochloride spray was applied and injection warnings given Injected: 40 mg of, with 3 mL of, 1% plain lidocaine, 0.25% bupivacaine, in the joint and decadron Approach Used: anterolateral Procedure: The patient tolerated the procedure well, but had some pain with the injection and there was some relief with the local anesthesia Coding - Bilateral Large Joint Procedure code (CPT) selection complete Assessment & Plan Assessment & Plan (1) Bilateral primary osteoarthritis of knee: Code(s): M17.0 - Bilateral primary osteoarthritis of knee Category: Medical Plan The patient was offered a cortisone injection in bilateral knees. The patient was explained the risks, benefits, and alternatives to receiving this injection. After receiving consent for the injection, the patient had the procedure done while in the office today. The patient tolerated the procedure well with no complications. Follow-up will be PRN, or sooner if needed Coding Level of Care Code Est Pt Level 3 (03919) Diagnoses Bilateral primary osteoarthritis of knee M17.0 CPT Codes Coding - - Bilateral Large Joint: 65392 - Bilateral Large Joint ([id number])
--- OUTSIDE RECORDS SUMMARY | 2025-04-21 13:15 | XMS_ITS | Encounter Summary ---
Author Organization [employer] Address [address] [facility] 7t [place] [address] Care Team Providers Care Crusher And Blender Operator Name Role Phone Chasidy Kimbrough MD Primary Care Provider Reason for Visit * Reason Comments Med Refill Encounter Details Date Type Department Care Team ([facility] st Contact Info) Description 12/29/2022 Refill [facility] [address] [place], [place] [phone] Chasidy Kimbrough MD [address] [place], [place] [phone] Social History Tobacco Use Types Packs/Day Years [...] documented as of this encounter Care Teams Crusher And Blender Operator Relationship Specialty Start Date End Date Chasidy Kimbrough MD [address] [place] [address] PCP - General Family Medicine 02/14/21 documented as of this encounter
--- OUTSIDE RECORDS SUMMARY | 2025-04-21 13:16 | XMS_ITS | Encounter Summary ---
Author Organization [employer] Address [address] [facility] [address] [place] [address] Care Team Providers Care First Coat Operator Name Role Phone Chasidy Kimbrough MD Primary Care Provider Reason for Visit * Reason Comments Med Refill Encounter Details Date Type Department Care Team ([facility] st Contact Info) Description 06/20/2024 Refill [facility] MEDICINE [address] [place], [place] [phone] Chasidy Kimbrough MD [address] [place], [place] [phone] Social History Tobacco Use Types Packs/Day Years [...] documented as of this encounter Care Teams First Coat Operator Relationship Specialty Start Date End Date Chasidy Kimbrough MD [address] [place] [address] PCP - General Family Medicine 02/14/21 documented as of this encounter
--- OUTSIDE RECORDS SUMMARY | 2025-04-21 13:16 | XMS_ITS | Encounter Summary ---
Author Organization [employer] Address [address] [facility] [address]t [place] [address] Care Team Providers Care Set Up Inspector Name Role Phone Chasidy Kimbrough MD Primary Care Provider [phone] Encounter Details Date Type Department Care Team (Late st Contact Info) Description 12/20/2024 Orders Only [facility] MED[facility]INE [address] [place], [place] [phone] Chasidy Kimbrough MD [address] [place], [place] [phone] Social History Tobacco Use Types Packs/Day Years [...] documented as of this encounter Care Teams Set Up Inspector Relationship Specialty Start Date End Date Chasidy Kimbrough MD [address] [place] [id number] PCP - General Family Medicine 02/14/21 documented as of this encounter
--- OUTSIDE RECORDS SUMMARY | 2025-04-21 13:16 | XMS_ITS | Encounter Summary ---
Author Organization [email or web address] Address [address] [facility] 7t [place] [address] Care Team Providers Care Air Export Coordinator Name Role Phone Chasidy Kimbrough MD Primary Care Provider [phone] Encounter Details Date Type Department Care Team ([facility] st Contact Info) Description 08/31/2023 Telephone [facility] MEDICINE [address] [place], [place] [phone] Chasidy Kimbrough MD [address] [place], [place] [phone] Social History Tobacco Use Types Packs/Day Years [...] documented as of this encounter Care Teams Air Export Coordinator Relationship Specialty Start Date End Date Chasidy Kimbrough MD [address] [place] [address] PCP - General Family Medicine 02/14/21 documented as of this encounter
--- OUTSIDE RECORDS SUMMARY | 2025-04-21 13:16 | XMS_ITS | Clinical Summary ---
Author Organization [employer] Address 75 [facility] 7t [place] [address] Care Team Providers Care Home Appliance Tech Name Role Phone Chasidy Kimbrough MD Primary Care Provider [phone] Allergies Active Allergy Reactions Criticality Noted Date [...] complication, without long-term current use of insulin ([facility]) TEST BLOOD SUGAR TWICE DAILY [...] 100 each 3 06/01/20 24 025 Discontinued Active Problems Problem Noted Date [...] Encounters Date Type Department Care Team Description 03/31/2025 Orders Only GENERIC EXTERNAL DATA DEPARTMENT Provider, Generic External Data 03/30/2025 Refill [facility] [address] [place] [address] Hawa Zambrano FNP Type 2 diabetes mellitus without complication, without long-term current use of insulin (HCC) 03/23/2025 3:40 PM EDT Office Visit [facility] [address] [place] [address] Liz Malone FNP Dry eye of right side (Primary Dx); Primary hypertension 03/23/2025 Travel 03/22/2025 Refill [facility] [address] [place] [address] Chasidy Kimbrough MD Chronic migraine without aura without status migrainosus, not intractable 03/21/2025 Orders Only [facility] External Provider, [facility] 03/14/2025 Refill [facility] [address] [place] [address] Chasidy Kimbrough MD Primary hypertension 03/07/2025 Telephone [facility] [address] [place] [address] Chasidy Kimbrough MD Durable Medical Equipment (DME Request: Shower Chair and Grab Bars) 03/01/2025 Refill [facility] [address] [place] [address] Chasidy Kimbrough MD 02/28/2025 1:00 PM EDT Clinical Support [facility] [address] Darcie Thibodeaux RN Primary hypertension 02/28/2025 Travel 02/09/2025 Refill [facility] [address] [place] [address] Chasidy Kimbrough MD Chronic migraine without aura without status migrainosus, not intractable 02/09/2025 Refill [facility] [address] [place] [address] Chasidy Kimbrough MD Primary hypertension 02/06/2025 Telephone [facility] [address] [place] [address] Darcie Thibodeaux RN f/up from BP CHECK 02/02/2025 Orders Only [facility] External Provider, [facility] 01/31/2025 1:00 PM EDT Clinical Support [place] [address] Jeannie Slaughter RN Primary hypertension 01/31/2025 Travel 01/19/2025 Results Follow-Up [facility] [address] [place] [address] Chasidy Kimbrough MD POCT Glucose, Lipid Panel, Standard, Albumin, Random Urine W/Creatinine, Comprehensive Metabolic Panel from Last 3 Months Immunizations Immunization Administration [...] years 1-dose series) 2025 Diabetes: Hemoglobin A1C 02/09/202508/12/ 025, 05/09/2024, 11/30/2023, Additional history exists COVID-19 [...] Procedure Name Priority Date/Time Associated Diagnosis Comments HELICOBACTER PYLORI, UREA BREATH TEST Routine 03/31/2025 11:24 AM EDT US ABDOMEN LIMITED Routine 03/23/2025 10 :14 AM EDT FL UPPER GI W BARIUM SWALLOW Routine 03/21/2025 8:[address] CHEST WO CONTRAST Routine 02/03/2025 9:03 AM EDT ALBUMIN, RANDOM URINE W/CREATININE Routine 01/17/2025 1:17 [...] Recently Relevant to Health Maintenance Results * Helicobacter pylori, Urea Breath Test (03/31/2025 11:24 AM EDT) H. pylori Breath Test Negative Negative [facility] Comment:Antimicrobials, prot on pump inhibitors and bismuthpreparations are known to suppress H. pylori. Ingestingthese medications within two weeks prior to performing thebreath test may produce negative test results. A positiveresult is still clinically valid. 03/31/2025 11:2 4 AM EDT 03/31/2025 3:14 PM EDT us Generic External Data Provider LAB BODY FLUIDS A ND STOOLS ORDERABLES Final Result Performing Organization Address City/State/[facility] Co de Phone Number [facility] [address] [place] [phone] * US Abdomen Limited (03/23/2025 10:14 AM EDT) Anatomical Region Laterality Modality Abdomen Ultrasound 03/23/2025 10:1 4 AM EDT Narrative 03/23/2025 10:15 AM EDT [address] [address] Ultrasound Report Signed Patient: Cynthia Stuart MR#: [id number] : 1965 Acct:[id number] Age/Sex: 60 / F ADM Date: 03/22/25 Loc: HO.US Attending Dr: Margoth DE LA ROSA Ordering Physician: Margoth White Date of Service: 03/22/25 Procedure(s): US abdomen limited Accession Number(s): [id number] cc: Chasidy Kimbrough; Margoth White Reason for [...] 03/23/25 1014 DD/ 1014 TD/TT: 03/23/25 1014 Specification Consultant: Procedure Note Donotuseinterpreter, Image - 03/23/2025 [place] [address] Ultrasound Report Signed Patient: Cynthia Stuart OMR#: [id number] : 1965Acct:[id number] Age/Sex: 60 / FADM Date: 03/22/25 Loc: HO.US Attending Dr: Margoth ZHONG-NADEGE Ordering Physician: Margoth White Date of Service: 03/22/25 Procedure(s): US abdomen limited Accession Number(s): [id number] cc: Chasidy Kimbrough; Margoth White NATURAL HISTORY COLLECTIONS CURATOR-NADEGE Reason for Exam: K43.2 - Incisional hernia [...] 03/23/25 1014 DD/ 1014 TD/TT: 03/23/25 1014 Specification Consultant: us [facility] External Provider IMG US PROCEDURES Final Result * FL Upper GI w/Barium Swallow (03/21/2025 8:10 AM EDT) Anatomical Region Laterality Modality Body Radiographic Cecily ging 03/21/2025 8:10 AM EDT Narrative 03/21/2025 11:32 AM EDT [address] [address] Fluoroscopy Report Signed Patient: Cynthia Stuart MR#: [id number] : 1965 Acct:[id number] Age/Sex: 60 / F ADM Date: 03/21/25 Loc: HOJACK Attending Dr: Margoth HILLMANP- Ordering Physician: Margoth White Date of Service: 03/21/25 Procedure(s): FL upper GI w Ba Swallow Accession Number(s): [id number] cc: Chasidy Kimbrough; Margoth White NATURAL HISTORY COLLECTIONS CURATOR-NADEGE Reason for Exam: K21.9 - Gastro-esophageal reflux [...] 03/21/25 1129 DD/ 0810 TD/TT: 03/21/25 0900 Specification Consultant: Procedure Note Donotuseinterpreter, Image - 03/21/[address] [address] Fluoroscopy Report Signed Patient: Cynthia Stuart OMR#: [id number] : 1965Acct:[id number] Age/Sex: 60 / FADM Date: 03/21/25 Loc: HOJACK Attending Dr: Margoth HILLMANPMADALYN Ordering Physician: Margoth White Date of Service: 03/21/25 Procedure(s): FL upper GI w Ba Swallow Accession Number(s): [id number] cc: Chasidy Kimbrough; Margoth WhiteNADEGE Reason for Exam: K21.9 - Gastro-esophageal reflux [...] 03/21/25 1129 DD/ 0810 TD/TT: 03/21/25 0900 Specification Consultant: MERLYN [facility] External Provider IMG FLU OROSCOPY PROCEDURES Final Result * CT Chest w/o Contrast (02/03/2025 9:03 AM EDT) Anatomical Region Laterality Modality Body, Chest Computed Tomogra phy 02/03/2025 9:03 AM EDT Narrative 02/03/2025 9:04 AM EDT [place] [address] CT Scan Report Signed Patient: Cynthia Stuart MR#: [id number] : 1965 Acct:[id number] Age/Sex: 60 / F ADM Date: 02/02/25 Loc: HO.CT Attending Dr: Mg Moore MD Ordering Physician: Mg Moore MD Date of Service: 02/02/25 Procedure(s): CT chest wo IV con Accession Number(s): [id number] cc: Chasidy Kimbrough; Mg Moore MD Report Number: [id number]: Total DLP = 152.00 mGy-cm CLINICAL HISTORY: [...] in OV> 02/03/25903 DD/ 2 TD/TT: 02/03/25902 Specification Consultant: Procedure Note Donotuseinterpreter, Image - 02/03/[address] [place] [address] [address] Scan Report Signed Patient: Cynthia Stuart OMR#: [id number] : 1965Acct:[id number] Age/Sex: 60 / FADM Date: 02/02/25 Loc: .CT Attending Dr: Mg Moore MD Ordering Physician: Mg Moore MD Date of Service: 02/02/25 Procedure(s): CT chest wo IV con Accession Number(s): [id number] cc: Chasidy Kimbrough; Mg Moore MD Report Number: [id number]: Total DLP = 152.00 mGy-cm CLINICAL HISTORY: [...] in OV> 02/03/25903 DD/ 2 TD/TT: 02/03/25902 Specification Consultant: [facility] External Provider IMG CT PROCEDURES Final Result * Albumin, Random Urine W/Creatinine (01/17/2025 1:17 PM EDT) Creatinine, Urine 243.58 mg/dL [facility] Microalbumin Urine 49.0 mg/L [facility] Microalbum Creatinine Ratio Ur 20.1 <30 ug/mg cr [facility] Comment:Albumin/Creatinine R atio Reference Ranges: Normal: < 30 ug/mg creatinine Microalbuminuria: 30 - 300 ug/mg creatinineClinical Albuminuria: > 300 ug/mg creatinine Urine (Urine, Random) 01/17/2025 1:17 PM EDT 01/17/2025 3:57 PM EDT Chasidy Kimbrough MD LAB URINE ORDERABLES Final Res ult [facility] [address] [place] [address] [phone] * (ABNORMAL) Lipid Panel, Standard (01/17/2025 1:17 PM EDT) Triglycerides 99 <150 mg/dL [facility] Comment:Desirable Triglyceri de: less than 150 mg/dLBorderline High Triglyceride 150-199 mg/dLHigh Triglyceride: 200-499 mg/dLVery High Triglyceride: greater than or equal to 5OO mg/dL Cholesterol 223(H) <200 mg/dL [facility] Comment:Desirable Cholestero l: less than 200 mg/dLBorderline High Cholesterol: 200-239 mg/dLHigh Cholesterol: greater than 239 mg/dL LDL Cholesterol Calculated 143(H) <100 mg/dL [facility] Comment:Desirable LDL: less than 100 mg/dLNear Optimal/Above Optimal LDL: 110- 129 mg/dLBorderline High LDL: 130-159 mg/dLHigh LDL: 160-189 mg/dLVery High LDL: greater than or equal to 190 mg/dL HDL Cholesterol 61 >40 mg/dL [facility] Comment:Desirable HDL: great er than 40 mg/dL Note: This HDL assay may give artificially low results in patients with liver disease. Blood Venous blood specimen / Unknown 01/17/2025 1:17 PM EDT 01/17/2025 4:03 PM EDT Chasidy Kimbrough MD LAB BLOOD ORDERABLES Final Res ult [facility] [address] [place] [phone] [phone] * Colonoscopy (12/14/2024) Anatomical Region Laterality Modality Endoscopy Other Impressions 12/14/2024 7-8mm polyp, adenomatous us Historical Provider ENDOSCOPY PROCEDURE ORDER KEELY Final Result * BI Mammogram Screening Tomosynthesis Bilateral (09/27/2024 1:34 PM EDT) Anatomical Region Laterality Modality Breast Bilateral Mammography 09/27/2024 1:34 PM EDT Narrative 10/08/2024 11:06 AM EDT [address] [place] [address] Mammography Report Signed Patient: Cynthia Stuart MR#: [id number] : 1965 Acct:[id number] Age/Sex: 59 / F ADM Date: 09/27/24 Loc: HO.MAMMO Attending Dr: Chasidy Kimbrough MD Ordering Physician: Chasidy Kimbrough Results: 2Benign F indings Date of Service: 09/27/24 Follow Up: 1 Year From Orig ina Mammogram Procedure(s): MM tomosynthesis screening BI Accession Number(s): [id number] cc: Chasidy Kimbrough EXAMINATION: MM SCREENING DIGITAL [...] 10/08/24 1103 DD/ 1334 TD/TT: 09/27/24 1357 Specification Consultant: Procedure Note Donotuseinterpreter, Image - 10/08/2024 [facility] [address] [place], [place] [address] Mammography Report Signed Patient: Cynthia Stuart OMR#: [id number] : 1965Acct:[id number] Age/Sex: 59 / FADM Date: 09/27/24 Loc: HO.MAMMO Attending Dr: Chasidy Kimbrough MD Ordering Physician: Jian Kimborughults: 2Benireed F indings Date of Service: 09/27/24Follow Up: 1 Year From [facility] Mammogram Procedure(s): MM tomosynthesis screening BI Accession Number(s): [id number] cc: Chasidy Kimbrough EXAMINATION: MM SCREENING DIGITAL [...] 10/08/24 1103 DD/ 1334 TD/TT: 09/27/24 1357 Specification Consultant: Result [facility] Chasidy Kimbrough MD IMG BI PROCEDURES Edited Resul t - Final * (ABNORMAL) POCT HGB A1C (08/12/2024 1:08 PM EST) Hemoglobin A1C 6.6(A) 4.0 - 6.0 % QC Media Lot # [id number] Lot# Expiration Date Blood 08/12/2024 1:08 PM EST Result [facility] Chasidy Kimbrough MD POINT OF CARE TEST ENTER/EDIT ORDERABLES Final Result * Hepatitis Panel, General (05/09/2024 4:30 PM EST) Hepatitis A IgM Nonreactive Nonreactive [facility] Comment:IgM antibodies to GALAVIZ V not detected; does not exclude earlyacute or recovered HAV infection. ~Hepatitis B Surface Antibody REACTIVE Nonreactive [facility] Comment:REACTIVE: > 11.99 mI U/mL Hepatitis B Core Antibody Nonreactive Nonreactive [facility] Hepatitis C Antibody Nonreactive Nonreactive [facility] Comment:Antibodies to HCV no t detected; does not exclude early acuteHCV infection. Hepatitis B Surface Ag Negative Negative [facility] Blood 05/09/2024 4:30 PM EST 05/09/2024 5:40 PM EST Dano Morris MD LAB BLOOD ORDERABLES Fin al Result Performing Organization Address City/[facility]/ZIP Co de Phone Number [facility] [address] [place] [phone] * HIV-1/2 Antigen and Antibodies, Fourth Generation, with Reflexes (11/30/2023 1:19 PM EDT) HIV AB/AG Nonreactive Nonreactive [facility] Comment:HIV-1 p24 Ag and/or HIV-1/HIV-2 Ab not detected.A test result that is nonreactive does not exclude thepossibility of exposure to or infection with HIV-1 and/orHIV-2. Nonreactive results in this assay for individualswith prior exposure to HIV-1 and/or HIV-2 may be due toantigen and antibody levels that are below the limit ofdetection of this assay.The [employer] HIV Ag/Ab Combo assay result andsupplemental assay results should be interpreted inconjunction with the patient's clinical presentation,history and other laboratory results. If the results areinconsistent with clinical evidence, additional testing issuggested to confirm the result. Blood Venous blood specimen / Unknown 11/30/2023 1:19 PM EDT 11/30/2023 3:56 PM EDT us Chasidy Kimbrough MD LAB BLOOD ORDERABLES Final Res ult Performing Organization Address [facility]/ZIP Co de Phone Number [facility] [address] [place] [address] [phone] from Last 3 Months or Most Recently Relevant to Health Maintenance Insurance [facility] C3 Care Teams Home Appliance Tech Relationship Specialty Start Date End Date Chasidy Kimbrough MD [address] [place] [phone] PCP - General Family Medicine 02/14/21
--- OUTSIDE RECORDS SUMMARY | 2025-04-21 13:16 | XMS_ITS | Encounter Summary ---
Author Organization [employer] Address 75 [facility] 7t [place] [address] Care Team Providers Care Produce Sorter Name Role Phone Chasidy Kimbrough MD Primary Care Provider [phone] Reason for Visit * Reason Comments Med Refill Encounter Details Date Type Department Care Team ([facility] st Contact Info) Description 02/09/2025 Refill [facility] [address] [place], [place] [phone] Chasidy Kimbrough MD [address] [place], [place] [phone] Primary hypertension Social History Tobacco Use Types [...] documented as of this encounter Care Teams Produce Sorter Relationship Specialty Start Date End Date Chasidy Kimbrough MD [address] [place] [address] PCP - General Family Medicine 02/14/21 documented as of this encounter
--- OUTSIDE RECORDS SUMMARY | 2025-04-21 13:16 | XMS_ITS | Encounter Summary ---
Author Organization [employer] Address 75 [facility] 7t [place] [address] Care Team Providers Care Machine Bender Name Role Phone Chasidy Kimbrough MD Primary Care Provider [phone] Reason for Referral * Consultation (Routine) - Closed Specialty Diagnoses / Procedures Referred By Conthemal t Referred To Contact Gastroenterology Diagnoses Other dysphagia Chasidy Kimbrough MD [address] [place] [address] Phone: tel: fax: [address] Phone: tel: fax: Referral ID Status Reason Start Date Expiration Date V isits Requested Visits Authorized [id number] Closed Specialty Services Required 01/02/2024 01/01/2025 6 6 Encounter Details Date Type Department Care Team (Late st Contact Info) Description 12/30/2023 Orders Only [facility] [address] [place], [place] [phone] Chasidy Kimbrough MD [address] [place] [address] Other dysphagia (Primary Dx) Social [...] documented as of this encounter Care Teams Machine Bender Relationship Specialty Start Date End Date Chasidy Kimbrough MD [address] [place] [address] PCP - General Family Medicine 02/14/21 documented as of this encounter
--- OUTSIDE RECORDS SUMMARY | 2025-04-21 13:16 | XMS_ITS | Encounter Summary ---
Author Organization [employer] Address 75 [facility] [address] [place] [address] Care Team Providers Care Certified Medical Assistant Name Role Phone Chasidy Kimbrough MD Primary Care Provider [phone] Reason for Referral * Consultation (Routine) - Authorized Specialty Diagnoses / Procedures Referred By Conthemal t Referred To Contact Rheumatology Diagnoses Tenosynovitis of finger Elevated erythrocyte sedimentation rate Positive DANO (antinuclear antibody) Chasidy Kimbrough MD [address] [place] [phone] Phone: tel: fax: [facility] [address] [place] [address] Phone: tel: fax: Referral ID Status Reason Start Date Expiration Date Visits Requested Visits Authorized [id number] Authorized Specialty Services Required 4 05/25/2025 6 6 Encounter Details Date Type Department Care Team (Late st Contact Info) Description 05/16/2024 Orders Only [facility] [address] [place] [address] [phone] Chasidy Kimbrough MD [address] [place] [address] [phone] Tenosynovitis of finger (Primary Dx); Elevated erythrocyte [...] documented as of this encounter Care Teams Certified Medical Assistant Relationship Specialty Start Date End Date Chasidy Kimbrough MD [address] [place] [address] PCP - General Family Medicine 02/14/21 documented as of this encounter
--- OUTSIDE RECORDS SUMMARY | 2025-04-21 13:16 | XMS_ITS | Encounter Summary ---
Author Organization [employer] Address 75 [facility] 7t [place] [address] Care Team Providers Care Plasterer Tender Name Role Phone Chasidy Kimbrough MD Primary Care Provider [phone] Reason for Referral * Consultation (Routine) - Authorized Specialty Diagnoses / Procedures Referred By Conthemal esposito Referred To Contact Neurology Diagnoses Memory loss Chasidy Kimbrough MD [address] [place] [address] Phone: tel: fax: [facility] Referral ID Status Reason Start Date Expiration Date Visits Requested Visits Authorized [id number] Authorized Specialty Services Required 07/18/2024 07/18/2025 6 6 Encounter Details Date Type Department Care Team ([facility] st Contact Info) Description 07/13/2024 Orders Only [facility] [address] [place], [place] [phone] Chasidy Kimbrough MD [address] [place], [place] [phone] Memory loss (Primary Dx) Social History Tobacco [...] documented as of this encounter Care Teams Plasterer Tender Relationship Specialty Start Date End Date Chasidy Kimbrough MD [address] [place] [address] PCP - General Family Medicine 02/14/21 documented as of this encounter
--- OUTSIDE RECORDS SUMMARY | 2025-04-21 13:16 | XMS_ITS | Encounter Summary ---
Author Organization [email or web address] Address 75 [facility] 7t [place] [address] Care Team Providers Care Furniture Painter Name Role Phone Chasidy Kimbrough MD Primary Care Provider [phone] Reason for Visit * Reason Comments Med Refill Encounter Details Date Type Department Care Team ([facility] st Contact Info) Description 03/01/2025 Refill [facility] [address] [place] [address] Chasidy Kimbrough MD [address] [place], [place] [phone] Social History Tobacco Use Types Packs/Day Years [...] documented as of this encounter Care Teams Furniture Painter Relationship Specialty Start Date End Date Chasidy Kimbrough MD [address] [place] [phone] PCP - General Family Medicine 02/14/21 documented as of this encounter
== END 2025-04-21 11:24 | disposition home or self-care (01) ==
LOC: HO.HOS 11:03
PROVIDERS: PCP General Practice; Visit Provider Physician Assistant
DX: M17.0 Bilateral primary osteoarthritis of knee (principal)
CPT/HCPCS: 20610

== ENCOUNTER → 2025-04-21 11:03 | Outpatient (BNVA) | payer MEDICAID, SELFPAY | PROVIDERS: PCP General Practice; Visit Provider Physician Assistant | DX: M17.0 Bilateral primary osteoarthritis of knee (principal); M25.561 Pain in right knee; M25.562 Pain in left knee; G89.29 Other chronic pain | CPT/HCPCS: 20610; J0665; J1100; J2003 ==

== ENCOUNTER 2025-05-05 14:40 | Outpatient (AMB) | payer MEDICAID, SELFPAY ==
--- NOTE | 2025-05-05 14:46 | MHC.OFFVIS ---
Vital Signs 05/05/25 14:47 Height 5 ft 5 in Weight 181 lb BMI 30.1 BP 142/82 H Blood Pressure Location Rt brachial Position Sitting Pulse 74 Pulse Source Pulse Oximeter Pulse Oximetry (%) 100 Oxygen Delivery Method Room Air Intake Visit Reasons: Pulm Nodule Bonding Machine Setter Required: Yes Bonding Machine Setter Name: Kristen Trimble Rosario Information Interpreted: non-clinical & clinical Allergies trazodone (TRAZODONE) Allergy (Intermediate, Verified 05/05/25 14:53) PROLONGED QT INTERVAL (PER H&P) HPI HPI Pulm Nodule: Details: 60-year-old lady, lifetime nonsmoker, followed for an incidental finding of a new (as compared to scan 3 years prior) right lower lobe [address] abdomen obtained secondary to abdominal pain. She has been monitored with sequential CT chest with no changes in her pulmonary nodules. She denies any pulmonary related concerns or complaints dyspnea PFSH Medical History Helicobacter pylori (H. pylori) Diabetes education, encounter for GERD (gastroesophageal reflux disease) Asthma Elevated cholesterol PONV (postoperative nausea and vomiting) Diabetes Tietze syndrome Kidney calculi Depression HTN (hypertension) Surgical History Hx of colonoscopy History of esophagogastroduodenoscopy (EGD) History of umbilical hernia repair History of ventral hernia repair History of cystoscopy Hx of cholecystectomy History of excision of mass H/O: hysterectomy Family History Father Throat cancer Maternal Aunt Breast cancer Social History Household Members: None Household Members Other:: pt. lives alone. 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 Sexual orientation: Straight/Heterosexual Review of Systems Const Denies daytime sleepiness, Denies excessive sweating, Denies fatigue, Denies fever(s), Denies lethargy, Denies malaise, Denies night sweats, Denies snoring and Denies weight loss Eyes Denies blurry vision and Denies itchy eyes ENT Denies nasal congestion, Denies post nasal drip, Denies sinus pain, Denies sinus pressure and Denies other ( Thrush) Card Denies chest pain, Denies pedal edema, Denies dyspnea, Denies orthopnea and Denies paroxysmal nocturnal dyspnea Resp Denies cough, Denies hemoptysis, Denies excessive phlegm production, Denies dyspnea, Denies snoring and Denies wheezing GI Denies abdominal pain and Denies heartburn Musc Denies myalgias, Denies arthralgias and Denies joint swelling Skin/Breast Denies rash Neuro Denies memory loss and Denies seizure-like activity Psych Denies abnormal sleep pattern, Denies anxiety and Denies memory loss Endo Denies excessive sweating, Denies fatigue and Denies heat intolerance Chaim/Lymph Denies easy bruising Aller/Immun Denies itchy eyes, Denies seasonal rhinorrhea and Denies wheezing Physical Exam Vital Signs: Last Vital Signs Pulse 74 05/05/25 14:47 BP 142/82 H 05/05/25 14:47 Pulse Ox 100 05/05/25 14:47 Oxygen Delivery Method Room Air 05/05/25 14:47 BMI result Body Mass Index 30.1 Const General: no acute distress and alert Nutritional Appearance: not obese Orientation/consciousness: Other orientation findings ( oriented) HEENT Head: Yes atraumatic Eyes General: appearance normal, both eyes and all related structures Sclerae: sclerae normal EOM: EOMs intact bilaterally Neck Neck: Yes supple Lymphatic: no lymphadenopathy noted Resp Effort & Inspection: normal respiratory effort and no use of accessory muscles Auscultation: clear to auscultation bilaterally Cardio Rate: regular rate Rhythm: regular rhythm Heart sounds: no gallops, no murmurs and no rubs Skin General skin exam: other ( warm) Extrem General: No clubbing, No cyanosis and No edema Assessment & Plan Assessment & Plan (1) Asthma: Code(s): J45.909 - Unspecified asthma, uncomplicated Category: Medical Plan: Well controlled on Spiriva and albuterol MDI. Continue current regimen. (2) Pulmonary nodules: Code(s): R91.8 - Other nonspecific abnormal finding of lung field Category: Medical Plan: Results of follow-up CT chest reviewed, stable pulmonary nodules, will repeat CT chest in 12 months. Coding Level of Care Code Est Pt Level 4 (57679) Diagnoses Asthma J45.909 Pulmonary nodules R91.8
[2025-05-05 14:47] VITALS: BP 142/82; PULSE 74; O2SAT 100; BMI 30.1
--- OUTSIDE RECORDS SUMMARY | 2025-05-05 14:57 | XMS_ITS | Encounter Summary ---
Author Organization [employer] Address [address] [facility] [address] [place] [address] Care Team Providers Care Head Gauge Unit Operator Name Role Phone Chasidy Kimbrough MD Primary Care Provider [phone] Reason for Referral * Consultation (Routine) - Authorized Specialty Diagnoses / Procedures Referred By Conthemal t Referred To Contact Rheumatology Diagnoses Tenosynovitis of finger Elevated erythrocyte sedimentation rate Positive DANO (antinuclear antibody) Chasidy Kimbrough MD [address] [place] [phone] Phone: tel: fax: [facility] [address] [place] [address] Phone: tel: fax: Referral ID Status Reason Start Date Expiration Date Visits Requested Visits Authorized [id number] Authorized Specialty Services Required 4 05/25/2025 6 6 Encounter Details Date Type Department Care Team (Late st Contact Info) Description 05/16/2024 Orders Only [facility] MEDICINE [address] [place] [address] [phone] Chasidy Kimbrough MD [address] [place] [phone] Tenosynovitis of finger (Primary Dx); Elevated erythrocyte [...] documented as of this encounter Care Teams Head Gauge Unit Operator Relationship Specialty Start Date End Date Chasidy Kimbrough MD [address] [place] [address] PCP - General Family Medicine 02/14/21 documented as of this encounter
--- OUTSIDE RECORDS SUMMARY | 2025-05-05 14:57 | XMS_ITS | Encounter Summary ---
Author Organization [employer] Address [address] [facility] [address]t [place] [address] Care Team Providers Care Tank Pumper Name Role Phone Chasidy Kimbrough MD Primary Care Provider [phone] Reason for Visit * Reason Comments Med Refill Encounter Details Date Type Department Care Team ([facility] st Contact Info) Description 06/20/2024 Refill [facility] MEDICINE [address] [place], [place] [phone] Chasidy Kimbrough MD [address] [place], [place] [phone] Social History Tobacco Use Types Packs/Day Years [...] documented as of this encounter Care Teams Tank Pumper Relationship Specialty Start Date End Date Chasidy Kimbrough MD [address] [place] [id number] PCP - General Family Medicine 02/14/21 documented as of this encounter
--- OUTSIDE RECORDS SUMMARY | 2025-05-05 14:57 | XMS_ITS | Encounter Summary ---
Author Organization [employer] Address [address] [facility] [address] [place] [address] Care Team Providers Care Embossing Press Operator Name Role Phone Chasidy Kimbrough MD Primary Care Provider [phone] Reason for Visit * Reason Comments Med Refill Encounter Details Date Type Department Care Team ([facility] st Contact Info) Description 12/29/2022 Refill [facility] MEDICINE [address] [place], [place] [phone] Chasidy Kimbrough MD [address] [place], [place] [phone] Social History Tobacco Use Types Packs/Day Years [...] documented as of this encounter Care Teams Embossing Press Operator Relationship Specialty Start Date End Date Chasidy Kimbrough MD [address] [place] [address] PCP - General Family Medicine 02/14/21 documented as of this encounter
--- OUTSIDE RECORDS SUMMARY | 2025-05-05 14:57 | XMS_ITS | Encounter Summary ---
Author Organization [employer] Address [address] [facility] [address] [place] [address] Care Team Providers Care Electrical Design Technician Name Role Phone Chasidy Kimbrough MD Primary Care Provider [phone] Reason for Visit * Reason Comments Med Refill Encounter Details Date Type Department Care Team ([facility] st Contact Info) Description 02/09/2025 Refill [facility] MEDICINE [address] [place], [place] [phone] Chasidy Kimbrough MD [address] [place], [place] [phone] Primary hypertension Social History Tobacco Use Types [...] documented as of this encounter Care Teams Electrical Design Technician Relationship Specialty Start Date End Date Chasidy Kimbrough MD [address] [place] [address] PCP - General Family Medicine 02/14/21 documented as of this encounter
--- OUTSIDE RECORDS SUMMARY | 2025-05-05 14:57 | XMS_ITS | Encounter Summary ---
Author Organization [employer] Address [address] [facility] [address]t [place] [address] Care Team Providers Care Validation Analyst Name Role Phone Chasidy Kimbrough MD Primary Care Provider [phone] Encounter Details Date Type Department Care Team ([facility] st Contact Info) Description 08/31/2023 Telephone [facility] MEDICINE [address] [place], [place] [phone] Chasidy Kimbrough MD [address] [place], [place] [phone] Social History Tobacco Use Types Packs/Day Years [...] documented as of this encounter Care Teams Validation Analyst Relationship Specialty Start Date End Date Chasidy Kimbrough MD [address] [place] [address] PCP - General Family Medicine 02/14/21 documented as of this encounter
--- OUTSIDE RECORDS SUMMARY | 2025-05-05 14:57 | XMS_ITS | Encounter Summary ---
Author Organization [employer] Address [address] [facility] [address] [place] [address] Care Team Providers Care Family Member Caretaker Name Role Phone Chasidy Kimbrough MD Primary Care Provider [phone] Reason for Referral * Consultation (Routine) - Authorized Specialty Diagnoses / Procedures Referred By Conthemal esposito Referred To Contact Neurology Diagnoses Memory loss Chasidy Kimbrough MD [address] [place] [address] Phone: tel: fax: [facility] Referral ID Status Reason Start Date Expiration Date Visits Requested Visits Authorized [id number] Authorized Specialty Services Required 07/18/2024 07/18/2025 6 6 Encounter Details Date Type Department Care Team ([facility] st Contact Info) Description 07/13/2024 Orders Only [facility] MEDICINE [address] [place], [place] [phone] Chasidy Kimbrough MD [address] [place], [place] [phone] Memory loss (Primary Dx) Social History Tobacco [...] documented as of this encounter Care Teams Family Member Caretaker Relationship Specialty Start Date End Date Chasidy Kimbrough MD [address] [place] [address] PCP - General Family Medicine 02/14/21 documented as of this encounter
--- OUTSIDE RECORDS SUMMARY | 2025-05-05 14:57 | XMS_ITS | Clinical Summary ---
Author Organization [employer] Address [address] [facility] 7[address] [place] [address] Care Team Providers Care Load Test Mechanic Name Role Phone Chasidy Kimbrough MD Primary Care Provider [phone] Allergies Active Allergy Reactions Criticality Noted Date [...] complication, without long-term current use of insulin ([facility]) TEST BLOOD SUGAR TWICE DAILY [...] 90 capsule 11 05/09/20 24 2024 Active ARIPiprazole (Abilify) 20 MG tablet Take [...] by mouth with evening meal. 08/08/19 Active OLANZapine (ZyPREXA) 2.5 MG tablet [...] SLEEP 180 tablet 3 03/15/20 25 Active TRUEplus Lancets 33G miscIndications :Type 2 diabetes mellitus without complication, without long-term current use of insulin ([facility]) TEST BLOOD SUGAR TWICE DAILY DIRECTED 100 each 3 03/31/20 25 Active polyvinyl alcohol (Liquifilm Tears) 1.4 % ophthalmic solutionIndicat ions:Dry eye of right side PLACE 1 TO 2 DROPS IN EACH EYE EVERY 2 TO 4 HOURS 15 mL 1 04/26/20 25 Active butalbital-acet aminophen-caffe ine 50-325-40 MG tabletIndicatio ns:Chronic migraine without aura without status migrainosus, not intractable TAKE 1 TABLET BY MOUTH EVERY 6 HOURS NEEDED FOR MIGRAINE DO NOT EXCEED 2 TABLETS PER WEEK 10 tablet 10:08 AM EST 04/26/20 25 Active butalbital-acet aminophen-caffe ine 50-325-40 MG tabletIndicatio ns:Chronic migraine without aura without status migrainosus, not intractable TAKE 1 TABLET BY MOUTH EVERY 6 HOURS NEEDED FOR MIGRAINE. DO NOT EXCEED 2 TABLETS PER WEEK. 10 tablet 03/22/20 25 2024 Discontinued(R eorder (will not trigger notification to Pharmacy)) polyvinyl alcohol (Liquifilm Tears) 1.4 % ophthalmic solutionIndicat ions:Dry eye of right side 1-2 drops in both eyes every 2-4 hrs 15 mL 1 03/23/20 25 2024 Discontinued Active Problems Problem Noted Date Diagnosed [...] Continue followup with prescriber and therapist No YENI/LINN Talked about grounding exercises Hyperlipidemia associated with [...] Encounters Date Type Department Care Team Description 04/25/2025 Refill [facility] [address] [phone] Okhipo, Liz, DEGREASER OPERATOR Dry eye of right side; Chronic migraine without aura without status migrainosus, not intractable 04/25/2025 Refill [facility] [address] [place] [address] Chasidy Kimbrough MD Chronic migraine without aura without status migrainosus, not intractable 03/31/2025 Orders Only GENERIC EXTERNAL DATA DEPARTMENT Provider, Generic External Data 03/30/2025 Refill [facility] [address] [place] [address] Hawa Zambrano, DEGREASER OPERATOR Type 2 diabetes mellitus without complication, without long-term current use of insulin ([facility]) 03/23/2025 3:40 PM EDT Office Visit [facility] [address] [place] [address] Liz Malone, DEGREASER OPERATOR Dry eye of right side (Primary Dx); Primary hypertension 03/23/2025 Travel 03/22/2025 Refill [facility] [address] [place] [address] Chasidy Kimbrough MD Chronic migraine without aura without status migrainosus, not intractable 03/21/2025 Orders Only [facility] External Provider, [facility] 03/14/2025 Refill [facility] [address] [place] [address] Chasidy Kimbrough MD Primary hypertension 03/07/2025 Telephone [facility] [address] [place] [address] Chasidy Kimbrough MD Durable Medical Equipment (DME Request: Shower Chair and Grab Bars) 03/01/2025 Refill [facility] [address] [place], [place] [phone] Chasidy Kimbrough MD 02/28/2025 1:00 PM EDT Clinical Support [facility] [address] [place] [address] Darcie Thibodeaux, YOVANY Primary hypertension 02/28/2025 Travel 02/09/2025 Refill [facility] [address] [place] [address] Chasidy Kimbrough MD Chronic migraine without aura without status migrainosus, not intractable 02/09/2025 Refill [facility] [address] [place] [address] Chasidy Kimbrough MD Primary hypertension 02/06/2025 Telephone [facility] [address] [place] [address] Darcie Thibodeaux RN f/up from BP CHECK 02/02/2025 Orders Only [facility] External Provider, [facility] from Last 3 Months Immunizations Immunization Administration [...] Comments CT Colonography 1965 FIT DNA/Cologuard 1965 FOBT 1965 Sigmoidoscopy 1965 Diabetes: Foot Exam 1975 Eye Exam 1975 Pneumococcal Vaccine: 50+ Years (1 of 2 - PCV) 01/16/1984 Pap Smear 1986 HPV/Cotest 1995 RSV Patients and Patients Aged 60 years or older (1 - Risk 50-74 years 1-dose series) 2015 FIT 11/14/2022 11/14/2021 Diabetes: Hemoglobin A1C 02/09/2025 025, 05/09/2024, 11/30/2023, Additional history exists COVID-19 Vaccine ( season) 2025 09/08/2023, 11/22/2021, 05/30/2021, Additional history exists Influenza Vaccine (#1) 2025 , 03/16/2023, 05/18/2019, Additional history exists SDOH Screening 04/28/2025 04/28/2024 Mammogram 09/27/2025 09/27/2024, 10/14, 11/04/2023, Additional history exists Alcohol/Substance Use Screening 11/15/2025 11/15/2024 Disability Screening 11/15/2025 11/15/2024 Depression Screening 01/16/2026 01/16/2025, 01/17/20 Diabetes: Urine Protein Screening 01/17/2026 01/17/2025, 11/30/2023, 05/07/2020, Additional history exists Lipid Panel 01/17/2026 01/17/2025, 11/13, 12/22/2022, Additional history exists Tobacco Screening 03/23/2026 03/23/2025 DTaP/Tdap/Td Vaccines (3 - Td or Tdap) 08/09/2028 08/09/2018, 07/03/2016, 08/20/2007, Additional history exists Colonoscopy 12/14/2029 12/14/2024, 11/25/2024 Colorectal Cancer Screening 12/14/2029 Hepatitis B Vaccines [...] on patient's age to complete this topic Goals Goal Patient Goal Type Associated Problems Recent Progress Patient-Stated? Author Help patients manage their type 2 diabetes Care Plan Help patients manage their type 2 diabetes Kristen Swain LPN Weekly blood pressure task Care Plan Weekly blood pressure task No Kristen Banerjee LPN Help patients manage their type 2 diabetes Care Plan Help patients manage their type 2 diabetes No Kristen Banerjee LPN Patient has chronic kidney disease Care Plan Patient has chronic kidney disease No Kristen Banerjee LPN Weekly blood pressure task Care Plan Weekly blood pressure task No Kristen Banerjee LPN Patient has chronic kidney disease Care Plan Patient has chronic kidney disease No Kristen Banerjee LPN Procedures Procedure Name Priority Date/Time Associated Diagnosis [...] complication, without long-term current use of insulin (CMS/[facility]) LIPID PANEL, STANDARD Routine 01/17/2025 1:17 PM EDT Type 2 diabetes mellitus without complication, without long-term current use of insulin (CMS/[facility]) COLONOSCOPY Routine 12/14/2024 BI MAMMOGRAM SCREENING TOMOSYNTHESIS [...] EDT) H. pylori Breath Test Negative Negative [facility] Comment:Antimicrobials, prot on pump inhibitors and bismuthpreparations are known to suppress H. pylori. Ingestingthese medications within two weeks prior to performing thebreath test may produce negative test results. A positiveresult is still clinically valid. 03/31/2025 11:2 4 AM EDT 03/31/2025 3:14 PM EDT us Generic External Data Provider LAB BODY FLUIDS A ND STOOLS ORDERABLES Final Result Performing Organization Address City/State/[facility] Co de Phone Number [facility] [address] [place] [phone] * US Abdomen Limited (03/23/2025 10:14 AM EDT) Anatomical Region Laterality Modality Abdomen Ultrasound 03/23/2025 10:1 4 AM EDT Narrative 03/23/2025 10:15 AM EDT [address] [address] Ultrasound Report Signed Patient: Cynthia Stuart MR#: [id number] : 1965 Acct:[id number] Age/Sex: 60 / F ADM Date: 03/22/25 Loc: HO.US Attending Dr: Margoth DE LA ROSA Ordering Physician: Margoth White Date of Service: 03/22/25 Procedure(s): US abdomen limited Accession Number(s): [id number] cc: Chasidy Kimbrough; Margoth White Reason for [...] 03/23/25 1014 DD/ 1014 TD/TT: 03/23/25 1014 Self Defense Instructor: Procedure Note Donotuseinterpreter, Image - 03/23/2025 [place] [address] Ultrasound Report Signed Patient: Cynthia Stuart OMR#: [id number] : 1965Acct:[id number] Age/Sex: 60 / FADM Date: 03/22/25 Loc: HO.US Attending Dr: Margoth DE LA ROSA Ordering Physician: Margoth White Date of Service: 03/22/25 Procedure(s): US abdomen limited Accession Number(s): [id number] cc: Chasidy Kimbrough; Margoth WhiteNADEGE Reason for Exam: K43.2 - Incisional hernia [...] 03/23/25 1014 DD/ 1014 TD/TT: 03/23/25 1014 Self Defense Instructor: [facility] External Provider IMG US PROCEDURES Final Result * FL Upper GI w/Barium Swallow (03/21/2025 8:10 AM EDT) Anatomical Region Laterality Modality Body Radiographic Cecily ging 03/21/2025 8:10 AM EDT Narrative 03/21/2025 11:32 AM EDT [address] [address] Fluoroscopy Report Signed Patient: Cynthia Stuart MR#: [id number] : 1965 Acct:[id number] Age/Sex: 60 / F ADM Date: 03/21/25 Loc: RUSSEL Attending Dr: Margoth DE LA ROSA Ordering Physician: Margoth White Date of Service: 03/21/25 Procedure(s): FL upper GI w Ba Swallow Accession Number(s): [id number] cc: Chasidy Kimbrough; Margoth White DEGREASER OPERATOR-NADEGE Reason for Exam: K21.9 - Gastro-esophageal reflux [...] 03/21/25 1129 DD/ 0810 TD/TT: 03/21/25 0900 Self Defense Instructor: Procedure Note Donotuseinterpreter, Image - 03/21/[address] [address] Fluoroscopy Report Signed Patient: Cynthia Stuart OMR#: [id number] : 1965Acct:[id number] Age/Sex: 60 / FADM Date: 03/21/25 Loc: HO.XRAY Attending Dr: Margoth White DEGREASER OPERATOR- Ordering Physician: Margoth White [facility] Date of Service: 03/21/25 Procedure(s): FL upper GI w Ba Swallow Accession Number(s): [id number] cc: Chasidy Kimbrough; Margoth White [facility] Reason for Exam: K21.9 - Gastro-esophageal [...] 03/21/25 1129 DD/ 0810 TD/TT: 03/21/25 0900 Self Defense Instructor: MERLYN [facility] External Provider IMG FLU OROSCOPY PROCEDURES Final Result * CT Chest w/o Contrast (02/03/2025 9:03 AM EDT) Anatomical Region Laterality Modality Body, Chest Computed Tomogra phy 02/03/2025 9:03 AM EDT Narrative 02/03/2025 9:04 AM EDT [address] [address] [address] Scan Report Signed Patient: Cynthia Stuart O MR#: [id number] : 1965 Acct:[id number] Age/Sex: 60 / F ADM Date: 02/02/25 Loc: HO.CT Attending Dr: Mg Moore MD Ordering Physician: Mg Moore MD Date of Service: 02/02/25 Procedure(s): CT chest wo IV con Accession Number(s): [id number] cc: Ashok Kimbrough Andrey MD Report Number: [id number]: Total DLP = 152.00 mGy-cm CLINICAL HISTORY: [...] in OV> 02/03/25903 DD/ 2 TD/TT: 02/03/25902 Self Defense Instructor: Procedure Note Donotuseinterpreter, Image - 02/03/[address] [address] [address] Scan Report Signed Patient: Cynthia Stuart OMR#: [id number] : 1965Acct:[id number] Age/Sex: 60 / FADM Date: 02/02/25 Loc: HO.CT Attending Dr: Mg Moore MD Ordering Physician: Mg Moore MD Date of Service: 02/02/25 Procedure(s): CT chest wo IV con Accession Number(s): [id number] cc: Chasidy Kimbrough; Mg Moore MD Report Number: [id number]: Total DLP = 152.00 mGy-cm CLINICAL HISTORY: [...] in OV> 02/03/25903 DD/ 2 TD/TT: 02/03/25902 Self Defense Instructor: [facility] External Provider IMG CT PROCEDURES Final Result * Albumin, Random Urine W/Creatinine (01/17/2025 1:17 PM EDT) Creatinine, Urine 243.58 mg/dL [facility] Microalbumin Urine 49.0 mg/L [facility] Microalbum Creatinine Ratio Ur 20.1 <30 ug/mg cr [facility] Comment:Albumin/Creatinine R atio Reference Ranges: Normal: < 30 ug/mg creatinine Microalbuminuria: 30 - 300 ug/mg creatinineClinical Albuminuria: > 300 ug/mg creatinine Urine (Urine, Random) 01/17/2025 1:17 PM EDT 01/17/2025 3:57 PM EDT Chasidy Kimbrough MD LAB URINE ORDERABLES Final Res ult [facility] [address] [place] [address] [phone] * (ABNORMAL) Lipid Panel, Standard (01/17/2025 1:17 PM EDT) Triglycerides 99 <150 mg/dL [facility] Comment:Desirable Triglyceri de: less than 150 mg/dLBorderline High Triglyceride 150-199 mg/dLHigh Triglyceride: 200-499 mg/dLVery High Triglyceride: greater than or equal to 5OO mg/dL Cholesterol 223(H) <200 mg/dL [facility] Comment:Desirable Cholestero l: less than 200 mg/dLBorderline High Cholesterol: 200-239 mg/dLHigh Cholesterol: greater than 239 mg/dL LDL Cholesterol Calculated 143(H) <100 mg/dL [facility] Comment:Desirable LDL: less than 100 mg/dLNear Optimal/Above Optimal LDL: 110- 129 mg/dLBorderline High LDL: 130-159 mg/dLHigh LDL: 160-189 mg/dLVery High LDL: greater than or equal to 190 mg/dL HDL Cholesterol 61 >40 mg/dL [facility] Comment:Desirable HDL: great er than 40 mg/dL Note: This HDL assay may give artificially low results in patients with liver disease. Blood Venous blood specimen / Unknown 01/17/2025 1:17 PM EDT 01/17/2025 4:03 PM EDT Chasidy Kimbrough MD LAB BLOOD ORDERABLES Final Res ult [facility] [address] [place] [phone] * Colonoscopy (12/14/2024) Anatomical Region Laterality Modality Endoscopy Other Impressions 12/14/2024 7-8mm polyp, adenomatous Historical Provider ENDOSCOPY PROCEDURE ORDER KEELY Final Result * BI Mammogram Screening Tomosynthesis Bilateral (09/27/2024 1:34 PM EDT) Anatomical Region Laterality Modality Breast Bilateral Mammography 09/27/2024 1:34 PM EDT Narrative 10/08/2024 11:06 AM EDT [facility] [address] [place] [address] Mammography Report Signed Patient: Cynthia Stuart MR#: [id number] : 1965 Acct:[id number] Age/Sex: 59 / F ADM Date: 09/27/24 Loc: HO.MAMMO Attending Dr: Chasidy Kimbrough MD Ordering Physician: Chasidy Kimbrough Results: 2Benign F indings Date of Service: 09/27/24 Follow Up: 1 Year From [facility] Mammogram Procedure(s): MM tomosynthesis screening BI Accession Number(s): [id number] cc: Chasidy Kimbrough EXAMINATION: MM SCREENING DIGITAL [...] 10/08/24 1103 DD/ 1334 TD/TT: 09/27/24 1357 Self Defense Instructor: Procedure Note Carlos, Image - 10/08/2024 [facility] [address] [place] [address] Dr. Hsieh, LYRIC [address] Mammography Report Signed Patient: Cynthia Stuart OMR#: [id number] : 1965Acct:[id number] Age/Sex: 59 / FADM Date: 09/27/24 Loc: HO.MAMMO Attending Dr: Chasidy Kimbrough MD Ordering Physician: Jian Kimbroughults: 2Bqi Soliz indjensen Date of Service: 09/27/24Follow Up: 1 Year From [facility] Mammogram Procedure(s): MM tomosynthesis screening BI Accession Number(s): [id number] cc: Chasidy Kimbrough EXAMINATION: MM SCREENING DIGITAL [...] 10/08/24 1103 DD/ 1334 TD/TT: 09/27/24 1357 Self Defense Instructor: Chasidy Kimbrough MD IMG BI PROCEDURES Edited [...] PM EST) Hepatitis A IgM Nonreactive Nonreactive [facility] Comment:IgM antibodies to GALAVIZ V not detected; does not exclude earlyacute or recovered HAV infection. ~Hepatitis B Surface Antibody REACTIVE Nonreactive [facility] Comment:REACTIVE: > 11.99 mI U/mL Hepatitis B Core Antibody Nonreactive Nonreactive [facility] Hepatitis C Antibody Nonreactive Nonreactive [facility] Comment:Antibodies to HCV no t detected; does not exclude early acuteHCV infection. Hepatitis B Surface Ag Negative Negative [facility] Blood 05/09/2024 4:30 PM EST 05/09/2024 5:40 PM EST Dano Morris MD LAB BLOOD ORDERABLES Fin al Result [facility] [address] [place] [phone] * HIV-1/2 Antigen and Antibodies, Fourth Generation, with Reflexes (11/30/2023 1:19 PM EDT) HIV AB/AG Nonreactive Nonreactive [facility] Comment:HIV-1 p24 Ag and/or HIV-1/HIV-2 Ab not detected.A test result that is nonreactive does not exclude thepossibility of exposure to or infection with HIV-1 and/orHIV-2. Nonreactive results in this assay for individualswith prior exposure to HIV-1 and/or HIV-2 may be due toantigen and antibody levels that are below the limit ofdetection of this assay.The [email or web address] HIV Ag/Ab Combo assay result andsupplemental assay results should be interpreted inconjunction with the patient's clinical presentation,history and other laboratory results. If the results areinconsistent with clinical evidence, additional testing issuggested to confirm the result. Blood Venous blood specimen / Unknown 11/30/2023 1:19 PM EDT 11/30/2023 3:56 PM EDT us Chasidy Kimbrough MD LAB BLOOD ORDERABLES Final Res ult [facility] [address] [place] [phone] from Last 3 Months or Most Recently Relevant to Health Maintenance Additional Health Concerns Active Problems Noted Date Diagnosed Date Help patients manage their type 2 diabetes 04/26 Weekly blood pressure task 04/26/2025 Help patients manage their type 2 diabetes 04/26 Patient has chronic kidney disease 04/26/2025 Weekly blood pressure task 04/26/2025 Patient has chronic kidney disease 04/26/2025 [facility] Care Teams Load Test Mechanic Relationship Specialty Start Date End Date Chasidy Kimbrough MD [address] [place] [phone] PCP - General Family Medicine 02/14/21
--- OUTSIDE RECORDS SUMMARY | 2025-05-05 14:58 | XMS_ITS | Encounter Summary ---
Author Organization [employer] Address [address] [facility] 7t [place] [address] Care Team Providers Care Hand Edge Bander Name Role Phone Chasidy Kimbrough MD Primary Care Provider [phone] Reason for Referral * Consultation (Routine) - Closed Specialty Diagnoses / Procedures Referred By Conthemal t Referred To Contact Gastroenterology Diagnoses Other dysphagia Chasidy Kimbrough MD [address] [place] [address] Phone: tel: fax: [facility] [address] [place] [phone] Phone: tel: fax: Referral ID Status Reason Start Date Expiration Date V isits Requested Visits Authorized [id number] Closed Specialty Services Required 01/02/2024 01/01/2025 6 6 Encounter Details Date Type Department Care Team (Late st Contact Info) Description 12/30/2023 Orders Only [facility] [address] [place], [place] [phone] Chasidy Kimbrough MD [address] [place], [place] [phone] Other dysphagia (Primary Dx) Social History Tobacco [...] documented as of this encounter Care Teams Hand Edge Bander Relationship Specialty Start Date End Date Chasidy Kimbrough MD [address] [place] [address] PCP - General Family Medicine 02/14/21 documented as of this encounter
--- OUTSIDE RECORDS SUMMARY | 2025-05-05 14:58 | XMS_ITS | Encounter Summary ---
Author Organization [employer] Address [address] [facility] [address] [place] [address] Care Team Providers Care Riveter Pneumatic Name Role Phone Chasidy Kimbrough MD Primary Care Provider [phone] Encounter Details Date Type Department Care Team (Late st Contact Info) Description 12/20/2024 Orders Only [facility] MED[facility] [address] [place], [place] [phone] Chasidy Kimbrough MD [address] [place], [place] [phone] Social History Tobacco Use Types Packs/Day Years [...] documented as of this encounter Care Teams Riveter Pneumatic Relationship Specialty Start Date End Date Chasidy Kimbrough MD [address] [place] [phone] PCP - General Family Medicine 02/14/21 documented as of this encounter
--- OUTSIDE RECORDS SUMMARY | 2025-05-05 14:58 | XMS_ITS | Encounter Summary ---
Author Organization [employer] Address [address] [facility] [address] [place] [address] Care Team Providers Care Primer Waterproofing Machine Operator Name Role Phone Chasidy Kimbrough MD Primary Care Provider [phone] Reason for Visit * Reason Comments Med Refill Encounter Details Date Type Department Care Team ([facility] st Contact Info) Description 03/01/2025 Refill [facility] [address] [place] [address] Chasidy Kimbrough MD [address] [place], [place] [phone] Social History Tobacco Use Types Packs/Day Years [...] your housing situation today? I have maddie cih 04/28/[address] you li [...] documented as of this encounter Care Teams Primer Waterproofing Machine Operator Relationship Specialty Start Date End Date Chasidy Kimbrough MD [address] [place] [phone] PCP - General Family Medicine 02/14/21 documented as of this encounter
== END 2025-05-05 15:19 | disposition home or self-care (01) ==
LOC: HO.HPS 14:40
PROVIDERS: PCP General Practice; Visit Provider Internal Medicine Pulmonary Disease
DX: J45.909 Unspecified asthma, uncomplicated (principal); R91.8 Other nonspecific abnormal finding of lung field
CPT/HCPCS: 99214

== ENCOUNTER → 2025-05-05 14:40 | Outpatient (BNVA) | payer MEDICAID, SELFPAY | PROVIDERS: PCP General Practice; Visit Provider Internal Medicine Pulmonary Disease | DX: R91.8 Other nonspecific abnormal finding of lung field (principal); J45.909 Unspecified asthma, uncomplicated | CPT/HCPCS: 99212 ==